=== PATIENT | female | born 2000 | race Caucasian/White ===

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

== ENCOUNTER → 2019-02-25 14:05 | Outpatient (CLI) | payer OTHER, SELFPAY | PROVIDERS: Visit Provider Family Medicine | DX: N30.00 Acute cystitis without hematuria (principal) | CPT/HCPCS: 87086; 87088; 87186 ==

== ENCOUNTER 2019-07-24 06:26 | Outpatient (CLI) | payer OTHER, SELFPAY ==
[2019-07-24 06:44] VITALS: BMI 36.6
[2019-07-24 06:53] VITALS: BP 123/69; PULSE 128; RESP 18; TEMP 37.2; O2SAT 99; BMI 36.6
[2019-07-24 06:59] LABS: Microscopic, Urine URINE MICROSCOPIC (MICROSCOPIC)
[2019-07-24 07:02] LABS: Appearance,Urine SL CLOUDY (Clear); Bilirubin,Urine Negative (Negative); Blood, Urine 2+ (Negative); Color,Urine YELLOW (Yellow); Glucose,Urine (UA) Negative (Negative); Ketones,Urine Negative (Negative); Leukocyte Esterase,Urine Negative (Negative); Nitrate,Urine POSITIVE (Negative); Protein,Urine 2+ (Negative); Specific Gravity, Urine 1.025 (1.005-1.030); Urobilinogen,Urine 0.2 EU/dl (0.2)
[2019-07-24 07:13] LABS: Bacteria,Urine 1+ /lpf; Mucus,Urine 1+ /lpf
[2019-07-24 07:13] LABS: Amphetamine/Metha Screen,Urine Negative ng/ml (<1000); Benzodiazepines Screen,Urine Negative ng/ml (<200)
[2019-07-24 07:14] LABS: Barbiturates Screen,Urine Negative ng/ml (<200); Cannabinoid Screen,Urine Negative ng/ml (<50)
[2019-07-24 07:15] LABS: Cocaine Screen,Urine Negative ng/ml (<300)
[2019-07-24 07:16] LABS: Methadone Screen,Urine Negative ng/ml (<300); Opiate Screen,Urine Negative ng/ml (<300)
[2019-07-24 07:17] LABS: Phencyclidine Screen,Urine Negative ng/ml (<25)
[2019-07-24 08:09] LABS: Basophils % 0.2 % (0.1-2.0); Eosinophils # 0.3 K/mm3 (0.0-0.4); Eosinophils % 1.8 % (0.1-12.0); Hematocrit 34.6 % (37.0-47.0); Hemoglobin 11.7 g/dL (12.2-16.2); Lymphocytes # 0.8 K/mm3 (0.7-4.5); Lymphocytes % 4.7 % (10-50); Mean Corpuscular HGB Conc 33.7 g/dL (31.8-35.4); Mean Corpuscular Hemoglobin 30.2 pg (27.0-31.2); Mean Corpuscular Volume 89.5 fl (81-99); Mean Platelet Volume 8.3 fl (7.4-10.4); Monocytes # 0.7 K/mm3 (0.1-1.0); Monocytes % 4.2 % (1.7-9.3); Neutrophils # 14.4 K/mm3 (1.8-7.8); Neutrophils % 89.1 % (37.0-80.0); Platelet Count 282 K/mm3 (142-424); Red Blood Count 3.86 M/mm3 (4.20-5.40); Red Cell Distribution Width 13.1 % (11.5-17.5); White Blood Count 16.2 K/mm3 (4.5-13.0)
[2019-07-24 08:10] LABS: Chloride 105 mmol/L (98-107); Sodium 133 mmol/L (136-145)
[2019-07-24 08:12] LABS: Blood Urea Nitrogen 5 mg/dl (7-17); Creatinine Clearance Estimated 333 mL/min (50-200); Estimated Glomerular Filt Rate 203 ml/min (>60); GFR (African American) 246 ML/MIN (>60)
[2019-07-24 08:13] LABS: Alanine Aminotransferase 50 U/L (12-78); Albumin Level 3.4 g/dl (3.5-5.0); Albumin/Globulin Ratio 1.1 (1.1-1.8); Alkaline Phosphatase 71 U/L (38-126); Aspartate Amino Transferase 28 U/L (14-36); Bilirubin,Total 0.4 mg/dl (0.2-1.3); Calcium 8.9 mg/dl (8.4-10.2); Carbon Dioxide 20 mmol/L (22.0-30.0); Globulin 3.1 g/dL (1.3-3.2); Glucose 102 mg/dl (74-100); Total Protein,Serum 6.5 g/dl (6.3-8.2)
[2019-07-24 08:23] LABS: MANUAL DIFFERENTIAL MANUAL DIFFERENTIAL (MANUAL DIFF)
[2019-07-24 08:46] LABS: Eosinophils % 1 % (0-3); Lymphocytes % 8 % (10-50); Monocytes % 7 % (2-9); Neutrophils % 84 % (42-76); Platelet Estimate Normal; RBC Morphology Normal; Total Cells Counted 100
== END 2019-07-24 09:19 | disposition home or self-care (01) ==
LOC: OBOUT 06:30 → OB 06:33
PROVIDERS: Nurse Practitioner Obstetrics & Gynecology; PCP Family Medicine; Visit Provider Obstetrics & Gynecology
DX: O26.899 Other specified pregnancy related conditions, unspecified trimester (principal); Z3A.27 27 weeks gestation of pregnancy; R10.9 Unspecified abdominal pain
CPT/HCPCS: 59025; 80053; 80305; 81001; 85007; 85025; 96365; 96367; G0463

== ENCOUNTER 2019-10-23 19:19 | Outpatient (CLI) | payer OTHER, SELFPAY ==
[2019-10-23 19:30] VITALS: BP 155/102; PULSE 72; RESP 18; TEMP 37.1; O2SAT 100
--- NOTE | 2019-10-23 19:30 | PC.NURSE ---
PT ARRIVED COMPLAINING OF ELEVATED BLOOD PRESSURE AND SWELLING.DENIES ANY HX OF PREECLAMPSIA.REPORTS SHE DELIVERED OCTOBER [address] AT [facility] [address] A DR.LAURA HUTTON.IT WAS A VAG.DELIVERY WITHOUT ANY COMPLICATIONS.SWELLING NOTED 1+ PITTING IN BLE.DENIES ANY H/A OR BLURRED VISION,STATES SHE HAS HAD SOME H/A BUT NOT NOW.DTR'S NORMAL.
[2019-10-23 19:36] VITALS: BMI 38.6
[2019-10-23 19:45] VITALS: BP 134/80; PULSE 62
[2019-10-23 19:48] LABS: Microscopic, Urine URINE MICROSCOPIC (MICROSCOPIC)
[2019-10-23 19:50] LABS: Appearance,Urine CLEAR (Clear); Bilirubin,Urine Negative (Negative); Blood, Urine 3+ (Negative); Color,Urine STRAW (Yellow); Glucose,Urine (UA) Negative (Negative); Ketones,Urine Negative (Negative); Leukocyte Esterase,Urine 2+ (Negative); Nitrate,Urine Negative (Negative); Protein,Urine 1+ (Negative); Urobilinogen,Urine 0.2 EU/dl (0.2)
[2019-10-23 20:00] VITALS: BP 147/72; BP 155/102; PULSE 61; PULSE 72; RESP 18; TEMP 37.1; O2SAT 100; BMI 38.6
[2019-10-23 20:15] VITALS: BP 149/85; PULSE 58; RESP 18
[2019-10-23 20:25] LABS: Bacteria,Urine 2+ /lpf
--- NOTE | 2019-10-23 20:30 | PC.NURSE ---
NOTIFIED OF PT ARRIVAL AND COMPLAINTS.DTR'S NORMAL.1+ EDEMA IN BLE,B/P WAS 155/102,LASTFEW WAS 134/80,147/72,149/85,NO COMPLAINS OF TORRES OR BLURRED VISION,REPORTS HAS HAD ONE BUT NOT NOW.UA HAD 1+ PROTEIN AND 3+ BLOOD.PT STILL HAS LOCHIA.2+LEUKS.REPORT FOR PT TO GO HOME,IF HAS A SEVERE H/A OR BLURRED VISION NEEDS TO BE SEEN AGAIN.CALL TOMORROW TO BE SEEN LATER THIS WEEK.
== END 2019-10-23 20:40 | disposition home or self-care (01) ==
LOC: OBOUT 19:23 → OB 19:35
PROVIDERS: PCP Family Medicine; Visit Provider Nurse Practitioner Obstetrics & Gynecology
DX: O14.95 Unspecified pre-eclampsia, complicating the puerperium (principal)
CPT/HCPCS: 81001; 87086; 87088; 87186

== ENCOUNTER 2020-04-01 16:31 | Emergency (ER) | payer OTHER, SELFPAY ==
[2020-04-01 16:40] VITALS: BP 142/91; PULSE 96; RESP 20; TEMP 37; O2SAT 100; BMI 35.4
--- NOTE | 2020-04-01 16:59 | HMH.EDUTC ---
[facility] [place] Clinical Impression: Fever, unknown origin Disposition: Home, Self-Care Condition on Discharge: Good Instructions: DI for Fever (Symptom) -- Adult, DI for COVID-19 (Suspected or Confirmed ), Preventing the Spread of Coronavirus Discharge Instructions Additional Instructions: Follow up with your Family Doctor or return if symptoms persist REturn if needed Straight to ER if any life threatening symptoms Referrals: Princess Philip MD [Primary Care Provider] - As needed Forms: Work/School Release Time of Disposition: 17:03 Medical Decision Making - Corey Inquiry Pt receiving controlled substance: No Corey was queried for this patient: No Vital Signs: 04/01/20 16:40 04/01/20 17:03 Temperature 98.6 F 98.6 F Temperature Source Oral Pulse Rate 96 H Pulse Rate [Right Brachial] 96 H Respiratory Rate 20 20 Blood Pressure 142/91 H Blood Pressure [Right Arm] 142/91 H Blood Pressure Mean [Right Arm] 108 Blood Pressure Source [Right Arm] Automatic Cuff Blood Pressure Position [Right Arm] Sitting 02 Sat by Pulse Oximetry 100 Oxygen Delivery Method Room Air Orders (Tests/Meds): ORDERS Category Date Time Status Covid-19 Nasal PCR Sendout P&C Stat Lab 04/01/20 16:40 Received Medical Decision Narrative: 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 patient advised that she is not having any symptoms and did not want to have the nasal swab done Patient informed that if she had COVID she could be spreading it and recommended again testing and patient still declined After speaking with patient again she agreed to be tested then upon obtaining COVID test patient become upset and again refused testing patient informed that again of risks if she had COVID and patient still declined testing Upon discharge patient agreed to be tested for COVID Swab completed and patient dc'd [place] [facility] [place] - General Stated complaint: covid test Time Seen by Provider: 04/01/20 16:59 Mode of Arrival: Ambulatory Source of Information: Patient Limitations: No Limitations Description of Symptoms (Recalled from Triage Doc. by RN): PATIENT SENT FOR COVID TEST PER [facility] D/T FEVER. 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 States that she thought the thermometer wasnt working so she checked herself and it showed that she had a temp States that Nedra at the daycare told her that she had a fever and she had to come over and get tested for COVID States that she is not having any symtpoms and does not want the test - Related Data Home Medications Medication Instructions Recorded Confirmed Pnv No.95/Ferrous Fum/Folic AC 1 each PO DAILY 04/14/19 04/14/19 [ Caplet] Allergies Allergy/AdvReac Type Severity Reaction Status Date / Time No Known Allergies Allergy Verified 12/15/18 18:23 - Worker's Comp Is this a Worker's Comp case?: No [facility] History - Hepatitis A Screen Drug use history?: No High risk sexual behaviors?: No History of sexually transmitted infection?: No Currently employed?: No Childcare worker?: No Do you have indoor plumbing?: Yes Do you have electricity?: Yes Attestation statement:: This patient has been screened for Hepatitis A risk factors. I have reviewed the patient's past medical history: Yes Medical History: Denies:: Diabetes Mellitus Type 1, Diabetes Mellitus Type 2 Other Surgeries: No: - Social History Alcohol Intake: never Occupational Status: other ROS Obtained: Yes All systems reviewed & no additional complaints, Yes Systems reviewed as appropriate & no a
--- NOTE | 2020-04-01 17:01 | PC.NURSE ---
Pt came in to be tested for covid. She stated she was not willing to do the nasal swab and refused so order was cancelled.
[2020-04-01 17:03] VITALS: BP 142/91; PULSE 96; RESP 20; TEMP 37; O2SAT 100
--- NOTE | 2020-04-06 15:16 | PC.NURSE ---
Patient notified of positive COVID results. Educated on quarantine.
== END 2020-04-01 17:05 | disposition home or self-care (01) ==
PROVIDERS: Emergency Provider Nurse Practitioner; PCP Family Medicine
DX: Z20.828 Contact with and (suspected) exposure to other viral communicable diseases (principal); R50.9 Fever, unspecified
CPT/HCPCS: 99201; U0003; U0004

== ENCOUNTER 2020-04-22 18:07 | Emergency (ER) | payer OTHER, SELFPAY ==
[2020-04-22 19:05] VITALS: BP 125/95; PULSE 75; RESP 16; TEMP 36.5; O2SAT 100; BMI 38.9
--- NOTE | 2020-04-22 19:27 | HMH.EDUTC ---
[facility] [place] Disposition Clinical Impression: UTI (urinary tract infection) Qualifiers: Urinary tract infection type: site unspecified Hematuria presence: with hematuria Qualified Code(s): N39.0 - Urinary tract infection, site not specified Disposition: Home, Self-Care Condition on Discharge: Good Instructions: DI for Urinary Tract Infection (UTI), Phenazopyridine Additional Instructions: Drink plenty of fluids. Take tylenol or ibuprofen for pain or fever. Take the medications as directed. Follow up with your regular doctor. GO TO THE ER FOR ANY WORSENING SYMPTOMS The pyridium will make your urine turn orange, this is an expected side effect. It will stain your clothes if it comes into contact with them. Prescriptions: Nitrofurantoin Monohyd/M-Cryst [Macrobid 100 mg Capsule] 100 mg PO BID 5 Days #10 cap Transmission Status: Received by [id number] Phenazopyridine HCl [Pyridium 200mg Tablet] 200 pow PO TID #6 tab Transmission Status: Received by [id number] Referrals: Princess Philip MD [Primary Care Provider] - Time of Disposition: 19:43 Medical Decision Making - Medical Records Medical records reviewed: No: I reviewed the patient's medical records. - Corey Inquiry Pt receiving controlled substance: No Vital Signs: 04/22/20 19:05 04/22/20 19:44 Temperature 97.7 F 97.7 F Temperature Source Oral Pulse Rate 75 Pulse Rate [Left Brachial] 75 Respiratory Rate 16 16 Blood Pressure 125/95 H Blood Pressure [Left Arm] 125/95 H Blood Pressure Mean [Left Arm] 105 Blood Pressure Source [Left Arm] Automatic Cuff Blood Pressure Position [Left Arm] Sitting 02 Sat by Pulse Oximetry 100 Oxygen Delivery Method Room Air - Lab Data Lab results reviewed: Yes: I reviewed the patient's lab results. Orders (Tests/Meds): ORDERS Category Date Time Status Urine Culture Stat Micro 04/22/20 19:30 Received [facility] [place] HPI - General Stated complaint: poss UTI Time Seen by Provider: 04/22/20 19:27 Mode of Arrival: Ambulatory Source of Information: Patient Limitations: No Limitations Description of Symptoms (Recalled from Triage Doc. by RN): PATIENT C/O LOWER BACK PAIN, DARK URINE, STOMACH PAIN, URINARY FREQUENCY AND DARK COLORED URINE X 3 WEEKS. WAS PREVIOUSLY TREATED BY PCP BUT STATES SHE DOES NOT FEEL BETTER HEENT Symptoms (Recalled from RN notes): No Resp Symptoms (Recalled from RN notes): No Skin Symptoms (Recalled from RN notes): No MS Symptoms (Recalled from RN notes): No Functional Status (Recalled from RN notes): WNL - History of Present Illness Provider Complaint: She c/o dysuria, low back pain and urinary frequency for the past 5 days. She was treated for a uti about 3 weeks ago. She states that she got better then, but her symptoms came back. - Related Data Home Medications Medication Instructions Recorded Confirmed norethindrone-e.estradioL-iron 1 tab PO DAILY 04/22/20 04/22/20 [Junel Fe 1 mg-20 Mcg Tablet] Previous Rx's Medication Instructions Recorded Nitrofurantoin Monohyd/M-Cryst 100 mg PO BID 5 Days #10 cap 04/22/20 [Macrobid 100 mg Capsule] Phenazopyridine HCl [Pyridium 200 pow PO TID #6 tab 04/22/20 200mg Tablet] Allergies Allergy/AdvReac Type Severity Reaction Status Date / Time No Known Allergies Allergy Verified 12/15/18 18:23 - Worker's Comp Is this a Worker's Comp case?: No [facility] History - Hepatitis A Screen Drug use history?: No High risk sexual behaviors?: No History of sexually transmitted infection?: No Currently employed?: No Childcare worker?: No Do you have indoor plumbing?: Yes Do you have electricity?: Yes Attestation statement:: This patient has been screened for Hepatitis A risk factors. I have reviewed the patient's past medical history: Yes Medical History: Denies:: Diabetes Mellitus Type 1, Diabetes Mellitus Type 2 Other Surgeries: No: - Social History Alcoho
[2020-04-22 19:44] VITALS: BP 125/95; PULSE 75; RESP 16; TEMP 36.5; O2SAT 100
[2020-04-22 21:21] LABS: Apearance,Urine Clear (Clear); Bilirubin,Urine Negative (Negative); Blood, Urine 2+ (Negative); Color,Urine Yellow (Yellow); Glucose,Urine (UA) Negative (Negative); Ketones,Urine Negative (Negative); PH,Urine 5.5 (5.0-8.5); Protein,Urine Negative (Negative); Specific Gravity, Urine >= 1.030 (1.005-1.030); Urobilinogen,Urine 0.2 EU/dl (0.2)
[2020-04-22 21:22] LABS: UTC Leukocyte Esterase,Urine Negative (Negative); UTC Nitrate,Urine Negative (Negative)
== END 2020-04-22 19:48 | disposition home or self-care (01) ==
LOC: ER 18:11 → UTC 18:21
PROVIDERS: Emergency Provider Nurse Practitioner Family; PCP Family Medicine
DX: N30.00 Acute cystitis without hematuria (principal)
CPT/HCPCS: 81003; 87086; 99202; G0463

== ENCOUNTER → 2020-05-10 15:11 | Outpatient (CLI) | payer OTHER, SELFPAY ==
--- NOTE | 2020-05-10 15:11 | US_ITS ---
PROCEDURE: US TRANSVAGINAL CLINICAL INDICATION: US T/V-pelvic pain COMPARISON: No exams were available for comparison FINDINGS: UTERUS: 6cm x 4cmx 3cm with a combined endometrial thickness of 6.6mm LEFT OVARY: [id number] with a volume of 9.8ml. RIGHT OVARY: [id number] with a volume of 6.6ml. There are numerous left ovarian follicles with more than 10 on 1 image. Numerous right ovarian follicles also noted. The right ovary is less well demonstrated than the left side. IMPRESSION: Polycystic ovarian appearance of the ovaries. Please correlate with clinical parameters. Dictated by: George Rodriguez MD 05/10/2020 17:24 George Rodriguez MD in OV 05/10/2020 17:24
== END ==
PROVIDERS: PCP Family Medicine; Visit Provider Obstetrics & Gynecology
DX: R10.2 Pelvic and perineal pain (principal)
CPT/HCPCS: 76830

== ENCOUNTER 2020-05-13 15:24 | Emergency (ER) | payer OTHER, SELFPAY ==
[2020-05-13 15:25] VITALS: BP 136/68; PULSE 89; RESP 20; TEMP 36.3; O2SAT 97; BMI 38.9
--- NOTE | 2020-05-13 15:41 | HMH.EDUTC ---
[facility] [place]ression: Strep throat Disposition: Home, Self-Care Condition on Discharge: Good Instructions: DI for Strep Throat, Strep Throat, Strep Throat (Alternative Therapy), Amoxicillin Additional Instructions: *Monitor Temp, Over the counter Motrin or Tylenol as directed/as needed Tylenol every 4 hours and Motrin every 6 hours (as long as your family doctor has told you that you can take it) for fever or pain. and straight to ER if unable to lower temp less than 101.0 after medication given *Warm salt water gargles may help to soothe the throat *Throat Lozenges *Warm fluids like tea with honey may help to soothe the throat *Sleep elevated *Humidifier/Vaporizer *If you did not take Penicillin shot or was unable to, start taking antibiotic immediately and make sure that you take it for the FULL length of time although you should start to feel better in 24-48 hours *change toothbrush and toothpaste 24-48 hours after starting to take antibiotics so you do not reinfect yourself Monitor Temp. Tylenol and/or Ibuprofen as needed. ER if fever is no less than 101 despite alternating Tylenol and Ibuprofen * Encourage fluids, water, Gatorade, powerade, pedialyte if /toddler/or child *Cold fluids, popsicles and ice cream may feel good on his throat * Follow up IMMEDIATELY for new or worsening symptoms or no Noticeable improvement over the next 48-72 hours. 911 for difficulty breathing or swallowing You were tested for today for COVID19 your test result should be back in the next 24-48 hours, you may call to the [facility] to see if your test results are back in the next 48 hours [phone] [facility] hours are 9am-9pm You was given a handout with instructions for Self Quarantine and Self isolation for while you wait on test results and what to do if they are positive If you are positive the Health Dept will be contacting you also Prescriptions: Amoxicillin [Amoxicillin 500mg Cap] 500 mg PO BID 10 Days #20 cap Transmission Status: Pending to [facility] Brompheniramine/Pseudoephed/Dm [Bromfed Dm Cough Syrup] 5 - 10 ml PO Q46H PRN #150 ml PRN Reason: Cough Transmission Status: Pending to [facility] Referrals: Princess Philip MD [Primary Care Provider] - As needed Forms: Work/School Release Time of Disposition: 15:49 Medical Decision Making - Corey Inquiry Pt receiving controlled substance: No Corey was queried for this patient: No Vital Signs: 05/13/20 15:25 Temperature 97.4 F L Temperature Source Oral Pulse Rate [Right Brachial] 89 Respiratory Rate 20 Blood Pressure [Right Arm] 136/68 Blood Pressure Mean [Right Arm] 90 Blood Pressure Source [Right Arm] Automatic Cuff Blood Pressure Position [Right Arm] Sitting 02 Sat by Pulse Oximetry 97 Oxygen Delivery Method Room Air - Lab Data Lab results reviewed: Yes: I reviewed the patient's lab results. Orders (Tests/Meds): ORDERS Category Date Time Status Covid-19 Nasal PCR ([facility]) Routine Lab 05/13/20 15:26 Ordered [facility] [place] - General Stated complaint: covid test Time Seen by Provider: 05/13/20 15:41 Mode of Arrival: Ambulatory Source of Information: Patient Limitations: No Limitations Description of Symptoms (Recalled from Triage Doc. 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
[2020-05-13 15:44] LABS: UTC Pregnancy Test, Urine Negative (Negative); UTC Strep Screen (Rapid) Positive (Negative)
[2020-05-13 15:51] VITALS: BP 136/68; PULSE 89; RESP 20; TEMP 36.3; O2SAT 97
== END 2020-05-13 15:58 | disposition home or self-care (01) ==
PROVIDERS: Emergency Provider Nurse Practitioner; PCP Family Medicine
DX: Z20.822 Contact with and (suspected) exposure to COVID-19 (principal); J02.0 Streptococcal pharyngitis
CPT/HCPCS: 81025; 87880; 99202; G0463; U0003

== ENCOUNTER 2020-05-15 14:39 | Emergency (ER) | payer OTHER, SELFPAY ==
[2020-05-15 14:44] VITALS: BP 131/77; PULSE 89; RESP 18; TEMP 36.7; O2SAT 98; BMI 40.2
--- NOTE | 2020-05-15 14:58 | HMH.EDGENADL ---
ED Disposition Clinical Impression: Pelvic pain, Polycystic bilateral ovaries Disposition: Home, Self-Care Condition on Discharge: Good Additional Instructions: Tylenol as needed for pain. Follow-up with Dr. Alexander in her office. Call for appointment. Additional instructions for ABDOMINAL PAIN: Return immediately if worsening abdominal pain, vomiting, shortness of breath, fever, vomiting of blood or abdominal distention. Referrals: Princess Philip MD [Primary Care Provider] - - Critical Care Critical Care Time: No Attestation: On , the high probability of a clinically significant, sudden or life threatening deterioration of the following system(s) required my full and direct attention, intervention and personal management. The time I documented below is in addition to time spent performing reported procedures but includes the following listed in this critical care notation. Medical Decision Making - Medical Records Medical records reviewed: Yes: I reviewed the patient's medical records. MR Comment: Reviewed [facility] visit 05/13/2020. Positive rapid strep. Negative Covid test. Reviewed ultrasound results, see below. Reviewed clinic visit with Dr. Alexander 05/06/2020. Diagnosed with pelvic pain and dysfunctional uterine bleeding. Changed oral contraceptive pill to Sprintec. Urine analysis was negative. Reviewed [facility] visit on 04/22/2020. Back and abdominal pain. Diagnosed with UTI. Urine analysis showed only blood. Urine culture showed multiple organisms, probable contamination. - Corey Inquiry Pt receiving controlled substance: No Vital Signs: 05/15/20 14:44 Temperature 98.0 F Temperature Source Oral Pulse Rate [Right Radial] 89 Respiratory Rate 18 Blood Pressure [Right Arm] 131/77 Blood Pressure Mean [Right Arm] 95 Blood Pressure Source [Right Arm] Automatic Cuff Blood Pressure Position [Right Arm] Sitting 02 Sat by Pulse Oximetry 98 Oxygen Delivery Method Room Air - Lab Data Lab Results 05/15/20 14:56: WBC 5.9, RBC 5.01, Hgb 13.8, Hct 43.1, MCV 86.1, MCH 27.6, MCHC 32.0, RDW 13.8, Plt Count 276, MPV 7.5, Neut % (Auto) 64.2, Lymph % (Auto) 28.9, Wells % (Auto) 4.7, Eos % (Auto) 1.4, Baso % (Auto) 0.8, Neut # (Auto) 3.8, Lymph # (Auto) 1.7, Wells # (Auto) 0.3, Eos # (Auto) 0.1, Baso # (Auto) 0.1 05/15/20 14:56: Sodium 140, Potassium 3.7, Chloride 109 H, Carbon Dioxide 27, Anion Gap 7.7, BUN 16, Creatinine 0.70, Estimated Creat Clear 202, Estimated GFR 107, Est GFR ( Amer) 129, Glucose 85, Calcium 9.4, Total Bilirubin 0.2, AST 27, ALT 30, Alkaline Phosphatase 93, Total Protein 8.1, Albumin 4.2, Globulin 3.9 H, Albumin/Globulin Ratio 1.1 05/15/20 15:09: Urine Color Yellow, Urine Appearance Sl cloudy, Urine pH 6.0, Ur Specific [place] >= 1.030, Urine Protein Negative, Urine Glucose (UA) Negative, Urine Ketones Negative, Urine Blood Negative, Urine Nitrate Negative, Urine Bilirubin Negative, Urine Urobilinogen 0.2, Ur Leukocyte Esterase Negative, Ur Squamous Epith Cells 5-10 05/15/20 15:09: Urine HCG, Qual Negative Result diagrams: 05/15/20 14:56 05/15/20 14:56 - Reevaluation(s) Time: 15:35 Reevaluation #1: sitting up on side of stretcher, using smart phone. Declines any medication for pain or nausea, declines Toradol and Zofran. states she will take Tylenol. Declines any prescriptions for nausea. Medical Decision Narrative: prior US: PROCEDURE: US TRANSVAGINAL CLINICAL INDICATION: US T/V-pelvic pain COMPARISON: No exams were available for comparison FINDINGS: UTERUS: 6cm x 4cmx 3cm with a combined endometrial thickness of 6.6mm LEFT OVARY: [id number] with a volume of 9.8ml. RIGHT OVARY: [id number] with a volume of 6.6ml. There are numerous left ovarian follicles with more than 10 on 1 image. Numerous right ovarian follicles also noted. The right ovary is less well demonstrated than the left side. IMPRESSION: Polycystic ovarian appearance of the ovar
[2020-05-15 15:12] LABS: Basophils # 0.1 K/mm3 (0-0.2); Basophils % 0.8 % (0.1-2.0); Eosinophils # 0.1 K/mm3 (0.0-0.4); Eosinophils % 1.4 % (0.1-12.0); Hematocrit 43.1 % (37.0-47.0); Hemoglobin 13.8 g/dL (12.2-16.2); Lymphocytes # 1.7 K/mm3 (0.7-4.5); Lymphocytes % 28.9 % (10-50); Mean Corpuscular Hemoglobin 27.6 pg (27.0-31.2); Mean Corpuscular Volume 86.1 fl (81-99); Mean Platelet Volume 7.5 fl (7.4-10.4); Monocytes # 0.3 K/mm3 (0.1-1.0); Monocytes % 4.7 % (1.7-9.3); Neutrophils # 3.8 K/mm3 (1.8-7.8); Neutrophils % 64.2 % (37.0-80.0); Platelet Count 276 K/mm3 (142-424); Red Blood Count 5.01 M/mm3 (4.20-5.40); Red Cell Distribution Width 13.8 % (11.5-17.5); White Blood Count 5.9 K/mm3 (4.5-13.0)
[2020-05-15 15:13] LABS: Chloride 109 mmol/L (98-107)
[2020-05-15 15:14] LABS: Potassium 3.7 mmoL/L (3.5-5.1); Sodium 140 mmol/L (136-145)
[2020-05-15 15:15] LABS: Microscopic, Urine URINE MICROSCOPIC (MICROSCOPIC)
[2020-05-15 15:16] LABS: Alanine Aminotransferase 30 U/L (12-78); Aspartate Amino Transferase 27 U/L (14-36); Blood Urea Nitrogen 16 mg/dl (7-17); Creatinine Clearance Estimated 202 mL/min (50-200); Estimated Glomerular Filt Rate 107 ml/min (>60); GFR (African American) 129 ML/MIN (>60)
[2020-05-15 15:17] LABS: Albumin Level 4.2 g/dl (3.5-5.0); Albumin/Globulin Ratio 1.1 (1.1-1.8); Alkaline Phosphatase 93 U/L (38-126); Anion Gap 7.7 mEq/L (5-15); Bilirubin,Total 0.2 mg/dl (0.2-1.3); Calcium 9.4 mg/dl (8.4-10.2); Carbon Dioxide 27 mmol/L (22.0-30.0); Globulin 3.9 g/dL (1.3-3.2); Glucose 85 mg/dl (74-100); Total Protein,Serum 8.1 g/dl (6.3-8.2)
[2020-05-15 15:17] LABS: Appearance,Urine SL CLOUDY (Clear); Bilirubin,Urine Negative (Negative); Blood, Urine Negative (Negative); Color,Urine YELLOW (Yellow); Glucose,Urine (UA) Negative (Negative); Ketones,Urine Negative (Negative); Leukocyte Esterase,Urine Negative (Negative); Nitrate,Urine Negative (Negative); Protein,Urine Negative (Negative); Specific Gravity, Urine >= 1.030 (1.005-1.030); Urobilinogen,Urine 0.2 EU/dl (0.2)
[2020-05-15 15:19] LABS: Urine Pregnancy, HCG Qual. Negative (Negative)
[2020-05-15 16:01] VITALS: BP 113/64; PULSE 83; RESP 16; TEMP 36.9; O2SAT 99
== END 2020-05-15 16:03 | disposition home or self-care (01) ==
PROVIDERS: Emergency Provider Emergency Medicine; PCP Family Medicine
DX: N83.202 Unspecified ovarian cyst, left side (principal); N83.201 Unspecified ovarian cyst, right side
CPT/HCPCS: 80053; 81001; 81025; 85025; 99282

== ENCOUNTER → 2020-07-08 15:09 | Outpatient (CLI) | payer OTHER, SELFPAY ==
--- NOTE | 2020-07-08 15:09 | US_ITS ---
PROCEDURE: US TRANSVAGINAL CLINICAL INDICATION: pelvic pain COMPARISON: US US TRANSVAGINAL from 05/10/2020 FINDINGS: UTERUS: x 5cmx 3cm with a combined endometrial thickness of 9.4mm LEFT OVARY: [id number] with a volume of 5.8ml. RIGHT OVARY: 3cmx [id number] with a volume of 7.6ml. Multiple follicles in the ovaries bilaterally. No evidence of free fluid noted in the pelvic cul-de-sac. IMPRESSION: Negative pelvic ultrasound Dictated by: Lissett Mace 07/08/2020 16:15 Lissett Mace in OV 07/08/2020 16:15
== END ==
PROVIDERS: PCP Family Medicine; Visit Provider Obstetrics & Gynecology
DX: R10.2 Pelvic and perineal pain (principal)
CPT/HCPCS: 76830

== ENCOUNTER 2020-09-11 18:00 | Emergency (ER) | payer OTHER, SELFPAY ==
--- NOTE | 2020-09-11 17:52 | ECG_ITS ---
APPROVED REPORT Exam: Resting ECG HR:73 bpm ECG Measurements Heart Rate 73 AXES [place] 138 P 58 QRSd 84 QRS 30 QT 404 T 37 QTc 445 Conclusion Normal sinus rhythm Normal ECG Electronically signed by : Gustavo Aguilar, 09/13/2020 10:25:25
[2020-09-11 18:00] VITALS: BP 124/78; PULSE 79; RESP 20; TEMP 36.7; O2SAT 100; BMI 40.7
--- NOTE | 2020-09-11 18:04 | XR_ITS ---
PROCEDURE INFORMATION: Exam: XR Chest Exam date and time: 09/11/2020 6:04 PM Age: 20 years old Clinical indication: Patient HX: Chest pain for a week, called her doctor today was told to come to er for an ekg. TECHNIQUE: Imaging protocol: XR of the chest. Views: 2 views. COMPARISON: No relevant prior studies available. FINDINGS: Lungs: Unremarkable. No consolidation. Pleural spaces: Unremarkable. No pleural effusion. No pneumothorax. Heart/Mediastinum: Unremarkable. No cardiomegaly. Bones/joints: Unremarkable. IMPRESSION: No acute findings.
--- NOTE | 2020-09-11 18:05 | HMH.EDGENADL ---
ED Disposition Condition on Discharge: Good - Critical Care Critical Care Time: No <KietLuis M gao - Last Filed: 09/11/20 20:08> <Dong Kitchen - Last Filed: 09/11/20 21:15> Clinical Impression: Pleuritic chest pain, SOB (shortness of breath) Disposition: Home, Self-Care Instructions: DI for Atypical Chest Pain Additional Instructions: advil and tyenol and call pcp for follow up Referrals: Provider,Referral, MD [Referring] - Attestation: On 09/11/20, the high probability of a clinically significant, sudden or life threatening deterioration of the following system(s) required my full and direct attention, intervention and personal management. The time I documented below is in addition to time spent performing reported procedures but includes the following listed in this critical care notation. Medical Decision Making - Corey Inquiry Pt receiving controlled substance: No - Lab Data Result diagrams: 09/11/20 18:03 - Radiology Data #1 Image(s): Chest Image Reviewed: Yes I reviewed the patient's radiology image, Yes I have reviewed radiologist's interpretation <KietLuis M gao - Last Filed: 09/11/20 20:08> - Medical Records Medical records reviewed: Yes: I reviewed the patient's medical records. - Lab Data Lab results reviewed: Yes: I reviewed the patient's lab results. Result diagrams: 09/11/20 18:03 09/11/20 18:03 - CT Data CT Scan: Chest Time Received: 21:[address] Reviewed: Yes: I have viewed the radiologist's interpretation Preliminary Findings: Normal/NAD <Dong Kitchen - Last Filed: 09/11/20 21:15> Vital Signs: 09/11/20 18:00 09/11/20 19:25 09/11/20 20:31 Temperature 98.0 F Temperature Source Oral Pulse Rate 77 69 Pulse Rate [Left Radial] 79 Respiratory Rate 20 16 Blood Pressure 109/67 L 104/72 L Blood Pressure [Right Arm] 124/78 Blood Pressure Mean [Right Arm] 93 Blood Pressure Source [Right Arm] Automatic Cuff Blood Pressure Position [Right Arm] Sitting 02 Sat by Pulse Oximetry 100 100 100 Oxygen Delivery Method Room Air - Lab Data Lab Results 09/11/20 18:03: WBC 6.4, RBC 4.73, Hgb 13.5, Hct 40.4, MCV 85.4, MCH 28.6, MCHC 33.5, RDW 13.2, Plt Count 283, MPV 7.8, Neut % (Auto) 57.3, Lymph % (Auto) 35.1, [place] % (Auto) 5.8, Eos % (Auto) 1.1, Baso % (Auto) 0.6, Neut # (Auto) 3.6, Lymph # (Auto) 2.2, [place] # (Auto) 0.4, Eos # (Auto) 0.1, Baso # (Auto) 0.0 09/11/20 18:03: Sodium 137, Potassium 4.0, Chloride 107, Carbon Dioxide 24, Anion Gap 10.0, BUN 14, Creatinine 0.60, Estimated Creat Clear 244, Estimated GFR 126, Est GFR ( Amer) 153, Glucose 81, Calcium 8.7, Troponin I < 0.01 09/11/20 18:35: D-Dimer 0.79 H 09/11/20 18:48: Serum HCG, Qual Negative Orders (Tests/Meds): ED MEDICATIONS Discontinued Medications Generic Name Dose Route Start Last Admin Trade Name Freq PRN Reason Stop Dose Admin Iopamidol 70 ml 09/11/20 20:51 09/11/20 20:52 Iopamidol-370 (76%);100ml Bottle IV 09/11/20 20:52 70 ml ONCE ONE Administration Sodium Chloride 40 ml 09/11/20 20:51 09/11/20 20:52 0.9 % Sodium Chloride 50 Ml Vial IV 09/11/20 20:52 40 ml ONCE ONE Administration Sodium Chloride 10 ml 09/11/20 20:51 09/11/20 20:52 Sodium Chloride 0.9% 10ml Syr (Rad Only) IV 09/11/20 20:52 10 ml ONCE ONE Administration ORDERS Category Date Time Status Troponin I Q3H Lab 09/11/20 21:15 Ordered Troponin I Q3H Lab 09/12/20 00:15 Ordered - Radiology Data #1 PROCEDURE INFORMATION: Exam: XR Chest Exam date and time: 09/11/2020 6:04 PM Age: 20 years old Clinical indication: Patient HX: Chest pain for a week, called her doctor today was told to come to er for an ekg. TECHNIQUE: Imaging protocol: XR of the chest. Views: 2 views. COMPARISON: No relevant prior studies available. FINDINGS: Lungs: Unremarkable. No consolidation. Pleural spaces: Unremarkable. No pleural effusion. No pneum
[2020-09-11 18:31] LABS: Blood Urea Nitrogen 14 mg/dl (7-17); Calcium 8.7 mg/dl (8.4-10.2); Carbon Dioxide 24 mmol/L (22.0-30.0); Chloride 107 mmol/L (98-107); Creatinine Clearance Estimated 244 mL/min (50-200); Estimated Glomerular Filt Rate 126 ml/min (>60); GFR (African American) 153 ML/MIN (>60); Glucose 81 mg/dl (74-100); Sodium 137 mmol/L (136-145)
[2020-09-11 18:43] LABS: Basophils % 0.6 % (0.1-2.0); Eosinophils # 0.1 K/mm3 (0.0-0.4); Eosinophils % 1.1 % (0.1-12.0); Hematocrit 40.4 % (37.0-47.0); Hemoglobin 13.5 g/dL (12.2-16.2); Lymphocytes # 2.2 K/mm3 (0.7-4.5); Lymphocytes % 35.1 % (10-50); Mean Corpuscular HGB Conc 33.5 g/dL (31.8-35.4); Mean Corpuscular Hemoglobin 28.6 pg (27.0-31.2); Mean Corpuscular Volume 85.4 fl (81-99); Mean Platelet Volume 7.8 fl (7.4-10.4); Monocytes # 0.4 K/mm3 (0.1-1.0); Monocytes % 5.8 % (1.7-9.3); Neutrophils # 3.6 K/mm3 (1.8-7.8); Neutrophils % 57.3 % (37.0-80.0); Platelet Count 283 K/mm3 (142-424); Red Blood Count 4.73 M/mm3 (4.20-5.40); Red Cell Distribution Width 13.2 % (11.5-17.5); White Blood Count 6.4 K/mm3 (4.8-10.8)
[2020-09-11 18:50] LABS: Troponin I < 0.01 ng/ml (0.00-0.034)
[2020-09-11 19:25] VITALS: BP 109/67; PULSE 77; RESP 16; O2SAT 100
[2020-09-11 19:35] LABS: D-Dimer 0.79 ug/mL (0.0-0.5)
--- NOTE | 2020-09-11 19:46 | CT_ITS ---
PROCEDURE INFORMATION: Exam: CTA Chest With Contrast Exam date and time: 09/11/2020 7:46 PM Age: 20 years old Clinical indication: On breathing and other: Elevated d dimer; Patient HX: Elevated d dimer, SOB and chest pain; Additional info: SOA, cp, elev d-dimer TECHNIQUE: Imaging protocol: Computed tomographic angiography of the chest with contrast. 3D rendering (Not supervised by radiologist): MIP and/or 3D reconstructed images were created by the technologist. Radiation optimization: All CT scans at this facility use at least one of these dose optimization techniques: automated exposure control; mA and/or kV adjustment per patient size (includes targeted exams where dose is matched to clinical indication); or iterative reconstruction. Contrast material: ISOVUE 370; Contrast volume: 70 ml; Contrast route: INTRAVENOUS (IV); COMPARISON: CR XR CHEST 2V 09/11/2020 6:06 PM FINDINGS: Pulmonary arteries: Normal. No pulmonary emboli. Aorta: Unremarkable. No aortic aneurysm. No aortic dissection. Lungs: Unremarkable. No consolidation. No masses. Pleural spaces: Unremarkable. No pneumothorax. No pleural effusion. Heart: Unremarkable. No cardiomegaly. No pericardial effusion. Lymph nodes: Unremarkable. No enlarged lymph nodes. Bones/joints: Unremarkable. No acute fracture. Soft tissues: Unremarkable. IMPRESSION: No acute findings.
[2020-09-11 20:16] LABS: HCG Qualitative, Serum Negative (Negative)
[2020-09-11 20:31] VITALS: BP 104/72; PULSE 69; O2SAT 100
--- NOTE | 2020-09-11 20:40 | PC.NURSE ---
pt gone to radiology.
[2020-09-11 21:22] VITALS: BP 104/72; PULSE 71; RESP 16; TEMP 36.8; O2SAT 100
== END 2020-09-11 21:30 | disposition home or self-care (01) ==
PROVIDERS: Emergency Provider Emergency Medicine; PCP Family Medicine
DX: R07.81 Pleurodynia (principal); R06.02 Shortness of breath
CPT/HCPCS: 71046; 71275; 80048; 84484; 84703; 85025; 85378; 93005; 96374; 99282; Q9967

== ENCOUNTER 2020-10-21 18:08 | Emergency (ER) | payer OTHER, SELFPAY ==
[2020-10-21 18:25] VITALS: BP 131/76; PULSE 89; RESP 20; TEMP 36.9; O2SAT 99; BMI 42.5
--- NOTE | 2020-10-21 19:27 | HMH.EDUTC ---
[facility] [place] Disposition Clinical Impression: Strep throat Disposition: Home, Self-Care Condition on Discharge: Good Instructions: Strep Throat, DI for Strep Throat Additional Instructions: Drink plenty of fluids. Take tylenol or ibuprofen for pain or fever. Take the medications as directed. Follow up with your regular doctor. GO TO THE ER FOR ANY WORSENING SYMPTOMS Throw your tooth brush away and get a new one. Prescriptions: Brompheniramine/Pseudoephed/Dm [Bromfed Dm Cough Syrup] 5 ml PO Q6HP PRN #240 syrup PRN Reason: Cough Transmission Status: Received by [facility] Amoxicillin [Amoxicillin 500mg Tab] 500 mg PO TID 10 Days #30 tab Transmission Status: Received by [facility] predniSONE [Deltasone 10mg tablet] 10 mg PO BID 3 Days #6 tab Transmission Status: Received by [facility] Referrals: Princess Philip MD [Primary Care Provider] - Time of Disposition: 19:39 Medical Decision Making - Medical Records Medical records reviewed: No: I reviewed the patient's medical records. - Corey Inquiry Pt receiving controlled substance: No Vital Signs: 10/21/20 18:25 10/21/20 19:41 Temperature 98.4 F 98.4 F Temperature Source Oral Pulse Rate 89 Pulse Rate [Right Brachial] 89 Respiratory Rate 20 20 Blood Pressure 131/76 Blood Pressure [Right Arm] 131/76 Blood Pressure Mean [Right Arm] 94 Blood Pressure Source [Right Arm] Automatic Cuff Blood Pressure Position [Right Arm] Sitting 02 Sat by Pulse Oximetry 99 - Lab Data Lab Results 10/21/20 19:13: Strep Scn Rapid Clinic Positive A [facility] [place] HPI - General Stated complaint: possible strep Time Seen by Provider: 10/21/20 19:28 Mode of Arrival: Ambulatory Source of Information: Patient Limitations: No Limitations Description of Symptoms (Recalled from Triage Doc. by RN): PATIENT C/O SORE THROAT AND COUGH SINCE WEDNESDAY. CHILD RECENTLY DIAGNOSED WITH STREP HEENT Symptoms (Recalled from RN notes): Yes Resp Symptoms (Recalled from RN notes): No Skin Symptoms (Recalled from RN notes): No MS Symptoms (Recalled from RN notes): No Functional Status (Recalled from RN notes): WNL - History of Present Illness Provider Complaint: Her son was diagnosed with strep throat last week. She has had a sore throat for the past 2 days. She has also had some chilling at times and a very poor appetite. - Related Data Home Medications Medication Instructions Recorded Confirmed norethindrone-e.estradioL-iron 1 tab PO DAILY 04/22/20 09/11/20 [Junel Fe 1 mg-20 Mcg Tablet] Previous Rx's Medication Instructions Recorded Amoxicillin [Amoxicillin 500mg Tab] 500 mg PO TID 10 Days #30 tab 10/21/20 Brompheniramine/Pseudoephed/Dm 5 ml PO Q6HP PRN #240 syrup 10/21/20 [Bromfed Dm Cough Syrup] predniSONE [Deltasone 10mg tablet] 10 mg PO BID 3 Days #6 tab 10/21/20 Allergies Allergy/AdvReac Type Severity Reaction Status Date / Time No Known Allergies Allergy Verified 05/06/20 08:59 - Worker's Comp Is this a Worker's Comp case?: No [facility] History - Hepatitis A Screen Drug use history?: No High risk sexual behaviors?: No History of sexually transmitted infection?: No Currently employed?: No Childcare worker?: No Do you have indoor plumbing?: Yes Do you have electricity?: Yes Attestation statement:: This patient has been screened for Hepatitis A risk factors. I have reviewed the patient's past medical history: Yes Medical History: Denies:: Diabetes Mellitus Type 1, Diabetes Mellitus Type 2 Other Surgeries: No: Amputation: No Fractures: No - Social History Smoking Status: Never smoker Alcohol Intake: never Alcohol Intake Frequency:: holidays/special occasions only Substance Use Type: denies use Occupational Status: other Family Hx:: Cancer, Hypertension, Hyperlipidemia, Kidney Disease ROS Obtained: Yes All systems reviewed & no additional complaints - Constitutional Constitutional:
[2020-10-21 19:41] VITALS: BP 131/76; PULSE 89; RESP 20; TEMP 36.9; O2SAT 99
[2020-10-21 19:41] LABS: UTC Strep Screen (Rapid) Positive (Negative)
== END 2020-10-21 19:44 | disposition home or self-care (01) ==
PROVIDERS: Emergency Provider Nurse Practitioner Family; PCP Family Medicine
DX: J02.0 Streptococcal pharyngitis (principal)
CPT/HCPCS: 87880; 99202; G0463

== ENCOUNTER 2020-10-25 19:06 | Emergency (ER) | payer OTHER, SELFPAY ==
[2020-10-25 19:10] VITALS: BP 122/73; PULSE 78; RESP 20; TEMP 36.8; O2SAT 98; BMI 40.7
--- NOTE | 2020-10-25 19:12 | PC.NURSE ---
TDAP GIVEN TO PATIENT AT THIS TIME TO LEFT DELTOID. LOT#[id number] EXP.05/31/22
[2020-10-25 19:23] VITALS: BP 122/73; PULSE 78; RESP 20; TEMP 36.8; O2SAT 98
== END 2020-10-25 19:25 | disposition home or self-care (01) ==
PROVIDERS: Emergency Provider Nurse Practitioner Family; PCP Family Medicine
DX: Z23 Encounter for immunization (principal)
CPT/HCPCS: 90471

== ENCOUNTER 2020-12-02 18:02 | Emergency (ER) | payer OTHER, SELFPAY ==
[2020-12-02 19:07] VITALS: PULSE 95; RESP 16; TEMP 36.8; O2SAT 98; BMI 40.7
--- NOTE | 2020-12-02 19:20 | HMH.EDUTC ---
[facility] [place] Disposition Clinical Impression: Viral syndrome, Exposure to COVID-19 virus Pharyngitis Qualifiers: Pharyngitis/tonsillitis etiology: unspecified etiology Qualified Code(s): J02.9 - Acute pharyngitis, unspecified Disposition: Home, Self-Care Condition on Discharge: Good Instructions: DI for Pharyngitis/Tonsillopharyngitis -- Adult, DI for Viral Syndrome, Preventing the Spread of Coronavirus Discharge Instructions Additional Instructions: Drink plenty of fluids. Take tylenol or ibuprofen for pain or fever. Take the medications as directed. Follow up with your regular doctor. GO TO THE ER FOR ANY WORSENING SYMPTOMS Quarantine until you know the results of your covid-19 test. If it is positive, the health department should call you and give you further instructions about your length of Quarantine and other thing. Prescriptions: Guaifenesin/Dextromethorphan [Guaifenesin-Dm 200-20 mg/10 ml] 5 ml PO Q6HP PRN #240 liquid PRN Reason: Cough Transmission Status: Received by [facility] Azithromycin [Z-Kevin 250mg Tab*] 250 mg PO UD DOSE PK #6 tab Transmission Status: Received by [facility] Referrals: Princess Philip MD [Primary Care Provider] - Forms: Work/School Release Medical Decision Making - Medical Records Medical records reviewed: No: I reviewed the patient's medical records. - Croey Inquiry Pt receiving controlled substance: No Vital Signs: 12/02/20 19:07 12/02/20 19:39 Temperature 98.2 F 98.2 F Temperature Source Temporal Artery Scan Pulse Rate 95 H Pulse Rate [Right] 95 H Respiratory Rate 16 16 Blood Pressure 0/0 L 02 Sat by Pulse Oximetry 98 Oxygen Delivery Method Room Air Room Air - Lab Data Lab Results 12/02/20 19:10: Strep Scn Rapid Clinic Negative Orders (Tests/Meds): ORDERS Category Date Time Status Strep Screen Confirmation Stat Micro 12/02/20 19:10 Received [facility] [place] HPI - General Stated complaint: covid test/symptoms Time Seen by Provider: 12/02/20 19:20 Mode of Arrival: Ambulatory Source of Information: Patient Limitations: No Limitations Description of Symptoms (Recalled from Triage Doc. by RN): pt c/o covid symptoms and requesting covid test HEENT Symptoms (Recalled from RN notes): No Resp Symptoms (Recalled from RN notes): No Skin Symptoms (Recalled from RN notes): No MS Symptoms (Recalled from RN notes): No Functional Status (Recalled from RN notes): na - History of Present Illness Provider Complaint: She states that for the past 2 days she has had a scratchy sore throat, fever up to 101, cough, sinus congestion, nausea and diarrhea. She works at [employer]. She has been around multiple children that were sick and she is not sure what ended up being wrong with them. She denies any chest pain. - Related Data Home Medications Medication Instructions Recorded Confirmed norethindrone-e.estradioL-iron 1 tab PO DAILY 04/22/20 09/11/20 [Junel Fe 1 mg-20 Mcg Tablet] Previous Rx's Medication Instructions Recorded Amoxicillin [Amoxicillin 500mg Tab] 500 mg PO TID 10 Days #30 tab 10/21/20 Brompheniramine/Pseudoephed/Dm 5 ml PO Q6HP PRN #240 syrup 10/21/20 [Bromfed Dm Cough Syrup] predniSONE [Deltasone 10mg tablet] 10 mg PO BID 3 Days #6 tab 10/21/20 Azithromycin [Z-Kevin 250mg Tab*] 250 mg PO UD DOSE PK #6 tab 12/02/20 Guaifenesin/Dextromethorphan 5 ml PO Q6HP PRN #240 liquid 12/02/20 [Guaifenesin-Dm 200-20 mg/10 ml] Allergies Allergy/AdvReac Type Severity Reaction Status Date / Time No Known Allergies Allergy Verified 05/06/20 08:59 - Worker's Comp Is this a Worker's Comp case?: No [facility] History - Hepatitis A Screen Drug use history?: No High risk sexual behaviors?: No History of sexually transmitted infection?: No Currently employed?: No Childcare worker?: No Do you have indoor plumbing?: Yes Do you have electricity?: Yes Attestation statement:: This patient has been screened for He
[2020-12-02 19:39] VITALS: BP 0/0; PULSE 95; RESP 16; TEMP 36.8; O2SAT 98
--- NOTE | 2020-12-03 11:00 | PC.NURSE ---
Notified patient of positive results
[2020-12-03 11:56] LABS: UTC Strep Screen (Rapid) Negative (Negative)
== END 2020-12-02 19:40 | disposition home or self-care (01) ==
PROVIDERS: Emergency Provider Nurse Practitioner Family; PCP Family Medicine
DX: U07.1 COVID-19 (principal)
CPT/HCPCS: 87880; 99202; G0463; U0003

== ENCOUNTER 2020-12-08 11:02 | Emergency (ER) | payer OTHER, SELFPAY ==
[2020-12-08 12:46] VITALS: BP 126/81; PULSE 129; RESP 18; TEMP 37.2; O2SAT 97; BMI 40.7
--- NOTE | 2020-12-08 12:51 | HMH.EDUTC ---
[facility] [place] Disposition Clinical Impression: Chest pain, Dyspnea, COVID-19 Disposition: Still a Patient Condition on Discharge: Undetermined Prescriptions: Ciprofloxacin HCl [Cipro 500mg Tab] 500 mg PO BID 5 Days #10 tab Transmission Status: Pending to [facility] Referrals: Princess Philip MD [Primary Care Provider] - Time of Disposition: 14:28 Medical Decision Making - Corey Inquiry Pt receiving controlled substance: No Vital Signs: 12/08/20 12:46 12/08/20 14:03 Temperature 98.9 F 98 F Temperature Source Oral Oral Pulse Rate [Left] 129 H 115 H Respiratory Rate 18 24 Blood Pressure [Right Arm] 126/81 121/76 Blood Pressure Mean [Right Arm] 96 91 Blood Pressure Position [Right Arm] Sitting 02 Sat by Pulse Oximetry 97 98 Oxygen Delivery Method Room Air - Lab Data Lab Results 12/08/20 13:15: WBC 1.9 L*, RBC 5.26, Hgb 15.4, Hct 46.8, MCV 89.0, MCH 29.2, MCHC 32.9, RDW 13.3, Plt Count 205, MPV 8.5, Neut % (Auto) 65.6, Lymph % (Auto) 29.0, [place] % (Auto) 4.2, Eos % (Auto) 0.5, Baso % (Auto) 0.6, Neut # (Auto) 1.2 L, Lymph # (Auto) 0.5 L, [place] # (Auto) 0.1, Eos # (Auto) 0.0, Baso # (Auto) 0.0 12/08/20 13:15: D-Dimer 0.76 H 12/08/20 13:15: Sodium 139, Potassium 3.6, Chloride 106, Carbon Dioxide 22, Anion Gap 14.6, BUN 10, Creatinine 0.60, Estimated Creat Clear 244, Estimated GFR 126, Est GFR ( Amer) 153, Glucose 112 H, Calcium 8.5, Total Bilirubin 0.3, AST 187 H, ALT 389 H*, Alkaline Phosphatase 112, Troponin I < 0.01, Total Protein 7.7, Albumin 4.0, Globulin 3.7 H, Albumin/Globulin Ratio 1.1 12/08/20 13:15: PT 11.4, INR 0.96 12/08/20 13:15: Serum HCG, Qual Negative 12/08/20 13:30: Urine Color [place], Urine Appearance Cloudy, Urine pH 6.0, Ur Specific [place] 1.025, Urine Protein 1+, Urine Glucose (UA) Negative, Urine Ketones Trace, Urine Blood 3+, Urine Nitrate Positive A, Urine Bilirubin 1+ A, Urine Urobilinogen 1, Ur Leukocyte Esterase Negative 12/08/20 13:42: Lactate 0.8 Result diagrams: 12/08/20 13:15 12/08/20 13:15 Orders (Tests/Meds): ORDERS Category Date Time Status CTA Chest [CT angio chest PE protocol] Stat Cat Scan 12/08/20 14:01 Ordered CXR 2 view (NOT portable) [XR chest 2V] Stat Exams 12/08/20 13:17 Taken ECG Request by /Nayla Stat Y 12/08/20 13:17 Ordered Medical Decision Narrative: Patient told registration and SRNA that roomed patient only about dysuria and sinus symptoms. She did not mention shortness of breath or chest pain until I was in the room discussing her urine results and asking about any other symptoms. She will be transferred to the ER for workup of possible PE, but they are completely full at this time. We will start IV fluids, labs, EKG and CXR. [facility] [place] HPI - General Stated complaint: uti, sinus infection Time Seen by Provider: 12/08/20 12:51 Mode of Arrival: Ambulatory Source of Information: Patient Limitations: No Limitations Description of Symptoms (Recalled from Triage Doc. by RN): pt c/o burning and pressure when trying to urinate. pt also c/o sinus pressure. pt was positive for covid but is out of her quarentine HEENT Symptoms (Recalled from RN notes): Yes (sinus pressure) Resp Symptoms (Recalled from RN notes): No Skin Symptoms (Recalled from RN notes): No MS Symptoms (Recalled from RN notes): No Functional Status (Recalled from RN notes): na - History of Present Illness Provider Complaint: Patient came to [facility] for dysuria, pressure. Has had symptoms X 2-3 days. No fever. Patient recently had COVID19 and just got out of quarantine. She is still having sinus pain and pressure. Denies ear pain or sore throat. Commented that patient's heart rate is fast and she admits that she is having chest pain and shortness of breath. She describes the chest pain as constant needles poking her in the center of her chest and like she can't get a deep breath. She is also taking oral contraceptives. Onset (ago): day(s) (2) Location: chest Quality: b
--- NOTE | 2020-12-08 13:17 | XR_ITS ---
PROCEDURE INFORMATION: Exam: XR Chest Exam date and time: 12/08/2020 1:17 PM Age: 20 years old Clinical indication: Shortness of breath; Patient HX: Chest pain, dyspnea, S/P covid. ; Additional info: Chest pain, dypsnea, S/P covid TECHNIQUE: Imaging protocol: XR of the chest. Views: 2 views. COMPARISON: CR XR CHEST 2V 09/11/2020 6:06 PM FINDINGS: Lungs: Hypoinflation with interstitial prominence and mild airspace disease in the setting of reported COVID-19 pneumonitis. Pleural spaces: No pleural effusion. Heart/Mediastinum: Normal configuration of the heart. Bones/joints: Unremarkable. IMPRESSION: Hypoinflation with interstitial prominence and mild airspace disease in the setting of reported COVID-19 pneumonitis.
[2020-12-08 13:26] LABS: Basophils % 0.6 % (0.1-2.0); Eosinophils % 0.5 % (0.1-12.0); Hematocrit 46.8 % (37.0-47.0); Hemoglobin 15.4 g/dL (12.2-16.2); Lymphocytes # 0.5 K/mm3 (0.7-4.5); Mean Corpuscular HGB Conc 32.9 g/dL (31.8-35.4); Mean Corpuscular Hemoglobin 29.2 pg (27.0-31.2); Mean Platelet Volume 8.5 fl (7.4-10.4); Monocytes # 0.1 K/mm3 (0.1-1.0); Monocytes % 4.2 % (1.7-9.3); Neutrophils # 1.2 K/mm3 (1.8-7.8); Neutrophils % 65.6 % (37.0-80.0); Platelet Count 205 K/mm3 (142-424); Red Blood Count 5.26 M/mm3 (4.20-5.40); Red Cell Distribution Width 13.3 % (11.5-17.5); White Blood Count 1.9 K/mm3 (4.8-10.8)
[2020-12-08 13:31] LABS: Color,Urine Orange (Yellow)
[2020-12-08 13:32] LABS: Chloride 106 mmol/L (98-107)
[2020-12-08 13:33] LABS: Potassium 3.6 mmoL/L (3.5-5.1); Sodium 139 mmol/L (136-145)
[2020-12-08 13:35] LABS: Alanine Aminotransferase 389 U/L (12-78); Aspartate Amino Transferase 187 U/L (14-36); Blood Urea Nitrogen 10 mg/dl (7-17); Creatinine Clearance Estimated 244 mL/min (50-200); Estimated Glomerular Filt Rate 126 ml/min (>60); GFR (African American) 153 ML/MIN (>60); Prothrombin Time 11.4 seconds (10.1-12.5)
[2020-12-08 13:36] LABS: Albumin/Globulin Ratio 1.1 (1.1-1.8); Alkaline Phosphatase 112 U/L (38-126); Anion Gap 14.6 mEq/L (5-15); Bilirubin,Total 0.3 mg/dl (0.2-1.3); Calcium 8.5 mg/dl (8.4-10.2); Carbon Dioxide 22 mmol/L (22.0-30.0); Globulin 3.7 g/dL (1.3-3.2); Glucose 112 mg/dl (74-100); Total Protein,Serum 7.7 g/dl (6.3-8.2)
--- NOTE | 2020-12-08 13:36 | ECG_ITS ---
APPROVED REPORT Exam: Resting ECG HR:123 bpm ECG Measurements Heart Rate 123 AXES RI 140 P 53 QRSd 76 QRS 12 QT 338 T 35 QTc 483 Conclusion Sinus tachycardia Otherwise normal ECG Electronically signed by : Gustavo Aguilar MD 12/08/2020 17:03:13
[2020-12-08 13:41] LABS: Apearance,Urine Cloudy (Clear); Protein,Urine 1+ (Negative); Specific Gravity, Urine 1.025 (1.005-1.030)
[2020-12-08 13:42] LABS: INR 0.96 (0.9-1.1)
[2020-12-08 13:42] LABS: Bilirubin,Urine 1+ (Negative); Blood, Urine 3+ (Negative); Glucose,Urine (UA) Negative (Negative); Ketones,Urine TRACE (Negative); UTC Leukocyte Esterase,Urine Negative (Negative); UTC Nitrate,Urine Positive (Negative); Urobilinogen,Urine 1 EU/dl (0.2)
[2020-12-08 13:47] LABS: D-Dimer 0.76 ug/mL (0.0-0.5)
[2020-12-08 13:48] LABS: Troponin I < 0.01 ng/ml (0.00-0.034)
[2020-12-08 13:54] LABS: Lactic Acid 0.8 mmol/L (0.7-2.1)
--- NOTE | 2020-12-08 14:01 | CT_ITS ---
PROCEDURE INFORMATION: Exam: CTA Chest With Contrast Exam date and time: 12/08/2020 2:01 PM Age: 20 years old Clinical indication: Shortness of breath; Additional info: SOB TECHNIQUE: Imaging protocol: Computed tomographic angiography of the chest with contrast. 3D rendering (Not supervised by radiologist): MIP and/or 3D reconstructed images were created by the technologist. Radiation optimization: All CT scans at this facility use at least one of these dose optimization techniques: automated exposure control; mA and/or kV adjustment per patient size (includes targeted exams where dose is matched to clinical indication); or iterative reconstruction. Contrast material: ISOVUE; Contrast volume: 70 ml; Contrast route: INTRAVENOUS (IV); COMPARISON: CT ANGIO CHEST 09/11/2020 8:39 PM FINDINGS: Pulmonary arteries: No pulmonary embolus in the opacified pulmonary arteries. Aorta: Normal caliber of the thoracic aorta. Lungs: Interstitial prominence. Multifocal airspace disease, left greater than right, consistent with bronchopneumonia in the appropriate clinical setting, with COVID-19 pneumonitis included in the differential diagnosis. Pleural spaces: No significant pleural effusion. Heart: No cardiomegaly. Mediastinal space: Residual thymus in the anterior mediastinum. Lymph nodes: Subcentimeter lymph nodes. Liver: Hepatosplenomegaly and fatty infiltration of the liver. Bones/joints: Mild scoliosis. Schmorl's nodes. Soft tissues: Unremarkable. IMPRESSION: 1. No pulmonary embolus in the opacified pulmonary arteries. 2. Multifocal airspace disease, left greater than right, consistent with bronchopneumonia in the appropriate clinical setting, with COVID-19 pneumonitis included in the differential diagnosis.
[2020-12-08 14:03] VITALS: BP 121/76; PULSE 115; RESP 24; TEMP 36.6; O2SAT 98; BMI 40.7
[2020-12-08 14:06] LABS: HCG Qualitative, Serum Negative (Negative)
--- NOTE | 2020-12-08 15:25 | HMH.EDGENADL ---
ED Disposition Clinical Impression: COVID-19 Dyspnea Qualifiers: Dyspnea type: shortness of breath Qualified Code(s): R06.02 - Shortness of breath Chest pain Qualifiers: Chest pain type: unspecified Qualified Code(s): R07.9 - Chest pain, unspecified Disposition: Home, Self-Care Condition on Discharge: Good Instructions: DI for Urinary Tract Infection (UTI), DI for COVID-19 (Suspected or Confirmed ) Additional Instructions: Off work until Covid symptoms resolve. Take antibiotic as prescribed by urgent treatment center. Zofran as needed for nausea. Return to the emergency department if worsening shortness of breath. Urine culture has been performed, results generally take 2 to 3 days. Follow-up the results of this test with your primary care provider within 2 to 3 days. Prescriptions: Ciprofloxacin HCl [Cipro 500mg Tab] 500 mg PO BID 5 Days #10 tab Transmission Status: Received by [facility] Ondansetron [Zofran 4mg ODT] 4 mg PO TIDP PRN #10 tab PRN Reason: Nausea And Vomiting Transmission Status: Received by [facility] Referrals: Princess Philip MD [Primary Care Provider] - Forms: Work/School Release - Critical Care Critical Care Time: No Attestation: On 12/08/20, the high probability of a clinically significant, sudden or life threatening deterioration of the following system(s) required my full and direct attention, intervention and personal management. The time I documented below is in addition to time spent performing reported procedures but includes the following listed in this critical care notation. Medical Decision Making - Corey Inquiry Pt receiving controlled substance: No Vital Signs: 12/08/20 12:46 12/08/20 14:03 12/08/20 17:22 Temperature 98.9 F 98 F 98.7 F Temperature Source Oral Oral Pulse Rate 79 Pulse Rate [Left] 129 H 115 H Respiratory Rate 18 24 15 Blood Pressure 130/87 Blood Pressure [Right Arm] 126/81 121/76 Blood Pressure Mean [Right Arm] 96 91 Blood Pressure Position [Right Arm] Sitting 02 Sat by Pulse Oximetry 97 98 Oxygen Delivery Method Room Air Room Air - Lab Data Lab Results 12/08/20 13:00: Urine Color [place], Urine Appearance Cloudy, Urine pH 6.0, Ur Specific [place] >= 1.030, Urine Protein Trace, Urine Glucose (UA) Negative, Urine Ketones Trace, Urine Blood 2+, Urine Nitrate Positive, Urine Bilirubin 1+ A, Urine Urobilinogen 1.0, Ur Leukocyte Esterase Negative, Urine RBC 5-10, Urine WBC None, Ur Squamous Epith Cells 3-5, Urine Bacteria 2+ 12/08/20 13:15: WBC 1.9 L*, RBC 5.26, Hgb 15.4, Hct 46.8, MCV 89.0, MCH 29.2, MCHC 32.9, RDW 13.3, Plt Count 205, MPV 8.5, Neut % (Auto) 65.6, Lymph % (Auto) 29.0, [place] % (Auto) 4.2, Eos % (Auto) 0.5, Baso % (Auto) 0.6, Neut # (Auto) 1.2 L, Lymph # (Auto) 0.5 L, [place] # (Auto) 0.1, Eos # (Auto) 0.0, Baso # (Auto) 0.0 12/08/20 13:15: D-Dimer 0.76 H 12/08/20 13:15: Sodium 139, Potassium 3.6, Chloride 106, Carbon Dioxide 22, Anion Gap 14.6, BUN 10, Creatinine 0.60, Estimated Creat Clear 244, Estimated GFR 126, Est GFR ( Amer) 153, Glucose 112 H, Calcium 8.5, Total Bilirubin 0.3, AST 187 H, ALT 389 H*, Alkaline Phosphatase 112, Troponin I < 0.01, Total Protein 7.7, Albumin 4.0, Globulin 3.7 H, Albumin/Globulin Ratio 1.1 12/08/20 13:15: PT 11.4, INR 0.96 12/08/20 13:15: Serum HCG, Qual Negative 12/08/20 13:30: Urine Color [place], Urine Appearance Cloudy, Urine pH 6.0, Ur Specific [place] 1.025, Urine Protein 1+, Urine Glucose (UA) Negative, Urine Ketones Trace, Urine Blood 3+, Urine Nitrate Positive A, Urine Bilirubin 1+ A, Urine Urobilinogen 1, Ur Leukocyte Esterase Negative 12/08/20 13:42: Lactate 0.8 Result diagrams: 12/08/20 13:15 12/08/20 13:15 Orders (Tests/Meds): ED MEDICATIONS Discontinued Medications Generic Name Dose Route Start Last Admin Trade Name Freq PRN Reason Stop Dose Admin Iopamidol 70 ml 12/08/20 14:36 12/08/20 14:37 Iopamidol-370 (76%);100
[2020-12-08 15:30] LABS: Microscopic, Urine URINE MICROSCOPIC (MICROSCOPIC)
[2020-12-08 15:31] LABS: Appearance,Urine CLOUDY (Clear); Blood, Urine 2+ (Negative); Color,Urine ORANGE (Yellow); Glucose,Urine (UA) Negative (Negative); Ketones,Urine TRACE (Negative); Leukocyte Esterase,Urine Negative (Negative); Nitrate,Urine POSITIVE (Negative); Protein,Urine TRACE (Negative); Specific Gravity, Urine >= 1.030 (1.005-1.030)
[2020-12-08 15:34] LABS: Bilirubin,Urine 1+ (Negative)
[2020-12-08 15:43] LABS: Bacteria,Urine 2+ /lpf
[2020-12-08 17:22] VITALS: BP 130/87; PULSE 79; RESP 15; TEMP 37.1; O2SAT 93
== END 2020-12-08 17:24 | disposition home or self-care (01) ==
LOC: UTC 13:15 → ER 13:46
PROVIDERS: Emergency Medicine; Emergency Provider Physician Assistant; PCP Family Medicine
DX: U07.1 COVID-19 (principal); N30.00 Acute cystitis without hematuria; B96.20 Unspecified Escherichia coli [E. coli] as the cause of diseases classified elsewhere
CPT/HCPCS: 71046; 71275; 80053; 81001; 81003; 83605; 84484; 84703; 85025; 85378; 85610; 87086; 87088; 87186; 93005; 99284; Q9967

== ENCOUNTER 2021-01-11 09:10 | Emergency (ER) | payer OTHER, SELFPAY ==
[2021-01-11 09:15] VITALS: BP 135/82; PULSE 74; RESP 18; TEMP 37; O2SAT 99; BMI 40.7
[2021-01-11 09:51] LABS: UTC Pregnancy Test, Urine Negative (Negative)
--- NOTE | 2021-01-11 09:52 | HMH.EDUTC ---
[facility] [facility] [place] Impression: Absent periods Disposition: Home, Self-Care Condition on Discharge: Good Instructions: Absent Periods Additional Instructions: follow up with tire spotter or pcp Referrals: Princess Philip MD [Primary Care Provider] - Time of Disposition: 10:12 Medical Decision Making - Corey Inquiry Pt receiving controlled substance: No Vital Signs: 01/11/21 09:15 Temperature 98.6 F Temperature Source Oral Pulse Rate [Right Brachial] 74 Respiratory Rate 18 Blood Pressure [Right Arm] 135/82 Blood Pressure Mean [Right Arm] 99 Blood Pressure Source [Right Arm] Automatic Cuff Blood Pressure Position [Right Arm] Sitting 02 Sat by Pulse Oximetry 99 Oxygen Delivery Method Room Air - Lab Data Lab Results 01/11/21 09:19: [facility] Negative 01/11/21 09:29: Serum HCG, Qual Negative [facility] [place] - General Chief complaint: Urgent [facility] Stated complaint: Preg test (wants Blood Draw) Time Seen by Provider: 01/11/21 09:52 Mode of Arrival: Ambulatory Source of Information: Patient Limitations: No Limitations Description of Symptoms (Recalled from Triage Doc. by RN): PATIENT STATES HER PERIOD IS LATE AND IS WANTING A BLOOD TEST HEENT Symptoms (Recalled from RN notes): No Resp Symptoms (Recalled from RN notes): No Skin Symptoms (Recalled from RN notes): No MS Symptoms (Recalled from RN notes): No Functional Status (Recalled from RN notes): WNL - History of Present Illness Provider Complaint: 20yr old female presents for blood pregnacy test. pt states last period was 12/03. is not taking anything to prevent pregnacy stopped control months ago and has had two normal periods since stopping control. pt states last pregnacy urine did not show up until 8 wks - Related Data Allergies Allergy/AdvReac Type Severity Reaction Status Date / Time No Known Allergies Allergy Verified 05/06/20 08:59 - Worker's Comp Is this a Worker's Comp case?: No [facility] History - Hepatitis A Screen Drug use history?: No High risk sexual behaviors?: No History of sexually transmitted infection?: No Currently employed?: No Childcare worker?: No Do you have indoor plumbing?: Yes Do you have electricity?: Yes Attestation statement:: This patient has been screened for Hepatitis A risk factors. I have reviewed the patient's past medical history: Yes Medical History: Denies:: Diabetes Mellitus Type 1, Diabetes Mellitus Type 2 Other Surgeries: No: Amputation: No Fractures: No - Social History Smoking Status: Never smoker Alcohol Intake: never Alcohol Intake Frequency:: holidays/special occasions only Substance Use Type: denies use Occupational Status: other Family Hx:: Cancer, Hypertension, Hyperlipidemia, Kidney Disease ROS Obtained: Yes Systems reviewed as appropriate & no additional complaints - Constitutional Constitutional: Reports system reviewed and no additional complaints, except as docu, Denies fever(s) - Eyes Eyes: Reports system reviewed and no additional complaints, except as docu, Denies blurry vision - ENT Ears, Nose, Mouth, and Throat: Reports system reviewed and no additional complaints, except as docu, Denies dizziness - Cardiovascular Cardiovascular: Reports system reviewed and no additional complaints, except as docu, Denies chest pain - Respiratory Respiratory: Reports system reviewed and no additional complaints, except as docu, Denies chest congestion - Gastrointestinal Gastrointestingal: Reports: system reviewed and no additional complaints, except as docu. Denies: belching - Genitourinary Female Genitourinary: Reports system reviewed and no additional complaints, except as docu, Reports absent period - Musculoskeletal Musculoskeletal: Reports system reviewed and no additional complaints, except as docu, Denies decreased muscle mass - Integumentary/Breasts Skin/Breast: Reports system reviewed and no additional co
[2021-01-11 10:00] LABS: HCG Qualitative, Serum Negative (Negative)
[2021-01-11 10:10] VITALS: BP 135/82; PULSE 74; RESP 18; TEMP 37; O2SAT 99
== END 2021-01-11 10:15 | disposition home or self-care (01) ==
PROVIDERS: Emergency Provider Nurse Practitioner Family; PCP Family Medicine
DX: N91.2 Amenorrhea, unspecified (principal)
CPT/HCPCS: 81025; 84703; 99203; G0463

== ENCOUNTER → 2021-01-28 13:45 | Outpatient (CLI) | payer OTHER, SELFPAY ==
[2021-01-28 14:58] LABS: HCG,Quantitative 13 mIU/ml (0-5.42)
== END ==
PROVIDERS: Visit Provider Obstetrics & Gynecology
DX: Z32.00 Encounter for pregnancy test, result unknown (principal)
CPT/HCPCS: 36415; 84702

== ENCOUNTER → 2021-01-30 15:08 | Outpatient (CLI) | payer OTHER, SELFPAY ==
[2021-01-30 16:44] LABS: HCG,Quantitative 51 mIU/ml (0-5.42)
[2021-02-01 11:35] LABS: Progesterone 17.2 ng/mL (.)
== END ==
PROVIDERS: Visit Provider Obstetrics & Gynecology
DX: Z34.90 Encounter for supervision of normal pregnancy, unspecified, unspecified trimester (principal)
CPT/HCPCS: 36415; 84144; 84702

== ENCOUNTER 2021-04-05 00:06 | Emergency (ER) | payer OTHER, SELFPAY ==
[2021-04-05 00:07] VITALS: BP 131/69; PULSE 112; RESP 18; TEMP 36.5; O2SAT 99; BMI 40.7
--- NOTE | 2021-04-05 00:26 | PC.NURSE ---
Heart tones 157
[2021-04-05 00:36] LABS: Microscopic, Urine URINE MICROSCOPIC (MICROSCOPIC)
[2021-04-05 00:38] LABS: Basophils % 0.7 % (0.1-2.0); Eosinophils % 0.6 % (0.1-12.0); Hematocrit 39.9 % (37.0-47.0); Hemoglobin 12.9 g/dL (12.2-16.2); Lymphocytes # 2.2 K/mm3 (0.7-4.5); Lymphocytes % 41.4 % (10-50); Mean Corpuscular HGB Conc 32.3 g/dL (31.8-35.4); Mean Corpuscular Hemoglobin 29.4 pg (27.0-31.2); Mean Corpuscular Volume 90.8 fl (81-99); Mean Platelet Volume 8.3 fl (7.4-10.4); Monocytes # 0.3 K/mm3 (0.1-1.0); Monocytes % 5.9 % (1.7-9.3); Neutrophils # 2.7 K/mm3 (1.8-7.8); Neutrophils % 51.4 % (37.0-80.0); Platelet Count 214 K/mm3 (142-424); Red Blood Count 4.39 M/mm3 (4.20-5.40); Red Cell Distribution Width 13.3 % (11.5-17.5); White Blood Count 5.3 K/mm3 (4.8-10.8)
[2021-04-05 00:46] LABS: Appearance,Urine SL CLOUDY (Clear); Bilirubin,Urine Negative (Negative); Blood, Urine TRACE-I (Negative); Color,Urine YELLOW (Yellow); Glucose,Urine (UA) Negative (Negative); Ketones,Urine TRACE (Negative); Leukocyte Esterase,Urine 1+ (Negative); Nitrate,Urine Negative (Negative); Protein,Urine Negative (Negative); Specific Gravity, Urine >= 1.030 (1.005-1.030); Urobilinogen,Urine 0.2 EU/dl (0.2)
--- NOTE | 2021-04-05 00:51 | HMH.EDNVD ---
ED Disposition Clinical Impression: Abdominal pain Qualifiers: Abdominal location: right upper quadrant Qualified Code(s): R10.11 - Right upper quadrant pain Qualifiers: Weeks of gestation: 13 weeks Qualified Code(s): Z3A.13 - 13 weeks gestation of Disposition: Home, Self-Care Condition on Discharge: Good Instructions: DI for Acute Abdominal Pain, Acute Abdominal Pain Additional Instructions: call pcp and ob dr for follow up Referrals: Princess Philip MD [Primary Care Provider] - - Critical Care Critical Care Time: No Attestation: On 04/05/21, the high probability of a clinically significant, sudden or life threatening deterioration of the following system(s) required my full and direct attention, intervention and personal management. The time I documented below is in addition to time spent performing reported procedures but includes the following listed in this critical care notation. Medical Decision Making - Medical Records Medical records reviewed: Yes: I reviewed the patient's medical records. - Corey Inquiry Pt receiving controlled substance: No Vital Signs: 04/05/21 00:07 Temperature 97.7 F Temperature Source Oral Pulse Rate [Right] 112 H Respiratory Rate 18 Blood Pressure [Right Arm] 131/69 Blood Pressure Mean [Right Arm] 89 02 Sat by Pulse Oximetry 99 - Lab Data Lab results reviewed: Yes: I reviewed the patient's lab results. Lab Results 04/05/21 00:10: Urine Color Yellow, Urine Appearance Sl cloudy, Urine pH 6.0, Ur Specific [place] >= 1.030, Urine Protein Negative, Urine Glucose (UA) Negative, Urine Ketones Trace, Urine Blood Trace-i, Urine Nitrate Negative, Urine Bilirubin Negative, Urine Urobilinogen 0.2, Ur Leukocyte Esterase 1+ A, Urine RBC 3-5, Urine WBC 10-20, Ur Squamous Epith Cells 20-50 04/05/21 00:21: WBC 5.3, RBC 4.39, Hgb 12.9, Hct 39.9, MCV 90.8, MCH 29.4, MCHC 32.3, RDW 13.3, Plt Count 214, MPV 8.3, Neut % (Auto) 51.4, Lymph % (Auto) 41.4, Wallace % (Auto) 5.9, Eos % (Auto) 0.6, Baso % (Auto) 0.7, Neut # (Auto) 2.7, Lymph # (Auto) 2.2, Wallace # (Auto) 0.3, Eos # (Auto) 0.0, Baso # (Auto) 0.0 04/05/21 00:21: Sodium 137, Potassium 3.5, Chloride 103, Carbon Dioxide 25, Anion Gap 12.5, BUN 8, Creatinine 0.50 L, Estimated Creat Clear 293, Estimated GFR 156, Est GFR ( Amer) 188, Glucose 101 H, Calcium 9.5, Total Bilirubin 0.4, AST 25, ALT 24, Alkaline Phosphatase 72, Total Protein 7.2, Albumin 4.1, Globulin 3.1, Albumin/Globulin Ratio 1.3, Amylase 70, Lipase 72 04/05/21 00:50: SARS-CoV-2 (PCR) Not detected, Influenza A Untype (PCR) Not detected, Influenza Type B (PCR) Not detected Result diagrams: 04/05/21 00:21 04/05/21 00:21 Orders (Tests/Meds): ED MEDICATIONS Generic Name Dose Route Start Last Admin Trade Name Freq PRN Reason Stop Dose Admin Sodium Chloride 1,000 mls @ 999 mls/hr 04/05/21 00:30 04/05/21 00:59 Sod Chlor 0.9% 1000ml Bag IV 04/05/21 01:30 999 mls/hr .Q1H1M SANDRO Administration Discontinued Medications Generic Name Dose Route Start Last Admin Trade Name Freq PRN Reason Stop Dose Admin Acetaminophen/Codeine Phosphate 1 kamaljit 04/05/21 01:22 04/05/21 01:28 Acetaminophen 300mg W/Codeine 30mg Take Home Pack (6) PO 04/05/21 01:23 1 kamaljit ONCE ONE Administration Morphine Sulfate 4 mg 04/05/21 01:22 04/05/21 01:28 Morphine 4mg/Ml Syringe IV 04/05/21 01:23 4 mg ONCE ONE Administration Ondansetron HCl 4 mg 04/05/21 01:22 04/05/21 01:28 Ondansetron 4mg/2ml Vial IV 04/05/21 01:23 4 mg ONCE ONE Administration ORDERS Category Date Time Status Urine Culture Stat Micro 04/05/21 00:10 Received - Physician Consults Physician Consulted: jaci Reason -: Pt condition Medical Decision Narrative: 13 weeks preg with rt upper abd pain but stable exam and labs -will need op eval for gb disease Nausea/Vomiting/Diarrhea HPI - General Chief complaint: Abdominal Pain Stated complaint: abd
[2021-04-05 00:53] LABS: Alanine Aminotransferase 24 U/L (12-78); Albumin Level 4.1 g/dl (3.5-5.0); Albumin/Globulin Ratio 1.3 (1.1-1.8); Alkaline Phosphatase 72 U/L (38-126); Amylase 70 U/L (30-110); Anion Gap 12.5 mEq/L (5-15); Aspartate Amino Transferase 25 U/L (14-36); Bilirubin,Total 0.4 mg/dl (0.2-1.3); Blood Urea Nitrogen 8 mg/dl (7-17); Calcium 9.5 mg/dl (8.4-10.2); Carbon Dioxide 25 mmol/L (22.0-30.0); Chloride 103 mmol/L (98-107); Creatinine Clearance Estimated 293 mL/min (50-200); Estimated Glomerular Filt Rate 156 ml/min (>60); GFR (African American) 188 ML/MIN (>60); Globulin 3.1 g/dL (1.3-3.2); Glucose 101 mg/dl (74-100); Lipase 72 U/L (23-300); Potassium 3.5 mmoL/L (3.5-5.1); Sodium 137 mmol/L (136-145); Total Protein,Serum 7.2 g/dl (6.3-8.2)
[2021-04-05 00:54] LABS: Coronavirus 19, PCR Not Detected (NotDetected); Influenza A, PCR Not Detected (NotDetected); Influenza B, PCR Not Detected (NotDetected)
[2021-04-05 01:00] LABS: Squamous Epithelial Cell,Urine 20-50 #/hpf (0-5)
--- NOTE | 2021-04-05 01:22 | PC.NURSE ---
maryam on phone with Dr beatty @ this time
[2021-04-05 01:55] VITALS: BP 127/75; PULSE 100; RESP 18; TEMP 36.5; O2SAT 99
== END 2021-04-05 01:56 | disposition home or self-care (01) ==
PROVIDERS: Emergency Provider Emergency Medicine; PCP Family Medicine
DX: R10.11 Right upper quadrant pain (principal); Z3A.13 13 weeks gestation of pregnancy
CPT/HCPCS: 80053; 81001; 82150; 83690; 85025; 87086; 96365; 96375; 99283; C9803; J2405; U0003; U0005

== ENCOUNTER 2021-06-01 23:08 | Outpatient (CLI) | payer OTHER, SELFPAY ==
[2021-06-01 23:20] VITALS: BP 127/71; PULSE 105; RESP 20; TEMP 37.4; O2SAT 99; BMI 41.6
[2021-06-01 23:36] VITALS: BMI 41.6
[2021-06-01 23:40] LABS: Microscopic, Urine URINE MICROSCOPIC (MICROSCOPIC)
[2021-06-01 23:43] LABS: Appearance,Urine CLEAR (Clear); Bilirubin,Urine Negative (Negative); Blood, Urine Negative (Negative); Color,Urine YELLOW (Yellow); Glucose,Urine (UA) Negative (Negative); Ketones,Urine Negative (Negative); Leukocyte Esterase,Urine 1+ (Negative); Nitrate,Urine Negative (Negative); PH,Urine 6.5 (5.0-8.5); Protein,Urine Negative (Negative)
[2021-06-01 23:46] LABS: Squamous Epithelial Cell,Urine 20-50 #/hpf (0-5)
[2021-06-01 23:54] LABS: Barbiturates Screen,Urine Negative ng/ml (<200)
[2021-06-01 23:55] LABS: Amphetamine/Metha Screen,Urine Negative ng/ml (<1000); Benzodiazepines Screen,Urine Negative ng/ml (<200)
[2021-06-01 23:56] LABS: Cannabinoid Screen,Urine Negative ng/ml (<50)
[2021-06-01 23:57] LABS: Cocaine Screen,Urine Negative ng/ml (<300); Methadone Screen,Urine Negative ng/ml (<300)
[2021-06-01 23:58] LABS: Opiate Screen,Urine Positive ng/ml (<300)
[2021-06-01 23:59] LABS: Phencyclidine Screen,Urine Negative ng/ml (<25)
== END 2021-06-01 23:45 | disposition home or self-care (01) ==
LOC: OBOUT 23:10 → OB 23:10
PROVIDERS: PCP Family Medicine; Visit Provider Obstetrics & Gynecology
DX: O26.892 Other specified pregnancy related conditions, second trimester (principal); Z3A.21 21 weeks gestation of pregnancy; M54.50 Low back pain, unspecified
CPT/HCPCS: 80305; 81001; 87086

== ENCOUNTER 2021-06-01 23:43 | Emergency (ER) | payer OTHER, SELFPAY ==
[2021-06-01 23:43] VITALS: BP 128/86; PULSE 120; RESP 20; TEMP 36.8; O2SAT 100; BMI 40.7
[2021-06-01 23:59] VITALS: BMI 40.7
[2021-06-02 00:12] LABS: White Blood Count 8.5 K/mm3 (4.8-10.8)
[2021-06-02 00:13] LABS: Basophils % 0.2 % (0.1-2.0); Eosinophils % 0.5 % (0.1-12.0); Hematocrit 36.7 % (37.0-47.0); Hemoglobin 12.3 g/dL (12.2-16.2); Lymphocytes # 1.5 K/mm3 (0.7-4.5); Mean Corpuscular HGB Conc 33.5 g/dL (31.8-35.4); Mean Corpuscular Volume 89.7 fl (81-99); Mean Platelet Volume 7.8 fl (7.4-10.4); Monocytes # 0.5 K/mm3 (0.1-1.0); Monocytes % 5.6 % (1.7-9.3); Neutrophils # 6.3 K/mm3 (1.8-7.8); Neutrophils % 74.5 % (37.0-80.0); Platelet Count 249 K/mm3 (142-424); Red Blood Count 4.09 M/mm3 (4.20-5.40)
[2021-06-02 00:22] LABS: Amylase 57 U/L (30-110)
[2021-06-02 00:23] LABS: Alanine Aminotransferase 66 U/L (12-78); Albumin Level 3.6 g/dl (3.5-5.0); Albumin/Globulin Ratio 1.1 (1.1-1.8); Alkaline Phosphatase 97 U/L (38-126); Aspartate Amino Transferase 117 U/L (14-36); Bilirubin,Total 0.7 mg/dl (0.2-1.3); Blood Urea Nitrogen 7 mg/dl (7-17); Calcium 8.8 mg/dl (8.4-10.2); Carbon Dioxide 23 mmol/L (22.0-30.0); Chloride 107 mmol/L (98-107); Creatinine Clearance Estimated 366 mL/min (50-200); Estimated Glomerular Filt Rate 201 ml/min (>60); GFR (African American) 244 ML/MIN (>60); Globulin 3.2 g/dL (1.3-3.2); Glucose 106 mg/dl (74-100); Lipase 90 U/L (23-300); Sodium 135 mmol/L (136-145); Total Protein,Serum 6.8 g/dl (6.3-8.2)
--- NOTE | 2021-06-02 00:26 | HMH.EDNVD ---
ED Disposition Clinical Impression: Abdominal pain Qualifiers: Abdominal location: right upper quadrant Qualified Code(s): R10.11 - Right upper quadrant pain Qualifiers: Weeks of gestation: 21 weeks Qualified Code(s): Z3A.21 - 21 weeks gestation of Disposition: Home, Self-Care Condition on Discharge: Good Instructions: DI for Acute Abdominal Pain Additional Instructions: call pcp and your ob for follow up Referrals: Princess Philip MD [Primary Care Provider] - - Critical Care Critical Care Time: No Attestation: On 06/01/21, the high probability of a clinically significant, sudden or life threatening deterioration of the following system(s) required my full and direct attention, intervention and personal management. The time I documented below is in addition to time spent performing reported procedures but includes the following listed in this critical care notation. Medical Decision Making - Medical Records Medical records reviewed: Yes: I reviewed the patient's medical records. - Corey Inquiry Pt receiving controlled substance: No Vital Signs: 06/01/21 23:43 Temperature 98.3 F Temperature Source Oral Pulse Rate [Right] 120 H Respiratory Rate 20 Blood Pressure [Right Arm] 128/86 Blood Pressure Mean [Right Arm] 100 Blood Pressure Source [Right Arm] Automatic Cuff 02 Sat by Pulse Oximetry 100 Oxygen Delivery Method Room Air - Lab Data Lab results reviewed: Yes: I reviewed the patient's lab results. Lab Results 06/01/21 23:56: Amylase 57 06/01/21 23:56: Sodium 135 L, Potassium 4.0, Chloride 107, Carbon Dioxide 23, Anion Gap 9.0, BUN 7, Creatinine 0.40 L, Estimated Creat Clear 366 H, Estimated GFR 201, Est GFR ( Amer) 244, Glucose 106 H, Calcium 8.8, Total Bilirubin 0.7, AST 117 H, ALT 66, Alkaline Phosphatase 97, Total Protein 6.8, Albumin 3.6, Globulin 3.2, Albumin/Globulin Ratio 1.1, Lipase 90 06/01/21 23:59: WBC 8.5, RBC 4.09 L, Hgb 12.3, Hct 36.7 L, MCV 89.7, MCH 30.0, MCHC 33.5, RDW 14.0, Plt Count 249, MPV 7.8, Neut % (Auto) 74.5, Lymph % (Auto) 17.0, [place] % (Auto) 5.6, Eos % (Auto) 0.5, Baso % (Auto) 0.2, Neut # (Auto) 6.3, Lymph # (Auto) 1.5, [place] # (Auto) 0.5, Eos # (Auto) 0.0, Baso # (Auto) 0.0 Result diagrams: 06/01/21 23:59 06/01/21 23:56 Orders (Tests/Meds): ED MEDICATIONS Generic Name Dose Route Start Last Admin Trade Name Frevaishali PRN Reason Stop Dose Admin Sodium Chloride 1,000 mls @ 999 mls/hr 06/02/21 00:15 06/02/21 00:07 Sod Chlor 0.9% 1000ml Bag IV 06/02/21 01:15 999 mls/hr .Q1H1M SANDRO Administration - Physician Consults Physician Consulted: berhane Reason -: Pt condition Medical Decision Narrative: stable exam and labs with possible gb dis - will need to talk with her ob Nausea/Vomiting/Diarrhea HPI - General Chief complaint: Abdominal Pain Stated complaint: Back Pain;Pain under Rt Breast Time Seen by Provider: 06/02/21 00:00 Mode of Arrival: Family Vehicle Source of Information: Patient, Medical Record Limitations: No Limitations Description of Symptoms (Recalled from ER Triage Doc. by RN): Pt c/o R upper ABD pain that radiates to mid back. Pt also c/o nausea and vomiting. States she has a hx of gallbladder problems and usually can get the pain to go away with a hot bath, heathing pad and tylenol 3. Although, tonight the pain will not subside. Pt was seen 04/05 for the same complaint. She has not followed up with PCP or general surgeon. Denies anyvaginal pain or bleeding. OB completed eval on pt and Dr. Castillo recommended to send to ED. T 141. - History of Present Illness HPI Narrative: has episode of rt upper abd pain - pt is 21 weeks complaint: nausea, abdominal pain Onset (ago): hour(s) Associated Abdominal Pain: Yes Location of pain: RUQ Severity: moderate Associated symptoms: denies other symptoms - Related Data Home Medications Medication Instructions Recorded Confirmed No K
--- NOTE | 2021-06-02 00:30 | PC.NURSE ---
maryam on phone with dr last @ this time
[2021-06-02 00:58] VITALS: BP 120/80; PULSE 105; RESP 20; TEMP 36.7; O2SAT 99
== END 2021-06-02 01:00 | disposition home or self-care (01) ==
PROVIDERS: Emergency Provider Emergency Medicine; PCP Family Medicine
DX: R10.11 Right upper quadrant pain (principal); Z3A.21 21 weeks gestation of pregnancy
CPT/HCPCS: 80053; 82150; 83690; 85025; 96365; 99282

== ENCOUNTER 2021-07-08 11:30 | Outpatient (CLI) | payer OTHER, SELFPAY ==
[2021-07-08 11:53] VITALS: BP 121/68; PULSE 100; RESP 24; TEMP 36.8; O2SAT 98; BMI 40.7
[2021-07-08 12:10] LABS: Microscopic, Urine URINE MICROSCOPIC (MICROSCOPIC)
[2021-07-08 12:13] LABS: Appearance,Urine CLEAR (Clear); Blood, Urine TRACE-I (Negative); Color,Urine YELLOW (Yellow); Glucose,Urine (UA) Negative (Negative); Ketones,Urine 1+ (Negative); Leukocyte Esterase,Urine 2+ (Negative); Nitrate,Urine Negative (Negative); Protein,Urine 1+ (Negative); Specific Gravity, Urine >= 1.030 (1.005-1.030)
[2021-07-08 12:26] LABS: Amphetamine/Metha Screen,Urine Negative ng/ml (<1000); Benzodiazepines Screen,Urine Negative ng/ml (<200)
[2021-07-08 12:27] LABS: Barbiturates Screen,Urine Negative ng/ml (<200); Cannabinoid Screen,Urine Negative ng/ml (<50)
[2021-07-08 12:28] LABS: Cocaine Screen,Urine Negative ng/ml (<300)
[2021-07-08 12:29] LABS: Methadone Screen,Urine Negative ng/ml (<300); Opiate Screen,Urine Negative ng/ml (<300)
[2021-07-08 12:30] LABS: Phencyclidine Screen,Urine Negative ng/ml (<25)
[2021-07-08 12:51] LABS: Bilirubin,Urine 2+ (Negative)
[2021-07-08 12:56] LABS: Squamous Epithelial Cell,Urine TNTC #/hpf (0-5)
[2021-07-08 12:57] LABS: Amorphous Sediment,Urine Trace /lpf; Bacteria,Urine 2+ /lpf; RBC,Urine Occasional #/hpf (0-3)
[2021-07-08 12:59] LABS: WBC,Urine 50-100 #/hpf (0-3)
== END 2021-07-08 13:09 | disposition home or self-care (01) ==
LOC: OBOUT 11:32 → OB 11:34
PROVIDERS: PCP Family Medicine; Visit Provider Obstetrics & Gynecology
DX: O26.892 Other specified pregnancy related conditions, second trimester (principal); Z3A.26 26 weeks gestation of pregnancy; O23.40 Unspecified infection of urinary tract in pregnancy, unspecified trimester; R31.9 Hematuria, unspecified; B95.0 Streptococcus, group A, as the cause of diseases classified elsewhere
CPT/HCPCS: 59025; 80305; 81001; 87086; 87088; 87186; G0463

== ENCOUNTER 2021-08-06 18:33 | Outpatient (CLI) | payer OTHER, SELFPAY ==
[2021-08-06 19:24] VITALS: BP 122/76; PULSE 115; RESP 18; TEMP 36.6; O2SAT 98; BMI 40.7
[2021-08-06 19:43] LABS: Microscopic, Urine URINE MICROSCOPIC (MICROSCOPIC)
[2021-08-06 19:47] LABS: Appearance,Urine CLOUDY (Clear); Bilirubin,Urine Negative (Negative); Blood, Urine Negative (Negative); Color,Urine YELLOW (Yellow); Glucose,Urine (UA) Negative (Negative); Ketones,Urine 3+ (Negative); Leukocyte Esterase,Urine 2+ (Negative); Nitrate,Urine Negative (Negative); Protein,Urine Negative (Negative); Specific Gravity, Urine >= 1.030 (1.005-1.030)
[2021-08-06 19:58] LABS: Barbiturates Screen,Urine Negative ng/ml (<200)
[2021-08-06 19:59] LABS: Benzodiazepines Screen,Urine Negative ng/ml (<200)
[2021-08-06 20:00] LABS: Amphetamine/Metha Screen,Urine Negative ng/ml (<1000); Cannabinoid Screen,Urine Negative ng/ml (<50)
[2021-08-06 20:01] LABS: Cocaine Screen,Urine Negative ng/ml (<300); Methadone Screen,Urine Negative ng/ml (<300)
[2021-08-06 20:02] LABS: Opiate Screen,Urine Negative ng/ml (<300)
[2021-08-06 20:03] LABS: Phencyclidine Screen,Urine Negative ng/ml (<25)
[2021-08-06 20:50] LABS: Bacteria,Urine 4+ /lpf; Squamous Epithelial Cell,Urine 20-50 #/hpf (0-5)
== END 2021-08-06 22:50 | disposition home or self-care (01) ==
LOC: OBOUT 18:35 → OB 18:36
PROVIDERS: Visit Provider Obstetrics & Gynecology
DX: O26.893 Other specified pregnancy related conditions, third trimester (principal); Z3A.31 31 weeks gestation of pregnancy; R10.12 Left upper quadrant pain; N39.0 Urinary tract infection, site not specified
CPT/HCPCS: 59025; 80305; 81001; 87086; 96365; G0463; J0696; J2405

== ENCOUNTER 2021-10-22 14:50 | Emergency (ER) | payer OTHER, SELFPAY ==
[2021-10-22 14:51] VITALS: BP 129/70; PULSE 61; RESP 18; TEMP 36.6; O2SAT 100; BMI 38.0
--- NOTE | 2021-10-22 15:05 | PC.NURSE ---
Addendum entered by Vera Newman RN 10/22/21 15:06: pt notified staff she was breast feeding so no medication would interfere with baby Original Note: IV established and blood sent to the lab. pt states she is in pain and is breast feeding. this nurse will report pain to .
[2021-10-22 15:18] LABS: Basophils # 0.1 K/mm3 (0-0.2); Eosinophils # 0.1 K/mm3 (0.0-0.4); Eosinophils % 1.2 % (0.1-12.0); Hematocrit 40.7 % (37.0-47.0); Hemoglobin 12.8 g/dL (12.2-16.2); Lymphocytes # 1.6 K/mm3 (0.7-4.5); Lymphocytes % 27.8 % (10-50); Mean Corpuscular HGB Conc 31.6 g/dL (31.8-35.4); Mean Corpuscular Hemoglobin 26.9 pg (27.0-31.2); Mean Corpuscular Volume 85.1 fl (81-99); Mean Platelet Volume 8.3 fl (7.4-10.4); Monocytes # 0.2 K/mm3 (0.1-1.0); Monocytes % 3.4 % (1.7-9.3); Neutrophils # 3.8 K/mm3 (1.8-7.8); Neutrophils % 66.6 % (37.0-80.0); Platelet Count 381 K/mm3 (142-424); Red Blood Count 4.78 M/mm3 (4.20-5.40); Red Cell Distribution Width 14.4 % (11.5-17.5); White Blood Count 5.7 K/mm3 (4.8-10.8)
[2021-10-22 15:22] LABS: Chloride 109 mmol/L (98-107); Sodium 141 mmol/L (136-145)
--- NOTE | 2021-10-22 15:22 | PC.NURSE ---
pt states she last ate/drank at 11am.
[2021-10-22 15:23] LABS: Potassium 3.8 mmoL/L (3.5-5.1)
--- NOTE | 2021-10-22 15:23 | PC.NURSE ---
visitor at the bedside
[2021-10-22 15:25] LABS: Alanine Aminotransferase 21 U/L (12-78); Alkaline Phosphatase 154 U/L (38-126); Anion Gap 10.8 mEq/L (5-15); Aspartate Amino Transferase 31 U/L (14-36); Bilirubin,Total 0.6 mg/dl (0.2-1.3); Blood Urea Nitrogen 10 mg/dl (7-17); Carbon Dioxide 25 mmol/L (22.0-30.0); Creatinine Clearance Estimated 194 mL/min (50-200); Estimated Glomerular Filt Rate 105 ml/min (>60); GFR (African American) 127 ML/MIN (>60)
[2021-10-22 15:26] LABS: Albumin Level 3.9 g/dl (3.5-5.0); Albumin/Globulin Ratio 1.1 (1.1-1.8); Calcium 9.3 mg/dl (8.4-10.2); Globulin 3.5 g/dL (1.3-3.2); Glucose 108 mg/dl (74-100); Total Protein,Serum 7.4 g/dl (6.3-8.2)
--- NOTE | 2021-10-22 15:26 | PC.WOUNDNOTE ---
updated pt that MD was in another pt room and as soon as he came out i would address her pain to him
[2021-10-22 15:30] VITALS: BP 140/83; PULSE 76; O2SAT 99
[2021-10-22 15:46] LABS: Lipase 128 U/L (23-300)
--- NOTE | 2021-10-22 15:46 | PC.NURSE ---
notified MD of pt pain medication requests
--- NOTE | 2021-10-22 15:51 | HMH.EDGENADL ---
ED Disposition Clinical Impression: Biliary colic Disposition: Home, Self-Care Condition on Discharge: Good Instructions: Fat-Restricted Diet, DI for General Gallbladder Conditions Additional Instructions: Low-fat diet. [place] as needed for pain. Zofran as needed for nausea. Pump her breastmilk and dump it 1 time after medications given today in the emergency department. Also pump and dump 1 time if you take pain medication or nausea medication at home. Follow-up with general surgery, Dr. Gonzalez, call for apppointment. Prescriptions: Hydrocod/Acet 5/325 mg [[place] 5/325mg tablet] 1 tab PO Q6HP PRN #10 tab PRN Reason: Pain Transmission Status: Sent to [facility] Ondansetron [Zofran 4mg ODT] 4 mg PO TIDP PRN #10 tab PRN Reason: Nausea And Vomiting Transmission Status: Pending to [facility] Referrals: Princess Philip MD [Primary Care Provider] - Jose De Jesus Gonzalez MD [Staff Physician] - - Critical Care Critical Care Time: No Attestation: On 10/22/21, the high probability of a clinically significant, sudden or life threatening deterioration of the following system(s) required my full and direct attention, intervention and personal management. The time I documented below is in addition to time spent performing reported procedures but includes the following listed in this critical care notation. Medical Decision Making - Medical Records Medical records reviewed: Yes: I reviewed the patient's medical records. MR Comment: Reviewed most recent gallbladder ultrasound report at this facility, which was 08/05/2018, which showed normal gallbladder without stones. Reviewed [facility] records. Last ultrasound there was 09/07/2019 and also showed normal gallbladder without stones. - Corey Inquiry Pt receiving controlled substance: Yes Corey was queried for this patient: Yes Risks and benefits of using a controlled substance: were discussed with pt by me Vital Signs: 10/22/21 14:51 10/22/21 15:30 10/22/21 16:20 Temperature 97.9 F Temperature Source Oral Pulse Rate 76 66 Pulse Rate [Left Radial] 61 Respiratory Rate 18 Blood Pressure 140/83 131/82 Blood Pressure [Right Arm] 129/70 Blood Pressure Mean 104 102 Blood Pressure Mean [Right Arm] 89 Blood Pressure Source [Right Arm] Automatic Cuff Blood Pressure Position [Right Arm] Sitting 02 Sat by Pulse Oximetry 100 99 100 Oxygen Delivery Method Room Air Room Air Room Air - Lab Data Lab Results 10/22/21 15:09: WBC 5.7, RBC 4.78, Hgb 12.8, Hct 40.7, MCV 85.1, MCH 26.9 L, MCHC 31.6 L, RDW 14.4, Plt Count 381, MPV 8.3, Neut % (Auto) 66.6, Lymph % (Auto) 27.8, [place] % (Auto) 3.4, Eos % (Auto) 1.2, Baso % (Auto) 1.0, Neut # (Auto) 3.8, Lymph # (Auto) 1.6, [place] # (Auto) 0.2, Eos # (Auto) 0.1, Baso # (Auto) 0.1 10/22/21 15:09: Sodium 141, Potassium 3.8, Chloride 109 H, Carbon Dioxide 25, Anion Gap 10.8, BUN 10, Creatinine 0.70, Estimated Creat Clear 194, Estimated GFR 105, Est GFR ( Amer) 127, Glucose 108 H, Calcium 9.3, Total Bilirubin 0.6, AST 31, ALT 21, Alkaline Phosphatase 154 H, Total Protein 7.4, Albumin 3.9, Globulin 3.5 H, Albumin/Globulin Ratio 1.1 10/22/21 15:09: Lipase 128 Result diagrams: 10/22/21 15:09 10/22/21 15:09 Orders (Tests/Meds): ED MEDICATIONS Discontinued Medications Generic Name Dose Route Start Last Admin Trade Name Verna PRN Reason Stop Dose Admin Hydromorphone HCl 1 mg 10/22/21 16:04 10/22/21 16:10 Hydromorphone 2mg/Ml Syringe IV 10/22/21 16:05 1 mg ONCE ONE Administration Ketorolac Tromethamine 30 mg 10/22/21 16:04 10/22/21 16:10 Ketorolac 30mg/Ml Vial IV 10/22/21 16:05 30 mg ONCE ONE Administration Ondansetron HCl 4 mg 10/22/21 16:04 10/22/21 16:10 Ondansetron 4mg/2ml Vial IV 10/22/21 16:05 4 mg ONCE ONE Administration ORDERS Category Date Time Status UA [Urinalysis and Microscopic] Stat Lab 10/22/21 15:08 Ordered
--- NOTE | 2021-10-22 16:06 | PC.NURSE ---
spoke with addy in pharmacy and he stated she only needed to pump and dump her milk once before she could return to breast feeding.
[2021-10-22 16:20] VITALS: BP 131/82; PULSE 66; O2SAT 100
--- NOTE | 2021-10-22 16:23 | PC.NURSE ---
pt given ordered meds at this time. pt requests general surgery number. this nurse informed pt that i would put general surgery number on d/c packet. pt states pain medication helped. no other needs at this time
[2021-10-22 16:59] VITALS: BP 126/83; PULSE 78; RESP 16; TEMP 36.6; O2SAT 100
== END 2021-10-22 17:05 | disposition home or self-care (01) ==
PROVIDERS: Emergency Provider Emergency Medicine; PCP Family Medicine
DX: R11.2 Nausea with vomiting, unspecified (principal); K80.50 Calculus of bile duct without cholangitis or cholecystitis without obstruction; Z39.1 Encounter for care and examination of lactating mother
CPT/HCPCS: 80053; 83690; 85025; 96374; 96375; 99284; J2405

== ENCOUNTER → 2021-10-29 09:06 | Outpatient (CLI) | payer OTHER, SELFPAY ==
[2021-10-29 09:36] LABS: Urine Pregnancy, HCG Qual. Negative (Negative)
== END ==
PROVIDERS: PCP Family Medicine; Visit Provider Surgery
DX: Z01.812 Encounter for preprocedural laboratory examination (principal); Z20.822 Contact with and (suspected) exposure to COVID-19; K80.20 Calculus of gallbladder without cholecystitis without obstruction
CPT/HCPCS: 81025; C9803; U0003; U0005

== ENCOUNTER 2021-10-31 06:07 | Day surgery (SDC) | payer OTHER, SELFPAY ==
[2021-10-29 10:24] VITALS: BMI 35.4
[2021-10-31] VITALS (12 sets, daily range): BP systolic 95–147; BP diastolic 43–80; PULSE 50–60; RESP 16–18; TEMP 36.2–43; O2SAT 99–100
--- NOTE | 2021-10-31 07:28 | HMH.ANESCL ---
[facility] Anesthesia Checklist - Patient Identification Patient Identification: Arm Band - Structural Data Admitted From: Home Planned Operative Procedure/s: laparoscopic cholecystectomy Consent for Planned Operative Procedure(s) Verified: Yes Verified Documents: Surgical Consent, History and Physical - NPO Status Verified Time NPO: 00:00 - Additional verifications Anesthesia Reactions: No Hx Blood Transfusions: No Blood Transfusion Reaction: No - Airway Assessment C-Spine Mobility Assessed: Yes (mp2) TMJ Mobility Assessed: Yes Dentition: Good Dentition - Neurological Assessment Level of Consciousness: Awake, Alert - Anesthesia Plan Anesthesia Risk discussed: Yes Anesthesia Plan: Verified ASA Class: II Anesthesia Type: General [facility] History I have reviewed the patient's past medical history: Yes Medical History: Denies:: Cancer, Diabetes Mellitus Type 1, Diabetes Mellitus Type 2, Internal Pacemaker, MRSA, Seizures *Have you ever received a pneumonia vaccine?: No *Have you received a flu vaccine this season?: No Other Medical History: Denies: Blood Transfusion Reaction Anesthesia experience/problems:: nac Other Surgeries: Yes: Other. No: , Pacemaker Amputation: No Fractures: No - *Social History Last grade of school completed: High school graduate Smoking Status: Never smoker Alcohol Intake: never Alcohol Intake Frequency:: holidays/special occasions only Substance Use Type: denies use *Occupational Status:: employed *Travel in the last 8 weeks: None Family Hx:: Cancer, Hypertension, Hyperlipidemia, Kidney Disease
--- NOTE | 2021-10-31 08:26 | HMH.OPNOTE ---
Date of procedure: 10/31/21 Pre-op Diagnosis:: Chronic calculus cholecystitis Post-op Diagnosis:: Same Procedure performed:: Laparoscopic cholecystectomy Surgeon:: Jose De Jesus Gonzalez MD DEAF/HARD OF HEARING SPECIALIST:: Loki Dickerson Anesthesia: GETEdin Estimated blood loss (mL): 15 Operative findings:: Somewhat distended gallbladder Thickened infundibulum Multiple stones Small rent in dome with some stone spillage Spilled stones retrieved via forceps Operative note:: After informed consent was obtained, the patient was taken to the operating room and placed in the supine position. General anesthesia was induced and the abdomen was prepped and draped in a sterile fashion. After infiltration with local anesthetic an infraumbilical incision was made. A Veress needle was placed in position. The abdomen was insufflated. A 5 mm optical trocar was placed in position. Under direct visualization, a 12 mm trocar was placed in the subxiphoid position and 2 additional 5 mm trocars were placed in the right upper quadrant. The gallbladder was elevated up and over the liver margin. The tissue around the cystic duct was carefully dissected. 3 clips were placed proximally and the duct was transected with harmonic brittany. Harmonic brittany were then utilized to dissect the gallbladder away from the liver margin with careful attention to the control of the cystic artery. A small rent in the gallbladder along the dome was created during dissection. This area was exceptionally thickened. Multiple gallstones confirmed with a small amount of spillage. The gallbladder was placed in a retrieval bag and removed through the subxiphoid trocar site. The above-stated stones were retrieved via stone forceps. Copious irrigation revealed no obvious additional stones. The right upper quadrant was thoroughly irrigated. No active bleeding or bile leak was noted. Fascia at the subxiphoid trocar site was reapproximated utilizing the NeoClose device. The remaining trocars were removed. All wounds were irrigated and skin was closed with 4-0 Monocryl in a subcuticular fashion. Steri-Strips were applied. The patient's anesthetic agents were reversed and extubation was completed prior to transfer to recovery in stable condition. Condition: stable Disposition: PACU Specimens:: Gallbladder Complications:: No immediate
--- NOTE | 2021-10-31 08:37 | HMH.ANESI ---
[facility] Anesthesia Record Part I Intake, IV Amount: 1,000 Estimated blood loss (mL): 10 Urine output (mL): 0 Blood Pressure: 127/72 SaO2: 100 Pulse Rate: 60 Respiratory Rate: 16 Temperature: 98.5 F Patient is:: Drowsy, Stable Stable to PACU at:: 08:30
--- NOTE | 2021-10-31 09:05 | PC.NURSE ---
0801-detailed report called to RossRN, pt drinking water w/out difficulty, vss 0900-pt transported to post op via stretcher w/leti rails up and left in care of FARZANA Hawkins with bed locked in lowest position, vss, pt stable
--- NOTE | 2021-10-31 10:49 | HMH.ANESII ---
[facility] Anesthesia Record Part II Discharge Time: 09:00 Destination: Surgical Day Care (OP Surgery) PACU nurse assessment reviewed?: Yes Patient Condition:: Good Anesthesia Complications:: None Swallowing reflex intact?: Yes Cyanosis?: No Blood Pressure: 129/68 Pulse Rate: 57 Temperature: 97.8 F Mental Status: Alert & Oriented Pain level:: 0 Nausea and/or vomitting:: None Intake, IV Amount: 0
== END 2021-10-31 09:36 | disposition home or self-care (01) ==
LOC: OR 06:08
PROVIDERS: PCP Family Medicine; Visit Provider Surgery
PROC: 0FT44ZZ Resection of Gallbladder, Percutaneous Endoscopic Approach (ICD-10-PCS; CPT 47562; principal; 2021-10-31 07:30)
DX: K80.10 Calculus of gallbladder with chronic cholecystitis without obstruction (principal); Z79.899 Other long term (current) drug therapy
CPT/HCPCS: 47562; 96374; J2405; J2710

== ENCOUNTER 2021-11-30 09:02 | Emergency (ER) | payer OTHER, SELFPAY ==
[2021-11-30 09:10] VITALS: BP 107/67; PULSE 78; RESP 18; TEMP 36.9; O2SAT 97; BMI 36.3
--- NOTE | 2021-11-30 09:26 | HMH.EDUTC ---
[facility] [place] Disposition Clinical Impression: Viral upper respiratory tract infection Disposition: Home, Self-Care Condition on Discharge: Good Instructions: DI for Viral Upper Respiratory Infection -- Adult, Sore Throat Additional Instructions: *Monitor Temp, Over the counter Motrin or Tylenol as directed/as needed Tylenol every 4 hours and Motrin every 6 hours (as long as your family doctor has told you that you can take it) for fever or pain. and straight to ER if unable to lower temp less than 101.0 after medication given *Warm salt water gargles may help to soothe the throat *Throat Lozenges *Warm fluids like tea with honey may help to soothe the throat *Sleep elevated *Humidifier/Vaporizer Your throat swab was sent for culture. Those results are typically sent to your primary care. Be sure to follow up in 2-3 days with your family doctor/primary care physician if no improvement so they can review those result and treat if necessary. If you don?t have a primary care doctor, I recommend you get one but in the mean time, you will have to return to a walk in clinic Follow up IMMEDIATELY for new or worsening symptoms or no Noticeable improvement over the next 48-72 hours. 911 for difficulty breathing or swallowing You were tested for today for COVID19 your test result should be back in the next 24-48 hours, you may check your results on the [facility] My Health Portal Make sure to take your Vitamins Vit. C Vit D and Zinc if you can take them Referrals: Princess Philip MD [Primary Care Provider] - As needed Forms: Work/School Release Time of Disposition: 09:34 Medical Decision Making - Corey Inquiry Pt receiving controlled substance: No Corey was queried for this patient: No Vital Signs: 11/30/21 09:10 Temperature 98.4 F Temperature Source Oral Pulse Rate [Right Brachial] 78 Respiratory Rate 18 Blood Pressure [Left Arm] 107/67 L Blood Pressure Mean [Left Arm] 80 Blood Pressure Source [Left Arm] Automatic Cuff Blood Pressure Position [Left Arm] Sitting 02 Sat by Pulse Oximetry 97 Oxygen Delivery Method Room Air - Lab Data Lab results reviewed: Yes: I reviewed the patient's lab results. [facility] [place] HPI - General Stated complaint: Sore throat, cough Time Seen by Provider: 11/30/21 09:26 Mode of Arrival: Ambulatory Source of Information: Patient Limitations: No Limitations Description of Symptoms (Recalled from Triage Doc. by RN): PATIENT C/O SORE THROAT, COUGH, HEADACHE AND CONGESTION X 3 DAYS HEENT Symptoms (Recalled from RN notes): Yes Resp Symptoms (Recalled from RN notes): Yes Skin Symptoms (Recalled from RN notes): No MS Symptoms (Recalled from RN notes): No Functional Status (Recalled from RN notes): WNL - History of Present Illness Provider Complaint: Patient states that she started feeling bad on Wednesday States that she has been having sore throat cough and headache States that she feels like she may have strep throat so today when she was still having sore throat so she came in to get tested - Related Data Home Medications Medication Instructions Recorded Confirmed No122/Iron/Folic Acid 1 each PO DAILY 07/08/21 11/17/21 [ Multi Tablet] Allergies Allergy/AdvReac Type Severity Reaction Status Date / Time No Known Allergies Allergy Verified 11/17/21 15:47 - Worker's Comp Is this a Worker's Comp case?: No [facility] History - Hepatitis A Screen Attestation statement:: This patient has been screened for Hepatitis A risk factors. I have reviewed the patient's past medical history: Yes Medical History: Denies:: Cancer, Diabetes Mellitus Type 1, Diabetes Mellitus Type 2, Internal Pacemaker, MRSA, Seizures Other Medical History: Denies: Blood Transfusion Reaction Other Surgeries: Yes: Cholecystectomy, Other. No: , Pacemaker Amputation: No Fractures: No - Social History Smoking Status: Never smoker Alcohol Intake: never Alcohol Intake Frequency:: holidays/
[2021-11-30 09:34] LABS: UTC Strep Screen (Rapid) Negative (Negative)
[2021-11-30 09:35] VITALS: BP 107/67; PULSE 78; RESP 18; TEMP 36.9; O2SAT 97
[2021-11-30 09:47] LABS: Adenovirus,PCR Not Detected (NotDetected); Bordetella Pertussis Not Detected (NotDetected); Chlamydophila Pneumoniae, PCR Not Detected (NotDetected); Coronavirus 229E Not Detected (NotDetected); Coronavirus NL63 Not Detected (NotDetected); Coronavirus OC43 Not Detected (NotDetected); Coronovirus HKU1,PCR Not Detected (NotDetected); Human Metapneumovirus Not Detected (NotDetected); Influenza A, PCR Not Detected (NotDetected); Influenza AH1, 2009 Not Detected (NotDetected); Influenza AH1, PCR Not Detected (NotDetected); Influenza AH3,PCR Not Detected (NotDetected); Influenza B, PCR Not Detected (NotDetected); Mycoplasma Pneumoniae, PCR Not Detected (NotDetected); Parainfluenza 1, PCR Not Detected (NotDetected); Parainfluenza 2, PCR Not Detected (NotDetected); Parainfluenza 3, PCR Not Detected (NotDetected); Parainfluenza 4, PCR Not Detected (NotDetected); Respiratory Syncytial Virus Not Detected (NotDetected)
[2021-11-30 13:29] LABS: Coronavirus 19, PCR Detected (NotDetected); Rhinovirus/Enterovirus Detected (NotDetected)
== END 2021-11-30 09:53 | disposition home or self-care (01) ==
PROVIDERS: Emergency Provider Nurse Practitioner; PCP Family Medicine
DX: U07.1 COVID-19; B34.8 Other viral infections of unspecified site
CPT/HCPCS: 87581; 87632; 87798; 87880; 99212; C9803; G0463; U0003; U0005

== ENCOUNTER 2021-12-24 15:57 | Emergency (ER) | payer OTHER, SELFPAY ==
--- NOTE | 2021-12-24 16:02 | EXP.UTC ---
Discharge Plan Disposition Patient Disposition: Home, Self-Care Condition: Good Prescriptions Prescriptions: New cephalexin [cephalexin] 500 mg capsule 500 mg PO Q6H 7 Days Qty: 28 0RF No Action Mirena 20 mcg/24 hours (7 yrs) 52 mg intrauterine device intrauterine [id number] acid 1 EACH tablet 1 each PO DAILY Referrals Follow up/Referrals: Princess Philip MD [Primary Care Provider] - See instructions Activity Restrictions/Add. Instructions Additional Instructions/Restrictions: Drink plenty of fluids. Take tylenol for pain or fever. Take the medications as directed. Follow up with your regular doctor. GO TO THE ER FOR ANY WORSENING SYMPTOMS We will culture the urine. That will tell what bacteria is causing your infection and which antibiotics will treat it best. Sometimes the first antibiotic we prescribe turns out to not work against different bacteria. So, make sure you follow up within 3 days if you are not getting better. Clinical Impressions Clinical Impression: UTI (urinary tract infection) Instructions Patient Instructions: DI for Urinary Tract Infection (UTI) Discharge ED Provider: Bruce Connors [facility] General Stated complaint: BACK PAIN AND POSS FEVER Time Seen by Provider: 12/24/21 16:19 History of Present Illness Provider Complaint: She states that for the past 3 days she has had worsening dysuria and urinary frequency. She has felt bad and had a low grade fever at times also. Related Data Home Medications Medication Instructions Recorded Confirmed vit 122-ferrous fumarate 1 each PO DAILY Diet supplement 07/08/21 12/16/21 27 mg iron-folic acid 800 mcg tablet levonorgestrel 20 mcg/24 hours (7 intrauterine 12/16/21 12/16/21 yrs) 52 mg intrauterine device (Mirena) Previous Rx's Medication Instructions Recorded cephalexin 500 mg capsule 500 mg PO Q6H 7 days #28 caps 12/24/21 Allergies Allergy/AdvReac Type Severity Reaction Status Date / Time No Known Allergies Allergy Verified 12/24/21 16:13 [facility] Social History Smoking Status: Never smoker alcohol intake: never substance use type: denies use current occupational status: other Travel in the last 8 weeks: None caffeine: Yes ROS Obtained: Yes All systems reviewed & no additional complaints except as documented Constitutional Constitutional: Reports system reviewed and no additional complaints, except as documented, Denies chills and Denies fever(s) Eyes Eyes: Denies eye discharge ENT Ears, Nose, Mouth, and Throat: Denies dysphagia, Denies sore throat and Denies throat swelling Cardiovascular Cardiovascular: Denies chest pain and Denies dyspnea Respiratory Respiratory: Denies chest congestion, Denies cough and Denies dyspnea Gastrointestinal Gastrointestingal: Denies abdominal pain, constipation, diarrhea, dysphagia, nausea or vomiting Musculoskeletal Musculoskeletal: Denies arthralgias Integumentary/Breasts Skin/Breast: Denies rash Neurologic Neurologic: Denies paresthesias Allergic/Immunologic Allergic/Immunologic: Denies throat swelling Physical Exam General General appearance: alert and in no apparent distress Head Head exam: atraumatic, normocephalic and normal inspection Eye Eye exam: Present normal appearance, PERRL and EOMI ENT ENT exam: Present normal exam, normal oropharynx, mucous membranes moist, TM's normal bilaterally and normal external ear exam Neck Neck exam: Present normal inspection, full ROM and trachea midline; Absent meningismus or lymphadenopathy Chest Chest inspection: Present normal inspection and symmetric chest wall rise; Absent tenderness Respiratory Respiratory exam: Present normal lung sounds bilaterally; Absent respiratory distress Cardiovascular Cardiovascular exam: Present regular rate and normal rhythm; Absent JVD Abdominal Exam Abdom
[2021-12-24 16:10] VITALS: BP 116/68; PULSE 79; RESP 18; TEMP 36.8; O2SAT 97; BMI 37.2
[2021-12-24 16:31] LABS: Apearance,Urine Cloudy (Clear); Bilirubin,Urine Negative (Negative); Blood, Urine 1+ (Negative); Color,Urine Dark Yellow (Yellow); Glucose,Urine (UA) Negative (Negative); Ketones,Urine Negative (Negative); Protein,Urine 1+ (Negative); Specific Gravity, Urine 1.025 (1.005-1.030); UTC Leukocyte Esterase,Urine 1+ (Negative); UTC Nitrate,Urine Negative (Negative); Urobilinogen,Urine 4 EU/dl (0.2)
[2021-12-24 16:44] VITALS: BP 116/68; PULSE 79; RESP 18; TEMP 36.8
== END 2021-12-24 16:54 | disposition home or self-care (01) ==
PROVIDERS: Emergency Provider Nurse Practitioner Family; PCP Family Medicine
DX: N39.0 Urinary tract infection, site not specified (principal)
CPT/HCPCS: 81003; 87086; 99212; G0463

== ENCOUNTER 2022-06-07 16:22 | Emergency (ER) | payer OTHER, SELFPAY ==
[2022-06-07 16:35] VITALS: BMI 38.9
--- NOTE | 2022-06-07 16:37 | PC.NURSE ---
Pt states that she has had TB test in the past before.
[2022-06-07 16:40] VITALS: BP 133/84; PULSE 84; RESP 20; TEMP 36.6; O2SAT 99; BMI 38.9
[2022-06-07 16:48] VITALS: BP 133/84; PULSE 84; RESP 20; TEMP 36.6; O2SAT 99
== END 2022-06-07 16:46 | disposition home or self-care (01) ==
PROVIDERS: Emergency Provider Nurse Practitioner; PCP Family Medicine
DX: Z11.1 Encounter for screening for respiratory tuberculosis (principal)
CPT/HCPCS: 86580; 90471

== ENCOUNTER 2022-07-17 16:55 | Emergency (ER) | payer OTHER, SELFPAY ==
[2022-07-17 17:10] VITALS: BP 128/73; PULSE 75; RESP 16; TEMP 36.8; O2SAT 99; BMI 40.4
[2022-07-17 17:47] LABS: Apearance,Urine Clear (Clear); Bilirubin,Urine Negative (Negative); Blood, Urine Trace (Negative); Color,Urine Yellow (Yellow); Glucose,Urine (UA) Negative (Negative); Ketones,Urine Negative (Negative); Protein,Urine Negative (Negative); Specific Gravity, Urine 1.025 (1.005-1.030); UTC Leukocyte Esterase,Urine Trace (Negative); UTC Nitrate,Urine Negative (Negative); Urobilinogen,Urine 0.2 EU/dl (0.2)
--- NOTE | 2022-07-17 17:56 | EXP.UTC ---
Discharge Plan Disposition Patient Disposition: Home, Self-Care Condition: Good Prescriptions Prescriptions: New ciprofloxacin HCl [Cipro] 500 mg tablet 500 mg PO BID 3 Days Qty: 6 0RF No Action Mirena 20 mcg/24 hours (7 yrs) 52 mg intrauterine device intrauterine [id number] acid 1 EACH tablet 1 each PO DAILY cephalexin [cephalexin] 500 mg capsule 500 mg PO Q6H 7 Days Qty: 28 0RF Referrals Follow up/Referrals: Princess Philip MD [Primary Care Provider] - See instructions Clinical Impressions Clinical Impression: UTI (urinary tract infection) Instructions Patient Instructions: DI for Urinary Tract Infection (UTI) Discharge ED Provider: Che Selby [facility] General Stated complaint: Poss UTI Mode of Arrival: Ambulatory Source of Information: Patient Limitations: No Limitations Time Seen by Provider: 07/17/22 17:56 Description of Symptoms (Recalled from Triage Doc. by RN): PATIENT C/O POSSIBLE UTI HEENT Symptoms (Recalled from RN notes): No Resp Symptoms (Recalled from RN notes): No Skin Symptoms (Recalled from RN notes): No MS Symptoms (Recalled from RN notes): No Functional Status (Recalled from RN notes): WNL History of Present Illness Provider Complaint: Pt states that for the last couple of days she has had burning with urination. She denies taking anything for her symptoms Related Data Home Medications Medication Instructions Recorded Confirmed vit 122-ferrous fumarate 1 each PO DAILY Diet supplement 07/08/21 12/16/21 27 mg iron-folic acid 800 mcg tablet levonorgestrel 21 mcg/24 hours (8 intrauterine 12/16/21 12/16/21 yrs) 52 mg intrauterine device (Mirena) Previous Rx's Medication Instructions Recorded cephalexin 500 mg capsule 500 mg PO Q6H 7 days #28 caps 12/24/21 ciprofloxacin HCl 500 mg tablet 500 mg PO BID 3 days #6 tabs 07/17/22 (Cipro) Allergies Allergy/AdvReac Type Severity Reaction Status Date / Time No Known Allergies Allergy Verified 06/07/22 16:36 Worker's Comp Is this a Worker's Comp case?: No [facility] Disclaimer: The information contained in this section may have been updated after the patient was seen, as this information can be updated by other users. Social History Smoking Status: Never smoker alcohol intake: never substance use type: denies use current occupational status: other Travel in the last 8 weeks: None caffeine: Yes ROS Obtained: Yes All systems reviewed & no additional complaints except as documented Constitutional Constitutional: Reports system reviewed and no additional complaints, except as documented Eyes Eyes: Reports system reviewed and no additional complaints, except as documented ENT Ears, Nose, Mouth, and Throat: Reports system reviewed and no additional complaints, except as documented Cardiovascular Cardiovascular: Reports system reviewed and no additional complaints, except as documented Respiratory Respiratory: Reports system reviewed and no additional complaints, except as documented Gastrointestinal Gastrointestingal: Reports system reviewed and no additional complaints, except as documented Genitourinary Female Genitourinary: Reports as per HPI, Reports dysuria and Reports pelvic pain Musculoskeletal Musculoskeletal: Reports system reviewed and no additional complaints, except as documented Integumentary/Breasts Skin/Breast: Reports system reviewed and no additional complaints, except as documented Neurologic Neurologic: Reports system reviewed and no additional complaints, except as documented Endocrine Endocrine: Reports system reviewed and no additional complaints, except as documented Hematologic/Lymphatic Henatologic/Lymphatic: Reports system reviewed and no additional complaints, except as documented Allergic/Immunologic Allergic/Immunologic: Reports system reviewed and no additional c
[2022-07-17 18:05] VITALS: BP 128/73; PULSE 75; RESP 16; TEMP 36.8; O2SAT 99
== END 2022-07-17 18:13 | disposition home or self-care (01) ==
PROVIDERS: Emergency Provider Nurse Practitioner Family; PCP Family Medicine
DX: N39.0 Urinary tract infection, site not specified (principal)
CPT/HCPCS: 81003; 87086; 99212; 99214; G0463

== ENCOUNTER → 2022-09-16 08:17 | Outpatient (CLI) | payer OTHER, SELFPAY | PROVIDERS: PCP Nurse Practitioner Family; Visit Provider Nurse Practitioner Family | DX: J02.9 Acute pharyngitis, unspecified (principal) ==

== ENCOUNTER 2022-12-02 19:20 | Emergency (ER) | payer OTHER, SELFPAY ==
[2022-12-02 19:35] VITALS: BP 119/68; PULSE 93; RESP 19; TEMP 37.1; O2SAT 98; BMI 38.6
[2022-12-02 19:41] LABS: Microscopic, Urine URINE MICROSCOPIC (MICROSCOPIC)
--- NOTE | 2022-12-02 19:50 | EXP.UTC ---
Discharge Plan Disposition Patient Disposition: Home, Self-Care Condition: Good Prescriptions Prescriptions: New cefdinir 300 mg capsule 300 mg PO BID Qty: 20 0RF phenazopyridine [Pyridium] 200 mg tablet 200 mg PO Q8H 2 Days Qty: 6 0RF ondansetron 4 mg tablet,disintegrating 4 mg PO Q8H PRN (Reason: nausea and vomiting) Qty: 10 0RF No Action Mirena 20 mcg/24 hours (7 yrs) 52 mg intrauterine device intrauterine Referrals Follow up/Referrals: Princess Philip MD [Primary Care Provider] - See instructions Activity Restrictions/Add. Instructions Additional Instructions/Restrictions: *Increase fluids. Water not Soda or Tea *Start antibiotic immediately and be sure to take as ordered for the FULL length of time although you should start to see improvement over the next 48 hours *Pyridium as needed Remember this medication will turn your urine . This is normal but it will stain what ever it gets on *You should not use Pyridium for more than 48 hours. If so , follow up with your primary physician to review urine culture and ensure that antibiotic is adequate for infection *Be SURE to follow up anytime for new or worsening symptoms with your family doctor. AND in 48 hours for urine culture results with your family doctor, if you do not have a doctor then you may call back to the [facility] for urine culture results and further treatment. We do recommend that you choose and establish care with a Primary Care Physician. ?AND follow up with them ?in 10-14 days to repeat UA to ensure infection is resolved and blood no longer present *Be sure to let your PCP know that we sent urine cultures from the [facility] so they can follow up to ensure that you area the on the correct antibiotic Call your doctor office and make appointment for 48 hours (2 days from today) ?to follow up and get the results of your urine culture and further treatment Clinical Impressions Clinical Impression: UTI (urinary tract infection) Instructions Patient Instructions: DI for Urinary Tract Infection (UTI), Cefdinir Discharge ED Provider: Inessa Mistry [facility] [place] H[place] General Stated complaint: suspected uti Mode of Arrival: Ambulatory Source of Information: Patient Limitations: No Limitations Time Seen by Provider: 12/02/22 19:50 Description of Symptoms (Recalled from Triage Doc. by RN): PATIENT C/O STRONG URINE SMELL, BURNING WITH URINATION, NAUSEA AND VOMITING X 1 WEEK HEENT Symptoms (Recalled from RN notes): No Resp Symptoms (Recalled from RN notes): No Skin Symptoms (Recalled from RN notes): No MS Symptoms (Recalled from RN notes): No Functional Status (Recalled from RN notes): WNL History of Present Illness Provider Complaint: Patient states that she has had N/V on and off for week thought she may have a stomach bug but for the last couple of days she started having burning with urination and strong smelling dark urine States that she was worried that she may have a UTI states that sometimes she has N/V when she has a UTI so she came in to get it checked Related Data Home Medications Medication Instructions Recorded Confirmed levonorgestrel 21 mcg/24 hours (8 intrauterine 12/16/21 10/05/22 yrs) 52 mg intrauterine device (Mirena) Previous Rx's Medication Instructions Recorded cefdinir 300 mg capsule 300 mg PO BID #20 caps 12/02/22 ondansetron 4 mg disintegrating 4 mg PO Q8H PRN nausea and 12/02/22 tablet vomiting #10 tabs phenazopyridine 200 mg tablet 200 mg PO Q8H pain 2 days #6 tabs 12/02/22 (Pyridium) Allergies Allergy/AdvReac Type Severity Reaction Status Date / Time No Known Allergies Allergy Verified 10/05/22 09:41 Worker's Comp Is this a Worker's Comp case?: No [facility] Disclaimer: The information contained in this section may have been updated after the patient was seen, as this information can be updated by other users. Medical History (Updated 12/02/22 @ 20:15 by Inessa Mistry APRN) D
[2022-12-02 20:01] LABS: Appearance,Urine CLEAR (Clear); Bilirubin,Urine Negative (Negative); Blood, Urine Negative (Negative); Color,Urine YELLOW (Yellow); Glucose,Urine (UA) Negative (Negative); Ketones,Urine 1+ (Negative); Leukocyte Esterase,Urine 1+ (Negative); Nitrate,Urine POSITIVE (Negative); PH,Urine 6.5 (5.0-8.5); Protein,Urine TRACE (Negative)
[2022-12-02 20:12] LABS: Bacteria,Urine 4+ /lpf
[2022-12-02 20:28] VITALS: BP 119/68; PULSE 93; RESP 19; TEMP 37.1; O2SAT 98
== END 2022-12-02 20:51 | disposition home or self-care (01) ==
PROVIDERS: Emergency Provider Nurse Practitioner; PCP Family Medicine
DX: N39.0 Urinary tract infection, site not specified (principal); B96.89 Other specified bacterial agents as the cause of diseases classified elsewhere; R11.2 Nausea with vomiting, unspecified
CPT/HCPCS: 81001; 87086; 87088; 87186; 96372; 99212; 99214; G0463; J0696

== ENCOUNTER → 2022-12-21 13:30 | Outpatient (CLI) | payer OTHER, SELFPAY ==
[2022-12-21 16:10] LABS: HCG,Quantitative < 2 mIU/ml (0-5.42)
== END ==
PROVIDERS: PCP Family Medicine; Visit Provider Obstetrics & Gynecology
DX: Z32.01 Encounter for pregnancy test, result positive (principal)
CPT/HCPCS: 36415; 84702

== ENCOUNTER → 2022-12-29 12:00 | Outpatient (CLI) | payer OTHER, SELFPAY | PROVIDERS: PCP Nurse Practitioner Family; Visit Provider Nurse Practitioner Family | DX: R35.0 Frequency of micturition (principal); B96.29 Other Escherichia coli [E. coli] as the cause of diseases classified elsewhere | CPT/HCPCS: 87086; 87088; 87186 ==

== ENCOUNTER → 2022-12-30 13:00 | Outpatient (CLI) | payer OTHER, SELFPAY ==
--- NOTE | 2022-12-30 13:02 | US_ITS ---
PROCEDURE: US TRANSVAGINAL CLINICAL INDICATION: to check iud placement COMPARISON: No exams were available for comparison FINDINGS: Transvaginal sonographic images of the pelvis were obtained. UTERUS: 6.5 cm x 5.0 cmx 2.7 cm with a combined endometrial thickness of 5.3mm. The uterus is anteverted. There is an IUD within the uterine cavity in the correct position. LEFT OVARY: 3.4 cmx2.1 cmx1.5cm with a volume of 5.5ml. The ovary has a polycystic appearance. RIGHT OVARY: 3.2 cmx 2.0 cmx1.7 cm with a volume of 5.7ml. The ovary has a polycystic appearance. The largest follicle is 8 mm. Both ovaries are seen and appear normal. Doppler flow to both ovaries are seen. There is no fluid in the cul-de-sac. IMPRESSION: 1. Anteverted uterus normal in shape and size. An IUD is seen in the correct position. 2. Both ovaries are seen and appear normal. They have a polycystic appearance. 3. No fluid in the cul-de-sac. Dictated by: Prieto Castillo MD 12/30/2022 19:32 Prieto Castillo MD in OV 12/30/2022 19:32
== END ==
PROVIDERS: PCP Family Medicine; Visit Provider Obstetrics & Gynecology
DX: Z30.431 Encounter for routine checking of intrauterine contraceptive device (principal)
CPT/HCPCS: 76830

== ENCOUNTER 2022-12-31 20:46 | Emergency (ER) | payer OTHER, SELFPAY ==
[2022-12-31 20:47] VITALS: BP 138/85; PULSE 68; RESP 18; TEMP 36.8; O2SAT 100; BMI 39.1
--- NOTE | 2022-12-31 21:15 | PC.NURSE ---
verbal orders from dr fernandez
[2022-12-31 21:35] LABS: Basophils % 0.6 % (0.1-2.0); Eosinophils # 0.1 K/mm3 (0.0-0.4); Eosinophils % 1.2 % (0.1-12.0); Hematocrit 42.6 % (37.0-47.0); Hemoglobin 13.8 g/dL (12.2-16.2); Lymphocytes # 1.7 K/mm3 (0.7-4.5); Lymphocytes % 30.5 % (10-50); Mean Corpuscular HGB Conc 32.4 g/dL (31.8-35.4); Mean Corpuscular Hemoglobin 27.9 pg (27.0-31.2); Mean Corpuscular Volume 86.1 fl (81-99); Mean Platelet Volume 8.3 fl (7.4-10.4); Monocytes # 0.3 K/mm3 (0.1-1.0); Monocytes % 5.8 % (1.7-9.3); Neutrophils # 3.4 K/mm3 (1.8-7.8); Neutrophils % 61.9 % (37.0-80.0); Platelet Count 273 K/mm3 (142-424); Red Blood Count 4.95 M/mm3 (4.20-5.40); Red Cell Distribution Width 13.5 % (11.5-17.5); White Blood Count 5.5 K/mm3 (4.8-10.8)
[2022-12-31 21:36] LABS: Chloride 109 mmol/L (98-107); Potassium 3.9 mmoL/L (3.5-5.1); Sodium 144 mmol/L (136-145)
--- NOTE | 2022-12-31 21:36 | PC.NURSE ---
Pt refused morphine because she didnt want it to knock her out.
[2022-12-31 21:38] LABS: Blood Urea Nitrogen 17 mg/dl (7-17); Creatinine Clearance Estimated 154 mL/min (50-200); Estimated Glomerular Filt Rate 78 ml/min (>60); GFR (African American) 94 ML/MIN (>60)
[2022-12-31 21:39] LABS: Alanine Aminotransferase 26 U/L (12-78); Albumin Level 4.2 g/dl (3.5-5.0); Albumin/Globulin Ratio 1.2 (1.1-1.8); Alkaline Phosphatase 84 U/L (38-126); Anion Gap 12.9 mEq/L (5-15); Aspartate Amino Transferase 26 U/L (14-36); Bilirubin,Total 0.2 mg/dl (0.2-1.3); Calcium 8.8 mg/dl (8.4-10.2); Carbon Dioxide 26 mmol/L (22.0-30.0); Globulin 3.5 g/dL (1.3-3.2); Glucose 113 mg/dl (74-100); Lipase 42 U/L (23-300); Total Protein,Serum 7.7 g/dl (6.3-8.2)
[2022-12-31 21:46] LABS: Urine Pregnancy, HCG Qual. Negative (Negative)
--- NOTE | 2022-12-31 22:57 | CT_ITS ---
PROCEDURE INFORMATION: Exam: CT Abdomen And Pelvis With Contrast Exam date and time: 12/31/2022 11:22 PM Age: 22 years old Clinical indication: Abdominal pain; Localized; Right lower quadrant (rlq); Additional info: Rlq pain TECHNIQUE: Imaging protocol: Computed tomography of the abdomen and pelvis with contrast. Radiation optimization: All CT scans at this facility use at least one of these dose optimization techniques: automated exposure control; mA and/or kV adjustment per patient size (includes targeted exams where dose is matched to clinical indication); or iterative reconstruction. Contrast material: ISOVUE; Contrast volume: 75 ml; Contrast route: IV; REPORTING DATA: Count of CT and Cardiac NM exams in prior 12 months: This patient has received 0 known CTs and 0 known cardiac nuclear medicine studies in the 12 months prior to the current study. COMPARISON: US TRANSVAGINAL 12/30/2022 1:09 PM FINDINGS: Tubes, catheters and devices: Intrauterine device projected over mid uterus exact location indeterminate. Liver: Fatty liver infiltration. Liver measures 18 cm. Gallbladder and bile ducts: Surgically absent gallbladder. Pancreas: Normal. No ductal dilation. Spleen: Normal. No splenomegaly. Adrenal glands: Normal. No mass. Kidneys and ureters: Normal. No hydronephrosis. Stomach and bowel: Scattered sigmoid colonic diverticula without pericolonic fat stranding. Appendix: No evidence of appendicitis. Intraperitoneal space: Unremarkable. No free air. No significant fluid collection. Vasculature: Unremarkable. No abdominal aortic aneurysm. Lymph nodes: Reactive mesenteric/retroperitoneal lymph nodes without lymphadenopathy. Urinary bladder: Unremarkable as visualized. Reproductive: Unremarkable as visualized. Bones/joints: Unremarkable. No acute fracture. Soft tissues: Unremarkable. IMPRESSION: 1. Reactive lymph nodes without lymphadenopathy. 2. Fatty liver infiltration. 3. Colonic diverticulosis.
[2022-12-31 23:02] LABS: Appearance,Urine CLEAR (Clear); Blood, Urine TRACE-I (Negative); Color,Urine YELLOW (Yellow); Glucose,Urine (UA) Negative (Negative); Ketones,Urine Negative (Negative); Leukocyte Esterase,Urine Negative (Negative); Microscopic, Urine URINE MICROSCOPIC (MICROSCOPIC); Nitrate,Urine Negative (Negative); Protein,Urine Negative (Negative); Specific Gravity, Urine >= 1.030 (1.005-1.030); Urobilinogen,Urine 0.2 EU/dl (0.2)
[2022-12-31 23:03] LABS: Bilirubin,Urine 1+ (Negative)
[2022-12-31 23:16] LABS: RBC,Urine Occasional #/hpf (0-3); Squamous Epithelial Cell,Urine Occasional #/hpf (0-5); WBC,Urine Occasional #/hpf (0-3)
--- NOTE | 2022-12-31 23:44 | PC.NURSE ---
called and spoke with lab re: crp lab results. Spoke with Torie. Was informed that the CRP lab is a send out currently due to machine not working at this time. MD Valadez and Carson informed
--- NOTE | 2023-01-01 00:12 | HMH.EDGENADL ---
Discharge Plan Disposition Patient Disposition: Home, Self-Care Chief Complaint: Abdominal Pain Prescriptions Prescriptions: No Action nitrofurantoin monohyd/m-cryst [Macrobid] 100 mg Capsule 100 mg PO Q12H Rx Instructions: must administer with a meal/food Contrave 8-90 mg Tablet Extended Release 1 tab PO HS Rx Instructions: and also take 2 tablets every morning - week 3 of therapy Referrals Follow up/Referrals: Princess Philip MD [Primary Care Provider] - See instructions Activity Restrictions/Add. Instructions Additional Instructions/Restrictions: Maintain follow-up with primary care doctor and general surgery. Because patient at baseline without signs or symptoms of clinical decompensation, deemed appropriate for discharge. Results were relayed to patient who voiced understanding and were agreeable to outpatient management and follow up. Patient was discharged in hemodynamically stable condition with recommended primary care follow-up. Take Tylenol 1000 mg every 6 hours (4 times daily) and ibuprofen 400 mg every 6 hours (4 times daily) as needed with food and water to prevent GI upset and kidney damage. Clinical Impressions Clinical Impression: Abdominal pain Instructions Patient Instructions: DI for Acute Abdominal Pain Discharge ED Provider: Nathanael Byrd General Adult HPI <Jose Antonio Valadez MD - Last Filed: 01/01/23 00:15> General Chief complaint: Abdominal Pain Stated complaint: Rigjt side pain vomiting Time Seen by Provider: 12/31/22 22:00 Mode of Arrival: Ambulatory Source of Information: Patient Limitations: No Limitations Description of Symptoms (Recalled from ER Triage Doc. by RN): Pt arrives with c/o RLQ pain. Pt was seen at [facility] ER last week and dx with early appendicitis. Dr Harmon advised her to return here if she had increased pain. History of Present Illness HPI narrative: Patient is a 22-year-old female with no significant past medical history presents emergency department for evaluation of right lower quadrant abdominal pain. History is obtained by patient at bedside. She originally presented to outside hospital last week with left lower quadrant abdominal pain and was diagnosed with early appendicitis . She was also told that maybe she had a ruptured ovarian cyst and was subsequently discharged home. Since then she has been diagnosed with a urinary tract infection for which she is on Macrobid. She is pending evaluation with Dr. Harmon who instructed her that if her pain is to moved to the right lower quadrant she should present here for continued evaluation. Over the last day patient has had pain worse in the right lower quadrant. Due to persistent symptoms he presents here for continued evaluation Related Data Home Medications Medication Instructions Recorded Confirmed naltrexone 8 mg-bupropion 90 mg 1 tab PO HS weight loss 12/31/22 12/31/22 tablet,extended release (Contrave) nitrofurantoin 100 mg PO Q12H UTI 12/31/22 12/31/22 monohydrate/macrocrystals 100 mg capsule (Macrobid) Allergies Allergy/AdvReac Type Severity Reaction Status Date / Time No Known Allergies Allergy Verified 12/29/22 11:50 PFS <Jose Antonio Valadez MD - Last Filed: 01/01/23 00:15> PFS Disclaimer: The information contained in this section may have been updated after the patient was seen, as this information can be updated by other users. Medical History (Updated 01/01/23 @ 01:26 by Nathanael Byrd MD) Abdominal pain Absent periods Acute bacterial tonsillitis Biliary colic Bronchitis Chest pain COVID-19 Cystitis DUB (dysfunctional uterine bleeding) Dyspnea Exposure to COVID-19 virus Fever, unknown origin Irregular menses Pelvic pain Pelvic pain in female Pharyngitis Pleuritic chest pain Polycystic bilateral ovaries Pre-conception counseling Recurrent UTI Sinusitis SOB (shortness of breath) Strep throat Tetanus toxoid vaccination administered
[2023-01-01 01:53] VITALS: BP 129/77; PULSE 66; RESP 18; TEMP 37.2; O2SAT 97
== END 2023-01-01 01:54 | disposition home or self-care (01) ==
PROVIDERS: Emergency Medicine; Emergency Provider Emergency Medicine; PCP Family Medicine
DX: R10.31 Right lower quadrant pain (principal); E28.2 Polycystic ovarian syndrome
CPT/HCPCS: 74177; 80053; 81001; 81025; 83690; 85025; 86140; 96361; 96374; 96375; 99285; J0131; Q9967

== ENCOUNTER 2023-02-25 18:46 | Emergency (ER) | payer OTHER, SELFPAY ==
[2023-02-25 19:20] VITALS: BP 137/94; PULSE 126; RESP 20; TEMP 37.7; O2SAT 96; BMI 40.1
--- NOTE | 2023-02-25 19:48 | EXP.UTC ---
Discharge Plan Disposition Patient Disposition: Home, Self-Care Condition: Good Prescriptions Prescriptions: No Action nitrofurantoin monohyd/m-cryst [Macrobid] 100 mg Capsule 100 mg PO Q12H Rx Instructions: must administer with a meal/food Contrave 8-90 mg Tablet Extended Release 1 tab PO HS Rx Instructions: and also take 2 tablets every morning - week 3 of therapy Referrals Follow up/Referrals: Princess Philip MD [Primary Care Provider] - See instructions Activity Restrictions/Add. Instructions Additional Instructions/Restrictions: *Monitor Temp, Over the counter Motrin or Tylenol as directed/as needed Tylenol every 4 hours and Motrin every 6 hours (as long as your family doctor has told you that you can take it) for fever or pain. and straight to ER if unable to lower temp less than 101.0 after medication given *Warm salt water gargles may help to soothe the throat *Throat Lozenges? *Warm fluids like tea with honey may help to soothe the throat? *Sleep elevated *Humidifier/Vaporizer Follow up IMMEDIATELY for new or worsening symptoms or no Noticeable improvement over the next 48-72 hours. 911 for difficulty breathing or swallowing You were tested for today for Upper Respiratory Panel with COVID19 your test result should be back in the next 24 You may check your results on the [facility] Portal if it is positive you will need to Quarantine for 5 days per the CDC Recommendations Clinical Impressions Clinical Impression: Viral syndrome Stand Alone Forms Stand Alone Forms: Work/School Release Instructions Patient Instructions: DI for Viral Syndrome, DI for Fever (Symptom) -- Adult Discharge ED Provider: Inessa Mistry [facility] HPI General Stated complaint: fever, body aches Mode of Arrival: Ambulatory Source of Information: Patient Limitations: No Limitations Time Seen by Provider: 02/25/23 19:48 Description of Symptoms (Recalled from Triage Doc. 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 States that this evening she was feeling worse so she came in to get checked worried she may have flu or something Related Data Home Medications Medication Instructions Recorded Confirmed naltrexone 8 mg-bupropion 90 mg 1 tab PO HS weight loss 12/31/22 01/01/23 tablet,extended release (Contrave) nitrofurantoin 100 mg PO Q12H UTI 12/31/22 01/01/23 monohydrate/macrocrystals 100 mg capsule (Macrobid) Allergies Allergy/AdvReac Type Severity Reaction Status Date / Time No Known Allergies Allergy Verified 01/01/23 10:17 Worker's Comp Is this a Worker's Comp case?: No [facility] Disclaimer: The information contained in this section may have been updated after the patient was seen, as this information can be updated by other users. Medical History Abdominal pain Absent periods Acute bacterial tonsillitis Biliary colic Bronchitis Chest pain COVID-19 Cystitis DUB (dysfunctional uterine bleeding) Dyspnea Exposure to COVID-19 virus Fever, unknown origin Irregular menses Pelvic pain Pelvic pain in female Pharyngitis Pleuritic chest pain Polycystic bilateral ovaries Pre-conception counseling Recurrent UTI Sinusitis SOB (shortness of breath) Strep throat Tetanus toxoid vaccination administered at current visit Tuberculin skin test encounter URI (upper respiratory infection) UTI
[2023-02-25 20:02] VITALS: BP 137/94; PULSE 126; RESP 20; TEMP 37.7; O2SAT 96
[2023-02-25 20:02] LABS: UTC Influenza A Antigen Negative (Negative); UTC Influenza B Antigen Negative (Negative)
[2023-02-25 20:15] LABS: Adenovirus,PCR Not Detected (NotDetected); Coronavirus 19, PCR Not Detected (NotDetected); Coronavirus 229E Not Detected (NotDetected); Coronavirus NL63 Not Detected (NotDetected); Coronavirus OC43 Not Detected (NotDetected); Coronovirus HKU1,PCR Not Detected (NotDetected); Human Metapneumovirus Not Detected (NotDetected); Influenza A, PCR Not Detected (NotDetected); Influenza AH1, 2009 Not Detected (NotDetected); Influenza AH1, PCR Not Detected (NotDetected); Influenza AH3,PCR Not Detected (NotDetected); Influenza B, PCR Not Detected (NotDetected); Parainfluenza 1, PCR Not Detected (NotDetected); Parainfluenza 2, PCR Not Detected (NotDetected); Parainfluenza 3, PCR Not Detected (NotDetected); Parainfluenza 4, PCR Not Detected (NotDetected); Respiratory Syncytial Virus Not Detected (NotDetected); Rhinovirus/Enterovirus Not Detected (NotDetected)
== END 2023-02-25 20:08 | disposition home or self-care (01) ==
PROVIDERS: Emergency Provider Nurse Practitioner; PCP Family Medicine
DX: R50.9 Fever, unspecified (principal); B34.9 Viral infection, unspecified; M79.18 Myalgia, other site
CPT/HCPCS: 87581; 87632; 87635; 87798; 87804; 99212; 99213; G0463

== ENCOUNTER 2023-02-26 06:41 | Emergency (ER) | payer OTHER, SELFPAY ==
[2023-02-26 06:41] VITALS: BP 131/73; PULSE 97; RESP 16; TEMP 36.9; O2SAT 97; BMI 41.6
[2023-02-26 07:00] VITALS: BP 120/69; PULSE 106; RESP 18; O2SAT 97
--- NOTE | 2023-02-26 07:02 | PC.NURSE ---
Dr. Alexander at BS for pt eval
[2023-02-26 07:05] LABS: Microscopic, Urine URINE MICROSCOPIC (MICROSCOPIC)
[2023-02-26 07:06] LABS: Basophils % 0.3 % (0.1-2.0); Eosinophils # 0.1 K/mm3 (0.0-0.4); Eosinophils % 1.4 % (0.1-12.0); Hematocrit 40.7 % (37.0-47.0); Hemoglobin 14.3 g/dL (12.2-16.2); Lymphocytes % 11.1 % (10-50); Mean Corpuscular HGB Conc 35.2 g/dL (31.8-35.4); Mean Corpuscular Hemoglobin 30.7 pg (27.0-31.2); Mean Corpuscular Volume 87.3 fl (81-99); Mean Platelet Volume 8.2 fl (7.4-10.4); Monocytes # 0.6 K/mm3 (0.1-1.0); Monocytes % 6.6 % (1.7-9.3); Neutrophils # 6.9 K/mm3 (1.8-7.8); Neutrophils % 80.5 % (37.0-80.0); Platelet Count 211 K/mm3 (142-424); Red Blood Count 4.66 M/mm3 (4.20-5.40); Red Cell Distribution Width 13.5 % (11.5-17.5); White Blood Count 8.6 K/mm3 (4.8-10.8)
[2023-02-26 07:06] LABS: Appearance,Urine SL CLOUDY (Clear); Bilirubin,Urine Negative (Negative); Blood, Urine 2+ (Negative); Color,Urine YELLOW (Yellow); Glucose,Urine (UA) Negative (Negative); Ketones,Urine Negative (Negative); Leukocyte Esterase,Urine 2+ (Negative); Nitrate,Urine POSITIVE (Negative); Protein,Urine TRACE (Negative)
[2023-02-26 07:08] LABS: Urine Pregnancy, HCG Qual. Negative (Negative)
--- NOTE | 2023-02-26 07:11 | HMH.EDGENADL ---
Discharge Plan Disposition Patient Disposition: Home, Self-Care Prescriptions Prescriptions: New cefdinir 300 mg capsule 300 mg PO BID 10 Days Qty: 20 0RF No Action nitrofurantoin monohyd/m-cryst [Macrobid] 100 mg Capsule 100 mg PO Q12H Rx Instructions: must administer with a meal/food Contrave 8-90 mg Tablet Extended Release 1 tab PO HS Rx Instructions: and also take 2 tablets every morning - week 3 of therapy Referrals Follow up/Referrals: Princess Philip MD [Primary Care Provider] - See instructions Activity Restrictions/Add. Instructions Additional Instructions/Restrictions: Please continue to take 1 g of Tylenol and 800 mg of ibuprofen 3 times a day for your symptoms including your headache and fever. Return with any worsening symptoms any change in mental status any neck stiffness any inability to keep your fever down or other concerns. Clinical Impressions Clinical Impression: Pyelonephritis Instructions Patient Instructions: DI for Urinary Tract Infection (UTI), DI for Urinary Tract Infection in Children Discharge ED Provider: Leeann Pa General Adult HPI General Chief complaint: Urogenital-Female Stated complaint: fever, blood in urine Time Seen by Provider: 02/26/23 07:01 Mode of Arrival: Ambulatory Source of Information: Patient Limitations: No Limitations Description of Symptoms (Recalled from ER Triage Doc. by RN): pt reports being UTC yesterday, still having fever of 102 at home, motrin at 0600am, reports difficulty urinating, states when she wiped there was blood on toilet paper this am, reports headache with blurry vision and low back pain History of Present Illness HPI narrative: Patient is a 22-year-old female previously healthy up-to-date on vaccinations presenting today with a fever been lasting for 2 days. She also states that she has had shaking chills and a significant and severe headache associated with blurred vision. She denies any neck stiffness or difficulty with moving her neck. She denies any rash. She states that she has not had any urinary symptoms no frequency urgency or dysuria however has had some blood on her toilet this morning and states that she has had a history of recurrent urinary tract infections in the past. She denies any flank pain. Denies any cough or respiratory symptoms. She went to the urgent treatment clinic yesterday where she had flu [employer] respiratory viral panel and strep test which were all negative. She denies any pharyngitis or any upper respiratory or throat related symptoms. She took 60 mg of ibuprofen just prior to arrival which helped her headache and broke her fever. She has no significant past medical history. Related Data Home Medications Medication Instructions Recorded Confirmed naltrexone 8 mg-bupropion 90 mg 1 tab PO HS weight loss 12/31/22 01/01/23 tablet,extended release (Contrave) nitrofurantoin 100 mg PO Q12H UTI 12/31/22 01/01/23 monohydrate/macrocrystals 100 mg capsule (Macrobid) Previous Rx's Medication Instructions Recorded cefdinir 300 mg capsule 300 mg PO BID 10 days #20 caps 02/26/23 Allergies Allergy/AdvReac Type Severity Reaction Status Date / Time No Known Allergies Allergy Verified 01/01/23 10:17 [facility] Disclaimer: The information contained in this section may have been updated after the patient was seen, as this information can be updated by other users. Medical History Abdominal pain Absent periods Acute bacterial tonsillitis Biliary colic Bronchitis Chest pain COVID-19 Cystitis DUB (dysfunctional uterine bleeding) Dyspnea Exposure to COVID-19 virus Fever, unknown origin Irregular menses Pelvic pain Pelvic pain in female Pharyngitis Pleuritic chest pain Polycystic bilateral ovaries Pre-conception counseling Recurrent UTI Sinusitis SOB (shortness of breath)
[2023-02-26 07:14] LABS: Alanine Aminotransferase 27 U/L (12-78); Albumin Level 4.3 g/dl (3.5-5.0); Albumin/Globulin Ratio 1.2 (1.1-1.8); Alkaline Phosphatase 127 U/L (38-126); Anion Gap 13.8 mEq/L (5-15); Aspartate Amino Transferase 28 U/L (14-36); Bilirubin,Total 0.8 mg/dl (0.2-1.3); Blood Urea Nitrogen 11 mg/dl (7-17); Calcium 8.7 mg/dl (8.4-10.2); Carbon Dioxide 20 mmol/L (22.0-30.0); Chloride 108 mmol/L (98-107); Creatinine Clearance Estimated 121 mL/min (50-200); Estimated Glomerular Filt Rate 124 ml/min (>60); GFR (African American) 150 ML/MIN (>60); Globulin 3.7 g/dL (1.3-3.2); Glucose 109 mg/dl (74-100); Lactic Acid 0.7 mmol/L (0.7-2.1); Potassium 3.8 mmoL/L (3.5-5.1); Sodium 138 mmol/L (136-145)
[2023-02-26 07:17] LABS: Bacteria,Urine 1+ /lpf
[2023-02-26 07:30] VITALS: BP 130/72; PULSE 114; RESP 20; O2SAT 98
--- NOTE | 2023-02-26 07:50 | PC.NURSE ---
Observation 208 dx of resp failure, pna to service of the hospitalist.
[2023-02-26 08:50] VITALS: BP 118/76; PULSE 88; RESP 16; TEMP 36.7; O2SAT 96
== END 2023-02-26 08:50 | disposition home or self-care (01) ==
PROVIDERS: Emergency Provider Emergency Medicine; PCP Family Medicine
DX: N10 Acute pyelonephritis (principal); B96.29 Other Escherichia coli [E. coli] as the cause of diseases classified elsewhere; R31.9 Hematuria, unspecified; R00.0 Tachycardia, unspecified; R50.9 Fever, unspecified; R51.9 Headache, unspecified
CPT/HCPCS: 36415; 80053; 81001; 81025; 83605; 85025; 87040; 87086; 96365; 96375; 99284; J0131; J0696

== ENCOUNTER 2023-03-30 16:04 | Emergency (ER) | payer OTHER, SELFPAY ==
[2023-03-30 17:00] VITALS: BP 113/80; PULSE 114; RESP 18; TEMP 37.5; O2SAT 98; BMI 41.6
[2023-03-30 17:28] LABS: UTC Influenza A Antigen Negative (Negative); UTC Influenza B Antigen Negative (Negative)
--- NOTE | 2023-03-30 17:48 | EXP.UTC ---
Discharge Plan Disposition Patient Disposition: Home, Self-Care Condition: Good Prescriptions Prescriptions: New ciprofloxacin HCl [Cipro] 500 mg tablet 500 mg PO Q12H 3 Days Qty: 6 0RF nadtjswapebqpon-khzfhlqjd-BT [Bromfed DM] 2-30-10 mg/5 mL syrup 10 ml PO Q4-6H PRN (Reason: cold symptoms) Qty: 200 0RF Referrals Follow up/Referrals: Princess Philip MD [Primary Care Provider] - See instructions Clinical Impressions Clinical Impression: Acute upper respiratory infection UTI (urinary tract infection) Qualifiers: Urinary tract infection type: acute cystitis Hematuria presence: with hematuria Qualified Code(s): N30.01 - Acute cystitis with hematuria Stand Alone Forms Stand Alone Forms: Work/School Release Instructions Patient Instructions: DI for Urinary Tract Infection (UTI), DI for Viral Upper Respiratory Infection -- Adult Discharge ED Provider: Che Selby [facility] [place] HPI General Stated complaint: cough, [place] fever, esposed yo flu Mode of Arrival: Ambulatory Source of Information: Patient Limitations: No Limitations Time Seen by Provider: 03/30/23 17:37 Description of Symptoms (Recalled from Triage Doc. by RN): Fever, cough, and congesiton. Was exposed to flu HEENT Symptoms (Recalled from RN notes): Yes Resp Symptoms (Recalled from RN notes): No Skin Symptoms (Recalled from RN notes): No MS Symptoms (Recalled from RN notes): No Functional Status (Recalled from RN notes): n/a History of Present Illness Provider Complaint: Pt relates that she started feeling bad on Wednesday with a runny nose, congestion, fever, cough, and body aches. She is concerned that she may have flu as she was exposed. She reports that the last time she came in for a fever and body aches she had a bad UTI and wishes to be tested for this as well. Related Data Previous Rx's Medication Instructions Recorded tprxanuiapyjykw-vttgabdyqlzocdh-TF 10 ml PO Q4-6H PRN cold symptoms 03/30/23 2 mg-30 mg-10 mg/5 mL oral syrup #200 mL (Bromfed DM) ciprofloxacin HCl 500 mg tablet 500 mg PO Q12H 3 days #6 tabs 03/30/23 (Cipro) Allergies Allergy/AdvReac Type Severity Reaction Status Date / Time No Known Allergies Allergy Verified 03/30/23 17:30 Worker's Comp Is this a Worker's Comp case?: No [facility] Disclaimer: The information contained in this section may have been updated after the patient was seen, as this information can be updated by other users. Medical History Abdominal pain Absent periods Acute bacterial tonsillitis Biliary colic Bronchitis Chest pain COVID-19 Cystitis DUB (dysfunctional uterine bleeding) Dyspnea Exposure to COVID-19 virus Fever, unknown origin Irregular menses Pelvic pain Pelvic pain in female Pharyngitis Pleuritic chest pain Polycystic bilateral ovaries Pre-conception counseling Recurrent UTI Sinusitis SOB (shortness of breath) Strep throat Tetanus toxoid vaccination administered at current visit Tuberculin skin test encounter URI (upper respiratory infection) UTI (urinary tract infection) UTI (urinary tract infection) Viral syndrome Viral upper respiratory tract infection Surgical History No significant past surgical history Family History Other No significant family history Social History Smoking Status: Never smoker alcohol intake: never substance use type: denies use current occupational status: other Travel in the last 8 weeks: None caffeine: Yes ROS Obtained: Yes All systems reviewed & no additional complaints except as documented Constitutional Constitutional: Reports system reviewed and no additional complaints, except as documented, Reports body ache, Reports fever(s), Reports headache(s) and Reports
[2023-03-30 18:11] LABS: Apearance,Urine Clear (Clear); Bilirubin,Urine Negative (Negative); Blood, Urine 1+ (Negative); Color,Urine Yellow (Yellow); Glucose,Urine (UA) Negative (Negative); Ketones,Urine Negative (Negative); PH,Urine 5.5 (5.0-8.5); Protein,Urine Negative (Negative); Specific Gravity, Urine 1.025 (1.005-1.030); UTC Leukocyte Esterase,Urine 1+ (Negative); UTC Nitrate,Urine Negative (Negative); Urobilinogen,Urine 0.2 EU/dl (0.2)
[2023-03-30 18:26] VITALS: BP 113/80; PULSE 114; RESP 18; TEMP 37.5; O2SAT 98
== END 2023-03-30 18:24 | disposition home or self-care (01) ==
PROVIDERS: Emergency Provider Nurse Practitioner Family; PCP Family Medicine
DX: N30.01 Acute cystitis with hematuria (principal); B96.89 Other specified bacterial agents as the cause of diseases classified elsewhere; R10.30 Lower abdominal pain, unspecified; R51.9 Headache, unspecified; R05.9 Cough, unspecified; J06.9 Acute upper respiratory infection, unspecified; R50.9 Fever, unspecified; R09.81 Nasal congestion; M79.18 Myalgia, other site; R53.81 Other malaise; B34.9 Viral infection, unspecified; Z20.828 Contact with and (suspected) exposure to other viral communicable diseases
CPT/HCPCS: 81003; 87086; 87635; 87804; 99212; 99214; G0463

== ENCOUNTER 2023-06-14 17:07 | Emergency (ER) | payer OTHER, SELFPAY ==
[2023-06-14 17:50] VITALS: BP 137/84; PULSE 104; RESP 20; TEMP 36.9; O2SAT 100; BMI 43.5
--- NOTE | 2023-06-14 17:54 | ED_ITS ---
Discharge Plan Disposition Patient Disposition: Home, Self-Care Condition: Good Prescriptions Prescriptions: New cephalexin 500 mg capsule 500 mg PO QID 7 Days Qty: 28 0RF Vitamin 27 mg iron- 800 mcg tablet 1 tab PO DAILY 30 Days Qty: 30 5RF No Action ciprofloxacin HCl [Cipro] 500 mg tablet 500 mg PO Q12H 3 Days Qty: 6 0RF xgzbdpvybvzzowf-ltlrfioli-DA [Bromfed DM] 2-30-10 mg/5 mL syrup 10 ml PO Q4-6H PRN (Reason: cold symptoms) Qty: 200 0RF Referrals Follow up/Referrals: Princess Philip MD [Primary Care Provider] - See instructions Activity Restrictions/Add. Instructions Additional Instructions/Restrictions: Drink plenty of fluids. Take tylenol or ibuprofen for pain or fever. Take the medications as directed. Follow up with your regular doctor. GO TO THE ER FOR ANY WORSENING SYMPTOMS Follow up with beam builder helper. We will culture the urine. That will tell what bacteria is causing your infection and which antibiotics will treat it best. Sometimes the first antibiotic we prescribe turns out to not work against different bacteria. So, make sure you follow up within 3 days if you are not getting better. Clinical Impressions Clinical Impression: UTI (urinary tract infection), Stand Alone Forms Stand Alone Forms: Work/School Release Instructions Patient Instructions: Diet, Urine Culture, DI for Urinary Tract Infection (UTI) Discharge ED Provider: Bruce Connors [facility] General Stated complaint: burning painful urination Time Seen by Provider: 06/14/23 17:54 History of Present Illness Provider Complaint: She states that for the past 2 days she has had dysuria and urinary frequency. Related Data Previous Rx's Medication Instructions Recorded ygtqakrwrikkero-pyidghjimysxlnr-MF 10 ml PO Q4-6H PRN cold symptoms 03/30/23 2 mg-30 mg-10 mg/5 mL oral syrup #200 mL (Bromfed DM) ciprofloxacin HCl 500 mg tablet 500 mg PO Q12H 3 days #6 tabs 03/30/23 (Cipro) cephalexin 500 mg capsule 500 mg PO QID 7 days #28 caps 06/14/23 vits no.130-ferrous fum 1 tab PO DAILY 30 days #30 tabs 06/14/23 27 mg iron-folic acid 800 mcg tablet ( Vitamin) Allergies Allergy/AdvReac Type Severity Reaction Status Date / Time No Known Allergies Allergy Verified 03/30/23 17:30 [facility] Disclaimer: The information contained in this section may have been updated after the patient was seen, as this information can be updated by other users. Medical History Abdominal pain Absent periods Acute bacterial tonsillitis Biliary colic Bronchitis Chest pain COVID-19 Cystitis DUB (dysfunctional uterine bleeding) Dyspnea Exposure to COVID-19 virus Fever, unknown origin Irregular menses Pelvic pain Pelvic pain in female Pharyngitis Pleuritic chest pain Polycystic bilateral ovaries Pre-conception counseling Recurrent UTI Sinusitis SOB (shortness of breath) Strep throat Tetanus toxoid vaccination administered at current visit Tuberculin skin test encounter URI (upper respiratory infection) UTI (urinary tract infection) UTI (urinary tract infection) Viral syndrome Viral upper respiratory tract infection Surgical History No significant past surgical history Family History Other No significant family history Social History Smoking Status: Never smoker alcohol intake: never substance use type: denies use current occupational status: other Travel in the last 8 weeks: None caffeine: Yes ROS Obtained: Yes All systems reviewed & no additional complaints except as documented Constitutional Constitutional: Reports system reviewed and no additional complaints, except as documented, Denies chills and Denies fever(s) Eyes Eyes: Denies eye discharge ENT Ears, Nose, Mouth, and Throat: Denies dysphagia, Denies sore throat and Denies throat swelling Cardiovascular Cardiovascular: Denies chest pain and Denies dyspnea Respiratory Respiratory: Denies chest congestion, Denies cough and Denies dyspnea Gastrointestinal Gastrointestingal: Denies abdominal pain, constipation, diarrhea, dysphagia, nausea or vomiting Genitourinary Female Genitourinary: Reports as per HPI, Reports dysuria, Reports urinary frequency, Denies urinary incontinence, Reports urinary hesitancy, Reports urinary urgency and Denies vaginal discharge Musculoskeletal Musculoskeletal: Denies arthralgias and Reports back pain Integumentary/Breasts Skin/Breast: Denies rash Neurologic Neurologic: Denies paresthesias Allergic/Immunologic Allergic/Immunologic: Denies throat swelling Physical Exam General General appearance: alert and in no apparent distress Head Head exam: atraumatic and normocephalic Eye Eye exam: Present normal appearance, PERRL and EOMI ENT ENT exam: Present normal exam, mucous membranes moist, TM's normal bilaterally and normal external ear exam Neck Neck exam: Present normal inspection, full ROM and trachea midline; Absent tenderness, meningismus or lymphadenopathy Chest Chest inspection: Present normal inspection and symmetric chest wall rise; Absent tenderness Respiratory Respiratory exam: Present normal lung sounds bilaterally; Absent respiratory distress, wheezes or stridor Cardiovascular Cardiovascular exam: Present regular rate, normal rhythm and normal heart sounds Abdominal Exam Abdominal exam: Present soft and normal bowel sounds; Absent distention, tenderness, guarding, rebound, rigidity, incision, psoas sign, obturator sign, heel tap sign, Serna's sign, Rovsing's sign or tenderness at McBurney's Point Extremities Exam Extremities exam: Present normal inspection, full ROM and normal capillary refill; Absent tenderness, edema, joint swelling, calf tenderness or cyanosis Back Exam Back exam: Present normal inspection and full ROM; Absent tenderness, CVA tenderness (R) or CVA tenderness (L) Neurological Exam Neurological exam: Present alert, oriented X3 and normal gait Psychiatric Psychiatric exam: Present normal affect and normal mood Skin Skin exam: Present warm, dry, intact and normal color Lymphatic Lymphatic Findings: no adenopathy Medical Decision Making Medical Records Medical records reviewed: No I reviewed the patient's medical records. Corey Inquiry Pt receiving controlled substance: No Lab Data Lab results reviewed: Yes I reviewed the patient's lab results.
[2023-06-14 18:21] VITALS: BP 137/84; PULSE 104; RESP 20; TEMP 36.9; O2SAT 100
[2023-06-14 18:21] LABS: Apearance,Urine Cloudy (Clear); Bilirubin,Urine Negative (Negative); Blood, Urine 1+ (Negative); Color,Urine Yellow (Yellow); Glucose,Urine (UA) Negative (Negative); Ketones,Urine 15 (Negative); PH,Urine 5.5 (5.0-8.5); Protein,Urine Trace (Negative); Specific Gravity, Urine >= 1.030 (1.005-1.030); UTC Leukocyte Esterase,Urine Negative (Negative); UTC Nitrate,Urine Positive (Negative); Urobilinogen,Urine 0.2 EU/dl (0.2)
[2023-06-14 18:21] LABS: Urine Pregnancy, HCG Qual. Positive (Negative)
[2023-06-14 19:22] LABS: HCG,Quantitative 605 mIU/ml (0-5.42)
== END 2023-06-14 18:41 | disposition home or self-care (01) ==
PROVIDERS: Emergency Provider Nurse Practitioner Family; PCP Family Medicine
DX: O23.41 Unspecified infection of urinary tract in pregnancy, first trimester (principal); B96.29 Other Escherichia coli [E. coli] as the cause of diseases classified elsewhere; B96.89 Other specified bacterial agents as the cause of diseases classified elsewhere; Z3A.01 Less than 8 weeks gestation of pregnancy; R30.0 Dysuria
CPT/HCPCS: 81003; 81025; 84702; 87086; 99212; 99214; G0463

== ENCOUNTER 2023-09-21 10:16 | Observation (INO) | payer OTHER, SELFPAY ==
[2023-09-21 10:18] VITALS: BP 136/67; PULSE 109; RESP 18; TEMP 36.7; O2SAT 99; BMI 42.5
--- NOTE | 2023-09-21 10:31 | PC.NURSE ---
Dr. Alexander at bedside doing an ultrasound.
[2023-09-21] MEDS: LACTATED RINGERS 1000ML 1,000 ML 999 ML IV (10:41)
[2023-09-21] MEDS: ACETAMINOPHEN 1,000MG/100ML VIAL 1000 MG IV (10:42)
--- NOTE | 2023-09-21 10:45 | ED_ITS ---
Discharge Plan Disposition Patient Disposition: Admitted Chief Complaint: Urogenital-Female Prescriptions Prescriptions: No Action cephalexin 500 mg capsule 500 mg PO QID 7 Days Qty: 28 0RF Vitamin 27 mg iron- 800 mcg tablet 1 tab PO DAILY 30 Days Qty: 30 5RF ciprofloxacin HCl [Cipro] 500 mg tablet 500 mg PO Q12H 3 Days Qty: 6 0RF [id number]-[id number]-CA [Bromfed DM] 2-30-10 mg/5 mL syrup 10 ml PO Q4-6H PRN (Reason: cold symptoms) Qty: 200 0RF Referrals Follow up/Referrals: Princess Philip MD [Primary Care Provider] - See instructions Clinical Impressions Clinical Impression: UTI (urinary tract infection), Threatened in second trimester, Failure of outpatient treatment Instructions Patient Instructions: DI for Urinary Tract Infection (UTI), DI for Urinary Tract Infection in Children Discharge ED Provider: Alexander Alexander General Adult HPI General Chief complaint: Urogenital-Female Stated complaint: 19 weeks preg spotting headache Time Seen by Provider: 09/21/23 10:44 Mode of Arrival: Ambulatory Source of Information: Patient Limitations: No Limitations Description of Symptoms (Recalled from ER Triage Doc. by RN): Patient reports being 19 weeks and complaining of light spotting, headache and UTI symptoms. States she is currently being treated for UTI with Keflex but she feels as if it is not getting better. Complaint of burning, lower back pain and urinary frequency. History of Present Illness HPI narrative: Patient is a G3, P2 at 19 weeks gestation from dates presented with multiple complaints. States she is having some lower abdominal discomfort urinary frequency and urgency over the last week she is currently being treated with Keflex also with some spotting and some crampy abdominal discomfort. Denies any significant or large-volume bleeding denies any loss of fluid. Has not had any significant changes in movements. No cough or respiratory symptoms. Of note the patient's been dealing with urinary tract infections that been recurrent since she was a small child is never had any anatomic workup or has seen a urologist in the past. I saw her 1 year ago where she had sepsis and pyelonephritis she also had to be hospitalized with one of her recent pregnancies also due to pyelonephritis. She states she overall does not feel well subjectively felt as if she had a fever at home. She states that this feels very similar to her systemic urinary tract infection she has had in the past. Related Data Previous Rx's Medication Instructions Recorded ctmirtvfyvfkhsz-dtsgtmsivojxltw-UU 10 ml PO Q4-6H PRN cold symptoms 03/30/23 2 mg-30 mg-10 mg/5 mL oral syrup #200 mL (Bromfed DM) ciprofloxacin HCl 500 mg tablet 500 mg PO Q12H 3 days #6 tabs 03/30/23 (Cipro) cephalexin 500 mg capsule 500 mg PO QID 7 days #28 caps 06/14/23 vits no.130-ferrous fum 1 tab PO DAILY 30 days #30 tabs 06/14/23 27 mg iron-folic acid 800 mcg tablet ( Vitamin) Allergies Allergy/AdvReac Type Severity Reaction Status Date / Time No Known Allergies Allergy Verified 03/30/23 17:30 [facility] Disclaimer: The information contained in this section may have been updated after the patient was seen, as this information can be updated by other users. Medical History Abdominal pain Absent periods Acute bacterial tonsillitis Biliary colic Bronchitis Chest pain COVID-19 Cystitis DUB (dysfunctional uterine bleeding) Dyspnea Exposure to COVID-19 virus Fever, unknown origin Irregular menses Pelvic pain Pelvic pain in female Pharyngitis Pleuritic chest pain Polycystic bilateral ovaries Pre-conception counseling Recurrent UTI Sinusitis SOB (shortness of breath) Strep throat Tetanus toxoid vaccination administered at current visit Tuberculin skin test encounter URI (upper respiratory infection) UTI (urinary tract infection) UTI (urinary tract infection) Viral syndrome Viral upper respiratory tract infection Surgical History No significant past surgical history Family History Other No significant family history Social History Smoking Status: Never smoker alcohol intake: never substance use type: denies use current occupational status: other Travel in the last 8 weeks: None caffeine: Yes ROS Obtained: Yes All systems reviewed & no additional complaints except as documented Physical Exam General General appearance: alert and in no apparent distress Respiratory Respiratory exam: Present normal lung sounds bilaterally and respiratory distress Cardiovascular Cardiovascular exam: Present tachycardia (Heart rate 105 on my exam) Abdominal Exam Abdominal exam: Present soft; Absent distention or tenderness Neurological Exam Neurological exam: Present alert and oriented X3 Medical Decision Making Corey Inquiry Pt receiving controlled substance: No Vital Signs: 09/21/23 10:18 Temperature 98.1 F Temperature Source Oral Pulse Rate [Radial] 109 H Respiratory Rate 18 Blood Pressure [Right Arm] 136/67 Blood Pressure Mean [Right Arm] 90 Blood Pressure Source [Right Arm] Automatic Cuff Blood Pressure Position [Right Arm] Sitting 02 Sat by Pulse Oximetry 99 Oxygen Delivery Method Room Air Lab Data Lab results reviewed: Yes I reviewed the patient's lab results. Lab Results 09/21/23 10:22: Urine Color Yellow, Urine Appearance Clear, Urine pH 6.0, Ur Specific [place] >= 1.030, Urine Protein Negative, Urine Glucose (UA) Negative, Urine Ketones Negative, Urine Blood Trace-i, Urine Nitrate Negative, Urine Bilirubin Negative, Urine Urobilinogen 0.2, Ur Leukocyte Esterase 2+ A, Urine RBC 3-5, Urine WBC 5-10, Ur Squamous Epith Cells 5-10, Urine Bacteria 2+ 09/21/23 10:39: WBC 5.6, RBC 4.17 L, Hgb 12.5, Hct 37.5, MCV 89.9, MCH 30.0, MCHC 33.4, RDW 14.4, Plt Count 221, MPV 8.2, Neut % (Auto) 72.2, Lymph % (Auto) 21.9, [place] % (Auto) 4.7, Eos % (Auto) 0.6, Baso % (Auto) 0.7, Neut # (Auto) 4.0, Lymph # (Auto) 1.2, [place] # (Auto) 0.3, Eos # (Auto) 0.0, Baso # (Auto) 0.0, S odium 134 L, Potassium 3.9, Chloride 109 H, Carbon Dioxide 19 L, Anion Gap 9.9, BUN 10, Creatinine 0.40 L, Estimated Creat Clear 179, Estimated GFR 196, Est GFR ( Amer) 237, Glucose 90, Calcium 9.3, Total Bilirubin 0.2, AST 21, ALT 18, Alkaline Phosphatase 59, Total Protein 6.8, Albumin 3.6, Globulin 3.2, Albumin/Globulin Ratio 1.1 06/11/24 10:44: Lactate 0.7, SARS-CoV-2 (PCR) Not detected, Influenza A Untype (PCR) Not detected, Influenza Type B (PCR) Not detected 09/21/23 10:39 09/21/23 10:39 Orders (Tests/Meds): ED MEDICATIONS Generic Name Dose Route Start Last Admin Trade Name Freq PRN Reason Stop Dose Admin Ceftriaxone Sodium 1 gm/ 50 mls @ 100 mls/hr 09/21/23 11:49 Sodium Chloride IV 09/21/23 12:18 ONCE ONE Discontinued Medications Generic Name Dose Route Start Last Admin Trade Name Freq PRN Reason Stop Dose Admin Acetaminophen 1,000 mg 09/21/23 10:35 09/21/23 10:42 Acetaminophen 1,000mg/100ml Vial IV 09/21/23 10:36 1,000 mg ONCE ONE Administration Lactated Ringer's 1,000 mls @ 999 mls/hr 09/21/23 10:45 09/21/23 10:41 Lactated Ringer's 1000 Ml Bag IV 09/21/23 11:45 999 mls/hr .Q1H1M SANDRO Administration ORDERS Category Date Time Status Type and Screen Stat BBK 09/21/23 10:50 Received POCUS Point of Care (ER Only) Stat Exams 09/21/23 10:18 Completed CBC w/Auto Diff [Complete Blood Count Auto Diff] Stat Lab 09/21/23 10:39 Completed CMP [Comprehensive Metabolic Panel] Stat Lab 09/21/23 10:39 Completed Lactic Acid Stat Lab 09/21/23 10:44 Completed Rapid PCR Covid and Flu A/B Stat Lab 09/21/23 10:44 Completed UA [Urinalysis and Microscopic] Stat Lab 09/21/23 10:22 Completed Blood Culture Stat Micro 09/21/23 11:51 Ordered Urine Culture Stat Micro 09/21/23 10:22 Received Medical Decision Narrative: Patient is a 23-year-old at 19 weeks gestation presenting today with most likely recurrent and persistent urinary tract infections. She has not been worked up for urology but given the recurrence and numerous infections she has had the past I suspect she may have some underlying physiologic pathology that may need to be addressed after this . No obvious hydronephrosis on bedside ultrasound. No obvious perinephric abscess noted on bedside ultrasound. Her abdominal exam is otherwise benign I am not concerned about surgical pathology at the moment. Other than mild tachycardia and her subjective symptoms she is very well-appearing. She does not have any maternal or tachycardia chorioamnionitis is on the differential but unlikely. She has no signs or symptoms of ascending infection. Septic workup has been initiated IV fluids Tylenol have been administered will reassess. Reassessment 1204 labs largely unremarkable however patient's urinalysis did demonstrate persistent leukocyte Estrace and white blood cells. This is concerning for urinary tract infection that has been an adequately treated. Her symptoms from a systemic standpoint are also concerning for pyelonephritis also given her history of systemic infection from urinary tract infections. Given the fact that she is failed outpatient therapy is 19 weeks has a threatened AB and has had to have hospitalizations for pyelonephritis in the past I discussed with the patient as well as with our doctor that was on-call for DURABILITY ENGINEER regarding admission for IV antibiotics and everybody was in agreement. Blood cultures have been sent IV Rocephin has been initiated and patient was admitted in stable condition. Procedures Miscellaneous Procedure Procedure Performed: Limited renal ultrasound Indication: A focused ultrasound of the kidneys was performed to evaluate for hydronephrosis and nephrolithiasis. The ultrasound was performed with the following indications, as noted in the H&P: Recurrent urinary tract infections Identified structures: Bilateral kidneys Findings: No evidence of hydronephrosis or obvious fluid collection to suggest perinephric abscess on bilateral kidneys Impression: Normal bilateral Limited kidney ultrasound Images were saved to permanent archive The study was technically adequate CPT: 94455-42 This study was performed by wi, and I personally interpreted all images/videos. Based on my clinical judgement, these images were adequate and did not necessitate further imaging. Limited OB ultrasound Indication: Vaginal bleeding Identified structures: [-Uterus -Left adnexa -Right adnexa -Pouch of [place]] Findings: Uterus: Definitive IUP consistent with dates posterior placenta without any obvious evidence of surrounding hemorrhage heart rate 135 Right adnexa: No free fluid Left adnexa: No free fluid Cul de sac: Free fluid absent Impression: Single living IUP consistent with dates Images were saved to permanent archive The study was technically adequate CPT Transabdominal: 37892-37 This study was performed by wi, and I personally interpreted all images/videos. Based on my clinical judgement, these images were adequate and did necessitate further imaging. Critical Care Critical Care Time Critical Care Time: No
[2023-09-21 10:48] LABS: Basophils % 0.7 % (0.1-2.0); Eosinophils % 0.6 % (0.1-12.0); Hematocrit 37.5 % (37.0-47.0); Hemoglobin 12.5 g/dL (12.2-16.2); Lymphocytes # 1.2 K/mm3 (0.7-4.5); Lymphocytes % 21.9 % (10-50); Mean Corpuscular HGB Conc 33.4 g/dL (31.8-35.4); Mean Corpuscular Volume 89.9 fl (81-99); Mean Platelet Volume 8.2 fl (7.4-10.4); Monocytes # 0.3 K/mm3 (0.1-1.0); Monocytes % 4.7 % (1.7-9.3); Neutrophils % 72.2 % (37.0-80.0); Platelet Count 221 K/mm3 (142-424); Red Blood Count 4.17 M/mm3 (4.20-5.40); Red Cell Distribution Width 14.4 % (11.5-17.5); White Blood Count 5.6 K/mm3 (4.8-10.8)
[2023-09-21 10:49] LABS: Coronavirus 19, PCR Not Detected (NotDetected); Influenza A, PCR Not Detected (NotDetected); Influenza B, PCR Not Detected (NotDetected)
[2023-09-21 10:50] LABS: Chloride 109 mmol/L (98-107); Potassium 3.9 mmoL/L (3.5-5.1); Sodium 134 mmol/L (136-145)
[2023-09-21 10:52] LABS: Blood Urea Nitrogen 10 mg/dl (7-17); Creatinine Clearance Estimated 179 mL/min (50-200); Estimated Glomerular Filt Rate 196 ml/min (>60); GFR (African American) 237 ML/MIN (>60)
[2023-09-21 10:53] LABS: Alanine Aminotransferase 18 U/L (12-78); Albumin Level 3.6 g/dl (3.5-5.0); Albumin/Globulin Ratio 1.1 (1.1-1.8); Alkaline Phosphatase 59 U/L (38-126); Anion Gap 9.9 mEq/L (5-15); Aspartate Amino Transferase 21 U/L (14-36); Bilirubin,Total 0.2 mg/dl (0.2-1.3); Calcium 9.3 mg/dl (8.4-10.2); Carbon Dioxide 19 mmol/L (22.0-30.0); Globulin 3.2 g/dL (1.3-3.2); Glucose 90 mg/dl (74-100); Total Protein,Serum 6.8 g/dl (6.3-8.2)
[2023-09-21 10:58] LABS: Lactic Acid 0.7 mmol/L (0.7-2.1)
[2023-09-21 10:59] LABS: Microscopic, Urine URINE MICROSCOPIC (MICROSCOPIC)
[2023-09-21 11:21] LABS: Appearance,Urine CLEAR (Clear); Bilirubin,Urine Negative (Negative); Blood, Urine TRACE-I (Negative); Color,Urine YELLOW (Yellow); Glucose,Urine (UA) Negative (Negative); Ketones,Urine Negative (Negative); Leukocyte Esterase,Urine 2+ (Negative); Nitrate,Urine Negative (Negative); Protein,Urine Negative (Negative); Specific Gravity, Urine >= 1.030 (1.005-1.030); Urobilinogen,Urine 0.2 EU/dl (0.2)
[2023-09-21 11:42] LABS: Bacteria,Urine 2+ /lpf
--- NOTE | 2023-09-21 11:49 | PC.NURSE ---
DR SANTIAGO SPEAKING WITH DR MONTGOMERY
--- NOTE | 2023-09-21 11:51 | PC.NURSE ---
DR MONTGOMERY ACCEPTED PT
--- NOTE | 2023-09-21 12:01 | PC.NURSE ---
OUTSIDE MAINTENANCE WORKER NOTIFIED OF ADMISSION
[2023-09-21 12:13] VITALS: BP 110/67; PULSE 79; O2SAT 100
[2023-09-21 12:26] VITALS: BP 110/67; PULSE 79; RESP 18; TEMP 36.7; O2SAT 100
--- NOTE | 2023-09-21 12:26 | PC.NURSE ---
Report called to Mary Lou Walden in OB.
[2023-09-21] MEDS: CEFTRIAXONE SODIUM 1 GM in 0.9 % SODIUM CHLORIDE 50 ML IV (12:29)
--- NOTE | 2023-09-21 12:35 | HMH.PHAINT1 ---
Pharmacy Intervention Comments: MEDICATION RECONCILIATION COMPLETED ON PATIENT USING EXTERNAL FILL HISTORY FROM PHARMACY. -[facility]ELO, MATEOD
[2023-09-21 12:41] VITALS: BP 105/66; PULSE 77; RESP 17; TEMP 36.6; O2SAT 100
[2023-09-21 12:43] VITALS: BMI 42.5
[2023-09-21] MEDS: LACTATED RINGERS 1000ML 1,000 ML 25 ML IV (16:27)
--- NOTE | 2023-09-21 16:37 | P.HP_ITS ---
History of Present Illness *Admission Date: 09/21/23 *Reason for visit:: History of recurrent urinary tract infections. Current UTI. *History of present illness: Patient is a G3, P2 at 19 weeks gestation from dates presented with multiple complaints. States she is having some lower abdominal discomfort urinary frequency and urgency over the last week she is currently being treated with Keflex also with some spotting and some crampy abdominal discomfort. Denies any significant or large-volume bleeding denies any loss of fluid. Has not had any significant changes in movements. No cough or respiratory symptoms. Of note the patient's been dealing with urinary tract infections that been recurrent since she was a small child is never had any anatomic workup or has seen a urologist in the past. I saw her 1 year ago where she had sepsis and pyelonephritis she also had to be hospitalized with one of her recent pregnancies also due to pyelonephritis. She states she overall does not feel well subjectively felt as if she had a fever at home. She states that this feels very similar to her systemic urinary tract infection she has had in the past. [facility] Disclaimer: The information contained in this section may have been updated after the patient was seen, as this information can be updated by other users. Medical History Acute bacterial tonsillitis UTI (urinary tract infection) Tuberculin skin test encounter Viral upper respiratory tract infection Biliary colic Abdominal pain Irregular menses Pre-conception counseling Absent periods COVID-19 Dyspnea Chest pain Pharyngitis Exposure to COVID-19 virus Viral syndrome Tetanus toxoid vaccination administered at current visit SOB (shortness of breath) Pleuritic chest pain Polycystic bilateral ovaries Pelvic pain Strep throat DUB (dysfunctional uterine bleeding) Recurrent UTI Pelvic pain in female UTI (urinary tract infection) Fever, unknown origin URI (upper respiratory infection) Cystitis Bronchitis Sinusitis Surgical History No significant past surgical history Family History No significant family history Social History Smoking Status: Never smoker alcohol intake: never substance use type: denies use current occupational status: employed Travel in the last 8 weeks: None caffeine: Yes Review of Systems Review of Systems Review of systems:: pertinent systems reviewed and negative unless documented below Meds Home Medications and Allergies Home Medications Medication Instructions Recorded Confirmed Type vits no.130-ferrous fum 1 tab PO DAILY 30 days #30 tabs 06/14/23 09/21/23 Rx 27 mg iron-folic acid 800 mcg tablet ( Vitamin) New Prescriptions to Start Prescriptions: Allergies Allergy/AdvReac Type Severity Reaction Status Date / Time No Known Allergies Allergy Verified 03/30/23 17:30 Exam Data for Last 24 hours Vital signs and Labs for Last 24 Hours: Temp Pulse Resp BP Pulse Ox O2 Del Method 97.8 F 77 17 105/66 L 100 Room Air 09/21/23 12:41 09/21/23 12:41 09/21/23 12:41 09/21/23 12:41 09/21/23 12:41 09/21/23 12:41 Laboratory Results - last 24 hr 09/21/23 10:22: Urine Color Yellow, Urine Appearance Clear, Urine pH 6.0, Ur Specific [place] >= 1.030, Urine Protein Negative, Urine Glucose (UA) Negative, Urine Ketones Negative, Urine Blood Trace-i, Urine Nitrate Negative, Urine Bilirubin Negative, Urine Urobilinogen 0.2, Ur Leukocyte Esterase 2+ A, Urine RBC 3-5, Urine WBC 5-10, Ur Squamous Epith Cells 5-10, Urine Bacteria 2+ 09/21/23 10:39: WBC 5.6, RBC 4.17 L, Hgb 12.5, Hct 37.5, MCV 89.9, MCH 30.0, MCHC 33.4, RDW 14.4, Plt Count 221, MPV 8.2, Neut % (Auto) 72.2, Lymph % (Auto) 21.9, [place] % (Auto) 4.7, Eos % (Auto) 0.6, Baso % (Auto) 0.7, Neut # (Auto) 4.0, Lymph # (Auto) 1.2, [place] # (Auto) 0.3, Eos # (Auto) 0.0, Baso # (Auto) 0.0, Sodium 134 L, Potassium 3.9, Chloride 109 H, Carbon Dioxide 19 L, Anion Gap 9.9, BUN 10, Creatinine 0.40 L, Estimated Creat Clear 179, Estimated GFR 196, Est GFR ( Amer) 237, Glucose 90, Calcium 9.3, Total Bilirubin 0.2, AST 21, ALT 18, Alkaline Phosphatase 59, Total Protein 6.8, Albumin 3.6, Globulin 3.2, Albumin/Globulin Ratio 1.1 09/21/23 10:44: Lactate 0.7, SARS-CoV-2 (PCR) Not detected, Influenza A Untype ( PCR) Not detected, Influenza Type B (PCR) Not detected 09/21/23 10:50: Blood Type A Positive, Antibody Screen Negative I & O for Last 24 hours: Intake & Output 09/19/23 09/20/23 09/21/23 09/22/23 11:59 11:59 11:59 11:59 Weight 240 lb 240 lb Constitutional Constitutional: no acute distress *Routine HEENT Exam Head: Present normocephalic Eye: Present EOMI and PERRL ENT: Present mucous membranes moist *Routine Neck Exam Neck: Present supple; Absent lymphadenopathy *Routine Respiratory Exam Respiratory: Present CTA bilaterally *Routine Cardiovascular Exam Cardiovascular: Present RRR *Routine Abdominal Exam Abdominal: Present soft and normoactive bowel sounds; Absent tenderness *Routine Rectal Exam Rectal:: deferred *Routine Genitalia Exam Genitalia:: deferred *Routine Extremities Exam Extremities: Absent cyanosis, clubbing or edema *Routine Skin Exam Skin: Present warm; Absent rash *Routine Neurological Exam Neurological: Present alert and oriented X3 Assessment and Plan *Assessment and plan (1) Failure of outpatient treatment: Status: Acute Category: Medical Code(s): Z78.9 - Other specified health status (2) UTI (urinary tract infection): Status: Acute Qualifiers: Urinary tract infection type: acute cystitis Hematuria presence: with hematuria Qualified Code(s): N30.01 - Acute cystitis with hematuria Category: Medical Code(s): N39.0 - Urinary tract infection, site not specified Plan She is admitted with recurrent urinary tract infection and failure of treatment oral antibiotic therapy. She is admitted for inpatient therapy. She is afebrile. We will make arrangements for her to have a complete ultrasound tomorrow and we will also look at the cervical length. We will continue with IV Rocephin. We will await the results of her culture. She does not appear to be in any acute distress. She did not have any CVA tenderness on examination.
[2023-09-21 16:44] VITALS: BP 115/58; PULSE 96; RESP 17; TEMP 36.6; O2SAT 100
[2023-09-21 20:45] VITALS: BP 122/70; PULSE 82; RESP 17; TEMP 36.7; O2SAT 99
[2023-09-21] MEDS: ACETAMINOPHEN 325MG TAB 650 MG PO (20:52)
[2023-09-22 04:50] VITALS: BP 99/63; PULSE 92; RESP 18; TEMP 36.9; O2SAT 98
--- NOTE | 2023-09-22 08:00 | US_ITS ---
PROCEDURE: US OB /MATERNAL DETAIL CLINICAL INDICATION: Anatomy Scan COMPARISON: No exams were available for comparison FINDINGS: Transabdominal and transvaginal sonographic images of the pelvis were obtained. From her established due date she is 18 weeks 6 days. Single viable intrauterine gestation. Cephalic position. Placenta: Posteriorplacenta grade 1. Low lying placenta is 3.0 cm away from the internal os seen transvaginally. There is an average amount of fluid. The cervix appears satisfactory. Closed and measuring 6.1 cm in length. Complete survey performed and was unremarkable on the submitted images as in PACS. No discrete anomalies identified on survey imaging by technologist. Active fetus. Three-vessel cord with satisfactory umbilical cord insertion. 4- chamber heart noted. Situs, aortic arch, LVOT, RVOT, three-vessel view appear normal. Survey of brain & ventricles Unremarkable. Cerebellum, thalamus, choroid plexus, cisterna magna appear normal. Face and neck survey unremarkable. Profile, nasion, lips and nose appeared normal. Diaphragm and chest views unremarkable. Abdomen: Both kidneys noted and unremarkable. Stomach and bladder noted and satisfactory. Spine: Survey of the spine satisfactory with no anomalies identified nor imaged. Cervical, thoracic, lower spine appear normal. Both arms and legs noted. Amniotic Fluid: Adequate. MVP 5.26 cm. Measurements: Average ultrasound age 19weeks 2days. Estimated due date by ultrasound age 1102/14/2024. Estimated weight 292g BPD = 19weeks 1day HC = 19weeks 0 days AC = 20weeks 1day FL = 18weeks 6days Growth Percentile= 79 Heart Rate = 140bpm Cerebellum = 18weeks 1day Humerus = 19weeks 3days HC/AC is 1.09 FL/BPD is 0.67 FL/AC is 0.19 IMPRESSION: 1. Viable fetus in the cephalic presentation with a posterior placenta grade 1. 2. The fluid is within normal limits with an MVP of 5.26 cm. 3. Anatomical scan appears normal. The scan was limited due to patient body habitus and position. 4. Would suggest repeat views of the spine and heart in 3 weeks. 5. biometry is consistent with a dates. Dictated by: Prieto Castillo MD 09/22/2023 10:07 Prieto Castillo MD in OV 09/22/2023 10:07
[2023-09-22 09:07] VITALS: BP 117/67; PULSE 98; RESP 17; TEMP 36.8; O2SAT 100
[2023-09-22] MEDS: ACETAMINOPHEN 325MG TAB 650 MG PO ×2 (09:26→13:53)
[2023-09-22] MEDS: CEFTRIAXONE 1 GM 1 GM in 0.9 % SODIUM CHLORIDE 50 ML IV (11:04)
[2023-09-22] MEDS: PHENAZOPYRIDINE 200MG TABLET 100 MG PO (13:53)
--- NOTE | 2023-09-22 15:47 | EXP.ACUTE.PN ---
Subjective *Date: 09/22/23 *Time: 15:47 Interval history: She is doing a little better today. She still has a small amount of burning with urination. She also complains of a headache today. She denies ever having had migraines. Medical Exam Vital signs and Labs for Last 24 Hours: Vital Signs Temp Pulse Resp BP Pulse Ox O2 Del Method 09/22/23 09:07 98.3 F 98 H 17 117/67 100 Room Air 09/22/23 04:50 98.5 F 92 H 18 99/63 L 98 Room Air 09/21/23 20:45 98.1 F 82 17 122/70 99 Room Air 09/21/23 16:44 97.8 F 96 H 17 115/58 L 100 Room Air I & O for Labs for Last 24 Hours: Intake & Output 09/20/23 09/21/23 09/22/23 09/23/23 11:59 11:59 11:59 11:59 Weight 240 lb 240 lb Microbiology Reports for the Last 24 Hours: Microbiology 09/21/23 12:10 Blood Blood Culture - Preliminary NO GROWTH AFTER 24 HOURS 09/21/23 12:10 Blood Blood Culture - Preliminary NO GROWTH AFTER 24 HOURS Head: Present atraumatic Eyes: Present as per HPI ENT: Present normal exam Neck: Present normal inspection Respiratory: Present normal respiratory effort; Absent accessory muscle use Assessment and Plan *Assessment and plan (1) Failure of outpatient treatment: Status: Acute Category: Medical Code(s): Z78.9 - Other specified health status (2) UTI (urinary tract infection): Status: Acute Qualifiers: Hematuria presence: with hematuria Urinary tract infection type: acute cystitis Qualified Code(s): N30.01 - Acute cystitis with hematuria Category: Medical Code(s): N39.0 - Urinary tract infection, site not specified (3) Headache: Status: Acute Qualifiers: Headache type: tension-type Headache chronicity pattern: acute headache Intractability: intractable Qualified Code(s): G44.201 - Tension-type headache, unspecified, intractable Category: Medical Code(s): R51.9 - Headache, unspecified Plan We are waiting her urine cultures. We will continue with the Rocephin. I have started Pyridium for her dysuria. She will also take a Tylenol for her headache. We will see how she does over the next 24 hours.
[2023-09-22 16:15] VITALS: BP 125/68; PULSE 93; RESP 16; TEMP 36.8; O2SAT 96
[2023-09-22 20:00] VITALS: BP 107/61; PULSE 87; RESP 16; TEMP 36.9; O2SAT 97
[2023-09-23 04:00] VITALS: BP 102/48; PULSE 88; RESP 14; TEMP 36.8; O2SAT 100
[2023-09-23 08:20] VITALS: BP 128/58; PULSE 92; RESP 18; TEMP 36.9; O2SAT 99
[2023-09-23] MEDS: BUTALB/ACETAMINOPHEN/CAFFEINE 50MG/325MG/40MG TAB 1 EACH PO (09:26)
--- NOTE | 2023-09-23 09:50 | EXP.ACUTE.PN ---
Subjective *Date: 09/23/23 *Time: 08:55 Interval history: She still complains of a headache despite taking Tylenol. We are going to try Fioricet and see if this helps. She says that her dysuria has improved. She denies any fever or chills. She continues with Rocephin daily. Medical Exam Vital signs and Labs for Last 24 Hours: Vital Signs Temp Pulse Resp BP Pulse Ox O2 Del Method 09/23/23 08:20 98.5 F 92 H 18 128/58 L 99 Room Air 09/23/23 04:00 98.3 F 88 14 102/48 L 100 Room Air 09/22/23 20:00 98.4 F 87 16 107/61 L 97 Room Air 09/22/23 16:15 98.2 F 93 H 16 125/68 96 Room Air I & O for Labs for Last 24 Hours: Intake & Output 09/20/23 09/21/23 09/22/23 09/23/23 11:59 11:59 11:59 11:59 Weight 240 lb 240 lb Microbiology Reports for the Last 24 Hours: Microbiology 09/21/23 10:22 Urine,Clean Catch Urine Culture - Preliminary 09/21/23 12:10 Blood Blood Culture - Preliminary NO GROWTH AFTER 24 HOURS 09/21/23 12:10 Blood Blood Culture - Preliminary NO GROWTH AFTER 24 HOURS Head: Present normocephalic Neck: Present normal inspection Respiratory: Present normal respiratory effort; Absent accessory muscle use Assessment and Plan *Assessment and plan (1) Headache: Status: Acute Qualifiers: Headache type: tension-type Headache chronicity pattern: acute headache Intractability: intractable Qualified Code(s): G44.201 - Tension-type headache, unspecified, intractable Category: Medical Code(s): R51.9 - Headache, unspecified (2) Failure of outpatient treatment: Status: Acute Category: Medical Code(s): Z78.9 - Other specified health status (3) UTI (urinary tract infection): Status: Acute Qualifiers: Urinary tract infection type: acute cystitis Hematuria presence: without hematuria Qualified Code(s): N30.00 - Acute cystitis without hematuria Category: Medical Code(s): N39.0 - Urinary tract infection, site not specified (4) Morbid obesity with body mass index (BMI) of 40.0 or higher: Status: Acute Category: Medical Code(s): E66.01 - Morbid (severe) obesity due to excess calories Plan We are continuing with the antibiotics and we had added Pyridium yesterday. This seemed to help with her dysuria. She has remained afebrile. We continue to await the culture results to make sure that we have the right antibiotic. We will plan to send her home once we get the culture results.
--- NOTE | 2023-09-23 16:07 | P.DS_ITS ---
General Admission date:: 09/21/23 Discharge date: 09/23/23 HPI HPI HPI: Patient is a G3, P2 at 19 weeks gestation from dates presented with multiple complaints. States she is having some lower abdominal discomfort urinary frequency and urgency over the last week she is currently being treated with Keflex also with some spotting and some crampy abdominal discomfort. Denies any significant or large-volume bleeding denies any loss of fluid. Has not had any significant changes in movements. No cough or respiratory symptoms. Of note the patient's been dealing with urinary tract infections that been r ecurrent since she was a small child is never had any anatomic workup or has seen a urologist in the past. I saw her 1 year ago where she had sepsis and pyelonephritis she also had to be hospitalized with one of her recent pregnancies also due to pyelonephritis. She states she overall does not feel well subjectively felt as if she had a fever at home. She states that this feels very similar to her systemic urinary tract infection she has had in the past. Hospital Course Hospital Course Hospital Course: She was admitted and started on IV Rocephin. She has received 1 g every 24 hours. She has improved day by day. We started her on Pyridium yesterday and this seemed to help with her dysuria. Cultures are currently pending but the preliminary shows that there are 2 separate bacteria. She has no further episodes of fever or chills and is feeling better. Given this fact we will plan to send her home today and we will have her take Rocephin as an outpatient. While hospitalized she also had a headache and it may have been related to caffeine withdrawal. We gave her 1 tablet of Fioricet and this seemed to help with her headache. She is feeling much better. She will be discharged home today to follow-up with me in approximately 2 weeks time. She will take Rocephin 1 g IM daily for the next 7 days. We will call her with the results of her culture which should be back in about 48 hours. She will continue with her vitamins and iron. Her condition on discharge is stable and improved. Exam Data for Last 24 hours Vital signs and Labs for Last 24 Hours: Temp Pulse Resp BP Pulse Ox O2 Del Method 98.5 F 92 H 18 128/58 L 99 Room Air 09/23/23 08:20 09/23/23 08:20 09/23/23 08:20 09/23/23 08:20 09/23/23 08:20 09/23/23 08:20 I & O for Last 24 hours: Intake & Output 09/21/23 09/22/23 09/23/23 09/24/23 11:59 11:59 11:59 11:59 Weight 240 lb 240 lb Microbiology Reports for the Last 24 Hours: Microbiology 09/21/23 12:10 Blood Blood Culture - Preliminary NO GROWTH AFTER 48 HOURS 09/21/23 12:10 Blood Blood Culture - Preliminary NO GROWTH AFTER 48 HOURS 09/21/23 10:22 Urine,Clean Catch Urine Culture - Preliminary Constitutional Constitutional: no acute distress *Routine HEENT Exam Head: Present normocephalic *Routine Respiratory Exam Respiratory: Present normal respiratory effort; Absent accessory muscle use Results Data Completed and Pending Labs on day of discharge: Preliminary micro results at discharge 09/21/23 12:10 Blood Culture - Preliminary Blood NO GROWTH AFTER 48 HOURS 09/21/23 12:10 Blood Culture - Preliminary Blood NO GROWTH AFTER 48 HOURS 09/21/23 10:22 Urine Culture - Preliminary Urine,Clean Catch DS: Diagnosis Discharge Diagnosis (1) Headache: Status: Acute Code(s): R51.9 - Headache, unspecified Qualifiers: Headache type: tension-type Headache chronicity pattern: acute headache Intractability: intractable Qualified Code(s): G44.201 - Tension-type headache, unspecified, intractable (2) Failure of outpatient treatment: Status: Acute Code(s): Z78.9 - Other specified health status (3) UTI (urinary tract infection): Status: Acute Code(s): N39.0 - Urinary tract infection, site not specified Qualifiers: Hematuria presence: without hematuria Urinary tract infection type: acute cystitis Qualified Code(s): N30.00 - Acute cystitis without hematuria (4) Morbid obesity with body mass index (BMI) of 40.0 or higher: Status: Acute Code(s): E66.01 - Morbid (severe) obesity due to excess calories (5) : Status: Acute Code(s): Z34.90 - Encounter for supervision of normal , unspecified, unspecified trimester Qualifiers: Weeks of gestation: 19 weeks Qualified Code(s): Z3A.19 - 19 weeks gestation of Meds Home Medications and Allergies Home Medications Medication Instructions Recorded Confirmed Type vits no.130-ferrous fum 1 tab PO DAILY 30 days #30 tabs 06/14/23 09/21/23 Rx 27 mg iron-folic acid 800 mcg tablet ( Vitamin) whvxtchgtb-cntcvdoivschs-hafnsrls 1 cap PO Q8H PRN pain, headache 09/23/23 Rx 50 mg-300 mg-40 mg capsule #10 caps (Fioricet) New Prescriptions to Start Prescriptions: [id number]-awpfngnmqdivw-efdu [Fioricet] Prieto Castillo Allergies Allergy/AdvReac Type Severity Reaction Status Date / Time No Known Allergies Allergy Verified 03/30/23 17:30 Discharge Plan Disposition Patient Disposition: Home, Self-Care Condition: Good Follow up Plan Follow up with: Prieto Castillo MD [Staff Physician] - 10/12/23 Prescriptions/Medication Reconciliation: New hwbupaggke-wloufuirsgaqk-zfcw [Fioricet] 50-300-40 mg capsule 1 cap PO Q8H PRN (Reason: pain, headache) Qty: 10 0RF Continued Vitamin 27 mg iron- 800 mcg tablet 1 tab PO DAILY 30 Days Qty: 30 5RF Problem Reconciliation Problems Reviewed?: Yes Patient Discharge Instructions ACTIVITY: Continue current activity DIET: continue same diet Patient Instructions: Urinary Tract Infection, DI for Urinary Tract Infection (UTI), Ceftriaxone Injection Providers Primary Care Provider: Princess Philip Admit Provider: Prieto Castillo Attending Provider: Prieto Castillo
== END 2023-09-23 15:00 | disposition home or self-care (01) ==
LOC: ER 12:06 → OB 12:16
PROVIDERS: Admitting Provider Nurse Practitioner Obstetrics & Gynecology; Emergency Provider Student in an Organized Health Care Education/Training Program; PCP Family Medicine; Visit Provider Nurse Practitioner Obstetrics & Gynecology
DX: O23.42 Unspecified infection of urinary tract in pregnancy, second trimester (principal); N39.0 Urinary tract infection, site not specified
CPT/HCPCS: 76811; 76817; 80053; 81001; 83605; 85025; 86850; 87040; 87086; 87088; 87636; G0378; J0131; J0696; J7120

== ENCOUNTER 2023-09-24 10:36 | Outpatient (CLI) | payer OTHER, SELFPAY ==
[2023-09-24 11:10] VITALS: BP 120/55; PULSE 88; RESP 16; TEMP 37.3; O2SAT 98
[2023-09-24] MEDS: cefTRIAXone 1GM VIAL 1 GM IM (11:10)
== END 2023-09-24 11:30 | disposition home or self-care (01) ==
LOC: INF 10:38
PROVIDERS: PCP Family Medicine; Visit Provider Nurse Practitioner Obstetrics & Gynecology
DX: N10 Acute pyelonephritis (principal)
CPT/HCPCS: 96372; J0696

== ENCOUNTER 2023-09-25 10:43 | Outpatient (CLI) | payer OTHER, SELFPAY ==
[2023-09-25] MEDS: cefTRIAXone 1GM VIAL 1 GM IM (11:32)
== END 2023-09-25 23:59 | disposition home or self-care (01) ==
LOC: INF 10:44
PROVIDERS: PCP Family Medicine; Visit Provider Nurse Practitioner Obstetrics & Gynecology
DX: N10 Acute pyelonephritis (principal)
CPT/HCPCS: 96372; J0696

== ENCOUNTER 2023-09-26 09:36 | Outpatient (CLI) | payer OTHER, SELFPAY ==
[2023-09-26 09:46] VITALS: BMI 42.5
[2023-09-26] MEDS: cefTRIAXone 1GM VIAL 1 GM IM (10:01)
== END 2023-09-26 10:10 | disposition home or self-care (01) ==
LOC: INF 09:38
PROVIDERS: PCP Family Medicine; Visit Provider Nurse Practitioner Obstetrics & Gynecology
DX: N10 Acute pyelonephritis (principal)
CPT/HCPCS: 96372; J0696

== ENCOUNTER 2023-09-27 15:00 | Outpatient (CLI) | payer OTHER, SELFPAY ==
--- OUTSIDE RECORDS SUMMARY | 2023-09-27 15:02 | XMS_ITS | Patient Health Record ---
Author Name Unknown Organization [facility], [place] Group Address [address] [place] [address] Care Team Providers Care Fancy Sewer Name Role Phone Haydee Vidal Unavailable [phone] Allergies No Known Allergies Reason For Referral No Information Medications Medication SIG (Take, Route, Fr equency, Duration) Notes Start Date End Date Status Vitamins Un known Keflex 500 MG ONE TABLET ORALLY 4 times a day for 7 days 11/04/2021 Active Problems Problem Type SNOMED Code ICD Code Onset Dates Problem Status W/U Status Risk Notes Problem Primigravida (875095868) Encounter for care in first trimester of first (Z34.01) 021 Active confirmed Encounter for supervision of normal first , first trimester Problem [id number] Calculus of gallbladder without cholecystitis without obstruction (K80.20) Active confirmed Problem Gestation period, 12 weeks (56077523) 12 weeks gestation of (Z3A.12) 021 Active confirmed 12 weeks gestation of Problem Third trimester (06581376) Encounter for supervision of other normal in third trimester (Z34.83) Active confirmed Problem Amenorrhea (32492175) Absence of menses due to use of contraceptive (N91.2) 021 Active confirmed Missed period Plan Of Treatment No Information Insurance Providers Payer Name Payer Address Payer Phone Subscriber Number Group Number Insured Name Patient Relationship to Insured Coverage Start Date Coverage End Date [employer] [address] [address] [place], [place] [id number] [phone] [id number] Gregory Cordova Self - patient is the insured [facility] [address] [place] [address] [id number] Gregory Cordova Self - patient is the insured 2 Medical (General) History Medical History History ICD Code UTIs Gallbladder issues Surgical History Surgery Date(Month/Year) None noted
[2023-09-27 15:22] VITALS: BP 107/58; PULSE 82; RESP 16; TEMP 36.8; O2SAT 99
[2023-09-27] MEDS: cefTRIAXone 1GM VIAL 1 GM IM (15:22)
== END 2023-09-27 15:35 | disposition home or self-care (01) ==
LOC: INF 15:00
PROVIDERS: PCP Family Medicine; Visit Provider Nurse Practitioner Obstetrics & Gynecology
DX: N10 Acute pyelonephritis (principal)
CPT/HCPCS: 96372; J0696

== ENCOUNTER 2023-10-07 16:20 | Outpatient (CLI) | payer OTHER, SELFPAY | END 2023-10-07 23:59 | disposition home or self-care (01) | LOC: LAB.DROPOF 16:20 | PROVIDERS: PCP Obstetrics & Gynecology; Visit Provider Obstetrics & Gynecology | DX: R10.2 Pelvic and perineal pain (principal); O26.892 Other specified pregnancy related conditions, second trimester; Z3A.19 19 weeks gestation of pregnancy | CPT/HCPCS: 87086 ==

== ENCOUNTER 2023-10-12 10:40 | Outpatient (CLI) | payer OTHER, SELFPAY | END 2023-10-12 23:59 | disposition home or self-care (01) | LOC: LAB.DROPOF 10-13 10:40 | PROVIDERS: PCP Nurse Practitioner Obstetrics & Gynecology; Visit Provider Nurse Practitioner Obstetrics & Gynecology | DX: N30.00 Acute cystitis without hematuria (principal) | CPT/HCPCS: 87086 ==

== ENCOUNTER 2023-10-18 16:40 | Outpatient (CLI) | payer OTHER, SELFPAY ==
[2023-10-18 16:46] VITALS: BMI 43.0
[2023-10-18 16:57] LABS: Microscopic, Urine URINE MICROSCOPIC (MICROSCOPIC)
[2023-10-18 17:00] LABS: Appearance,Urine CLEAR (Clear); Bilirubin,Urine Negative (Negative); Blood, Urine Negative (Negative); Color,Urine YELLOW (Yellow); Glucose,Urine (UA) Negative (Negative); Ketones,Urine Negative (Negative); Leukocyte Esterase,Urine 1+ (Negative); Nitrate,Urine Negative (Negative); Protein,Urine Negative (Negative); Specific Gravity, Urine >= 1.030 (1.005-1.030); Urobilinogen,Urine 0.2 EU/dl (0.2)
[2023-10-18 17:10] VITALS: BP 103/68; PULSE 98; RESP 18; TEMP 36.6; O2SAT 100
[2023-10-18 17:11] LABS: Barbiturates Screen,Urine Negative ng/ml (<200)
[2023-10-18 17:12] LABS: Benzodiazepines Screen,Urine Negative ng/ml (<200)
[2023-10-18 17:13] LABS: Amphetamine/Metha Screen,Urine Negative ng/ml (<1000); Cannabinoid Screen,Urine Negative ng/ml (<50)
[2023-10-18 17:14] LABS: Cocaine Screen,Urine Negative ng/ml (<300); Methadone Screen,Urine Negative ng/ml (<300)
[2023-10-18 17:15] LABS: Opiate Screen,Urine Negative ng/ml (<300)
[2023-10-18 17:16] LABS: Phencyclidine Screen,Urine Negative ng/ml (<25)
[2023-10-18 17:33] LABS: Bacteria,Urine 2+ /lpf
[2023-10-18 18:14] VITALS: BMI 43.0
[2023-10-18] MEDS: LACTATED RINGERS 1000ML 1,000 ML 999 ML IV ×2 (18:39)
[2023-10-18] MEDS: ACETAMINOPHEN 500MG TAB 1000 MG PO (18:41)
[2023-10-18] MEDS: CEFTRIAXONE SODIUM 1 GM in 0.9 % SODIUM CHLORIDE 50 ML IV (18:41)
== END 2023-10-18 19:59 | disposition home or self-care (01) ==
LOC: OBOUT 16:42 → OB 16:43
PROVIDERS: Obstetrics & Gynecology; PCP Family Medicine; Visit Provider Nurse Practitioner Obstetrics & Gynecology
DX: O23.42 Unspecified infection of urinary tract in pregnancy, second trimester (principal); N39.0 Urinary tract infection, site not specified; Z3A.22 22 weeks gestation of pregnancy
CPT/HCPCS: 59025; 80307; 81001; 87086; G0463; J0696; J7120

== ENCOUNTER 2023-10-20 14:26 | Outpatient (CLI) | payer OTHER, SELFPAY ==
--- NOTE | 2023-10-20 14:26 | US_ITS ---
PROCEDURE: US OB FOLLOW UP CLINICAL INDICATION: 22 weeks anatomy scan COMPARISON: US US OB /MATERNAL DETAIL from 09/22/2023 FINDINGS: Transabdominal sonographic images of the pelvis were obtained. The following parameters are obtained: From her established due date she is 22weeks 6days Viable fetus in the cephalic presentation with a posterior placenta grade 1. The cervix measures 4.6 cm heart rate: 140bpm bpm. BPD: 21weeks 6days HC: 22weeks 4days AC: 23weeks FL: 22weeks 6days HC/AC: 1.13 FL/BPD: 0.76 FL/AC: 0.22 Growth percentile: 40 Amniotic fluid: MVP 5.63 cm No obvious anomalies evident. Stomach, bladder, kidneys, three-vessel cord, four chamber heart appear normal. Four-chamber heart, aortic arch, three-vessel view, LVOT, RVOT appear normal. Cervical, thoracic and lower spine appear normal. IMPRESSION: 1. Viable fetus in the cephalic presentation with a posterior placenta grade 1. 2. The fluid is within normal limits with an MVP of 5.63 cm. 3. Limited anatomical scan appears normal. The spine and cardiac anatomy are normal. 4. biometry is consistent with the dates. Dictated by: Prieto Castillo MD 10/20/2023 17:03 Prieto Castillo MD in OV 10/20/2023 17:03
== END 2023-10-20 23:59 | disposition home or self-care (01) ==
LOC: RAD 14:26
PROVIDERS: PCP Family Medicine; Visit Provider Nurse Practitioner Obstetrics & Gynecology
DX: Z36.89 Encounter for other specified antenatal screening (principal); Z3A.22 22 weeks gestation of pregnancy
CPT/HCPCS: 76816

== ENCOUNTER 2023-11-11 09:44 | Emergency (ER) | payer OTHER, SELFPAY ==
[2023-11-11 10:01] VITALS: BP 117/61; PULSE 88; RESP 14; TEMP 36.9; O2SAT 99; BMI 43.4
--- NOTE | 2023-11-11 10:12 | EXP.UTC ---
Discharge Plan Disposition Patient Disposition: Home, Self-Care Condition: Good Prescriptions Prescriptions: No Action ondansetron HCl 8 mg tablet PO PRN Patient Comments: TAKE 1 TABLET BY MOUTH TWICE DAILY NEEDED FOR NAUSEA ferrous sulfate [FeroSul] 325 mg (65 mg iron) tablet 325 mg PO DAILY Patient Comments: TAKE 1 TABLET BY MOUTH ONCE DAILY phenazopyridine [Pyridium] 100 mg tablet 100 mg PO TID PRN (Reason: pain) Qty: 21 2RF Vitamin 27 mg iron- 800 mcg tablet 1 tab PO DAILY 30 Days Qty: 30 5RF Referrals Follow up/Referrals: Princess Philip MD [Primary Care Provider] - See instructions Activity Restrictions/Add. Instructions Additional Instructions/Restrictions: Drink plenty of fluids. Take tylenol for pain or fever. Follow up with your regular doctor. GO TO THE ER FOR ANY WORSENING SYMPTOMS Clinical Impressions Clinical Impression: Acute viral syndrome, Stand Alone Forms Stand Alone Forms: Work/School Release Instructions Patient Instructions: DI for Viral Syndrome Print Language Print Language: Kosovan Discharge ED Provider: Burce Connors [facility] General Stated complaint: sore throat, fever, headache Mode of Arrival: Ambulatory Source of Information: Patient Limitations: No Limitations Time Seen by Provider: 11/11/23 10:12 Description of Symptoms (Recalled from Triage Doc. by RN): pt c/o a sore throat, TORRES, and fever ongoing since 11/07. pt is afebrile at this time. pt is 26 wks . HEENT Symptoms (Recalled from RN notes): Yes Resp Symptoms (Recalled from RN notes): No Skin Symptoms (Recalled from RN notes): No MS Symptoms (Recalled from RN notes): No Functional Status (Recalled from RN notes): wnl History of Present Illness Provider Complaint: She states that for the past 3 days she has had sore throat and she has felt bad. She is 24 weeks . Related Data Home Medications ?Medication ?Instructions ?Recorded ?Confirmed ondansetron HCl 8 mg tablet mg PO PRN 10/07/23 11/08/23 ferrous sulfate 325 mg (65 mg 325 mg PO DAILY 10/25/23 11/08/23 iron) tablet (FeroSul) Previous Rx's ?Medication ?Instructions ?Recorded vits no.130-ferrous fum 1 tab PO DAILY 30 days #30 tabs 03/04/24 27 mg iron-folic acid 800 mcg tablet ( Vitamin) phenazopyridine 100 mg tablet 100 mg PO TID PRN pain #21 tabs 10/20/23 (Pyridium) Allergies Allergy/AdvReac Type Severity Reaction Status Date / Time No Known Allergies Allergy Verified 11/11/23 10:03 Worker's Comp Is this a Worker's Comp case?: No [facility] Disclaimer: The information contained in this section may have been updated after the patient was seen, as this information can be updated by other users. 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 Viral upper respiratory tract infection Biliary colic Abdominal pain Irregular menses Pre-conception counseling Absent periods COVID-19 Dyspnea Chest pain Pharyngitis Exposure to COVID-19 virus Viral syndrome Tetanus toxoid vaccination administered at current visit SOB (shortness of breath) Pleuritic chest pain Polycystic bilateral ovaries Pelvic pain Strep throat DUB (dysfunctional uterine bleeding) Recurrent UTI Pelvic pain in female UTI (urinary tract infection) Fever, unknown origin URI (upper respiratory infection) Cystitis Bronchitis Sinusitis Surgical History History of cholecystectomy Family History Other No significant family history Social History Smoking Status: Never smoker alcohol intake: never substance use type: denies use current occupational status: employed Travel in the last 8 weeks: None caffeine: Yes ROS Obtained: Yes All systems reviewed & no additional complaints except as documented Constitutional Constitutional: Reports chills and Denies fever(s) Eyes Eyes: Denies eye discharge ENT Ears, Nose, Mouth, and Throat: Reports as per HPI Cardiovascular Cardiovascular: Denies chest pain Respiratory Respiratory: Denies chest congestion and Reports cough Gastrointestinal Gastrointestingal: Reports nausea; Denies abdominal pain, constipation, cramping, diarrhea or vomiting Musculoskeletal Musculoskeletal: Denies arthralgias Integumentary/Breasts Skin/Breast: Denies rash Neurologic Neurologic: Denies paresthesias Physical Exam General General appearance: alert and in no apparent distress Head Head exam: atraumatic, normocephalic and normal inspection Eye Eye exam: Present normal appearance, PERRL and EOMI ENT ENT exam: Present normal exam, normal oropharynx, mucous membranes moist, TM's normal bilaterally and normal external ear exam Neck Neck exam: Present normal inspection, full ROM and trachea midline; Absent meningismus or lymphadenopathy Chest Chest inspection: Present normal inspection and symmetric chest wall rise; Absent tenderness Respiratory Respiratory exam: Present normal lung sounds bilaterally; Absent respiratory distress Cardiovascular Cardiovascular exam: Present regular rate and normal rhythm; Absent JVD Abdominal Exam Abdominal exam: Present soft and normal bowel sounds; Absent distention, tenderness or guarding Extremities Exam Extremities exam: Present normal inspection, full ROM and normal capillary refill; Absent calf tenderness Back Exam Back exam: Present normal inspection; Absent tenderness Neurological Exam Neurological exam: Present alert and oriented X3 Psychiatric Psychiatric exam: Present normal affect and normal mood Skin Skin exam: Present warm, dry, intact and normal color Lymphatic Lymphatic Findings: no adenopathy Medical Decision Making Medical Records Medical records reviewed: No I reviewed the patient's medical records. Corey Inquiry Pt receiving controlled substance: No Vital Signs: 11/11/23 10:01 Temperature 98.4 F Temperature Source Oral Pulse Rate [Left] 88 Respiratory Rate 14 Blood Pressure [Right Arm] 117/61 Blood Pressure Mean [Right Arm] 79 Blood Pressure Source [Right Arm] Automatic Cuff Blood Pressure Position [Right Arm] Sitting 02 Sat by Pulse Oximetry 99 Oxygen Delivery Method Room Air Lab Data Lab results reviewed: Yes I reviewed the patient's lab results.
[2023-11-11 10:13] LABS: UTC Strep Screen (Rapid) Negative (Negative)
[2023-11-11 10:52] VITALS: BP 117/61; PULSE 88; RESP 14; TEMP 36.9
[2023-11-11 16:33] LABS: Coronavirus 19, PCR Not Detected (NotDetected); Influenza A, PCR Not Detected (NotDetected); Influenza B, PCR Not Detected (NotDetected)
--- NOTE | 2023-11-15 11:14 | PC.NURSE ---
NOTIFIED Princess ROLDAN APRN OF PATIENT'S POSITIVE STREP CONFIRMATION. AMOXICILLIN SENT IN TO PHARMACY FOR PATIENT. PATIENT NOTIFIED OF RESULTS AND ANTIBIOTIC AT THIS TIME. PATIENT ADVISED TO CHANGE OUT TOOTHBRUSH IN 24 HOURS. PATIENT VERBALIZED UNDERSTANDING
== END 2023-11-11 10:55 | disposition home or self-care (01) ==
PROVIDERS: Emergency Provider Nurse Practitioner Family; PCP Family Medicine
DX: O26.892 Other specified pregnancy related conditions, second trimester (principal); Z3A.24 24 weeks gestation of pregnancy; J02.0 Streptococcal pharyngitis; R05.9 Cough, unspecified; R68.83 Chills (without fever)
CPT/HCPCS: 87636; 87880; 99212; 99214; G0463

== ENCOUNTER 2023-11-20 09:58 | Outpatient (CLI) | payer OTHER, SELFPAY ==
[2023-11-20 10:15] LABS: Basophils % 0.5 % (0.1-2.0); Eosinophils % 0.7 % (0.1-12.0); Lymphocytes # 1.4 K/mm3 (0.7-4.5); Lymphocytes % 25.1 % (10-50); Mean Corpuscular HGB Conc 32.4 g/dL (31.8-35.4); Mean Corpuscular Hemoglobin 30.1 pg (27.0-31.2); Mean Platelet Volume 8.6 fl (7.4-10.4); Monocytes # 0.3 K/mm3 (0.1-1.0); Monocytes % 5.5 % (1.7-9.3); Neutrophils # 3.7 K/mm3 (1.8-7.8); Neutrophils % 68.3 % (37.0-80.0); Platelet Count 262 K/mm3 (142-424); Red Blood Count 3.97 M/mm3 (4.20-5.40); Red Cell Distribution Width 13.9 % (11.5-17.5); White Blood Count 5.5 K/mm3 (4.8-10.8)
[2023-11-20 10:25] LABS: Glucose,Fasting 88 mg/dl (74-100)
[2023-11-20 11:41] LABS: Glucose 1 Hour 129 mg/dL (74-100)
[2023-11-21 09:39] LABS: Rapid Plasma Reagin Ab Titer Non Reactive titer (NonRea<1:1)
== END 2023-11-20 23:59 | disposition home or self-care (01) ==
LOC: LAB 09:59
PROVIDERS: PCP Family Medicine; Visit Provider Nurse Practitioner Obstetrics & Gynecology
DX: Z34.90 Encounter for supervision of normal pregnancy, unspecified, unspecified trimester (principal)
CPT/HCPCS: 36415; 82951; 85025; 86593

== ENCOUNTER 2023-11-26 13:50 | Outpatient (CLI) | payer OTHER, SELFPAY ==
[2023-11-26 14:00] VITALS: BMI 43.4
[2023-11-26 14:09] LABS: Microscopic, Urine URINE MICROSCOPIC (MICROSCOPIC)
[2023-11-26 14:12] LABS: Appearance,Urine SL CLOUDY (Clear); Bilirubin,Urine Negative (Negative); Blood, Urine Negative (Negative); Color,Urine YELLOW (Yellow); Glucose,Urine (UA) Negative (Negative); Ketones,Urine Negative (Negative); Leukocyte Esterase,Urine 1+ (Negative); Nitrate,Urine Negative (Negative); Protein,Urine Negative (Negative); Specific Gravity, Urine >= 1.030 (1.005-1.030)
[2023-11-26 14:21] VITALS: BP 126/69; PULSE 89; RESP 18; TEMP 37.1; O2SAT 98; BMI 43.4
[2023-11-26 14:24] LABS: Amphetamine/Metha Screen,Urine Negative ng/ml (<1000); Benzodiazepines Screen,Urine Negative ng/ml (<200)
[2023-11-26 14:25] LABS: Barbiturates Screen,Urine Negative ng/ml (<200); Methadone Screen,Urine Negative ng/ml (<300)
[2023-11-26 14:26] LABS: Cannabinoid Screen,Urine Negative ng/ml (<50)
[2023-11-26 14:27] LABS: Cocaine Screen,Urine Negative ng/ml (<300)
[2023-11-26 14:28] LABS: Phencyclidine Screen,Urine Negative ng/ml (<25)
[2023-11-26 14:29] LABS: Opiate Screen,Urine Negative ng/ml (<300)
[2023-11-26 14:30] LABS: Bacteria,Urine 2+ /lpf
[2023-11-26] MEDS: LACTATED RINGERS 1000ML 1,000 ML 999 ML IV (14:50)
== END 2023-11-26 16:08 | disposition home or self-care (01) ==
LOC: OBOUT 13:53 → OB 13:54
PROVIDERS: PCP Family Medicine; Visit Provider Obstetrics & Gynecology
DX: O47.03 False labor before 37 completed weeks of gestation, third trimester (principal); Z3A.28 28 weeks gestation of pregnancy
CPT/HCPCS: 80307; 81001; 87086; G0463; J7120

== ENCOUNTER 2023-12-12 19:45 | Outpatient (CLI) | payer OTHER, SELFPAY ==
[2023-12-12 19:55] VITALS: BP 106/59; PULSE 94; RESP 18; TEMP 36.6; O2SAT 99; BMI 43.5
[2023-12-12 20:01] VITALS: BMI 43.5
[2023-12-12 20:08] LABS: Microscopic, Urine URINE MICROSCOPIC (MICROSCOPIC)
[2023-12-12 20:16] LABS: Bilirubin,Urine 1+ (Negative); Blood, Urine Negative (Negative); Glucose,Urine (UA) 1+ (Negative); Ketones,Urine 2+ (Negative); Leukocyte Esterase,Urine 2+ (Negative); Nitrate,Urine POSITIVE (Negative); PH,Urine 6.5 (5.0-8.5); Protein,Urine 2+ (Negative); Urobilinogen,Urine >=8.0 EU/dl (0.2)
[2023-12-12 20:17] LABS: Appearance,Urine Cloudy (Clear); Color,Urine Orange (Yellow)
[2023-12-12 20:25] LABS: Barbiturates Screen,Urine Negative ng/ml (<200)
[2023-12-12 20:26] LABS: Amphetamine/Metha Screen,Urine Negative ng/ml (<1000); Benzodiazepines Screen,Urine Negative ng/ml (<200)
[2023-12-12 20:27] LABS: Cannabinoid Screen,Urine Negative ng/ml (<50)
[2023-12-12 20:28] LABS: Cocaine Screen,Urine Negative ng/ml (<300); Methadone Screen,Urine Negative ng/ml (<300)
[2023-12-12 20:29] LABS: Opiate Screen,Urine Negative ng/ml (<300)
[2023-12-12 20:30] LABS: Phencyclidine Screen,Urine Negative ng/ml (<25)
[2023-12-12 20:32] LABS: Bacteria,Urine 1+ /lpf; RBC,Urine Occasional #/hpf (0-3)
[2023-12-12] MEDS: ONDANSETRON 4MG/2ML VIAL 4 MG IV (20:35)
[2023-12-12] MEDS: LACTATED RINGERS 1000ML 1,000 ML 999 ML IV (20:35)
[2023-12-12 20:51] LABS: Basophils % 0.4 % (0.1-2.0); Eosinophils % 0.4 % (0.1-12.0); Hematocrit 35.6 % (37.0-47.0); Hemoglobin 11.6 g/dL (12.2-16.2); Lymphocytes # 1.6 K/mm3 (0.7-4.5); Lymphocytes % 23.4 % (10-50); Mean Corpuscular HGB Conc 32.6 g/dL (31.8-35.4); Mean Corpuscular Hemoglobin 30.7 pg (27.0-31.2); Mean Corpuscular Volume 93.9 fl (81-99); Mean Platelet Volume 8.8 fl (7.4-10.4); Monocytes # 0.4 K/mm3 (0.1-1.0); Monocytes % 6.1 % (1.7-9.3); Neutrophils # 4.7 K/mm3 (1.8-7.8); Neutrophils % 69.7 % (37.0-80.0); Platelet Count 223 K/mm3 (142-424); Red Blood Count 3.79 M/mm3 (4.20-5.40); Red Cell Distribution Width 13.9 % (11.5-17.5); White Blood Count 6.7 K/mm3 (4.8-10.8)
[2023-12-12 20:58] LABS: Albumin Level 3.3 g/dl (3.5-5.0); Chloride 112 mmol/L (98-107); Potassium 3.5 mmoL/L (3.5-5.1); Sodium 135 mmol/L (136-145)
[2023-12-12 21:01] LABS: Alanine Aminotransferase 22 U/L (12-78); Alkaline Phosphatase 92 U/L (38-126); Anion Gap 7.5 mEq/L (5-15); Aspartate Amino Transferase 20 U/L (14-36); Bilirubin,Total 0.4 mg/dl (0.2-1.3); Blood Urea Nitrogen 5 mg/dl (7-17); Carbon Dioxide 19 mmol/L (22.0-30.0); Creatinine Clearance Estimated 179 mL/min (50-200); Estimated Glomerular Filt Rate 196 ml/min (>60); GFR (African American) 237 ML/MIN (>60); Globulin 3.2 g/dL (1.3-3.2); Total Protein,Serum 6.5 g/dl (6.3-8.2)
[2023-12-12 21:02] LABS: Calcium 8.3 mg/dl (8.4-10.2); Glucose 97 mg/dl (74-100)
[2023-12-12] MEDS: ACETAMINOPHEN 500MG TAB 1000 MG PO (21:36)
[2023-12-12] MEDS: CEFTRIAXONE 1 GM 1 GM in 0.9 % SODIUM CHLORIDE 50 ML IV (21:37)
== END 2023-12-12 22:10 | disposition home or self-care (01) ==
LOC: OBOUT 19:46 → OB 19:47
PROVIDERS: PCP Psychiatry & Neurology Sleep Medicine; Visit Provider Obstetrics & Gynecology
DX: O26.893 Other specified pregnancy related conditions, third trimester (principal); Z3A.30 30 weeks gestation of pregnancy; R51.9 Headache, unspecified
CPT/HCPCS: 80053; 80307; 81001; 85025; 87086; G0463; J0696; J2405; J7120

== ENCOUNTER 2024-01-07 10:12 | Outpatient (CLI) | payer OTHER, SELFPAY ==
--- NOTE | 2024-01-07 10:12 | US_ITS ---
PROCEDURE: US OB BIOPHYSICAL PROFILE CLINICAL INDICATION: lga/ mike COMPARISON: US US OB /MATERNAL DETAIL from 09/22/2023 US US OB FOLLOW UP from 10/20/2023 FINDINGS: Transabdominal sonographic images of the uterus were obtained. From her established due date she is 34weeks 1day. The following parameters are obtained: Viable Fetus in the BREECH presentation with a posterior placenta grade 2. Average ultrasound age is 34weeks 4days Estimated weight 2,509g, 5 lb 9 oz The cervix measures 5.0 cm. Measurements: heart Rate = 139bpm BPD = 32weeks 6days, 13 percentile HC = 35weeks 3days, 46 percentile AC = 35weeks 3days, 85 percentile FL = 34weeks 1day, 39 percentile HC/AC is 1 FL/BPD is 0.81 FL/AC is 0.21 63 percentile Amniotic fluid index: 13.87cm, MVP 4.22 cm Qualitative AFV:2 Breathing movements: 2 Gross Body Movements: 2 Tone: 2 Biophysical profile score: 8 No obvious anomalies evident.Kidneys, bladder, nose, lips, diaphragm, stomach, four-chamber heart, three-vessel cord appear normal. IMPRESSION: 1. Viable fetus in the BREECH presentation with a posterior placenta grade 2. 2. The fluid is within normal limits with an amniotic fluid index of 13.87 cm, MVP 4.22 cm. 3. Biophysical profile is 8/8 with good breathing movement and movement seen. 4. Limited anatomical scan appears normal. 5. There has been good interval growth with the fetus currently 63rd percentile. Dictated by: Prieto Castillo MD 01/08/2024 07:04 Prieto Castillo MD in OV 01/08/2024 07:04
== END 2024-01-07 23:59 | disposition home or self-care (01) ==
LOC: RAD 10:12
PROVIDERS: PCP Family Medicine; Visit Provider Obstetrics & Gynecology
DX: O36.63X0 Maternal care for excessive fetal growth, third trimester, not applicable or unspecified (principal); O28.8 Other abnormal findings on antenatal screening of mother; Z3A.34 34 weeks gestation of pregnancy
CPT/HCPCS: 76816; 76819

== ENCOUNTER 2024-01-18 11:35 | Outpatient (CLI) | payer OTHER, SELFPAY | END 2024-01-18 23:59 | disposition home or self-care (01) | LOC: LAB.DROPOF 01-19 08:02 | PROVIDERS: PCP Nurse Practitioner Obstetrics & Gynecology; Visit Provider Nurse Practitioner Obstetrics & Gynecology | DX: Z34.90 Encounter for supervision of normal pregnancy, unspecified, unspecified trimester (principal) | CPT/HCPCS: 86403; 87186 ==

== ENCOUNTER 2024-01-26 11:54 | Outpatient (CLI) | payer OTHER, SELFPAY ==
[2024-01-26] MEDS: BUTALB/ACETAMINOPHEN/CAFFEINE 50MG/325MG/40MG TAB 1 EACH PO (12:26)
[2024-01-26] MEDS: LACTATED RINGERS 1000ML 1,000 ML 999 ML IV (12:26)
[2024-01-26 13:00] VITALS: BMI 44.2
[2024-01-26 13:06] LABS: Basophils % 0.1 % (0.1-2.0); Eosinophils % 0.5 % (0.1-12.0); Hematocrit 35.6 % (37.0-47.0); Hemoglobin 11.7 g/dL (12.2-16.2); Lymphocytes # 1.4 K/mm3 (0.7-4.5); Lymphocytes % 22.2 % (10-50); Mean Corpuscular HGB Conc 32.8 g/dL (31.8-35.4); Mean Corpuscular Hemoglobin 29.8 pg (27.0-31.2); Mean Corpuscular Volume 90.9 fl (81-99); Mean Platelet Volume 8.7 fl (7.4-10.4); Monocytes # 0.4 K/mm3 (0.1-1.0); Monocytes % 6.4 % (1.7-9.3); Neutrophils # 4.4 K/mm3 (1.8-7.8); Neutrophils % 70.9 % (37.0-80.0); Platelet Count 200 K/mm3 (142-424); Red Blood Count 3.91 M/mm3 (4.20-5.40); Red Cell Distribution Width 13.7 % (11.5-17.5); White Blood Count 6.3 K/mm3 (4.8-10.8)
[2024-01-26 13:16] LABS: Albumin Level 3.3 g/dl (3.5-5.0); Chloride 112 mmol/L (98-107)
[2024-01-26 13:17] LABS: Potassium 3.6 mmoL/L (3.5-5.1); Sodium 135 mmol/L (136-145)
[2024-01-26 13:19] LABS: Alanine Aminotransferase 28 U/L (12-78); Anion Gap 8.6 mEq/L (5-15); Aspartate Amino Transferase 27 U/L (14-36); Bilirubin,Total 0.6 mg/dl (0.2-1.3); Blood Urea Nitrogen 6 mg/dl (7-17); Carbon Dioxide 18 mmol/L (22.0-30.0); Creatinine Clearance Estimated 144 mL/min (50-200); Estimated Glomerular Filt Rate 152 ml/min (>60); GFR (African American) 183 ML/MIN (>60)
[2024-01-26 13:20] LABS: Alkaline Phosphatase 151 U/L (38-126); Globulin 3.3 g/dL (1.3-3.2); Glucose 75 mg/dl (74-100); Total Protein,Serum 6.6 g/dl (6.3-8.2)
[2024-01-26 13:55] VITALS: BP 116/74; PULSE 94; RESP 18; TEMP 36.8; O2SAT 99; BMI 44.2
[2024-01-26] MEDS: POTASSIUM CHLORIDE 20MEQ TAB 60 MEQ PO (14:10)
[2024-01-26 14:13] LABS: Basophils % 0.3 % (0.1-2.0); Eosinophils % 0.4 % (0.1-12.0); Hematocrit 32.6 % (37.0-47.0); Hemoglobin 11.2 g/dL (12.2-16.2); Lymphocytes # 1.1 K/mm3 (0.7-4.5); Lymphocytes % 21.3 % (10-50); Mean Corpuscular HGB Conc 34.5 g/dL (31.8-35.4); Mean Corpuscular Hemoglobin 29.5 pg (27.0-31.2); Mean Corpuscular Volume 85.6 fl (81-99); Mean Platelet Volume 9.5 fl (7.4-10.4); Monocytes # 0.3 K/mm3 (0.1-1.0); Monocytes % 4.7 % (1.7-9.3); Neutrophils # 3.9 K/mm3 (1.8-7.8); Neutrophils % 73.3 % (37.0-80.0); Platelet Count 209 K/mm3 (142-424); Red Blood Count 3.81 M/mm3 (4.20-5.40); White Blood Count 5.3 K/mm3 (4.8-10.8)
[2024-01-27 08:23] LABS: Hepatitis B Surface Antigen Negative (Negative)
[2024-01-27 09:39] LABS: HIV Screen 4th Generation wRfx Non Reactive (Non Reactive); Rubella Antibodies, IgG 3.17 index (Immune >0.99)
[2024-01-27 12:16] LABS: Rapid Plasma Reagin Ab Titer Non Reactive titer (NonRea<1:1)
== END 2024-01-26 14:16 | disposition home or self-care (01) ==
LOC: OBOUT 11:57 → OB 11:58
PROVIDERS: Visit Provider Obstetrics & Gynecology
DX: O60.03 Preterm labor without delivery, third trimester (principal); Z3A.37 37 weeks gestation of pregnancy
CPT/HCPCS: 36415; 80053; 85025; 86593; 86762; 87340; G0463; J7120

== ENCOUNTER 2024-01-28 14:31 | Outpatient (CLI) | payer OTHER, SELFPAY ==
[2024-01-28 15:24] VITALS: BMI 44.2
[2024-01-28 15:32] VITALS: BP 122/72; PULSE 93; RESP 18; TEMP 36.8; O2SAT 100; BMI 44.2
[2024-01-28 15:46] LABS: Amphetamine/Metha Screen,Urine Negative ng/ml (<1000)
[2024-01-28 15:47] LABS: Benzodiazepines Screen,Urine Negative ng/ml (<200)
[2024-01-28 15:48] LABS: Cannabinoid Screen,Urine Negative ng/ml (<50)
[2024-01-28 15:49] LABS: Cocaine Screen,Urine Negative ng/ml (<300); Methadone Screen,Urine Negative ng/ml (<300)
[2024-01-28 15:50] LABS: Opiate Screen,Urine Negative ng/ml (<300); Phencyclidine Screen,Urine Negative ng/ml (<25)
[2024-01-28 16:14] LABS: Microscopic, Urine URINE MICROSCOPIC (MICROSCOPIC)
[2024-01-28 16:18] LABS: Appearance,Urine CLEAR (Clear); Bilirubin,Urine Negative (Negative); Blood, Urine Negative (Negative); Color,Urine YELLOW (Yellow); Glucose,Urine (UA) Negative (Negative); Ketones,Urine Negative (Negative); Leukocyte Esterase,Urine 1+ (Negative); Nitrate,Urine Negative (Negative); PH,Urine 6.5 (5.0-8.5); Protein,Urine Negative (Negative); Specific Gravity, Urine 1.025 (1.005-1.030)
[2024-01-28 16:33] LABS: Barbiturates Screen,Urine Negative ng/ml (<200)
[2024-01-28 16:35] LABS: Bacteria,Urine 4+ /lpf; Squamous Epithelial Cell,Urine 20-50 #/hpf (0-5); WBC,Urine 20-50 #/hpf (0-3)
[2024-01-28] MEDS: BUTALB/ACETAMINOPHEN/CAFFEINE 50MG/325MG/40MG TAB 1 EACH PO (17:13)
[2024-01-28] MEDS: MAGNESIUM SULFATE 2 GM, THIAMINE HCL 100 MG, MVI, ADULT NO.1 WITH VIT K 10 ML in LACTAT... IV (17:52)
[2024-01-28] MEDS: FOLIC ACID 1MG TABLET 1 MG PO (18:23)
[2024-01-28 19:02] LABS: Microscopic, Urine URINE MICROSCOPIC (MICROSCOPIC)
[2024-01-28 19:08] LABS: Appearance,Urine CLEAR (Clear); Bilirubin,Urine Negative (Negative); Blood, Urine Negative (Negative); Color,Urine YELLOW (Yellow); Glucose,Urine (UA) Negative (Negative); Ketones,Urine Negative (Negative); Leukocyte Esterase,Urine Negative (Negative); Nitrate,Urine Negative (Negative); Protein,Urine Negative (Negative)
[2024-01-28 19:27] LABS: RBC,Urine Occasional #/hpf (0-3)
[2024-01-28 19:28] LABS: Amorphous Sediment,Urine Trace /lpf; WBC,Urine Occasional #/hpf (0-3)
[2024-01-28] MEDS: cefTRIAXone 1GM VIAL 1 GM IM (19:37)
== END 2024-01-28 21:32 | disposition home or self-care (01) ==
LOC: OBOUT 14:33 → OB 14:34
PROVIDERS: Obstetrics & Gynecology; PCP Family Medicine; Visit Provider Obstetrics & Gynecology
DX: O26.893 Other specified pregnancy related conditions, third trimester (principal); R06.02 Shortness of breath; Z3A.37 37 weeks gestation of pregnancy
CPT/HCPCS: 80307; 81001; 87086; G0463; J0696; J3411; J7120

== ENCOUNTER 2024-01-31 14:51 | Outpatient (CLI) | payer OTHER, SELFPAY ==
[2024-01-31] MEDS: DEXTROSE 5%-LACTATED RINGERS 1,000 ML 999 ML IV (15:19)
[2024-01-31] MEDS: LABETALOL 100MG TABLET 50 MG PO (15:46)
[2024-01-31] MEDS: BUTALB/ACETAMINOPHEN/CAFFEINE 50MG/325MG/40MG TAB 1 EACH PO (15:47)
[2024-01-31 16:08] VITALS: BP 141/81; PULSE 89; RESP 18; TEMP 36.7; O2SAT 99; BMI 44.9
[2024-01-31] MEDS: OXYCODONE 5MG IMMEDIATE RELEASE TABLET 5 MG PO (16:59)
== END 2024-01-31 17:57 | disposition home or self-care (01) ==
LOC: OBOUT 14:53 → OB 14:53
PROVIDERS: PCP Family Medicine; Visit Provider Nurse Practitioner Obstetrics & Gynecology
DX: O60.03 Preterm labor without delivery, third trimester (principal); Z3A.37 37 weeks gestation of pregnancy
CPT/HCPCS: G0463

== ENCOUNTER 2024-02-01 15:21 | Outpatient (CLI) | payer OTHER, SELFPAY ==
[2024-02-01 15:26] VITALS: BMI 44.9
[2024-02-01 15:55] VITALS: BP 117/69; PULSE 107; RESP 20; TEMP 37; O2SAT 98; BMI 44.9
[2024-02-01 16:09] LABS: Microscopic, Urine URINE MICROSCOPIC (MICROSCOPIC)
[2024-02-01 16:16] LABS: Appearance,Urine CLEAR (Clear); Bilirubin,Urine Negative (Negative); Blood, Urine Negative (Negative); Color,Urine YELLOW (Yellow); Glucose,Urine (UA) Negative (Negative); Ketones,Urine 1+ (Negative); Leukocyte Esterase,Urine 1+ (Negative); Nitrate,Urine Negative (Negative); PH,Urine 6.5 (5.0-8.5); Protein,Urine Negative (Negative); Specific Gravity, Urine >= 1.030 (1.005-1.030)
--- NOTE | 2024-02-01 16:30 | US_ITS ---
PROCEDURE INFORMATION: Exam: US Biophysical Profile Without Non-Stress Test Exam date and time: 02/01/2024 5:06 PM Age: 23 years old Clinical indication: Other: Dec movement; ; Additional info: Decreased movement TECHNIQUE: Imaging protocol: US biophysical profile without non-stress testing. COMPARISON: US OB BIOPHYSICAL PROFILE 01/07/2024 10:18 AM FINDINGS: Amniotic fluid index: JALYN is 9.72 cm. BIOPHYSICAL PROFILE: breathing (BPP): 2 /2 gross body movement (BPP): 2 /2 tone (BPP): 2 /2 Amniotic fluid (BPP): 2 /2 Biophysical profile score (BPP): 8 /8 MATERNAL ANATOMY: Cervix: Cervical length measures 4.13 cm. IMPRESSION: Biophysical profile score 8/8. Unremarkable examination.
[2024-02-01 16:31] LABS: Amphetamine/Metha Screen,Urine Negative ng/ml (<1000); Benzodiazepines Screen,Urine Negative ng/ml (<200)
[2024-02-01 16:33] LABS: Cannabinoid Screen,Urine Negative ng/ml (<50); Cocaine Screen,Urine Negative ng/ml (<300)
[2024-02-01 16:34] LABS: Methadone Screen,Urine Negative ng/ml (<300); Opiate Screen,Urine Negative ng/ml (<300); Squamous Epithelial Cell,Urine 20-50 #/hpf (0-5); WBC,Urine 50-100 #/hpf (0-3)
[2024-02-01 16:35] LABS: Bacteria,Urine 4+ /lpf; Phencyclidine Screen,Urine Negative ng/ml (<25)
[2024-02-01 17:31] LABS: Barbiturates Screen,Urine Positive ng/ml (<200)
== END 2024-02-01 17:58 | disposition home or self-care (01) ==
LOC: OBOUT 15:23 → OB 15:25
PROVIDERS: PCP Family Medicine; Visit Provider Obstetrics & Gynecology
DX: O36.8130 Decreased fetal movements, third trimester, not applicable or unspecified (principal); Z3A.37 37 weeks gestation of pregnancy
CPT/HCPCS: 76811; 76819; 80307; 81001; 87086; G0463

== ENCOUNTER 2024-02-02 10:21 | Outpatient (CLI) | payer OTHER, SELFPAY ==
--- NOTE | 2024-02-02 | US_ITS ---
PROCEDURE: US OB BIOPHYSICAL PROFILE CLINICAL INDICATION: COMPARISON: US US OB /MATERNAL DETAIL from 09/22/2023 US US OB FOLLOW UP from 10/20/2023 US US OB BIOPHYSICAL PROFILE from 01/07/2024 US US OB BPP W/FET-MAT S/D from 02/01/2024 FINDINGS: Transabdominal sonographic images of the uterus were obtained. From her established due date she is 38 weeks 0 days. The following parameters are obtained: Viable Fetus in the cephalic presentation with and anterior placenta grade 3. Average ultrasound age is 37weeks 1day Estimated weight 3,261g, 7 lb 3 oz Cervix measures 3.8 cm. Measurements: heart Rate = 144bpm BPD = 35weeks 3days, 11 percentile HC = 37weeks 4days, 21 percentile AC = 38weeks 6days, 87 percentile FL = 36weeks 2days, 15 percentile HC/AC is 0.95 FL/BPD is 0.81 FL/AC is 0.2 55 percentile Amniotic fluid index: 10.94cm, MVP 4.64 cm. Qualitative AFV:2 Breathing movements: 2 Gross Body Movements: 2 Tone: 2 Biophysical profile score: 8 No obvious anomalies evident.Kidneys, bladder, stomach, four-chamber heart, three-vessel cord appear normal. IMPRESSION: 1. Viable fetus in the cephalic presentation with a posterior placenta grade 3. 2. The fluid is within normal limits with an amniotic fluid index 10.94 cm, MVP 4.64 cm. 3. Biophysical profile 11/17 with good breathing movement and movement seen. 4. There has been good interval growth with the fetus currently 55th percentile. 5. Limited anatomical scan appears normal. Dictated by: Prieto Castillo MD 02/02/2024 11:39 Prieto Castillo MD in OV 02/02/2024 11:39
== END 2024-02-02 23:59 | disposition home or self-care (01) ==
LOC: RAD 10:22
PROVIDERS: PCP Family Medicine; Visit Provider Nurse Practitioner Obstetrics & Gynecology
DX: O32.1XX0 Maternal care for breech presentation, not applicable or unspecified (principal); O99.213 Obesity complicating pregnancy, third trimester; Z3A.38 38 weeks gestation of pregnancy
CPT/HCPCS: 76816; 76819

== ENCOUNTER 2024-02-04 18:22 | Outpatient (CLI) | payer OTHER, SELFPAY ==
[2024-02-04 18:34] VITALS: BMI 44.4
[2024-02-04 18:41] LABS: Microscopic, Urine URINE MICROSCOPIC (MICROSCOPIC)
[2024-02-04 18:44] LABS: Appearance,Urine CLEAR (Clear); Bilirubin,Urine Negative (Negative); Blood, Urine Negative (Negative); Color,Urine YELLOW (Yellow); Glucose,Urine (UA) Negative (Negative); Ketones,Urine Negative (Negative); Leukocyte Esterase,Urine 2+ (Negative); Nitrate,Urine Negative (Negative); Protein,Urine Negative (Negative); Specific Gravity, Urine >= 1.030 (1.005-1.030); Urobilinogen,Urine 0.2 EU/dl (0.2)
[2024-02-04 18:54] VITALS: BP 121/73; PULSE 102; RESP 18; TEMP 37; O2SAT 98; BMI 44.4
[2024-02-04 19:04] LABS: Squamous Epithelial Cell,Urine 20-50 #/hpf (0-5); WBC,Urine 20-50 #/hpf (0-3)
[2024-02-04 19:05] LABS: Bacteria,Urine 4+ /lpf; Calcium Oxalate Crystals,Urine Trace /lpf
[2024-02-04 19:27] LABS: Amphetamine/Metha Screen,Urine Negative ng/ml (<1000); Benzodiazepines Screen,Urine Negative ng/ml (<200)
[2024-02-04 19:28] LABS: Cocaine Screen,Urine Negative ng/ml (<300)
[2024-02-04 19:29] LABS: Cannabinoid Screen,Urine Negative ng/ml (<50); Methadone Screen,Urine Negative ng/ml (<300)
[2024-02-04 19:30] LABS: Opiate Screen,Urine Negative ng/ml (<300)
[2024-02-04 19:31] LABS: Phencyclidine Screen,Urine Negative ng/ml (<25)
[2024-02-04 19:46] LABS: Barbiturates Screen,Urine Positive ng/ml (<200)
[2024-02-04] MEDS: LACTATED RINGERS 1000ML 1,000 ML 999 ML IV ×2 (19:53→21:14)
[2024-02-04] MEDS: CEFTRIAXONE 1 GM 1 GM in 0.9 % SODIUM CHLORIDE 50 ML IV (19:54)
[2024-02-04 19:57] LABS: Basophils % 0.4 % (0.1-2.0); Eosinophils # 0.1 K/mm3 (0.0-0.4); Eosinophils % 0.8 % (0.1-12.0); Hematocrit 35.1 % (37.0-47.0); Hemoglobin 12.1 g/dL (12.2-16.2); Lymphocytes # 1.4 K/mm3 (0.7-4.5); Lymphocytes % 18.1 % (10-50); Mean Corpuscular HGB Conc 34.6 g/dL (31.8-35.4); Mean Corpuscular Hemoglobin 29.3 pg (27.0-31.2); Mean Corpuscular Volume 84.7 fl (81-99); Mean Platelet Volume 9.8 fl (7.4-10.4); Monocytes # 0.5 K/mm3 (0.1-1.0); Monocytes % 6.5 % (1.7-9.3); Neutrophils # 5.7 K/mm3 (1.8-7.8); Neutrophils % 74.2 % (37.0-80.0); Platelet Count 189 K/mm3 (142-424); Red Blood Count 4.15 M/mm3 (4.20-5.40); Red Cell Distribution Width 14.2 % (11.5-17.5); White Blood Count 7.6 K/mm3 (4.8-10.8)
[2024-02-04 19:59] LABS: Sodium 136 mmol/L (136-145)
[2024-02-04 20:01] LABS: Alanine Aminotransferase 19 U/L (12-78); Albumin Level 3.2 g/dl (3.5-5.0); Albumin/Globulin Ratio 1.1 (1.1-1.8); Alkaline Phosphatase 142 U/L (38-126); Anion Gap 10.6 mEq/L (5-15); Aspartate Amino Transferase 24 U/L (14-36); Bilirubin,Total 0.5 mg/dl (0.2-1.3); Blood Urea Nitrogen 8 mg/dl (7-17); Calcium 8.5 mg/dl (8.4-10.2); Carbon Dioxide 16 mmol/L (22.0-30.0); Chloride 113 mmol/L (98-107); Creatinine Clearance Estimated 229 mL/min (50-200); Estimated Glomerular Filt Rate 273 ml/min (>60); GFR (African American) 331 ML/MIN (>60); Glucose 91 mg/dl (74-100); Potassium 3.6 mmoL/L (3.5-5.1); Total Protein,Serum 6.2 g/dl (6.3-8.2)
[2024-03-07 16:18] LABS: Hepatitis C Antibody NON REACTIVE
== END 2024-02-04 22:40 | disposition home or self-care (01) ==
LOC: OBOUT 18:24 → OB 18:25
PROVIDERS: PCP Family Medicine; Visit Provider Obstetrics & Gynecology
DX: O60.03 Preterm labor without delivery, third trimester (principal); Z3A.38 38 weeks gestation of pregnancy
CPT/HCPCS: 80053; 80307; 81001; 85025; 87086; 87380; G0463; J0696; J7120

== ENCOUNTER 2024-02-06 15:25 | Outpatient (CLI) | payer OTHER, SELFPAY ==
[2024-02-06 15:38] VITALS: BMI 44.4
[2024-02-06 15:47] VITALS: BP 117/67; PULSE 94; RESP 18; TEMP 36.8; O2SAT 98; BMI 44.4
[2024-02-06 16:29] LABS: Microscopic, Urine URINE MICROSCOPIC (MICROSCOPIC)
[2024-02-06 16:33] LABS: Appearance,Urine CLEAR (Clear); Bilirubin,Urine Negative (Negative); Blood, Urine Negative (Negative); Color,Urine YELLOW (Yellow); Glucose,Urine (UA) Negative (Negative); Ketones,Urine Negative (Negative); Leukocyte Esterase,Urine 2+ (Negative); Nitrate,Urine Negative (Negative); PH,Urine 6.5 (5.0-8.5); Protein,Urine Negative (Negative); Specific Gravity, Urine 1.025 (1.005-1.030); Urobilinogen,Urine 0.2 EU/dl (0.2)
[2024-02-06 16:57] LABS: Barbiturates Screen,Urine Positive ng/ml (<200); Benzodiazepines Screen,Urine Negative ng/ml (<200)
[2024-02-06 16:58] LABS: Amphetamine/Metha Screen,Urine Negative ng/ml (<1000)
[2024-02-06 16:59] LABS: Cannabinoid Screen,Urine Negative ng/ml (<50); Cocaine Screen,Urine Negative ng/ml (<300)
[2024-02-06 17:00] LABS: Methadone Screen,Urine Negative ng/ml (<300); Opiate Screen,Urine Negative ng/ml (<300)
[2024-02-06 17:01] LABS: Phencyclidine Screen,Urine Negative ng/ml (<25)
== END 2024-02-06 16:49 | disposition home or self-care (01) ==
LOC: OBOUT 15:27 → OB 15:28
PROVIDERS: PCP Family Medicine; Visit Provider Obstetrics & Gynecology
DX: O26.853 Spotting complicating pregnancy, third trimester (principal); Z3A.38 38 weeks gestation of pregnancy
CPT/HCPCS: 80307; 81001; 87086; G0463

== ENCOUNTER 2024-02-07 15:34 | Inpatient (IN) | payer OTHER, SELFPAY ==
--- OUTSIDE RECORDS SUMMARY | 2024-02-07 15:39 | XMS_ITS | Patient Health Record ---
Author Organization [facility], [place] Group Address [address] [place] [address] Care Team Providers Care Milk Receiver Tank Truck Name Role Phone Haydee Vidal Unavailable [phone] Allergies No Known Allergies Reason For Referral No Information Medications Medication SIG (Take, Route, Fr equency, Duration) Notes Start Date End Date Status Vitamins Un known Keflex 500 MG ONE TABLET ORALLY 4 times a day for 7 days 11/04/2021 Active Problems Problem Type SNOMED Code ICD Code Onset Dates Problem Status W/U Status Risk Notes Problem [id number] Calculus of gallbladder without cholecystitis without obstruction (K80.20) Active confirmed Problem Third trimester (24750932) Encounter for supervision of other normal in third trimester (Z34.83) Active confirmed Problem Primigravida (465471933) Encounter for care in first trimester of first (Z34.01) 021 Active confirmed Encounter for supervision of normal first , first trimester Problem Gestation period, 12 weeks (04895182) 12 weeks gestation of (Z3A.12) 021 Active confirmed 12 weeks gestation of Problem Amenorrhea (08443065) Absence of menses due to use of contraceptive (N91.2) 021 Active confirmed Missed period Plan Of Treatment No Information Insurance Providers Payer Name Payer Address Payer Phone Subscriber Number Group Number Insured Name Patient Relationship to Insured Coverage Start Date Coverage End Date [employer] [address] [address] [place], [place] [id number] Gregory Cordova Self - patient is the insured [facility] [address] [place] [address] [id number] Gregory Cordova Self - patient is the insured 2 Medical (General) History Medical History History ICD Code UTIs Gallbladder issues Surgical History Surgery Date(Month/Year) None noted
--- NOTE | 2024-02-07 15:45 | EXP.HP ---
History of Present Illness *Admission Date: 02/07/24 *Reason for visit:: Term , induction of labor *History of present illness: She is a 23-year-old 3 para 2 who is 39 weeks gestational age. She has had labor as well as severe discomfort. She has a mild headache and requested induction of labor at term. A Rh+ blood Group B streptococcus positive PFSH PFS Disclaimer: The information contained in this section may have been updated after the patient was seen, as this information can be updated by other users. Medical History Positive GBS test Maternal obesity affecting , antepartum Threatened in second trimester Pyelonephritis PCOS (polycystic ovarian syndrome) Viral upper respiratory tract infection Biliary colic SOB (shortness of breath) Pelvic pain Surgical History History of cholecystectomy Family History No significant family history Social History Smoking Status: Never smoker alcohol intake: never substance use type: denies use current occupational status: employed Travel in the last 8 weeks: None caffeine: Yes Other Medical History Have you received the Flu Vaccine for this season: Yes Have you received the Pneumonia Vaccine: No Review of Systems Review of Systems Review of systems:: pertinent systems reviewed and negative unless documented below Meds Home Medications and Allergies Home Medications ?Medication ?Instructions ?Recorded ?Confirmed ?Type vits no.130-ferrous fum 1 tab PO DAILY 30 days #30 tabs 06/14/23 02/07/24 Rx 27 mg iron-folic acid 800 mcg tablet ( Vitamin) ferrous sulfate 325 mg (65 mg 325 mg PO DAILY 10/25/23 02/07/24 History iron) tablet (FeroSul) ondansetron HCl 8 mg tablet 8 mg PO Q8H PRN nausea and 02/04/24 02/07/24 Rx vomiting #14 tabs New Prescriptions to Start Prescriptions: Allergies Allergy/AdvReac Type Severity Reaction Status Date / Time No Known Allergies Allergy Verified 02/07/24 08:39 Exam Constitutional Constitutional: no acute distress *Routine HEENT Exam Head: Present normocephalic Eye: Present EOMI and PERRL ENT: Present mucous membranes moist *Routine Neck Exam Neck: Present supple; Absent lymphadenopathy *Routine Respiratory Exam Respiratory: Present CTA bilaterally *Routine Cardiovascular Exam Cardiovascular: Present RRR *Routine Abdominal Exam Abdominal: Present soft and normoactive bowel sounds; Absent tenderness *Routine Rectal Exam Rectal:: deferred *Routine Genitalia Exam Genitalia:: deferred *Routine Extremities Exam Extremities: Absent cyanosis, clubbing or edema *Routine Skin Exam Skin: Present warm; Absent rash *Routine Neurological Exam Neurological: Present alert and oriented X3 Assessment and Plan *Assessment and plan (1) Positive GBS test: Status: Acute Category: Medical Code(s): B95.1 - Streptococcus, group B, as the cause of diseases classified elsewhere (2) Maternal obesity affecting , antepartum: Status: Acute Qualifiers: Obesity type affecting : other obesity due to excess calories Qualified Code(s): O99.210 - Obesity complicating , unspecified trimester; E66.09 - Other obesity due to excess calories Category: Medical Code(s): O99.210 - Obesity complicating , unspecified trimester (3) Headache: Status: Acute Qualifiers: Headache type: tension-type Headache chronicity pattern: acute headache Intractability: intractable Qualified Code(s): G44.201 - Tension-type headache, unspecified, intractable Category: Medical Code(s): R51.9 - Headache, unspecified Plan She is admitted for induction of labor at term. Her baby was breech a couple of weeks ago and is result of that we have elected to induce her labor at term. She has had 2 previous vaginal deliveries. She is group B streptococcus positive. We will expect a vaginal delivery. We are starting Cytotec today and expect a vaginal delivery tomorrow.
[2024-02-07 16:22] VITALS: BP 127/66; PULSE 92; RESP 16; TEMP 36.4; O2SAT 99; BMI 44.6
[2024-02-07 16:55] LABS: Microscopic, Urine URINE MICROSCOPIC (MICROSCOPIC)
[2024-02-07] MEDS: miSOPROStol 100MCG TABLET 50 MCG PO ×2 (16:58→23:01)
[2024-02-07 16:59] LABS: Basophils % 0.5 % (0.1-2.0); Eosinophils # 0.1 K/mm3 (0.0-0.4); Eosinophils % 0.9 % (0.1-12.0); Hematocrit 35.8 % (37.0-47.0); Hemoglobin 12.1 g/dL (12.2-16.2); Lymphocytes # 1.5 K/mm3 (0.7-4.5); Lymphocytes % 21.7 % (10-50); Mean Corpuscular HGB Conc 33.8 g/dL (31.8-35.4); Mean Corpuscular Hemoglobin 28.8 pg (27.0-31.2); Mean Corpuscular Volume 85.3 fl (81-99); Mean Platelet Volume 9.5 fl (7.4-10.4); Monocytes # 0.4 K/mm3 (0.1-1.0); Monocytes % 6.1 % (1.7-9.3); Neutrophils % 70.9 % (37.0-80.0); Platelet Count 195 K/mm3 (142-424); Red Cell Distribution Width 14.2 % (11.5-17.5); White Blood Count 7.1 K/mm3 (4.8-10.8)
[2024-02-07 17:06] LABS: Appearance,Urine CLEAR (Clear); Bilirubin,Urine Negative (Negative); Blood, Urine Negative (Negative); Color,Urine YELLOW (Yellow); Glucose,Urine (UA) Negative (Negative); Ketones,Urine Negative (Negative); Leukocyte Esterase,Urine 1+ (Negative); Nitrate,Urine Negative (Negative); Protein,Urine Negative (Negative); Specific Gravity, Urine 1.025 (1.005-1.030)
[2024-02-07 17:15] LABS: Benzodiazepines Screen,Urine Negative ng/ml (<200)
[2024-02-07 17:16] LABS: Amphetamine/Metha Screen,Urine Negative ng/ml (<1000)
[2024-02-07 17:17] LABS: Barbiturates Screen,Urine Positive ng/ml (<200); Cannabinoid Screen,Urine Negative ng/ml (<50)
[2024-02-07 17:18] LABS: Cocaine Screen,Urine Negative ng/ml (<300); Methadone Screen,Urine Negative ng/ml (<300)
[2024-02-07 17:19] LABS: Opiate Screen,Urine Negative ng/ml (<300)
[2024-02-07 17:20] LABS: Phencyclidine Screen,Urine Negative ng/ml (<25)
[2024-02-07] MEDS: AMPICILLIN SODIUM 2 GM in 0.9 % SODIUM CHLORIDE 100 ML IV (17:43)
[2024-02-07 18:06] LABS: Bacteria,Urine Trace /lpf
[2024-02-07 19:30] VITALS: BP 132/66; PULSE 95; RESP 18; TEMP 36.9; O2SAT 98
[2024-02-07] MEDS: AMPICILLIN SODIUM 1 GM in 0.9 % SODIUM CHLORIDE 50 ML IV (22:57)
[2024-02-07] MEDS: LACTATED RINGERS 1000ML 1,000 ML 999 ML IV (23:38)
[2024-02-08] MEDS: OXYTOCIN/RINGERS LACTATE 30 UNITS/500 ML BAG IV (05:15)
[2024-02-08] MEDS: AMPICILLIN SODIUM 1 GM in 0.9 % SODIUM CHLORIDE 50 ML IV ×2 (05:15→09:14)
--- NOTE | 2024-02-08 07:59 | EXP.LABOR.NO ---
Labor Note Subjective: Date: 02/08/24 Time: 07:15 regular contraction Objective: NST:: Reactive Contractions:: every 2-3 minutes Cervical Dilation:: 3 Effacement:: 60% Station: -1 Membranes: artificially ruptured Comment:: I ruptured membranes and there was clear fluid. Fetus: Monitoring?: Yes monitoring type:: Internal and External Comment:: I inserted an IUPC. Assessment: Labor progressing?: Yes Cephalopelvic disproportion?: No Plan: Anesthesia for epidural?: Yes Continue to labor down?: Yes Plan for ?: No Continue to monitor?: Yes Start pushing?: No Comment:: She has made progress overnight and is 3 cm. The cervix is soft and the head is well applied to the cervix. When I ruptured her membranes there was clear fluid. An IUPC was inserted. She is suhas every 2 to 3 minutes. We will expect a vaginal delivery.
[2024-02-08] MEDS: LACTATED RINGERS 1000ML 1,000 ML 999 ML IV ×2 (08:05→12:21)
--- NOTE | 2024-02-08 09:07 | EXP.LABOR.NO ---
Labor Note Subjective: Date: 02/08/24 Time: 09:07 regular contraction Objective: NST:: Reactive Contractions:: every 2-3 minutes Cervical Dilation:: 4 Effacement:: 60% Station: -1 Membranes: artificially ruptured Fetus: Monitoring?: Yes monitoring type:: Internal Comment:: I applied a scalp clip. She now has both an IUPC and scalp clip. Assessment: Labor progressing?: Yes Cephalopelvic disproportion?: No Plan: Anesthesia for epidural?: Yes Continue to labor down?: Yes Plan for ?: No Continue to monitor?: Yes Start pushing?: No
--- NOTE | 2024-02-08 10:02 | P.PNANES_ITS ---
[facility] Disclaimer: The information contained in this section may have been updated after the patient was seen, as this information can be updated by other users. Medical History Positive GBS test Maternal obesity affecting , antepartum Threatened in second trimester Pyelonephritis PCOS (polycystic ovarian syndrome) Viral upper respiratory tract infection Biliary colic SOB (shortness of breath) Pelvic pain Surgical History History of cholecystectomy Family History No significant family history Social History (Updated 02/08/24 @ 08:30 by Tiny Wilhelm RN) Smoking Status: Never smoker alcohol intake: never substance use type: denies use current occupational status: employed Travel in the last 8 weeks: None caffeine: Yes [facility] Anesthesia Checklist Patient Identification Patient Identification: Arm Band Structural Data Admitted From: Inpatient Planned Operative Procedure/s: Labor Epidural Consent for Planned Operative Procedure(s) Verified: Yes Verified Documents: Surgical Consent and History and Physical NPO Status Verified Time NPO: 00:00 Additional verifications Anesthesia Reactions: No Hx Blood Transfusions: No Blood Transfusion Reaction: No Neurological Assessment Level of Consciousness: Awake, Alert and Appropriate Anesthesia Plan Anesthesia Risk discussed: Yes Anesthesia Plan: Verified ASA Class: II Anesthesia Type: Epidural
--- NOTE | 2024-02-08 11:23 | EXP.LABOR.NO ---
Labor Note Subjective: Date: 02/08/24 Time: 11:23 regular contraction Objective: NST:: Reactive Contractions:: every 2-3 minutes Cervical Dilation:: 5 Effacement:: 90% Station: -1 Membranes: artificially ruptured Fetus: Monitoring?: Yes monitoring type:: Internal Assessment: Labor progressing?: Yes Cephalopelvic disproportion?: No Plan: Anesthesia for epidural?: Yes Continue to labor down?: Yes Plan for ?: No Continue to monitor?: Yes Start pushing?: No Comment:: The cervix thinned out considerably and she is 5 cm dilated. We will expect a vaginal delivery.
[2024-02-08] MEDS: DEXTROSE 5%-LACTATED RINGERS 1,000 ML 125 ML IV (11:39)
[2024-02-08] MEDS: OXYTOCIN/RINGERS LACTATE 30 UNITS/500 ML BAG 40 UNITS IV (13:45)
--- NOTE | 2024-02-08 13:58 | EXP.DN ---
Delivery Note Delivery Date:: 02/08/24 Delivery Time:: 13:43 Anesthesia Type: Epidural Was labor medically induced?: Yes Induction method: per misoprostol protocol Gestational age (weeks): 39 Infant delivered prior to 39 weeks?: No Justification for early elective delivery:: Other Infant Gender: Female at 1 minute: 9 at 5 minutes: 9 Delivery Procedure:: She is a 23-year-old 3 para 2 at 39 weeks gestational age. She was complaining of a headache that would not go away and having occasional contractions and pressure. As result of that we elected to induce her labor at 39 weeks. She received 2 doses of misoprostol and then on the morning of February 08, 2024 she had her membranes ruptured and was started on IV oxytocin. Under labor epidural she progressed to full dilation and delivered spontaneously a liveborn female child at 1:43 PM in the afternoon of February 03, 2024. On deliver the head the anterior shoulder easily delivered followed by the rest of the infant's body atraumatically. The oropharynx and nasopharynx were bulb suction. The baby was stimulated and cried spontaneously. She was vigorous. We allowed the cord to continue to pulsate for approximately 1 minute. The cord was then doubly clamped and cut and the infant was placed on the mother's abdomen for further care. The nurses assigned Apgars of 9 at 1 minute and 9 at 5 minutes. We then obtained cord blood. She received IV oxytocin using gentle traction on the cord and countertraction the fundus I was able to easily deliver the placenta intact. It had a normal three-vessel cord. There were no perineal or vaginal lacerations. She has A Rh+ blood and was rubella immune. Her group B strep was positive and she did receive IV antibiotics while in labor. Estimated blood loss was approximately 100 cc. Placental Delivery Description: Spontaneous
[2024-02-09] MEDS: ACETAMINOPHEN 500MG TAB 1000 MG PO ×2 (00:44→08:57)
[2024-02-09 06:58] LABS: Hematocrit 32.9 % (37.0-47.0); Hemoglobin 11.1 g/dL (12.2-16.2)
[2024-02-09 08:53] VITALS: BP 142/84; PULSE 66; RESP 16; TEMP 36.8; O2SAT 100
--- NOTE | 2024-02-09 09:53 | P.DS_ITS ---
General Admission date:: 02/07/24 Discharge date: 02/09/24 HPI HPI HPI: She is a 23-year-old 3 para 2 who is 39 weeks gestational age. She has had labor as well as severe discomfort. She has a mild headache and requested induction of labor at term. A Rh+ blood Group B streptococcus positive Hospital Course Hospital Course Hospital Course: She initially received 2 doses of Cytotec and then the following morning we started her on IV oxytocin. She had her membranes ruptured and under labor e pidural progressed to full dilation. She delivered spontaneously a liveborn female child at 1:43 PM in the afternoon of February 08, 2024. Baby weighed 7 pounds 11 ounces and was 17-1/2 inches long. She had Apgars of 9 at 1 minute and 9 at 5 minutes. There were no perineal or vaginal lacerations. She has done well and has remained afebrile throughout her hospitalization. She is eating and drinking and ambulating. She is breast- feeding. Her lochia is normal. She is discharged home to follow-up me in approximately 2 weeks time. She will continue with her vitamins and iron. She was given the usual instructions with respect to limiting her activity, driving and sexual activity. Her condition on discharge was stable and improved. Exam Data for Last 24 hours Vital signs and Labs for Last 24 Hours: Temp Pulse Resp BP Pulse Ox O2 Del Method 98.4 F 95 H 18 132/66 98 Room Air 02/07/24 19:30 02/07/24 19:30 02/07/24 19:30 02/07/24 19:30 02/07/24 19:30 02/07/24 19:30 Laboratory Results - last 24 hr 02/09/24 06:21: Hgb 11.1 L, Hct 32.9 L I & O for Last 24 hours: Intake & Output 02/06/24 02/07/24 02/08/24 02/09/24 11:59 11:59 11:59 11:59 Weight 252 lb Microbiology Reports for the Last 24 Hours: Microbiology 02/07/24 16:45 Urine,Clean Catch Urine Culture - Final No growth. Constitutional Constitutional: no acute distress *Routine HEENT Exam Head: Present normocephalic *Routine Respiratory Exam Respiratory: Absent accessory muscle use Results Data Completed and Pending Labs on day of discharge: Labs from last 24 hours 02/09/24 06:21 Hgb 11.1 L Hct 32.9 L DS: Diagnosis Discharge Diagnosis (1) Positive GBS test: Status: Acute Code(s): B95.1 - Streptococcus, group B, as the cause of diseases classified elsewhere (2) Maternal obesity affecting , antepartum: Status: Acute Code(s): O99.210 - Obesity complicating , unspecified trimester Qualifiers: Obesity type affecting : other obesity due to excess calories Qualified Code(s): O99.210 - Obesity complicating , unspecified trimester; E66.09 - Other obesity due to excess calories (3) Headache: Status: Acute Code(s): R51.9 - Headache, unspecified Qualifiers: Headache type: tension-type Headache chronicity pattern: acute headache Intractability: intractable Qualified Code(s): G44.201 - Tension-type headache, unspecified, intractable (4) Normal delivery at term: Status: Acute Code(s): O80 - Encounter for full-term uncomplicated delivery Meds Home Medications and Allergies Home Medications ?Medication ?Instructions ?Recorded ?Confirmed ?Type vits no.130-ferrous fum 1 tab PO DAILY 30 days #30 tabs 06/14/23 02/08/24 Rx 27 mg iron-folic acid 800 mcg tablet ( Vitamin) ferrous sulfate 325 mg (65 mg 325 mg PO DAILY 10/25/23 02/08/24 History iron) tablet (FeroSul) ondansetron HCl 8 mg tablet 8 mg PO Q8H PRN nausea and 02/04/24 02/08/24 Rx vomiting #14 tabs New Prescriptions to Start Prescriptions: Allergies Allergy/AdvReac Type Severity Reaction Status Date / Time No Known Allergies Allergy Verified 02/07/24 08:39 Discharge Plan Disposition Patient Disposition: Home, Self-Care Discharge Order Discharge Orders: Discharge Order (Routine); Ordered 02/09/24 Ordered By: Prieto Castillo Follow up Plan Prescriptions/Medication Reconciliation: Continued ferrous sulfate [FeroSul] 325 mg (65 mg iron) tablet 325 mg PO DAILY Patient Comments: TAKE 1 TABLET BY MOUTH ONCE DAILY ondansetron HCl 8 mg tablet 8 mg PO Q8H PRN (Reason: nausea and vomiting) Qty: 14 0RF Vitamin 27 mg iron- 800 mcg tablet 1 tab PO DAILY 30 Days Qty: 30 5RF Problem Reconciliation Problems Reviewed?: Yes Patient Discharge Instructions ACTIVITY: No heavy lifting DIET: continue same diet Print Language: Armenian Providers Primary Care Provider: Princess Philip Admit Provider: Prieto Castillo Attending Provider: Prieto Castillo
[2024-02-09 12:24] LABS: Rapid Plasma Reagin Ab Titer Non Reactive titer (NonRea<1:1)
[2024-02-09 16:05] VITALS: BP 117/60; PULSE 66; RESP 18; TEMP 36.6; O2SAT 99
[2024-02-09 20:00] VITALS: BP 123/76; PULSE 63; RESP 17; TEMP 36.6; O2SAT 98
[2024-02-10] MEDS: ACETAMINOPHEN 500MG TAB 1000 MG PO ×2 (00:35→08:50)
[2024-02-10 04:00] VITALS: BP 110/62; PULSE 65; RESP 16; TEMP 36.3; O2SAT 99
[2024-02-10 08:00] VITALS: BP 113/66; PULSE 74; RESP 18; TEMP 36.5; O2SAT 99
--- NOTE | 2024-02-10 09:30 | EXP.DC.SUM ---
General Admission date:: 02/07/24 Discharge date: 02/10/24 HPI HPI HPI: She is a 23-year-old 3 para 2 who is 39 weeks gestational age. She has had labor as well as severe discomfort. She has a mild headache and requested induction of labor at term. A Rh+ blood Group B streptococcus positive Hospital Course Hospital Course Hospital Course: She initially received 2 doses of Cytotec and then the following morning we started her on IV oxytocin. She had her membranes ruptured and under labor epidural progressed to full dilation. She delivered spontaneously a liveborn female child at 1:43 PM in the afternoon of February 08, 2024. Baby weighed 7 pounds 11 ounces and was 17-1/2 inches long. She had Apgars of 9 at 1 minute and 9 at 5 minutes. There were no perineal or vaginal lacerations. She has done well and has remained afebrile throughout her hospitalization. She is eating and drinking and ambulating. She is breast-feeding. Her lochia is normal. She is discharged home to follow-up me in approximately 2 weeks time. She will continue with her vitamins and iron. She was given the usual instructions with respect to limiting her activity, driving and sexual activity. Her condition on discharge was stable and improved. She remained inpatient for one additonal day for infant bonding as the infant was not discharged and she is breast feeding Exam Data for Last 24 hours Vital signs and Labs for Last 24 Hours: Temp Pulse Resp BP Pulse Ox O2 Del Method 97.4 F L 65 16 110/62 99 Room Air 02/10/24 04:00 02/10/24 04:00 02/10/24 04:00 02/10/24 04:00 02/10/24 04:00 02/10/24 04:00 Laboratory Results - last 24 hr 02/07/24 16:45: RPR Titer Non reactive I & O for Last 24 hours: Intake & Output 02/07/24 02/08/24 02/09/24 02/10/24 23:59 23:59 23:59 23:59 Weight 252 lb Microbiology Reports for the Last 24 Hours: Microbiology 02/07/24 16:45 Urine,Clean Catch Urine Culture - Final No growth. Constitutional Constitutional: no acute distress *Routine HEENT Exam Head: Present normocephalic Eye: Present EOMI and PERRL ENT: Present mucous membranes moist *Routine Neck Exam Neck: Present supple; Absent lymphadenopathy *Routine Respiratory Exam Respiratory: Present CTA bilaterally *Routine Cardiovascular Exam Cardiovascular: Present RRR *Routine Abdominal Exam Abdominal: Present soft and normoactive bowel sounds; Absent tenderness *Routine Extremities Exam Extremities: Absent cyanosis, clubbing or edema *Routine Skin Exam Skin: Present warm; Absent rash *Routine Neurological Exam Neurological: Present alert and oriented X3 Results Data Completed and Pending Labs on day of discharge: Labs from last 24 hours 02/07/24 16:45 RPR Titer Non reactive DS: Diagnosis Discharge Diagnosis (1) Positive GBS test: Status: Acute Code(s): B95.1 - Streptococcus, group B, as the cause of diseases classified elsewhere (2) Maternal obesity affecting , antepartum: Status: Acute Code(s): O99.210 - Obesity complicating , unspecified trimester Qualifiers: Obesity type affecting : other obesity due to excess calories Qualified Code(s): O99.210 - Obesity complicating , unspecified trimester; E66.09 - Other obesity due to excess calories (3) Headache: Status: Acute Code(s): R51.9 - Headache, unspecified Qualifiers: Headache chronicity pattern: acute headache Headache type: tension-type Intractability: intractable Qualified Code(s): G44.201 - Tension-type headache, unspecified, intractable (4) Normal delivery at term: Status: Acute Code(s): O80 - Encounter for full-term uncomplicated delivery Meds Home Medications and Allergies Home Medications ?Medication ?Instructions ?Recorded ?Confirmed ?Type vits no.130-ferrous fum 1 tab PO DAILY 30 days #30 tabs 06/14/23 02/08/24 Rx 27 mg iron-folic acid 800 mcg tablet ( Vitamin) ferrous sulfate 325 mg (65 mg 325 mg PO DAILY 10/25/23 02/08/24 History iron) tablet (FeroSul) ondansetron HCl 8 mg tablet 8 mg PO Q8H PRN nausea and 02/04/24 02/08/24 Rx vomiting #14 tabs hydrocortisone 1 % topical cream 1 applic topical TID PRN 02/10/24 Rx hemmrrhoids #28.35 grams New Prescriptions to Start Prescriptions: Allergies Allergy/AdvReac Type Severity Reaction Status Date / Time No Known Allergies Allergy Verified 02/07/24 08:39 Discharge Plan Disposition Patient Disposition: Home, Self-Care Discharge Order Discharge Orders: Discharge Order (Routine); Ordered 02/10/24 Ordered By: Chitra Roman Follow up Plan Follow up with: Prieto Castillo MD [Staff Physician] - 02/23/24 10:30 am Prescriptions/Medication Reconciliation: Continued ferrous sulfate [FeroSul] 325 mg (65 mg iron) tablet 325 mg PO DAILY Patient Comments: TAKE 1 TABLET BY MOUTH ONCE DAILY ondansetron HCl 8 mg tablet 8 mg PO Q8H PRN (Reason: nausea and vomiting) Qty: 14 0RF hydrocortisone 1 % cream 1 applic topical TID PRN (Reason: hemmrrhoids) Qty: 28.35 1RF Vitamin 27 mg iron- 800 mcg tablet 1 tab PO DAILY 30 Days Qty: 30 5RF Problem Reconciliation Problems Reviewed?: Yes Patient Discharge Instructions ACTIVITY: No heavy lifting DIET: continue same diet Patient Instructions: Depression, Hemorrhage, DI for Labor and Delivery, Vaginal , DI for Pre-eclampsia, [facility] Post Discharge Instructions Print Language: Yoruba Providers Primary Care Provider: Princess Philip Admit Provider: Prieto Castillo Attending Provider: Prieto Castillo
== END 2024-02-10 12:00 | disposition home or self-care (01) | DRG 807 ==
PROVIDERS: Admitting Provider Nurse Practitioner Obstetrics & Gynecology; PCP Family Medicine; Visit Provider Nurse Practitioner Obstetrics & Gynecology
DX: O98.82 Other maternal infectious and parasitic diseases complicating childbirth (principal); Z37.0 Single live birth; B95.1 Streptococcus, group B, as the cause of diseases classified elsewhere; Z3A.39 39 weeks gestation of pregnancy; G44.201 Tension-type headache, unspecified, intractable; O99.214 Obesity complicating childbirth; E66.01 Morbid (severe) obesity due to excess calories
CPT/HCPCS: 36415; 59025; 80307; 81001; 85014; 85018; 85025; 86593; 86850; 87086; 94761; C1758; G0283; J0290; J3010; J7120

== ENCOUNTER 2024-02-14 16:13 | Emergency (ER) | payer OTHER, SELFPAY ==
[2024-02-14 16:14] VITALS: BP 134/98; PULSE 77; RESP 20; TEMP 36.8; O2SAT 98; BMI 42.5
--- NOTE | 2024-02-14 16:23 | CT_ITS ---
PROCEDURE INFORMATION: Exam: CT Abdomen And Pelvis With Contrast Exam date and time: 02/14/2024 4:37 PM Age: 23 years old Clinical indication: Abdominal pain; Additional info: 1 week post , rlq/periumbilical pain TECHNIQUE: Imaging protocol: Computed tomography of the abdomen and pelvis with contrast. Radiation optimization: All CT scans at this facility use at least one of these dose optimization techniques: automated exposure control; mA and/or kV adjustment per patient size (includes targeted exams where dose is matched to clinical indication); or iterative reconstruction. Contrast material: ISOVUE; Contrast volume: 75 ml; Contrast route: IV; COMPARISON: CT ABDOMEN PELVIS W CON 12/31/2022 11:22 PM FINDINGS: Lungs: The visualized lung bases demonstrate no focal infiltrates. Liver: The liver appears within normal limits. Gallbladder and biliary ducts: There has been a cholecystectomy. Pancreas: The pancreas is normal. Spleen: The spleen is normal. Adrenal glands: The adrenal glands appear within normal limits. Kidneys and ureters: The kidneys are normal. Stomach and bowel: Unremarkable. No obstruction. No mucosal thickening. Appendix: No evidence of appendicitis. Intraperitoneal space: No free air. No evidence for focal fluid collection or ascites. No evidence for omental thickening. Vasculature: Unremarkable. No abdominal aortic aneurysm. Lymph nodes: Unremarkable. No enlarged lymph nodes. Urinary bladder: The bladder appears within normal limits. No wall thickening. Reproductive: Enlargement of the uterus consistent with recent state. Bones/joints: Unremarkable. No acute fracture. Soft tissues: Unremarkable. IMPRESSION: 1. Enlargement of the uterus consistent with recent state. 2. No acute abnormalities are identified.
[2024-02-14] MEDS: IOPAMIDOL-370 (76%);100ML BOTTLE 75 ML IV (16:39)
[2024-02-14] MEDS: SODIUM CHLORIDE 0.9% 10ML SYR (RAD ONLY) 10 ML IV (16:39)
--- NOTE | 2024-02-14 16:40 | ED_ITS ---
Discharge Plan Disposition Patient Disposition: Home, Self-Care Prescriptions Prescriptions: No Action ferrous sulfate [FeroSul] 325 mg (65 mg iron) tablet 325 mg PO DAILY Patient Comments: TAKE 1 TABLET BY MOUTH ONCE DAILY ondansetron HCl 8 mg tablet 8 mg PO Q8H PRN (Reason: nausea and vomiting) Qty: 14 0RF hydrocortisone 1 % cream 1 applic topical TID PRN (Reason: hemmrrhoids) Qty: 28.35 1RF Vitamin 27 mg iron- 800 mcg tablet 1 tab PO DAILY 30 Days Qty: 30 5RF Referrals Follow up/Referrals: Princess Philip MD [Primary Care Provider] - See instructions Activity Restrictions/Add. Instructions Additional Instructions/Restrictions: No evidence of an intra-abdominal emergent medical condition. Please follow-up with your primary care doctor as needed return with any significant worsening of your symptoms. You may take Tylenol as needed for your symptoms as discussed. Clinical Impressions Clinical Impression: Abdominal pain, RLQ Instructions Patient Instructions: DI for Acute Abdominal Pain Print Language Print Language: Ukrainian Discharge ED Provider: Alexander Alexander General Adult HPI General Chief complaint: Abdominal Pain Stated complaint: post 02/07, abd pain Time Seen by Provider: 02/14/24 16:15 Mode of Arrival: Ambulatory Source of Information: Patient Limitations: No Limitations Description of Symptoms (Recalled from ER Triage Doc. by RN): pt is 6 days post and having right center abd pain, pt had natural and sees for obgyn with no complications, denies any n/v/d pain started yesterday History of Present Illness HPI narrative: Patient is a 23-year-old who is 1 week after vaginal delivery presenting today with intermittent and severe right lower quadrant and periumbilical abdominal pain. She denies any urinary symptoms. She was admitted during her for pyelonephritis and sepsis. She denies any dysuria frequency urgency hematuria etc. She does still have her ovaries as well as her appendix. She states that her vaginal bleeding is at a minimum at this point. Denies any fevers or chills or flank pain etc. Related Data Home Medications ?Medication ?Instructions ?Recorded ?Confirmed ferrous sulfate 325 mg (65 mg 325 mg PO DAILY 10/25/23 02/08/24 iron) tablet (FeroSul) Previous Rx's ?Medication ?Instructions ?Recorded vits no.130-ferrous fum 1 tab PO DAILY 30 days #30 tabs 06/14/23 27 mg iron-folic acid 800 mcg tablet ( Vitamin) ondansetron HCl 8 mg tablet 8 mg PO Q8H PRN nausea and 02/04/24 vomiting #14 tabs hydrocortisone 1 % topical cream 1 applic topical TID PRN 02/10/24 hemmrrhoids #28.35 grams Allergies Allergy/AdvReac Type Severity Reaction Status Date / Time No Known Allergies Allergy Verified 02/07/24 08:39 [facility] Disclaimer: The information contained in this section may have been updated after the patient was seen, as this information can be updated by other users. Medical History Positive GBS test Maternal obesity affecting , antepartum Threatened in second trimester Pyelonephritis PCOS (polycystic ovarian syndrome) Viral upper respiratory tract infection Biliary colic SOB (shortness of breath) Pelvic pain Surgical History History of cholecystectomy Family History No significant family history Social History (Updated 02/08/24 @ 08:30 by Tiny Wilhelm RN) Smoking Status: Never smoker alcohol intake: never substance use type: denies use current occupational status: employed Travel in the last 8 weeks: None caffeine: Yes Other Medical History Have you received the Flu Vaccine for this season: No Have you received the Pneumonia Vaccine: No ROS Obtained: Yes All systems reviewed & no additional complaints except as documented Physical Exam General General appearance: alert and in no apparent distress Respiratory Respiratory exam: Present normal lung sounds bilaterally Cardiovascular Cardiovascular exam: Present regular rate Abdominal Exam Abdominal exam: Present soft and tenderness (Right lower quadrant tenderness and periumbilical tenderness no rebound or guarding otherwise soft throughout the rest of the abdomen) Neurological Exam Neurological exam: Present alert and oriented X3 Medical Decision Making Medical Records Screening: Per USPSTF and CDC recommendations, given the prevalence of disease in our region, it is our hospital?s policy to screen for HIV and viral Hepatitis for all patients aged 18 and over and those with ongoing risk factors. Corey Inquiry Pt receiving controlled substance: No Vital Signs: 02/14/24 16:14 02/14/24 17:00 02/14/24 17:30 Temperature 98.3 F Temperature Source Oral Pulse Rate 83 82 Pulse Rate [Right Radial] 77 Respiratory Rate 20 Blood Pressure 143/89 H 135/88 Blood Pressure [Right Arm] 134/98 H Blood Pressure Mean 105 98 Blood Pressure Mean [Right Arm] 110 02 Sat by Pulse Oximetry 98 98 96 Oxygen Delivery Method Room Air Lab Data Lab results reviewed: Yes I reviewed the patient's lab results. Lab Results 02/14/24 16:24: Urine Color Yellow, Urine Appearance Clear, Urine pH 6.0, Ur Specific Addison 1.025, Urine Protein Negative, Urine Glucose (UA) Negative, Urine Ketones Negative, Urine Blood 3+ A, Urine Nitrate Negative, Urine Bilirubin Negative, Urine Urobilinogen 0.2, Ur Leukocyte Esterase 1+ A, Urine RBC 5-10, Urine WBC 5-10, Ur Squamous Epith Cells 10-20, Urine Bacteria 3+ 02/14/24 16:25: WBC 8.4, RBC 4.43, Hgb 12.8, Hct 38.6, MCV 87.1, MCH 29.0, MCHC 33.2, RDW 14.3, Plt Count 303, MPV 8.0, Neut % (Auto) 79.6, Lymph % (Auto) 13.7, Worth % (Auto) 4.7, Eos % (Auto) 1.4, Baso % (Auto) 0.7, Neut # (Auto) 6.7, Lymph # (Auto) 1.2, Worth # (Auto) 0.4, Eos # (Auto) 0.1, Baso # (Auto) 0.1, Sodium 140, Potassium 3.9, Chloride 110 H, Carbon Dioxide 21 L, Anion Gap 12.9, BUN 12, Creatinine 0.60, Estimated Creat Clear 120, Estimated GFR 123, Est GFR ( Amer) 149, Glucose 93, Calcium 8.9, Total Bilirubin 0.4, AST 20, ALT 22, Alkaline Phosphatase 113, Total Protein 7.1, Albumin 3.6, Globulin 3.5 H, A lbumin/Globulin Ratio 1.0 L, Lipase 45 02/14/24 16:54: Lactate 0.5 L 02/14/24 16:25 02/14/24 16:25 Orders (Tests/Meds): ED MEDICATIONS Discontinued Medications Generic Name Dose Route Start Last Admin Trade Name Verna PRN Reason Stop Dose Admin Acetaminophen 1,000 mg 02/14/24 16:23 02/14/24 16:48 Acetaminophen 1,000mg/100ml Vial IV 02/14/24 16:24 1,000 mg ONCE ONE Administration Sodium Chloride 1,000 mls @ 999 mls/hr 02/14/24 16:30 02/14/24 16:48 Sod Chlor 0.9% 1000ml Bag IV 02/14/24 17:30 999 mls/hr .Q1H1M SANDRO Administration Iopamidol 75 ml 02/14/24 16:38 02/14/24 16:39 Iopamidol-370 (76%);100ml Bottle IV 02/14/24 16:39 75 ml ONCE ONE Administration Sodium Chloride 10 ml 02/14/24 16:38 02/14/24 16:39 Sodium Chloride 0.9% 10ml Syr (Rad Only) IV 02/14/24 16:39 10 ml ONCE ONE Administration ORDERS Category Date Time Status CT abdomen pelvis w con Stat Cat Scan 02/14/24 16:23 Completed CBC w/Auto Diff [Complete Blood Count Auto Diff] Stat Lab 02/14/24 16:25 Completed CMP [Comprehensive Metabolic Panel] Stat Lab 02/14/24 16:25 Completed Lactic Acid Stat Lab 02/14/24 16:54 Completed Lipase Stat Lab 02/14/24 16:25 Completed UA [Urinalysis and Microscopic] Stat Lab 02/14/24 16:24 Completed Urine Culture Stat Micro 02/14/24 16:24 Received Medical Decision Narrative: 23-year-old with intermittent and severe right lower quadrant abdominal pain and periumbilical pain differential includes kidney stone bowel obstruction appendicitis etc. Will get a contrasted CT scan in addition to labs administer IV fluids and IV Tylenol. Will reassess shortly. Reassessment 5:54 PM patient feeling completely better serial exams are benign she states her symptoms have resolved at this point. CT scan performed I personally interpreted which shows no intra-abdominal pathology. Nothing to explain her symptoms at this point. They are made some diagnostic uncertainty. Labs unremarkable she did have what appears to be a contaminated urine and she has no urinary tract infection symptoms therefore will not treat for UTI. She is been advised to take Tylenol at home return with any significant worsening of her symptoms follow the primary care doctor and she was discharged in improved and stable condition. Critical Care Critical Care Time Critical Care Time: No
[2024-02-14 16:45] LABS: Microscopic, Urine URINE MICROSCOPIC (MICROSCOPIC)
[2024-02-14 16:48] LABS: Basophils # 0.1 K/mm3 (0-0.2); Basophils % 0.7 % (0.1-2.0); Eosinophils # 0.1 K/mm3 (0.0-0.4); Eosinophils % 1.4 % (0.1-12.0); Hematocrit 38.6 % (37.0-47.0); Hemoglobin 12.8 g/dL (12.2-16.2); Lymphocytes # 1.2 K/mm3 (0.7-4.5); Lymphocytes % 13.7 % (10-50); Mean Corpuscular HGB Conc 33.2 g/dL (31.8-35.4); Mean Corpuscular Volume 87.1 fl (81-99); Monocytes # 0.4 K/mm3 (0.1-1.0); Monocytes % 4.7 % (1.7-9.3); Neutrophils # 6.7 K/mm3 (1.8-7.8); Neutrophils % 79.6 % (37.0-80.0); Platelet Count 303 K/mm3 (142-424); Red Blood Count 4.43 M/mm3 (4.20-5.40); Red Cell Distribution Width 14.3 % (11.5-17.5); White Blood Count 8.4 K/mm3 (4.8-10.8)
[2024-02-14] MEDS: ACETAMINOPHEN 1,000MG/100ML VIAL 1000 MG IV (16:48)
[2024-02-14] MEDS: 0.9 % SODIUM CHLORIDE 1000ML 1,000 ML 999 ML IV (16:48)
[2024-02-14 16:52] LABS: Albumin Level 3.6 g/dl (3.5-5.0); Chloride 110 mmol/L (98-107); Sodium 140 mmol/L (136-145)
[2024-02-14 16:53] LABS: Appearance,Urine CLEAR (Clear); Bilirubin,Urine Negative (Negative); Blood, Urine 3+ (Negative); Color,Urine YELLOW (Yellow); Glucose,Urine (UA) Negative (Negative); Ketones,Urine Negative (Negative); Leukocyte Esterase,Urine 1+ (Negative); Nitrate,Urine Negative (Negative); Protein,Urine Negative (Negative); Specific Gravity, Urine 1.025 (1.005-1.030); Urobilinogen,Urine 0.2 EU/dl (0.2)
[2024-02-14 16:53] LABS: Potassium 3.9 mmoL/L (3.5-5.1)
[2024-02-14 16:55] LABS: Alanine Aminotransferase 22 U/L (12-78); Alkaline Phosphatase 113 U/L (38-126); Anion Gap 12.9 mEq/L (5-15); Aspartate Amino Transferase 20 U/L (14-36); Bilirubin,Total 0.4 mg/dl (0.2-1.3); Blood Urea Nitrogen 12 mg/dl (7-17); Carbon Dioxide 21 mmol/L (22.0-30.0); Creatinine Clearance Estimated 120 mL/min (50-200); Estimated Glomerular Filt Rate 123 ml/min (>60); GFR (African American) 149 ML/MIN (>60); Globulin 3.5 g/dL (1.3-3.2); Lipase 45 U/L (23-300); Total Protein,Serum 7.1 g/dl (6.3-8.2)
[2024-02-14 16:56] LABS: Calcium 8.9 mg/dl (8.4-10.2); Glucose 93 mg/dl (74-100)
[2024-02-14 17:00] VITALS: BP 143/89; PULSE 83; O2SAT 98
[2024-02-14 17:08] LABS: Bacteria,Urine 3+ /lpf
[2024-02-14 17:09] LABS: Lactic Acid 0.5 mmol/L (0.7-2.1)
[2024-02-14 17:30] VITALS: BP 135/88; PULSE 82; O2SAT 96
[2024-02-14 18:17] VITALS: BP 128/78; PULSE 78; RESP 18; TEMP 36.8; O2SAT 98
== END 2024-02-14 18:18 | disposition home or self-care (01) ==
PROVIDERS: Emergency Provider Student in an Organized Health Care Education/Training Program; PCP Family Medicine
DX: R10.31 Right lower quadrant pain (principal); R10.33 Periumbilical pain
CPT/HCPCS: 74177; 80053; 81001; 83605; 83690; 85025; 87086; 96361; 96374; 99285; J0131; J7030; Q9967

== ENCOUNTER 2024-06-25 15:00 | Outpatient (CLI) | payer OTHER, SELFPAY | END 2024-06-25 23:59 | disposition home or self-care (01) | LOC: LAB.DROPOF 07-13 13:33 | PROVIDERS: PCP Nurse Practitioner; Visit Provider Nurse Practitioner | DX: R35.0 Frequency of micturition (principal) | CPT/HCPCS: 87086 ==

== ENCOUNTER 2024-07-02 10:25 | Emergency (ER) | payer OTHER, SELFPAY ==
[2024-07-02] VITALS (7 sets, daily range): BP systolic 98–110; BP diastolic 51–88; PULSE 60–97; RESP 14–20; TEMP 36.8; O2SAT 97–100; BMI 39.8
--- NOTE | 2024-07-02 10:34 | ECG_ITS ---
APPROVED REPORT Exam: Resting ECG HR:91 bpm ECG Measurements Heart Rate 91 AXES FL 163 P 39 QRSd 96 QRS 6 QT 351 T 21 QTc 399 Conclusion SINUS RHYTHM WITH SINUS ARRHYTHMIA MINIMAL VOLTAGE CRITERIA FOR LVH, CONSIDER NORMAL VARIANT [MEETS CRITERIA IN ONE OF: R(aVL), S(V1), R(V5), R(V5/V6)+S(V1)] BORDERLINE ECG No STEMI Electronically signed by : ARLET ORDOÑEZ, 07/03/2024 02:31:34
--- NOTE | 2024-07-02 10:38 | HMH.EDGENADL ---
Discharge Plan Disposition Patient Disposition: Home, Self-Care Prescriptions Prescriptions: New cefadroxil 1 gram tablet 1,000 mg PO BID 10 Days Qty: 20 0RF No Action cholecalciferol (vitamin D3) 25 mcg (1,000 unit) capsule 25 mcg PO DAILY nitrofurantoin monohyd/m-cryst [Macrobid] 100 mg capsule 100 mg PO Q12H 7 Days Qty: 14 0RF Rx Instructions: must administer with a meal/food phenazopyridine [Pyridium] 200 mg tablet 200 mg PO Q8H 2 Days Qty: 6 0RF Referrals Follow up/Referrals: Princess Philip MD [Primary Care Provider] - See instructions Clinical Impressions Clinical Impression: Pyelonephritis Stand Alone Forms Stand Alone Forms: Work/School Release Instructions Patient Instructions: DI for Syncope in Adults (Fainting), Kidney Infection, DI for Syncope in Children (Fainting) Print Language Print Language: Polish Discharge ED Provider: Jen Carrillo General Adult HPI General Chief complaint: Syncope Stated complaint: syncope (07/01/24 pm) head topete , headache Time Seen by Provider: 07/02/24 10:38 History of Present Illness HPI narrative: Patient is a 24-year-old with past medical history significant for currently being treated for urinary tract infection on nitrofurantoin obesity diabetes presents to the emergency department with syncopal episode that occurred yesterday evening. Patient began taking semaglutide in April and has had multiple episodes of feeling what patient describes as as a topete where she feels warm all over and lightheaded since early May. Yesterday evening she was standing when she had this episode lowered herself to the couch and felt like she passed out for about a minute. Denies chest pain or shortness of breath prior to the episode. Today she has a headache that is 8 out of 10 and says that she has numbness and tingling up into her left arm. Has no history of migraines denies photo or phonophobia no family history of migraines. Takes metformin and addition to her semaglutide for her diabetes. Denies fevers chills or weakness. Patient still has suprapubic pain and right flank pain despite taking her nitrofurantoin for urinary tract infection. Is currently on menstrual period. Related Data Home Medications ?Medication ?Instructions ?Recorded ?Confirmed cholecalciferol (vitamin D3) 25 25 mcg PO DAILY 04/26/24 06/25/24 mcg (1,000 unit) capsule Previous Rx's ?Medication ?Instructions ?Recorded nitrofurantoin 100 mg PO Q12H 7 days #14 caps 06/25/24 monohydrate/macrocrystals 100 mg capsule (Macrobid) phenazopyridine 200 mg tablet 200 mg PO Q8H 2 days #6 tabs 06/25/24 (Pyridium) cefadroxil 1 gram tablet 1,000 mg PO BID 10 days #20 tabs 07/02/24 Allergies Allergy/AdvReac Type Severity Reaction Status Date / Time No Known Allergies Allergy Verified 06/25/24 13:09 [facility] Disclaimer: The information contained in this section may have been updated after the patient was seen, as this information can be updated by other users. Medical History (Updated 07/02/24 @ 12:35 by Jen Carrillo MD) UTI symptoms tachycardia affecting management of mother Breech presentation Acute viral syndrome Failure of outpatient treatment UTI (urinary tract infection) UTI (urinary tract infection) Positive GBS test Maternal obesity affecting , antepartum Threatened in second trimester Pyelonephritis PCOS (polycystic ovarian syndrome) Viral upper respiratory tract infection Biliary colic SOB (shortness of breath) Pelvic pain Surgical History History of cholecystectomy Family History Other No significant family history Social History Smoking Status: Never smoker alcohol intake: never substance use type: denies use current occupational status: employed Travel in the last 8 weeks: None caffeine: Yes Have you lived/traveled outside [place] in past 30 days?: No Contact w/someone who lives/traveled outside US past 30 days?: No Exposure to someone with infectious disease in past 14 days?: No Do you have a fever (greater than 100.4 F or 38 C)?: No Have you tested positive for COVID-19: No Exposed to someone with COVID-19 in past 14 days?: No Do you have a sore throat?: No Do you have a cough?: No Do you have any weakness?: No Do you have any diarrhea?: No Are you experiencing any unusual bleeding?: No Do you have any muscle aches/pain?: No Do you have any abdominal pain?: No Are you experiencing loss of taste or smell?: No Other Medical History Have you received the Flu Vaccine for this season: No Have you received the Pneumonia Vaccine: No ROS Obtained: Yes All systems reviewed & no additional complaints except as documented Physical Exam General General appearance: alert and in no apparent distress Head Head exam: atraumatic Eye Eye exam: Present normal appearance and PERRL ENT ENT exam: Present normal exam and normal oropharynx Neck Neck exam: Present normal inspection Respiratory Respiratory exam: Present normal lung sounds bilaterally; Absent respiratory distress Cardiovascular Cardiovascular exam: Present regular rate and normal rhythm Abdominal Exam Abdominal exam: Present soft and tenderness (Epigastrium and right flank) Back Exam Back exam: Present CVA tenderness (R) Neurological Exam Neurological exam: Present alert, oriented X3, CN II-XII intact and normal gait; Absent motor sensory deficit Skin Skin exam: Present warm and dry Medical Decision Making Medical Records Screening: Per USPSTF and CDC recommendations, given the prevalence of disease in our region, it is our hospital?s policy to screen for HIV and viral Hepatitis for all patients aged 18 and over and those with ongoing risk factors. Corey Inquiry Pt receiving controlled substance: No Vital Signs: 07/02/24 10:30 07/02/24 11:00 07/02/24 11:30 Temperature 98.2 F Temperature Source Oral Pulse Rate 89 87 Pulse Rate [Right] 97 H Respiratory Rate 20 14 15 Blood Pressure 103/51 L 101/66 L Blood Pressure [Right Arm] 110/88 Blood Pressure Mean [Right Arm] 95 Blood Pressure Source Blood Pressure Source [Right Arm] Automatic Cuff 02 Sat by Pulse Oximetry 99 97 100 Oxygen Delivery Method Room Air Room Air Room Air 07/02/24 11:45 07/02/24 12:00 07/02/24 12:30 Temperature Temperature Source Pulse Rate 90 68 83 Pulse Rate [Right] Respiratory Rate 14 15 15 Blood Pressure 101/58 L 98/60 L Blood Pressure [Right Arm] Blood Pressure Mean [Right Arm] Blood Pressure Source Blood Pressure Source [Right Arm] 02 Sat by Pulse Oximetry 100 99 99 Oxygen Delivery Method Room Air Room Air Room Air 07/02/24 12:51 Temperature 98.2 F Temperature Source Oral Pulse Rate 60 Pulse Rate [Right] Respiratory Rate 15 Blood Pressure 98/60 L Blood Pressure [Right Arm] Blood Pressure Mean [Right Arm] Blood Pressure Source Automatic Cuff Blood Pressure Source [Right Arm] 02 Sat by Pulse Oximetry Oxygen Delivery Method Room Air Lab Data Lab Results 07/02/24 10:56: WBC 3.6 L, RBC 5.05, Hgb 14.5, Hct 43.2, MCV 85.5, MCH 28.7, MCHC 33.6, RDW 12.3, Plt Count 254, MPV 10.0, Neut % (Auto) 54.1, Lymph % (Auto) 35.3, [place] % (Auto) 9.4 H, Eos % (Auto) 0.6, Baso % (Auto) 0.6, Neut # (Auto) 2.0, Lymph # (Auto) 1.3, [place] # (Auto) 0.3, Eos # (Auto) 0.0, Baso # (Auto) 0.0, Sodium 140, Potassium 4.3, Chloride 107, Carbon Dioxide 26, Anion Gap 11.3, BUN 15, Creatinine 0.60, Estimated GFR 122, Est GFR ( Amer) 147, Glucose 85, Calcium 8.9, Total Bilirubin 0.7, AST 25, ALT 24, Alkaline Phosphatase 93, Troponin I < 0.01, Total Protein 7.7, Albumin 4.7, Globulin 3.0, Albumin/Globulin Ratio 1.6, Lipase 61, TSH 1.07, Thyroxine (T4) 11.0, Serum HCG, Qual Negative, HCV Ab IMAN w/Rflx PCR Qn Negative, HIV Ag/Ab Combo Qual Negative 07/02/24 11:30: Urine Color Yellow, Urine Appearance Clear, Urine pH 6.0, Ur Specific [place] 1.020, Urine Protein Negative, Urine Glucose (UA) Negative, Urine Ketones Negative, Urine Blood Small, Urine Nitrate Negative, Urine Bilirubin Negative, Urine Urobilinogen 0.2, Ur Leukocyte Esterase Small, Urine RBC 5-10, Urine WBC 5-10, Ur Squamous Epith Cells 10-20, Urine Bacteria Trace 07/02/24 10:56 07/02/24 10:56 Orders (Tests/Meds): ED MEDICATIONS Discontinued Medications Generic Name Dose Route Start Last Admin Trade Name Freq PRN Reason Stop Dose Admin Diphenhydramine HCl 25 mg 07/02/24 10:50 07/02/24 11:26 Diphenhydramine 50mg/Ml Vial IV 07/02/24 10:51 25 mg ONCE ONE Administration Lactated Ringer's 500 mls @ 999 mls/hr 07/02/24 10:50 07/02/24 11:25 Lactated Ringer's 1000 Ml Bag IV 07/02/24 11:20 999 mls/hr .Q31M ONE Administration Ketorolac Tromethamine 15 mg 07/02/24 10:50 07/02/24 11:26 Ketorolac 30mg/Ml Vial IV 07/02/24 10:51 15 mg ONCE ONE Administration Metoclopramide HCl 10 mg 07/02/24 11:00 07/02/24 11:26 Metoclopramide Hcl 10mg/2ml Vial IVP 08/01/24 10:59 10 mg ACHS SANDRO Administration ORDERS Category Date Time Status CT head/brain wo con Stat Cat Scan 07/02/24 10:49 Completed Complete Blood Count Auto Diff Stat Lab 07/02/24 10:56 Completed Comprehensive Metabolic Panel Stat Lab 07/02/24 10:56 Completed HCG Qualitative, Serum Stat Lab 07/02/24 10:56 Completed HIV Combo Stat Lab 07/02/24 10:56 Completed Hepatitis C Ab Qual. W/ RFX Stat Lab 07/02/24 10:56 Completed Lipase Stat Lab 07/02/24 10:56 Completed T4 (Thyroxine) Stat Lab 07/02/24 10:56 Completed Thyroid Stimulating Hormone Stat Lab 07/02/24 10:56 Completed Troponin I Q3H Lab 07/02/24 10:56 Completed Urinalysis and Microscopic Stat Lab 07/02/24 11:30 Completed Urine Culture Stat Micro 07/02/24 10:50 Received Medical Decision Narrative: In summary, this 24-year-old female presents to the emergency department today with a syncopal episode. On initial evaluation patient is hemodynamically stable saturating appropriately on room air afebrile no acute distress. Differential diagnosis includes but is not limited to ACS, PE, ectopic , hypoglycemia, vasovagal syncope, dehydration, pyelonephritis, pancreatitis, complex migraine. Based on these concerns, I ordered CT head CBC CMP lipase troponin test UA urinary culture TSH T4. Low suspicion for PE. PERC negative ECG personally interpreted demonstrates normal sinus rhythm no ST elevation ST depression or T wave inversions concerning for ischemia Patient received 1 L of LR, Toradol, Benadryl, Reglan for treatment. Labs personally reviewed demonstrate contaminated urine bacteria nitrate negative pyuria. As patient is now having flank pain, will treat for pyelonephritis. CT imaging personally interpreted demonstrate no intracranial hemorrhage or mass On reassessment patient has improvement of headache. Instructed patient that patient symptoms are likely vasovagal syncope in the setting of semaglutide use exacerbated by current pyelonephritis. Recommended proper hydration and discussing risk and benefits of semaglutide with her primary care provider. Critical Care Critical Care Time Critical Care Time: No
--- NOTE | 2024-07-02 10:49 | CT_ITS ---
PROCEDURE INFORMATION: Exam: CT Head Without Contrast Exam date and time: 07/02/2024 11:24 AM Age: 24 years old Clinical indication: Other: Headache and syncope TECHNIQUE: Imaging protocol: Computed tomography of the head without contrast. Radiation optimization: All CT scans at this facility use at least one of these dose optimization techniques: automated exposure control; mA and/or kV adjustment per patient size (includes targeted exams where dose is matched to clinical indication); or iterative reconstruction. COMPARISON: No relevant prior studies available. FINDINGS: Brain: Normal. No hemorrhage. Unremarkable white matter. No mass effect. Cerebral ventricles: No ventriculomegaly. Paranasal sinuses: Visualized sinuses are unremarkable. No fluid levels. Mastoid air cells: Visualized mastoid air cells are well aerated. Bones: Unremarkable. No acute fracture. Soft tissues: Unremarkable. IMPRESSION: No acute intracranial abnormality appreciated
[2024-07-02 11:03] LABS: Basophils % 0.6 % (0.1-2.0); Eosinophils % 0.6 % (0.1-12.0); Hematocrit 43.2 % (37.0-47.0); Hemoglobin 14.5 g/dL (12.2-16.2); Lymphocytes # 1.3 K/mm3 (0.7-4.5); Lymphocytes % 35.3 % (10-50); Mean Corpuscular HGB Conc 33.6 g/dL (31.8-35.4); Mean Corpuscular Hemoglobin 28.7 pg (27.0-31.2); Mean Corpuscular Volume 85.5 fl (81-99); Monocytes # 0.3 K/mm3 (0.1-1.0); Monocytes % 9.4 % (1.7-9.3); Neutrophils % 54.1 % (37.0-80.0); Platelet Count 254 K/mm3 (142-424); Red Blood Count 5.05 M/mm3 (4.20-5.40); Red Cell Distribution Width 12.3 % (11.5-17.5); White Blood Count 3.6 K/mm3 (4.8-10.8)
[2024-07-02 11:09] LABS: Chloride 107 mmol/L (98-107)
[2024-07-02 11:10] LABS: Albumin Level 4.7 g/dl (3.5-5.0); Potassium 4.3 mmoL/L (3.5-5.1); Sodium 140 mmol/L (136-145)
[2024-07-02 11:12] LABS: Alanine Aminotransferase 24 U/L (12-78); Anion Gap 11.3 mEq/L (5-15); Aspartate Amino Transferase 25 U/L (14-36); Blood Urea Nitrogen 15 mg/dl (7-17); Carbon Dioxide 26 mmol/L (22.0-30.0); Estimated Glomerular Filt Rate 122 ml/min (>60); GFR (African American) 147 ML/MIN (>60); Lipase 61 U/L (23-300)
[2024-07-02 11:13] LABS: Albumin/Globulin Ratio 1.6 (1.1-1.8); Alkaline Phosphatase 93 U/L (38-126); Bilirubin,Total 0.7 mg/dl (0.2-1.3); Calcium 8.9 mg/dl (8.4-10.2); Glucose 85 mg/dl (74-100); Total Protein,Serum 7.7 g/dl (6.3-8.2)
[2024-07-02 11:15] LABS: HCG Qualitative, Serum Negative (Negative)
[2024-07-02] MEDS: LACTATED RINGERS 1000ML 500 ML 999 ML IV (11:25)
[2024-07-02] MEDS: METOCLOPRAMIDE HCL 10MG/2ML VIAL 10 MG IVP (11:26)
[2024-07-02] MEDS: KETOROLAC 30MG/ML VIAL 15 MG IV (11:26)
[2024-07-02] MEDS: diphenhydrAMINE 50MG/ML VIAL 25 MG IV (11:26)
[2024-07-02 11:27] LABS: Troponin I < 0.01 ng/ml (0.00-0.034)
[2024-07-02 11:37] LABS: Microscopic, Urine URINE MICROSCOPIC (MICROSCOPIC)
[2024-07-02 11:41] LABS: Appearance,Urine CLEAR (Clear); Bilirubin,Urine Negative (Negative); Blood, Urine SMALL (Negative); Color,Urine YELLOW (Yellow); Glucose,Urine (UA) Negative (Negative); Ketones,Urine Negative (Negative); Leukocyte Esterase,Urine SMALL (Negative); Nitrate,Urine Negative (Negative); Protein,Urine Negative (Negative); Urobilinogen,Urine 0.2 EU/dl (0.2)
[2024-07-02 11:44] LABS: Thyroid Stimulating Hormone 1.07 uIU/mL (0.465-4.68)
[2024-07-02 12:00] LABS: Bacteria,Urine Trace /lpf
[2024-07-02 12:22] LABS: HIV Combo NEGATIVE (Negative)
[2024-07-02 12:30] LABS: Hepatitis C Ab Qual. W/ RFX NEGATIVE (Negative)
--- NOTE | 2024-07-02 12:40 | PC.NURSE ---
spoke to [facility] pharmacy regarding pt antibiotic prescription. verified available.
== END 2024-07-02 13:05 | disposition home or self-care (01) ==
PROVIDERS: Emergency Provider Student in an Organized Health Care Education/Training Program; PCP Family Medicine
DX: N12 Tubulo-interstitial nephritis, not specified as acute or chronic (principal); R55 Syncope and collapse; R42 Dizziness and giddiness; R51.9 Headache, unspecified; R20.2 Paresthesia of skin; R10.2 Pelvic and perineal pain; R10.31 Right lower quadrant pain; E66.01 Morbid (severe) obesity due to excess calories; E11.9 Type 2 diabetes mellitus without complications; Z79.84 Long term (current) use of oral hypoglycemic drugs
CPT/HCPCS: 70450; 80053; 81001; 83690; 84436; 84443; 84484; 84703; 85025; 86803; 87086; 87389; 93005; 96361; 96374; 96375; 99284; J1200; J1885; J2765; J7120

== ENCOUNTER 2024-07-17 08:43 | Emergency (ER) | payer OTHER, SELFPAY ==
[2024-07-17] VITALS (8 sets, daily range): BP systolic 106–137; BP diastolic 74–87; PULSE 67–109; RESP 18–19; TEMP 36.9; O2SAT 94–100; BMI 39.8
[2024-07-17 08:55] LABS: Microscopic, Urine URINE MICROSCOPIC (MICROSCOPIC)
[2024-07-17 08:56] LABS: Appearance,Urine CLOUDY (Clear); Blood, Urine 2+ (Negative); Color,Urine YELLOW (Yellow); Glucose,Urine (UA) Negative (Negative); Ketones,Urine Negative (Negative); Leukocyte Esterase,Urine 1+ (Negative); Nitrate,Urine Negative (Negative); Protein,Urine TRACE (Negative); Specific Gravity, Urine >= 1.030 (1.005-1.030); Urobilinogen,Urine 0.2 EU/dl (0.2)
[2024-07-17 09:16] LABS: Bilirubin,Urine 1+ (Negative)
[2024-07-17 09:34] LABS: Bacteria,Urine 1+ /lpf; RBC,Urine 50-100 #/hpf (0-3); Squamous Epithelial Cell,Urine 20-50 #/hpf (0-5)
--- NOTE | 2024-07-17 09:36 | CT_ITS ---
FINAL REPORT TECHNIQUE: After the administration of intravenous contrast, axial images were obtained through the abdomen and pelvis by computed tomography. The study was performed with techniques to keep radiation dose as low as reasonably achievable, (ALARA). Individual dose reduction techniques using automated exposure control or adjustment of mA and/or kV according to the patient's size were employed. CLINICAL HISTORY: R>L flank pain, recurrent UTI, not clearing COMPARISON: 02/14/2024 FINDINGS: Abdomen: The lung bases are clear. The liver parenchyma is homogeneous. The gallbladder is absent. The spleen, pancreas, adrenals and kidneys appear unremarkable. The aorta is normal in caliber. There is no free fluid or adenopathy. Pelvis: The appendix is mildly enlarged but there is no surrounding inflammation. This is favored to reflect an Andre appendix. The uterus is anteverted. There is an IUD in the endometrial cavity. The urinary bladder is unremarkable. There is no free fluid or adenopathy. IMPRESSION: No acute intra-abdominal process. Stable, mildly enlarged appendix which is likely constitutional. Reviewed, Interpreted and Dictated by Tanner Hawk MD Transcribed by Carmen Alba Authenticated and [facility]
[2024-07-17 09:40] LABS: Basophils % 0.3 % (0.1-2.0); Eosinophils % 0.4 % (0.1-12.0); Hematocrit 45.1 % (37.0-47.0); Hemoglobin 15.2 g/dL (12.2-16.2); Lymphocytes # 0.9 K/mm3 (0.7-4.5); Lymphocytes % 11.9 % (10-50); Mean Corpuscular HGB Conc 33.7 g/dL (31.8-35.4); Mean Corpuscular Hemoglobin 29.1 pg (27.0-31.2); Mean Corpuscular Volume 86.2 fl (81-99); Mean Platelet Volume 10.3 fl (7.4-10.4); Monocytes # 0.4 K/mm3 (0.1-1.0); Monocytes % 5.4 % (1.7-9.3); Neutrophils # 6.4 K/mm3 (1.8-7.8); Neutrophils % 81.7 % (37.0-80.0); Platelet Count 320 K/mm3 (142-424); Red Blood Count 5.23 M/mm3 (4.20-5.40); Red Cell Distribution Width 12.7 % (11.5-17.5); White Blood Count 7.8 K/mm3 (4.8-10.8)
[2024-07-17 09:42] LABS: Albumin Level 4.8 g/dl (3.5-5.0); Chloride 108 mmol/L (98-107); Sodium 139 mmol/L (136-145)
[2024-07-17 09:43] LABS: Potassium 4.2 mmoL/L (3.5-5.1)
[2024-07-17 09:45] LABS: Alanine Aminotransferase 27 U/L (12-78); Alkaline Phosphatase 115 U/L (38-126); Anion Gap 16.2 mEq/L (5-15); Aspartate Amino Transferase 36 U/L (14-36); Bilirubin,Total 0.8 mg/dl (0.2-1.3); Blood Urea Nitrogen 13 mg/dl (7-17); Carbon Dioxide 19 mmol/L (22.0-30.0); Creatinine Clearance Estimated 231 mL/min (50-200); Estimated Glomerular Filt Rate 122 ml/min (>60); GFR (African American) 147 ML/MIN (>60); Lipase 102 U/L (23-300); Total Protein,Serum 8.5 g/dl (6.3-8.2)
[2024-07-17 09:46] LABS: Albumin/Globulin Ratio 1.3 (1.1-1.8); Calcium 9.3 mg/dl (8.4-10.2); Globulin 3.7 g/dL (1.3-3.2); Glucose 99 mg/dl (74-100)
[2024-07-17] MEDS: ONDANSETRON 4MG/2ML VIAL 4 MG IV (09:46)
[2024-07-17] MEDS: KETOROLAC 30MG/ML VIAL 15 MG IV (09:46)
[2024-07-17] MEDS: LACTATED RINGERS 1000ML 1,000 ML 999 ML IV (09:47)
[2024-07-17] MEDS: ACETAMINOPHEN 1,000MG/100ML VIAL 1000 MG IV (09:47)
[2024-07-17 09:49] LABS: Lactic Acid 0.9 mmol/L (0.7-2.1)
[2024-07-17 09:55] LABS: HCG Qualitative, Serum Negative (Negative)
[2024-07-17] MEDS: SODIUM CHLORIDE 0.9% 10ML SYR (RAD ONLY) 10 ML IV (10:13)
[2024-07-17] MEDS: IOPAMIDOL-370 (76%);100ML BOTTLE 75 ML IV (10:13)
[2024-07-17 10:39] LABS: Procalcitonin < 0.030 ng/mL (0.0-2.0)
--- NOTE | 2024-07-17 11:26 | HMH.EDGENADL ---
Discharge Plan Disposition Patient Disposition: Home, Self-Care Condition: Good Prescriptions Prescriptions: New sulfamethoxazole-trimethoprim [Bactrim DS] 800-160 mg tablet 1 tab PO BID 10 Days Qty: 20 0RF ondansetron 4 mg tablet,disintegrating 4 mg PO Q8H PRN (Reason: nausea and vomiting) 4 Days Qty: 12 0RF No Action cholecalciferol (vitamin D3) 25 mcg (1,000 unit) capsule 25 mcg PO DAILY nitrofurantoin monohyd/m-cryst [Macrobid] 100 mg capsule 100 mg PO Q12H 7 Days Qty: 14 0RF Rx Instructions: must administer with a meal/food phenazopyridine [Pyridium] 200 mg tablet 200 mg PO Q8H 2 Days Qty: 6 0RF cefadroxil 1 gram tablet 1,000 mg PO BID 10 Days Qty: 20 0RF Referrals Follow up/Referrals: Princess Philip MD [Primary Care Provider] - See instructions Gen Moran MD [Staff Physician] - See instructions Activity Restrictions/Add. Instructions Additional Instructions/Restrictions: You were evaluated in the emergency department today. At this time, we recommend obtaining a cath urine specimen, however since you declined we have sent a culture but your urine was contaminated with skin cells. This might not be accurate or reliable. I am prescribing you antibiotics to treat given your symptoms. Please berry picker machine operator the prescription for Zofran and take as needed for nausea and vomiting as well. I recommend very close follow-up with your primary care provider as well as with urology. Dr. Moran is a urologist here, you may also choose to see someone else. Another close option is [facility] (Dr. Mota - [facility] - [facility], [place] [address] - [phone]). Please make sure you drink plenty of fluids and stay orally hydrated. Take Tylenol and ibuprofen as needed for pain. Return to the emergency department for new or worsening symptoms. Clinical Impressions Clinical Impression: Recurrent urinary tract infection, Nausea vomiting and diarrhea Stand Alone Forms Stand Alone Forms: Work/School Release Instructions Patient Instructions: DI for Urinary Tract Infection (UTI), DI for Diarrhea and Traveler's Diarrhea -- Adult, DI for Nausea -- Adult Print Language Print Language: Divehi Discharge ED Provider: Leeann Pa General Adult HPI General Chief complaint: PAIN Stated complaint: Poss. Kidney Infection. Vomitting, Diarr. Time Seen by Provider: 07/17/24 09:32 Mode of Arrival: Ambulatory Source of Information: Patient Description of Symptoms (Recalled from ER Triage Doc. by RN): pt presents to ED with c/o kidney infection ongoing since last wednesday. pt reports lower back pain. pt reports she began to have diarrhea and vomitting yesterday, pt suspects she may have a virus. History of Present Illness HPI narrative: This patient is a 24-year-old female with a history of recurrent urinary tract infections, obesity, diabetes presenting to the emergency department for evaluation with concern for possible kidney infection. Patient states that she has completed antibiotics to treat UTI, including cefadroxil and nitrofurantoin based on medical record review, however she continues to have back pain, dysuria, urinary frequency, nausea, and vomiting. She also has diarrhea that started yesterday. She think she may have a virus, but is also concerned that the urinary tract infection is persistent. She notes issues with bad kidney infections in the past and issues with clearing the infections. The back pain is worse on the right than on the left. Related Data Home Medications ?Medication ?Instructions ?Recorded ?Confirmed cholecalciferol (vitamin D3) 25 25 mcg PO DAILY 04/26/24 06/25/24 mcg (1,000 unit) capsule Previous Rx's ?Medication ?Instructions ?Recorded nitrofurantoin 100 mg PO Q12H 7 days #14 caps 06/25/24 monohydrate/macrocrystals 100 mg capsule (Macrobid) phenazopyridine 200 mg tablet 200 mg PO Q8H 2 days #6 tabs 06/25/24 (Pyridium) cefadroxil 1 gram tablet 1,000 mg PO BID 10 days #20 tabs 07/02/24 ondansetron 4 mg disintegrating 4 mg PO Q8H PRN nausea and 07/17/24 tablet vomiting 4 days #12 tabs sulfamethoxazole 800 1 tab PO BID 10 days #20 tabs 07/17/24 mg-trimethoprim 160 mg tablet (Bactrim DS) Allergies Allergy/AdvReac Type Severity Reaction Status Date / Time No Known Allergies Allergy Verified 06/25/24 13:09 [facility] Disclaimer: The information contained in this section may have been updated after the patient was seen, as this information can be updated by other users. Medical History UTI symptoms tachycardia affecting management of mother Breech presentation Acute viral syndrome Failure of outpatient treatment UTI (urinary tract infection) UTI (urinary tract infection) Positive GBS test Maternal obesity affecting , antepartum Threatened in second trimester Pyelonephritis PCOS (polycystic ovarian syndrome) Viral upper respiratory tract infection Biliary colic SOB (shortness of breath) Pelvic pain Surgical History History of cholecystectomy Family History Other No significant family history Social History (Reviewed 07/17/24 @ 11: by Leeann Pa DO) Smoking Status: Never smoker alcohol intake: never substance use type: denies use current occupational status: employed Travel in the last 8 weeks: None caffeine: Yes Other Medical History Have you received the Flu Vaccine for this season: No Have you received the Pneumonia Vaccine: No ROS Obtained: Yes All systems reviewed & no additional complaints except as documented Physical Exam General General appearance: alert, in no apparent distress and obese Head Head exam: atraumatic and normocephalic Eye Eye exam: Present normal appearance, PERRL and EOMI ENT ENT exam: Present normal exam, normal oropharynx, mucous membranes moist and normal external ear exam Neck Neck exam: Present normal inspection, full ROM and trachea midline; Absent tenderness Chest Chest inspection: Present normal inspection and symmetric chest wall rise; Absent tenderness Respiratory Respiratory exam: Present normal lung sounds bilaterally; Absent respiratory distress, wheezes, stridor or accessory muscle use Cardiovascular Cardiovascular exam: Present regular rate and normal rhythm Abdominal Exam Abdominal exam: Present soft; Absent distention, tenderness or guarding Extremities Exam Extremities exam: Present normal inspection, full ROM and normal capillary refill; Absent tenderness or edema Back Exam Back exam: Present normal inspection and full ROM; Absent tenderness Neurological Exam Neurological exam: Present alert, oriented X3, CN II-XII intact and normal gait; Absent motor sensory deficit Psychiatric Psychiatric exam: Present normal affect and normal mood Skin Skin exam: Present warm and dry Medical Decision Making Medical Records Medical records reviewed: Yes I reviewed the patient's medical records. Screening: Per USPSTF and CDC recommendations, given the prevalence of disease in our region, it is our hospital?s policy to screen for HIV and viral Hepatitis for all patients aged 18 and over and those with ongoing risk factors. Corey Inquiry Pt receiving controlled substance: No Vital Signs: 07/17/24 09:01 07/17/24 09:04 07/17/24 09:30 Temperature 98.4 F Temperature Source Oral Pulse Rate 91 H 89 Pulse Rate [Left Radial] 109 H Respiratory Rate 19 Blood Pressure 118/75 106/74 L Blood Pressure [Right Arm] 120/82 Blood Pressure Mean [Right Arm] 94 02 Sat by Pulse Oximetry 99 96 98 Oxygen Delivery Method Room Air Room Air Room Air 07/17/24 10:00 07/17/24 10:31 07/17/24 11:00 Temperature Temperature Source Pulse Rate 91 H 83 69 Pulse Rate [Left Radial] Respiratory Rate Blood Pressure 122/84 134/87 137/75 Blood Pressure [Right Arm] Blood Pressure Mean [Right Arm] 02 Sat by Pulse Oximetry 99 94 L 100 Oxygen Delivery Method Room Air 07/17/24 11:31 07/17/24 12:10 Temperature 98.4 F Temperature Source Oral Pulse Rate 74 67 Pulse Rate [Left Radial] Respiratory Rate 18 Blood Pressure 124/78 131/86 Blood Pressure [Right Arm] Blood Pressure Mean [Right Arm] 02 Sat by Pulse Oximetry 100 Oxygen Delivery Method Room Air Lab Data Lab results reviewed: Yes I reviewed the patient's lab results. Lab Results 07/17/24 08:50: Urine Color Yellow, Urine Appearance Cloudy, Urine pH 6.0, Ur Specific [place] >= 1.030, Urine Protein Trace, Urine Glucose (UA) Negative, Urine Ketones Negative, Urine Blood 2+ A, Urine Nitrate Negative, Urine Bilirubin 1+ A, Urine Urobilinogen 0.2, Ur Leukocyte Esterase 1+ A, Urine RBC 50-100, Urine WBC 10-20, Ur Squamous Epith Cells 20-50, Urine Bacteria 1+ 07/17/24 09:01: WBC 7.8, RBC 5.23, Hgb 15.2, Hct 45.1, MCV 86.2, MCH 29.1, MCHC 33.7, RDW 12.7, Plt Count 320, MPV 10.3, Neut % (Auto) 81.7 H, Lymph % (Auto) 11.9, Day % (Auto) 5.4, Eos % (Auto) 0.4, Baso % (Auto) 0.3, Neut # (Auto) 6.4, Lymph # (Auto) 0.9, Day # (Auto) 0.4, Eos # (Auto) 0.0, Baso # (Auto) 0.0, Sodium 139, Potassium 4.2, Chloride 108 H, Carbon Dioxide 19 L, Anion Gap 16.2 H, BUN 13, Creatinine 0.60, Estimated Creat Clear 231, Estimated GFR 122, Est GFR ( Amer) 147, Glucose 99, Lactate 0.9, Calcium 9.3, Total Bilirubin 0.8, AST 36, ALT 27, Alkaline Phosphatase 115, Total Protein 8.5 H, Albumin 4.8, Globulin 3.7 H, Albumin/Globulin Ratio 1.3, Lipase 102, Procalcitonin < 0.030, Serum HCG, Qual Negative 07/17/24 09:01 07/17/24 09:01 Orders (Tests/Meds): ED MEDICATIONS Discontinued Medications Generic Name Dose Route Start Last Admin Trade Name Verna PRN Reason Stop Dose Admin Acetaminophen 1,000 mg 07/17/24 09:38 07/17/24 09:47 Acetaminophen 1,000mg/100ml Vial IV 07/17/24 09:39 1,000 mg ONCE ONE Administration Lactated Ringer's 1,000 mls @ 999 mls/hr 07/17/24 09:38 07/17/24 09:47 Lactated Ringer's 1000 Ml Bag IV 07/17/24 10:38 999 mls/hr .Q1H1M ONE Administration Ceftriaxone Sodium 2 gm/ 100 mls @ 200 mls/hr 07/17/24 11:32 07/17/24 11:42 Sodium Chloride IV 07/17/24 12:01 200 mls/hr ONCE ONE Administration Iopamidol 75 ml 07/17/24 10:12 07/17/24 10:13 Iopamidol-370 (76%);100ml Bottle IV 07/17/24 10:13 75 ml ONCE ONE Administration Ketorolac Tromethamine 15 mg 07/17/24 09:38 07/17/24 09:46 Ketorolac 30mg/Ml Vial IV 07/17/24 09:39 15 mg ONCE ONE Administration Ondansetron HCl 4 mg 07/17/24 09:38 07/17/24 09:46 Ondansetron 4mg/2ml Vial IV 07/17/24 09:39 4 mg ONCE ONE Administration Sodium Chloride 10 ml 07/17/24 10:12 07/17/24 10:13 Sodium Chloride 0.9% 10ml Syr (Rad Only) IV 08/16/24 10:11 10 ml NEEDED PRN Administration Maintain IV Site ORDERS Category Date Time Status CT abdomen pelvis w con Stat Cat Scan 07/17/24 09:36 Completed Complete Blood Count Auto Diff Stat Lab 07/17/24 09:01 Completed Comprehensive Metabolic Panel Stat Lab 07/17/24 09:01 Completed HCG Qualitative, Serum Stat Lab 07/17/24 09:01 Completed Lactic Acid Stat Lab 07/17/24 09:01 Completed Lipase Stat Lab 07/17/24 09:01 Completed Procalcitonin Stat Lab 07/17/24 09:01 Completed UA [Urinalysis and Microscopic] Stat Lab 07/17/24 08:50 Completed Blood Culture Stat Micro 07/17/24 09:56 Received Urine Culture Stat Micro 07/17/24 08:50 Received Medical Decision Narrative: In summary, this patient is a 24-year-old female presenting to the Emergency Department for evaluation of low back pain, nausea, vomiting, diarrhea, dysuria. Differential diagnoses considered include but are not limited to cystitis, pyelonephritis, ureterolithiasis, sepsis, colitis, gastroenteritis. Ruling out the most morbid conditions drove assessment. It should be noted patient's history includes obesity, diabetes which may not be at goal therapy. This complicates all aspects of care by increasing patient's risk for morbidity. I reviewed patient's past medical records and noted previous evaluation 07/02/2024 for urinary tract infection for which she was prescribed cefadroxil and Macrobid. I also noted multiple prior urine cultures that all appear to be mixed tawana, concerning for contamination. She does not have a recent positive urine culture with an isolated bacteria.. On exam, the patient is lying in bed in no acute distress. Vitals are normal on cardiac telemetry, abdominal exam is benign. Given concerns for recurrent UTIs that are not clearing, I elected to obtain CT abdomen and pelvis with IV contrast to evaluate for possible renal abscess versus obstructive process. workup included lab evaluation including CBC, CMP, procalcitonin, lactic acid, urinalysis, urine culture. Patient was given a bolus of IV fluids as well as IV Zofran, Toradol, and acetaminophen for symptomatic improvement. I independently interpreted CT scan prior to the radiologist read and noted no obstructive uropathy or renal abscess. Please see their read for final interpretation. Labs were obtained that demonstrated reassuring CBC and chemistry with normal CBC, normal kidney function. Urine is concerning for infection but is grossly contaminated with squamous cells, 20-50. She is positive for nitrates, she denies use of Pyridium/Azo. Urine culture of this was sent and is pending, but I strongly advised the patient that I recommended obtaining a cath urine specimen to get a clean sample and evaluate accurately for infection. Patient adamantly declined cath urine specimen. Given this, will treat empirically for possible pyelonephritis in the setting of flank pain and UTI with IV Rocephin. Urine culture was sent and is pending. Will discharge the patient on oral Bactrim given that she has failed with cephalosporins and Macrobid presumably on an outpatient basis. She was discharged with prescriptions for these, instructions for close follow-up with urology, instructions for close follow-up with PCP, and instructions for supportive management. Strict return precautions were given. Critical Care Critical Care Time Critical Care Time: No
[2024-07-17] MEDS: CEFTRIAXONE SODIUM 2 GM in 0.9 % SODIUM CHLORIDE 100 ML IV (11:42)
--- NOTE | 2024-07-17 11:45 | PC.NURSE ---
Care handoff report received from Samuel Bennett RN.
== END 2024-07-17 12:10 | disposition home or self-care (01) ==
PROVIDERS: Emergency Provider Emergency Medicine; PCP Family Medicine
DX: N39.0 Urinary tract infection, site not specified (principal); M54.50 Low back pain, unspecified; R19.7 Diarrhea, unspecified; R11.2 Nausea with vomiting, unspecified; R30.0 Dysuria; R35.0 Frequency of micturition
CPT/HCPCS: 74177; 80053; 81001; 83605; 83690; 84145; 84703; 85025; 87040; 87086; 96361; 96365; 96374; 96375; 99285; J0131; J0696; J1885; J2405; J7120; Q9967

== ENCOUNTER 2024-07-31 12:00 | Outpatient (CLI) | payer OTHER, SELFPAY | END 2024-07-31 23:59 | disposition home or self-care (01) | LOC: LAB.DROPOF 08-01 14:07 | PROVIDERS: PCP Urology; Visit Provider Urology | DX: N89.8 Other specified noninflammatory disorders of vagina; R39.9 Unspecified symptoms and signs involving the genitourinary system | CPT/HCPCS: 87086; 87491; 87563; 87591; 87798; 87801 ==

== ENCOUNTER 2024-10-04 09:19 | Outpatient (CLI) | payer OTHER, SELFPAY ==
--- OUTSIDE RECORDS SUMMARY | 2023-06-22 06:15 | XMS_ITS ---
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 Name Role Phone Keyon Ocampo Primary Care Provider Allergies No Known Allergies Encounters Encounter Location Date Provider Diagnosis [facility] [address] [facility] [address] [facility] [address] [place] [id number] 06/22/2023 Keyon Ocampo Plan Of Treatment Next Appt Details Provider Name:Keyon Santana ry, 11/08/2024 01:30:00 PM, [address] [facility] [address] [facility], [address], [place], [id number], Progress Notes * KEYVIRIDIANA KONGCLINTB:2000 (24 yo F)Acc No.[id number]:06/22/2023 Progress Notes Patient: DEMETRIA SAINI Provider: Bruna Ocampo M.D. :2000 A ge:23 Y S ex:Female Date:06/22/2023 Address:[id number] Subjective: * Chief Complaints: * * ROS: D ERMATOLOGY: no R kristi. n o H landry. G ASTROENTEROLOGY: no N ausea. n o V omiting. n o D iarrhea.? U ROLOGY: no D ifficulty urinating. n o B lood in urine. * Medical History: Cystogram showed left VUR and evidence of cystitis. Renal US was WNL. * Surgical History: n one . * Family History: F ather: alive 28 yrs, hypertension. M other: alive 27 yrs. P aternal Grand Father: alive. P aternal Grand Mother: alive. M aternal Grand Father: alive. M aternal Grand Mother: alive. 2 brother(s) . . * Social History: C URRENT TOBACCO USE S moking Status: Patient does NOT smoke. C affeine: yes, frequency:some. Home smoke detector use: yes. Past smoking status: no, Smoking status: Does not smoke. Sexually active: no. * Allergies: N .K.D.A. Objective: * Vitals: Assessment: Plan: * Treatment: * Images: Billing Information: * Visit Code: * Procedure Codes: * Electronic signature of Joselin Ocampo MD on 10/06/2024 at 09:23 AM EDT Sign off status: Pending * Provider: Bruna Ocampo M.D. Date: 0 06/22/2023 Generated for Angela mohan/Jessica/Martha on: 0 10/06/2024 09:23 AM EDT
--- OUTSIDE RECORDS SUMMARY | 2024-04-10 12:00 | XMS_ITS ---
[facility] Organization [facility] Address [address] [facility] [address] [place] [id number] Care Team Providers Care Churn Operator Margarine Name Role Phone Keyon Ocampo Primary Care Provider Allergies No Known Allergies Results Component Value Reference Range Notes P-Vitamin B12 Reviewed date:04/13/2024 09:16:22 AM Interpretation:380 Performing Lab: Notes/Report: Test performed by [facility] [address] [place] [address] , [address], [place] [address] Raymundo Solano MD, Jumpbasting Machine Operator CLIA: [id number] Vitamin B12 [phone] pg/mL P-CBC With Platelet No Diffe rential Reviewed date:04/13/2024 09:16:22 AM Interpretation: Normal Performing Lab: Notes/Report: Test performed by [facility] [address] [place] [address] , [address], [place] [address] Raymundo Solano MD, Jumpbasting Machine Operator CLIA: [id number] WBC 4.7 3.8-11.5 K/uL Red Blood Cell Count (RBC) 4.51 3.60-5.30 M/mm 3 Hemoglobin (Hgb) 12.6 11.5-15.5 gm/dL Hematocrit (HCT) 39.4 35.2-46.4 % MCV 87.4 79.0-99.0 fL MCH 27.9 26.9-35.0 pg MCHC 32.0 30.4-34.8 g/dL RDW 47.0 38.6-53.8 fL Platelet Count 285 137-397 K/cumm P-Comprehensive Metabolic Pa nikki (CMP) Reviewed date:04/13/2024 09:16:22 AM Interpretation:bun 21 Performing Lab: Notes/Report: Test performed by [facility], [address] , [address], [place] [address] Raymundo Solano MD, Jumpbasting Machine Operator CLIA: [id number] Sodium 141 135-145 mmol/L Potassium 5.1 3.5-5.3 [...] Normal Performing Lab: Notes/Report: Test performed by [facility] [address] , [place] [address] Raymundo Solano MD, Jumpbasting Machine Operator CLIA: [id number] Magnesium 2.1 1.6-2.4 mg/dL P-Phosphorus Reviewed date:04/13/2024 09:16:22 AM Interpretation: Normal Performing Lab: Notes/Report: Test performed by [facility] [address] , [address], [place] [address] Raymundo Solano MD, Jumpbasting Machine Operator CLIA: [id number] Phosphorus 3.6 2.5-4.5 mg/dL P-TSH reflex to FT4 Reviewed date:04/13/2024 09:16:22 AM Interpretation: Normal Performing Lab: Notes/Report: Test performed by [facility] [address] , [place] [address] Raymundo Solano MD, Jumpbasting Machine Operator CLIA: [id number] TSH reflex to FT4 0.88 0.43-5.25 mU/L P-Vitamin D 25-Hydroxy Reviewed date:04/13/2024 09:16:22 AM Interpretation:17.1 Performing Lab: Notes/Report: Test performed by [facility] [address] [place] [address] , [address], [place] [address] Raymundo Solano MD, Jumpbasting Machine Operator CLIA: [id number] Vitamin D 25-Hydroxy 17.1 30.0-100.0 ng/mL Interpretation [...] W/U Status Risk Notes Problem Morbid obesity (E66.01) Active confirmed Vital Signs Blood pressure systolic 114 mm Hg 04/10/20 24 Blood pressure diastolic 70 mm Hg 024 Heart Rate 90 /min 04/10/2024 Height 62.25 in 04/10/2024 Weight 226.4 lbs 04/10/2024 BMI 41.07 kg/m2 04/10/2024 Encounters Encounter Location Date Provider Diagnosis [facility] [address] [place] [phone] 04/10/2024 Keyon Ocampo Morbid obesity E66.0 1 and Fatigue, unspecified type R53.83 Assessments Encounter Date Diagnosis (ICD Code) Assessment Notes Treatment Notes Treatment Clinical Notes Section Notes 04/10/2024 Morbid obesity (ICD-10 - E66.01) 04/10/2024 Fatigue, unspecified type (ICD-10 - R53.83) Plan Of Treatment Next Appt Details Follow Up: via phone to repo rt test results, Reason: Provider Name:Keyon Santana ry, 11/08/2024 01:30:00 PM, [address], [address], [place], [id number], Progress Notes * VERNA MARTINEZ:2000 (24 yo F)Acc No.[id number]:04/10/2024 Progress Notes Patient: DEMETRIA SAINI Provider: Bruna Ocampo M.D. :2000 A ge:23 Y S ex:Female Date:04/10/2024 Address:[place], [id number] Subjective: * Chief Complaints: * 1 . [...] WNL, Polycystic ovarian syndrome. * Surgical History: Russ morocho Past Surgical History. * Hospitalization/Major Diagno stic Procedure: Russ morocho Past Hospitalization. * Family History: F ather: [...] PM)?380* Value Reference Range V itamin B12 [phone] - pg/mL * Thais Zavala 04/13/2024 9:16:1 [...] * Images: Billing Information: * Visit Code: 46402 Office Visit, Est Pt., Level 4. * Procedure Codes: * Electronic signature of Joselin Ocampo MD on 10/06/2024 at 09:23 AM EDT Sign off status: Pending * Provider: Bruna Ocampo M.D. Date: 1 Generated for Angela ng/Niralig/eTransmitting on: 0 10/06/2024 09:23 AM EDT History and Physical Notes * HPI [...]
--- OUTSIDE RECORDS SUMMARY | 2024-09-07 07:15 | XMS_ITS ---
Author Organization [facility] Address [address] [facility] [address] [facility] [address] [place] [id number] Care Team Providers Care Biopharmaceutical Rep Name Role Phone Keyon Ocampo Primary Care Provider Allergies No Known Allergies REASON FOR VISIT discuss weight loss Medications Medication SIG (Take, Route, Frequency, Duration) Notes Start Date End Date Status Wegovy 0.5 MG/0.5ML 0.5 mL Subcutaneous once weekly 09/07/2024 Active Vitamin D3 1.25 MG (00833 UT) 1 capsule Orally Once weekly 04/17/2024 Active Vital Signs Blood pressure systolic 120 mm Hg 09/08/19 25 Blood pressure diastolic 70 mm Hg 025 Heart Rate 92 /min 09/07/2024 Height 62.25 in 09/07/2024 Weight 229.4 lbs 09/07/2024 BMI 41.62 kg/m2 09/07/2024 Encounters Encounter Location Date Provider Diagnosis [facility] [address] [facility] [address] [facility] [address] [place] [phone] 09/07/2024 Keyon Ocampo Morbid obesity E66.0 1 [...] Appt Details Follow Up: 2 Months, Reason: Provider Name:Keyon Santana ry, 11/08/2024 01:30:00 PM, [address] [facility], [address], [place], [phone], Progress Notes * RAY MARTINEZB:2000 (24 yo F)Acc No.[id number]:09/07/2024 Progress Notes Patient: DEMETRIA SAINI Provider: Bruna Ocampo M.D. :2000 A ge:24 Y S ex:Female Date:09/07/2024 Address:[place] [place], [place], [id number] Subjective: * Chief Complaints: * 1 . [...] Medications: T aking Vitamin D3 1.25 MG (55538 UT) Capsule 1 capsule Orally Once weekly [...] * Images: Billing Information: * Visit Code: 91086 Office Visit, Est Pt., Level 3. * Procedure Codes: G8950 PREHTN/HTN BP DOC INDCD F/U DOC. G8752 MOST RECENT SYSTOLIC BP < 140MM HG. G8754 MOST RECENT DIASTOLIC BP < 90MM HG. 1036F TOBACCO NON-USER. * Electronic signature of Joselin Ocampo MD on 10/06/2024 at 09:23 AM EDT Sign off status: Pending * Provider: Bruna Ocampo M.D. Date: 0 09/07/2024 Generated for Angela mohan/Jessica/Biaitting on: 0 10/06/2024 09:23 AM EDT History [...]
--- OUTSIDE RECORDS SUMMARY | 2024-10-06 09:23 | XMS_ITS | Patient Health Record ---
Author Organization [facility] Address [address] [facility] [address] [place] [address] Care Team Providers Care Artillery Meteorological Man Name Role Phone Haydee Vidal Unavailable [phone] Allergies No Known Allergies Reason For Referral No Information Medications Medication SIG (Take, Route, Fr equency, Duration) Notes Start Date End Date Status Vitamins Un known Keflex 500 MG ONE TABLET ORALLY 4 times a day; Duration: 7 days 11/04/2021 Active Problems Problem Type SNOMED Code ICD Code Onset Dates Problem Status W/U Status Risk Notes Problem Cholelithiasis without obstruction (72546017) Calculus of gallbladder without cholecystitis without obstruction (K80.20) Active confirmed Problem Third trimester (25255513) Encounter for supervision of other normal in third trimester (Z34.83) Active confirmed Problem Primigravida (178295152) Encounter for care in first trimester of first (Z34.01) 021 Active confirmed Encounter for supervision of normal first , first trimester Problem Gestation period, 12 weeks (66209036) 12 weeks gestation of (Z3A.12) 021 Active confirmed 12 weeks gestation of Problem Amenorrhea (61718227) Absence of menses due to use of contraceptive (N91.2) 021 Active confirmed Missed period Plan Of Treatment No Information Insurance Providers Payer Name Payer Address Payer Phone Subscriber Number Group Number Insured Name Patient Relationship to Insured Coverage Start Date Coverage End Date R [address] [address] [place], [place] [id number] Gregory Cordova Self - patient is the insured [facility] [address] [place] [phone] [id number] Gregory Cordova Self - patient is the insured 2 Medical (General) History Medical History History ICD Code UTIs Gallbladder issues Surgical History Surgery Date(Month/Year) None noted
--- OUTSIDE RECORDS SUMMARY | 2024-10-06 09:23 | XMS_ITS | Patient Health Record ---
Author Organization [facility] Address [address] [facility] [address] [place] [id number] Care Team Providers Care Billing And Quality Technician Name Role Phone Keyon Ocampo Primary Care Provider Allergies No Known Allergies Results Component Value Reference Range Notes P-Vitamin B12 Reviewed date:04/13/2024 09:16:22 AM Interpretation:380 Performing Lab: Notes/Report: Test performed by [facility] [address] [place] [address] , [address], [place] [address] Raymundo Solano MD, Physician Scribe CLIA: [id number] Vitamin B12 225 258-5331 pg/mL P-CBC With Platelet No Diffe rential Reviewed date:04/13/2024 09:16:22 AM Interpretation: Normal Performing Lab: Notes/Report: Test performed by [facility] [address] [place] [address] , [address], [place] [address] Raymundo Solano MD, Physician Scribe CLIA: [id number] WBC 4.7 3.8-11.5 K/uL Red Blood Cell Count (RBC) 4.51 3.60-5.30 M/mm 3 Hemoglobin (Hgb) 12.6 11.5-15.5 gm/dL Hematocrit (HCT) 39.4 35.2-46.4 % MCV 87.4 79.0-99.0 fL MCH 27.9 26.9-35.0 pg MCHC 32.0 30.4-34.8 g/dL RDW 47.0 38.6-53.8 fL Platelet Count 285 137-397 K/cumm P-Comprehensive Metabolic Pa nikki (CMP) Reviewed date:04/13/2024 09:16:22 AM Interpretation:bun 21 Performing Lab: Notes/Report: Test performed by [facility] [address] [place] [address] , [address], [place] [address] Raymundo Solano MD, Physician Scribe CLIA: [id number] Sodium 141 135-145 mmol/L Potassium 5.1 3.5-5.3 [...] Normal Performing Lab: Notes/Report: Test performed by [facility] [address] , [address], [place] [address] Raymundo Solano MD, Physician Scribe CLIA: [id number] Magnesium 2.1 1.6-2.4 mg/dL P-Phosphorus Reviewed date:04/13/2024 09:16:22 AM Interpretation: Normal Performing Lab: Notes/Report: Test performed by [facility] [address] [place] [address] , [address], [place] [id number] Raymundo Solano MD, Physician Scribe CLIA: [id number] Phosphorus 3.6 2.5-4.5 mg/dL P-TSH reflex to FT4 Reviewed date:04/13/2024 09:16:22 AM Interpretation: Normal Performing Lab: Notes/Report: Test performed by [facility] [address] , [address], [place] [address] Raymundo Solano MD, Physician Scribe CLIA: [id number] TSH reflex to FT4 0.88 0.43-5.25 mU/L P-Vitamin D 25-Hydroxy Reviewed date:04/13/2024 09:16:22 AM Interpretation:17.1 Performing Lab: Notes/Report: Test performed by [facility] [address] [place] [address] , [address], [place] [address] Raymundo Solano MD, Physician Scribe CLIA: [id number] Vitamin D 25-Hydroxy 17.1 30.0-100.0 ng/mL Interpretation of Vitamin D 25 OH: < 20 ng/mL - Deficiency 20 - 29 ng/mL - Insufficiency 30 - 100 ng/mL - Sufficiency > 100 ng/mL - Super-therapeutic- toxicity may occur above this level. Clinical correlation required. Medications Medication SIG (Take, Route, Frequency, Duration) Notes Start Date End Date Status Wegovy 0.5 MG/0.5ML 0.5 mL Subcutaneous once weekly 09/07/2024 Active Vitamin D3 1.25 MG (08305 UT) 1 capsule Orally Once weekly 04/17/2024 Active Immunizations Vaccine Route Administration Date Status Comme nts xGardasil IM Intramuscular 02/17/2011 Administered xGardasil IM Intramuscular 04/20/2011 Administered xGardasil IM Intramuscular 09/04/2011 Administered Varivax SC Subcutaneous 02/17/2011 Administered Tetanus Tdap-Adacel (over 7yrs) IM Intramuscular 02/17/2011 Administered ppd ID Intradermal 11/28/2018 Administered Menactra IM Intramuscular 02/17/2011 Administered Menactra IM Intramuscular 06/25/2017 Administered Hep A- Pediatric IM Intramuscular 06/25/2017 Administered Hep A- Pediatric IM Intramuscular 01/26/2018 Administered Problems Problem Type SNOMED Code ICD Code Onset Dates Problem Status W/U Status Risk Notes Problem Morbid obesity (372990258) Morbid obesity (E66.01) Active confirmed Problem Amenorrhea (44554268) Amenorrhea (N91.2) Active confirmed Problem Constipation (58748045) Constipation, unspecified constipation type (K59.00) Active confirmed Problem Body mass index 40+ - severely obese (200718236) Body mass index (BMI) of 40.1 to 44.9 in adult (Z68.41) Active confirmed Vital Signs Heart Rate 92 /min 09/07/2024 Blood pressure diastolic 70 mm Hg 09/07/2024 Height 62.25 in 09/07/2024 Blood pressure systolic 120 mm Hg 09/07/2024 Weight 229.4 lbs 09/07/2024 BMI 41.62 kg/m2 09/07/2024 Encounters Encounter Location Date Provider Diagnosis [facility] [address] [place], [place] [id number] 04/10/2024 Keyon [place] Morbid obesity E66.0 1 and Fatigue, unspecified type R53.83 [facility] [address] [place], [place] [id number] 09/07/2024 Keyon Arlington Morbid obesity E66.0 1 and Encounter for weight management Z76.89 [facility] [address] [place], [place] [id number] 04/13/2024 Keyon Arlington [facility] [address] [place] [id number] 04/26/2024 Keyon Arlington [facility] [address] [place] [id number] 09/07/2024 Keyon Arlington [facility] [address] [place] [id number] 09/29/2024 Keyon Arlington [facility] [address] [place] [id number] 09/29/2024 Keyon Arlington [facility] [address] [place], [place] [id number] 10/05/2024 Keyon Arlington Assessments Encounter Date Diagnosis (ICD Code) Assessment Notes Treatment Notes Treatment Clinical Notes Section Notes 04/10/2024 Morbid obesity (ICD-10 - E66.01) 04/10/2024 Fatigue, unspecified type (ICD-10 - R53.83) 09/07/2024 Morbid obesity (ICD-10 - E66.01) 09/07/2024 Encounter for weight management (ICD-10 - Z76.89) Plan Of Treatment Next Appt Details Provider Name:Keyon Roper Jadanellie ry, 11/08/2024 01:30:00 PM, [address], [address], [place], [place], [id number], Insurance Providers Payer Name Payer Address Payer Phone Subscriber Number Group Number Insured Name Patient Relationship to Insured Coverage Start Date Coverage End Date [facility] [address] [address] [place] [phone] [id number] DEMETRIA MARTINEZ Self - patient is the insured [facility] [address] [place], [place] [id number] DEMETRIA MARTINEZ Self - patient is the insured Medical (General) History Medical History History ICD Code 1999 Cystogram showed left VUR and evidence of cystitis. Renal US was WNL Polycystic ovarian syndrome Surgical History Surgery Date(Month/Year)
--- OUTSIDE RECORDS SUMMARY | 2024-10-06 09:23 | XMS_ITS | Clinical Summary ---
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 Start with just one per day for the first 2 weeks. 180 tablet 3 02/12/2023 Active multivitamin () 27-0.8 MG tablet 07/10/2023 Ac tive Active Problems Problem Noted Date Diagnosed Date PCOS (polycystic ovarian syndrome) 02/12/2023 02/12/2023 Irregular menses 02/12/2023 02/12/2023 Polycystic bilateral ovaries 02/12/202306/2022 Absent periods 02/12/2023 02/12/2023 Lower abdominal pain 02/12/2023 02/12/2023 Anxiety 09/29/2019 02/12/2023 Family History Medical History Relation Name Comments No Known Problems Father No Known Problems Mother Relation Name Status Comments Father Alive Maternal Grandfather Alive Maternal Grandmother Alive Mother Alive Paternal Grandfather Alive Paternal Grandmother Alive Social History Tobacco Use Types Packs/Day Years Used Date Smoking Tobacco: Never Smokeless Tobacco: Never Tobacco Cessation:Counseling Given: Not Answered Alcohol Use Standard Drinks/Week Comments Not Currently 0 (1 standard drink = 0.6 oz pur e alcohol) PHQ-2 Answer Date Recorded Patient Health Questionnaire-2 Score 0 08/09/2023 PHQ-2A Answer Date Recorded Patient Health Questionnaire-2 Score 0 02/12/2023 Comments No Sex and Gender Information Value Date Recorded Sex Assigned at Not on file Legal Sex Female 8:56 PM EDT Gender Identity Not on file Sexual Orientation Not on file Last Filed Vital Signs Vital Sign Reading Time Taken Comments Blood Pressure 131/86 09/08/2023 10:39 AM EDT Pulse 73 02/12/2023 10:00 AM EDT Temperature 36.8 C (98.2 F) 02/12/2023 10:00 AM EDT Respiratory Rate 16 11/01/2019 12:52 PM EDT Oxygen Saturation 99% 02/12/2023 10:00 AM EDT Inhaled Oxygen Concentration - - Weight 110 kg (242 lb 8.1 oz) 09/08/2023 10:39 A M EDT Height 160 cm (5' 3 ) 10/24/2019 12:48 PM EDT Body Mass Index 42.96 10/24/2019 12:48 PM EDT Plan of Treatment Health Maintenance Due Date Last Done Comments [facility]-/Child/Adol SDOH Screenings 1999 [facility]-Hepatitis B Vaccines (2 of 3 - 3-dose series) 1999 1999 [facility]-IPV Vaccines (2 of 3 - 4-dose series) 1999 1999 [facility]-Varicella Vaccines (1 of 2 - 13+ 2-dose series) 2012 HPV Vaccines (1 - 3-dose series) 2014 [facility]- SDOH Screenings 2017 [facility]-Adult SDOH Screenings 2017 [facility]-DTaP,Tdap,and Td Vaccines (2 - Tdap) 2018 1999 [id number] Vaccine (2 - 2023- season) 2023 03/31/2021 [facility]-Depression Screening 08/08/2024 08/09/2023 [facility]-Influenza Vaccine (Season Ended) 2024 [facility]-Pap Smear 03/12/2026 03/12/2023 [facility]-Zoster Vaccines (1 of 2) 2049 [facility]-HIB Vaccines Aged Out 1999 No longer e ligible based on patient's age to complete this topic [facility]-Hepatitis A Vaccines Completed 01/26/2018, 06/10 [facility]-HIV Screening Completed 07/12/2023, 04/21/2019 [facility]-Hepatitis C Screening Completed 2023, 03/28/2021, 04/21/2019 [facility]-Obesity Intervention Completed 024, 08/09/2023, 07/26/2023, Additional history exists [facility]-Pneumococcal Vaccine: Pediatrics (0 to 5 Years) and At-Risk Patients (6 to 49 Years) Aged Out No longer eligible based on patient's age to complete this topic [facility]-Rotavirus Vaccines Aged Out No lo nger eligible based on patient's age to complete this topic Procedures Procedure Name Priority Date/Time Associated Diagnosis Comments HEPATITIS C ANTIBODY - ED W/REFLEX TO HCV QUANT PCR Routine 07/12/2023 10:02 AM EDT Nausea and vomiting in HIV 1/2 ANTIBODY/ANTIGEN SCREEN WITH REFLEX TO HIV I/II DIFFERENTIATION Routine 07/12/2023 10:02 AM EDT test positive PAP TEST - CYTOLOGY Routine 03/12/2023 1 :49 PM EST Encounter for annual routine gynecological examination from Last 3 Months or Most Recently Relevant to Health Maintenance Results * HIV 1 & 2 Antibody/Antigen Screen (07/12/2023 10:02 AM EDT) HIV 1 & 2 Antibody/Antigen Screen Non Reactive Non Reactive 07/12/2023 1:53 PM EDT [facility] Comment:Screening for HIV 1 & 2 antibodies, and P24 antigen is NONREACTIVE. No confirmatory testing is required. Blood Venous blood specimen / Unknown Venipuncture / Unknown 07/12/2023 10:02 AM EDT 07/12/2023 12:40 PM EDT us Venkat Nuno MD LAB BLOOD ORDERABLES Final Resu lt [facility] [address] [place] [address] * Hepatitis C Antibody - ED W/Reflex to HCV Quant PCR (07/12/2023 10:02 AM EDT) Hepatitis C Antibody Negative Negative 07/13/2023 5:06 AM EDT [facility] Blood Venous blood specimen / Unknown Venipuncture / Unknown 07/12/2023 10:02 AM EDT 07/12/2023 12:40 PM EDT Venkat Nuno MD LAB BLOOD ORDERABLES Final Resu lt [facility] [address] [place] [id number] * Pap Test (03/12/2023 1:49 PM EST) Case Report Cytology Case: [id number] Authorizing Provider: Venkat Nuno MD Collected: 03/12/2023 1349 Ordering Location: Obstetrics & Gynecology Received: 03/15/2023 1042 First Screen: Nedra Neal Pathologist: Kimberly Wilcox MD Specimen: ThinPrep Pap Test, Liquid-Based Cervical/Vaginal 03/25/2023 10:49 AM EST [facility] Interpretation NEGATIVE FOR INTRAEPITHELIAL LESION OR MALIGNANCY 03/25/2023 10:49 AM EST [facility] at 1049 EST Other Findings Inflammatory change. Fungal organisms consistent with Yamile species. 03/25/2023 10:49 AM EST [facility] Specimen Adequacy Satisfactory for evaluation; endocervical/bell sformation zone component present. Slide imaged by the ThinPrep Imaging system and selected 22 mckeon reviewed then full manual screening. 03/25/2023 10:49 AM EST [facility] Cervical cytology is a screening test primarily for squamous cancers and precursors and has associated false negative and positive results. New technologies such as liquid based sampling may decrease but will not eliminate all false negative results. Regular screening and follow-up of unexplained clinical signs and symptoms are recommended to minimize false negative results. Please see the ASCCP website (www.asccp.org)fo r followup recommendations. If HPV testing was requested, correlation with the results is suggested (please call Microbiology at [phone] for results). 03/25/2023 10:49 AM EST [facility] Menstrual Status Cyclic 03/25/20 10:49 AM EST [facility] History of Hysterectomy Not Applicable 03/25/2023 10:49 AM EST [facility] Contraceptive History Not Applicable 03/25/2023 10:49 AM EST [facility] Screening Type Routine Screen 2022 10:49 AM EST [facility] High Risk? No 03/25/2023 10:49 AM EST [facility] HPV Testing Requested? Request HPV Testing if ASCUS (Women 25 Years or Older) 03/25/2023 10:49 AM EST [facility] Previous Cancer History No 03/25/2023 10:49 AM EST [facility] Clinical Information Z01.419 - Encounter for annual routine gynecological examination [ICD-10-CM] 03/25/2023 10:49 AM EST [facility] Last Menstrual Period 03/11/2023 03/25/2023 10:49 AM EST [facility] Swab Vaginal and cervical cytologic material / Unknown Non-blood Collection / Unknown 03/12/2023 1:49 PM EST 03/15/2023 10:42 AM EST Venkat Nuno MD LAB CYTOLOGY ORDERABLES Final R esult Performing Organization Address City/State/[facility] Co vt Phone Number [facility] [address] [place] [address] from Last 3 Months or Most Recently Relevant to Health Maintenance Insurance [facility] MEDICAID [facility]
== END 2024-10-04 23:59 | disposition home or self-care (01) ==
LOC: LAB.DROPOF 10-06 09:20
PROVIDERS: PCP Obstetrics & Gynecology; Visit Provider Obstetrics & Gynecology
DX: N76.0 Acute vaginitis (principal)
CPT/HCPCS: 87070; 87077; 87186; 87205

== ENCOUNTER 2024-10-06 12:29 | Outpatient (CLI) | payer OTHER, SELFPAY ==
--- OUTSIDE RECORDS SUMMARY | 2024-10-06 12:31 | XMS_ITS | Clinical Summary ---
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 No confirmatory testing is required. Blood Venous blood specimen / Unknown Venipuncture / Unknown 07/12/2023 10:02 AM EDT 07/12/2023 12:40 PM EDT us Venkat Nuno MD LAB BLOOD ORDERABLES Final Resu lt [facility] [address] [place] [address] * Hepatitis C Antibody - ED W/Reflex to HCV Quant PCR (07/12/2023 10:02 AM EDT) Hepatitis C Antibody Negative Negative 07/13/2023 5:06 AM EDT [facility] Blood Venous blood specimen / Unknown Venipuncture / Unknown 07/12/2023 10:02 AM EDT 07/12/2023 12:40 PM EDT Venkat Nuno MD LAB BLOOD ORDERABLES Final Resu lt [facility] [address] [place] [id number] * Pap Test (03/12/2023 1:49 PM EST) Case Report Cytology Case: [id number] Authorizing Provider: Venkat Nuno MD Collected: 03/12/2023 1349 Ordering Location: Obstetrics & Gynecology Received: 03/15/2023 1042 First Screen: Nedra Neal Pathologist: Kimberly Wilcox MD Specimen: ThinPrep Pap Test, Liquid-Based Cervical/Vaginal 03/25/2023 10:49 AM EST [facility] Interpretation NEGATIVE FOR INTRAEPITHELIAL LESION OR MALIGNANCY 03/25/2023 10:49 AM EST [facility] at 1049 EST Other Findings Inflammatory change. Fungal organisms consistent with Yamile species. 03/25/2023 10:49 AM EST [facility] Specimen Adequacy Satisfactory for evaluation; endocervical/bell sformation zone component present. Slide imaged by the ThinPrep Imaging system and selected 22 mckeon reviewed then full manual screening. 03/25/2023 10:49 AM EST [facility] Cervical cytology is a screening [...] results is suggested (please call Microbiology at [phone] for results). 03/25/2023 10:49 AM EST [facility] Menstrual Status Cyclic 03/25/20 10:49 AM EST [facility] History of Hysterectomy Not Applicable 03/25/2023 10:49 AM EST [facility] Contraceptive History Not Applicable 03/25/2023 10:49 AM EST [facility] Screening Type Routine Screen 2022 10:49 AM EST [facility] High Risk? No 03/25/2023 10:49 AM EST [facility] HPV Testing Requested? Request HPV Testing if ASCUS (Women 25 Years or Older) 03/25/2023 10:49 AM EST [facility] Previous Cancer History No 03/25/2023 10:49 AM EST [facility] Clinical Information Z01.419 - Encounter for annual routine gynecological examination [ICD-10-CM] 03/25/2023 10:49 AM EST [facility] Last Menstrual Period 03/11/2023 03/25/2023 10:49 AM EST [facility] Swab Vaginal and cervical cytologic material / Unknown Non-blood Collection / Unknown 03/12/2023 1:49 PM EST 03/15/2023 10:42 AM EST Venkat Nuno MD LAB CYTOLOGY ORDERABLES Final R esult Performing Organization Address City/State/[facility] Co oh Phone Number [facility] [address] [place] [address] from Last 3 Months or Most Recently Relevant to Health Maintenance Insurance [facility] MEDICAID [facility]
[2024-10-11 06:27] LABS: HSV-1 DNA Negative (Negative); HSV-2 DNA Negative (Negative)
== END 2024-10-06 23:59 | disposition home or self-care (01) ==
LOC: LAB 12:30
PROVIDERS: PCP Family Medicine; Visit Provider Obstetrics & Gynecology
DX: N76.0 Acute vaginitis (principal)
CPT/HCPCS: 36415; 87529

== ENCOUNTER 2024-10-23 11:00 | Outpatient (CLI) | payer OTHER, SELFPAY ==
--- NOTE | 2024-10-23 11:00 | US_ITS ---
PROCEDURE: US TRANSVAGINAL CLINICAL INDICATION: IUD placement, abnormal uterine bleeding COMPARISON: CT CT ABDOMEN PELVIS W CON from 02/14/[address] ABDOMEN PELVIS W CON from 07/17/2024 FINDINGS: Transvaginal sonographic images of the pelvis were obtained. UTERUS: 7.3cm x 5.2cmx 3.2cm anteverted with a combined endometrial thickness of 3.2mm. There is an IUD within the uterine cavity in the correct position. LEFT OVARY: 1.5 cmx2.5 cmx4.2cm with a volume of 8.5ml. The left ovary has multiple small follicles giving it a polycystic appearance. RIGHT OVARY: 3.3cmx 2.4.cmx2.2cm with a volume of 9.2ml. There are multiple small peripheral follicles giving the ovary a polycystic appearance. Both ovaries are seen and appear polycystic. Doppler flow to both ovaries are seen. There is no fluid in the cul-de-sac. IMPRESSION: 1. Anteverted uterus normal in shape and size. The endometrium is thin. 2. There is an IUD within the uterine cavity in the correct position. 3. Both ovaries are seen and appear polycystic. 4. No fluid in the cul-de-sac. Dictated by: Prieto Castillo MD 10/23/2024 13:47 Prieto Castillo MD in OV 10/23/2024 13:47
--- OUTSIDE RECORDS SUMMARY | 2024-10-23 11:03 | XMS_ITS | Clinical Summary ---
Author Organization Healthcare Address [address] [place] [address] Care Team Providers Care Funeral Director Name Role Phone Unavailable Primary Care Provider [...] Td Vaccines (2 - Tdap) 2018 1999 [id number] Vaccine (2 - 2023- season) 2023 03/31/2021 [facility]-Depression Screening 08/08/2024 08/09/2023 [facility]-Influenza Vaccine (#1) 2024 [facility]-Pap Smear 03/12/2026 03/12/2023 [facility]-Zoster Vaccines [...] Reactive Non Reactive 07/12/2023 1:53 PM EDT [facility] Comment:Screening for HIV 1 & 2 antibodies, and P24 antigen is NONREACTIVE. No confirmatory testing is required. Blood Venous blood specimen / Unknown Venipuncture / Unknown 07/12/2023 10:02 AM EDT 07/12/2023 12:40 PM EDT us Venkat Nuno MD LAB BLOOD ORDERABLES Final Resu lt [facility] [address] [place] [address] * Hepatitis C Antibody - ED W/Reflex to HCV Quant PCR (07/12/2023 10:02 AM EDT) Hepatitis C Antibody Negative Negative 07/13/2023 5:06 AM EDT [facility] Blood Venous blood specimen / Unknown Venipuncture / Unknown 07/12/2023 10:02 AM EDT 07/12/2023 12:40 PM EDT Venkat Nuno MD LAB BLOOD ORDERABLES Final Resu lt [facility] [address] [place] [id number] * Pap Test (03/12/2023 1:49 PM EST) Case Report Cytology Case: [id number] Authorizing Provider: Venkat Nuno MD Collected: 03/12/2023 1349 Ordering Location: Obstetrics & Gynecology Received: 03/15/2023 1042 First Screen: Nedra Neal Pathologist: Kimberly Wilcox MD Specimen: ThinPrep Pap Test, Liquid-Based Cervical/Vaginal 03/25/2023 10:49 AM EST [facility] Interpretation NEGATIVE FOR INTRAEPITHELIAL LESION OR MALIGNANCY 03/25/2023 10:49 AM EST [facility] at 1049 EST Other Findings Inflammatory change. Fungal organisms consistent with Yamile species. 03/25/2023 10:49 AM EST [facility] Specimen Adequacy Satisfactory for evaluation; endocervical/bell sformation zone component present. Slide imaged by the ThinPrep Imaging system and selected 22 mckeon reviewed then full manual screening. 03/25/2023 10:49 AM EST [facility] Cervical cytology is a screening [...] results is suggested (please call Microbiology at [phone] for results). 03/25/2023 10:49 AM EST [facility] Menstrual Status Cyclic 03/25/20 10:49 AM EST [facility] History of Hysterectomy Not Applicable 03/25/2023 10:49 AM EST [facility] Contraceptive History Not Applicable 03/25/2023 10:49 AM EST [facility] Screening Type Routine Screen 2022 10:49 AM EST [facility] High Risk? No 03/25/2023 10:49 AM EST [facility] HPV Testing Requested? Request HPV Testing if ASCUS (Women 25 Years or Older) 03/25/2023 10:49 AM EST [facility] Previous Cancer History No 03/25/2023 10:49 AM EST [facility] Clinical Information Z01.419 - Encounter for annual routine gynecological examination [ICD-10-CM] 03/25/2023 10:49 AM EST [facility] Last Menstrual Period 03/11/2023 03/25/2023 10:49 AM EST [facility] Swab Vaginal and cervical cytologic material / Unknown Non-blood Collection / Unknown 03/12/2023 1:49 PM EST 03/15/2023 10:42 AM EST Venkat Nuno MD LAB CYTOLOGY ORDERABLES Final R esult Performing Organization Address City/State/[facility] Co dc Phone Number [facility] [address] [place] [address] from Last 3 Months or Most Recently Relevant to Health Maintenance Insurance [facility] MEDICAID [facility]
--- OUTSIDE RECORDS SUMMARY | 2024-10-23 11:03 | XMS_ITS | Patient Health Record ---
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 Phone Haydee Vidal Unavailable [phone] Allergies No Known Allergies Reason For Referral No Information Medications Medication SIG (Take, Route, Fr equency, Duration) Notes Start Date End Date Status Vitamins Un known Keflex 500 MG ONE TABLET ORALLY 4 times a day; Duration: 7 days 11/04/2021 Active Problems Problem Type SNOMED Code ICD Code Onset Dates Problem Status W/U Status Risk Notes Problem Cholelithiasis without obstruction (78952761) Calculus of gallbladder without cholecystitis without obstruction (K80.20) Active confirmed Problem Third trimester (74744903) Encounter for supervision of other normal in third trimester (Z34.83) Active confirmed Problem Primigravida (459486837) Encounter for care in first trimester of first (Z34.01) 021 Active confirmed Encounter for supervision of normal first , first trimester Problem Gestation period, 12 weeks (82158508) 12 weeks gestation of (Z3A.12) 021 Active confirmed 12 weeks gestation of Problem Amenorrhea (56961625) Absence of menses due to use of contraceptive (N91.2) 021 Active confirmed Missed period Plan Of Treatment No Information Insurance Providers Payer Name Payer Address Payer Phone Subscriber Number Group Number Insured Name Patient Relationship to Insured Coverage Start Date Coverage End Date R [address] [address] [place], [place] [id number] Gregory Cordova Self - patient is the insured [facility] [address] [place] [phone] [id number] Gregory Cordova Self - patient is the insured 2 Medical (General) History Medical History History ICD Code UTIs Gallbladder issues Surgical History Surgery Date(Month/Year) None noted
== END 2024-10-23 23:59 | disposition home or self-care (01) ==
LOC: RAD 11:00
PROVIDERS: PCP Family Medicine; Visit Provider Nurse Practitioner Obstetrics & Gynecology
DX: N93.9 Abnormal uterine and vaginal bleeding, unspecified (principal); R10.9 Unspecified abdominal pain; Z97.5 Presence of (intrauterine) contraceptive device; N85.4 Malposition of uterus
CPT/HCPCS: 76830

== ENCOUNTER 2025-01-01 17:31 | Outpatient (CLI) | payer OTHER, SELFPAY ==
--- OUTSIDE RECORDS SUMMARY | 2024-04-10 12:00 | XMS_ITS ---
Author Organization [facility] Address [address] [facility] [address] [place] [id number] Care Team Providers Care Vascular Physician Name Role Phone Keyon Ocampo Primary Care Provider Allergies No Known Allergies Results Component Value Reference Range Notes P-Vitamin B12 Reviewed date:04/13/2024 09:16:22 AM Interpretation:380 Performing Lab: Notes/Report: Test performed by [facility] [address] [place] [address] , [address], [place] [address] Raymundo Solano MD, Diet Tech CLIA: [id number] Vitamin B12 850 182-6671 pg/mL P-CBC With Platelet No Diffe rential Reviewed date:04/13/2024 09:16:22 AM Interpretation: Normal Performing Lab: Notes/Report: Test performed by [facility] [address] [place] [address] , [address], [place] [address] Raymundo Solano MD, Diet Tech CLIA: [id number] WBC 4.7 3.8-11.5 K/uL Red Blood Cell Count (RBC) 4.51 3.60-5.30 M/mm 3 Hemoglobin (Hgb) 12.6 11.5-15.5 gm/dL Hematocrit (HCT) 39.4 35.2-46.4 % MCV 87.4 79.0-99.0 fL MCH 27.9 26.9-35.0 pg MCHC 32.0 30.4-34.8 g/dL RDW 47.0 38.6-53.8 fL Platelet Count 285 137-397 K/cumm P-Comprehensive Metabolic Pa nikki (CMP) Reviewed date:04/13/2024 09:16:22 AM Interpretation:bun 21 Performing Lab: Notes/Report: Test performed by [facility], [address] , [address], [place] [address] Raymundo Solano MD, Diet Tech CLIA: [id number] Sodium 141 135-145 mmol/L Potassium 5.1 3.5-5.3 [...] Normal Performing Lab: Notes/Report: Test performed by [facility] [address] , [place] [address] Raymundo Solano MD, Diet Tech CLIA: [id number] Magnesium 2.1 1.6-2.4 mg/dL P-Phosphorus Reviewed date:04/13/2024 09:16:22 AM Interpretation: Normal Performing Lab: Notes/Report: Test performed by [facility] [address] , [address], [place] [address] Raymundo Solano MD, Diet Tech CLIA: [id number] Phosphorus 3.6 2.5-4.5 mg/dL P-TSH reflex to FT4 Reviewed date:04/13/2024 09:16:22 AM Interpretation: Normal Performing Lab: Notes/Report: Test performed by [facility] [address] , [place] [address] Raymundo Solano MD, Diet Tech CLIA: [id number] TSH reflex to FT4 0.88 0.43-5.25 mU/L P-Vitamin D 25-Hydroxy Reviewed date:04/13/2024 09:16:22 AM Interpretation:17.1 Performing Lab: Notes/Report: Test performed by [facility] [address] [place] [address] , [address], [place] [address] Raymundo Solano MD, Diet Tech CLIA: [id number] Vitamin D 25-Hydroxy 17.1 30.0-100.0 ng/mL Interpretation [...] W/U Status Risk Notes Problem Morbid obesity (238908933) Morbid obesity (E66.01) Active confirmed Vital Signs Weight 226.4 lbs 04/10/2024 Blood pressure systolic 114 mm Hg 04/10/20 24 Blood pressure diastolic 70 mm Hg 024 Heart Rate 90 /min 04/10/2024 Height 62.25 in 04/10/2024 BMI 41.07 kg/m2 04/10/2024 Encounters Encounter Location Date Provider Diagnosis [facility] [address] [place] [id number] 04/10/2024 Keyon Ocampo Morbid obesity E66.0 1 and Fatigue, unspecified type R53.83 Assessments Encounter Date Diagnosis (ICD Code) Assessment Notes Treatment Notes Treatment Clinical Notes Section Notes 04/10/2024 Morbid obesity (ICD-10 - E66.01) 04/10/2024 Fatigue, unspecified type (ICD-10 - R53.83) Plan Of Treatment Next Appt Details Follow Up: via phone to repo rt test results, Reason: Progress Notes * RAY MARTINEZB:2000 (24 yo F)Acc No.[id number]:04/10/2024 Progress Notes Patient: DEMETRIA SAINI Provider: Bruna Ocampo M.D. :2000 A ge:23 Y S ex:Female Date:04/10/2024 Address:[address] [place] [address], [place], [id number] Subjective: * Chief Complaints: * 1 . [...] PM)?380* Value Reference Range V itamin B12 134 491-7603 - pg/mL * Thais Zavala 04/13/2024 9:16:1 [...] * Images: Billing Information: * Visit Code: 96988 Office Visit, Est Pt., Level 4. * Procedure Codes: * Electronic signature of Joselin Ocampo MD on 01/02/2025 at 01:41 PM EDT Sign off status: Pending * Provider: Bruna Ocampo M.D. Date: 1 Generated for Angela mohan/Jessica/Dwightsmitting on: 0 01/02/2025 01:41 PM EDT History and Physical Notes * HPI (History [...]
--- OUTSIDE RECORDS SUMMARY | 2024-09-07 07:15 | XMS_ITS ---
Author Organization [facility] Address [address] [facility] [address] [place] [phone] Care Team Providers Care Rollway Worker Name Role Phone Keyon Ocampo Primary Care Provider [phone] Allergies No Known Allergies REASON FOR VISIT discuss weight loss Medications Medication SIG (Take, Route, Frequency, Duration) Notes Start Date End Date Status Wegovy 0.5 MG/0.5ML 0.5 mL Subcutaneous once weekly 09/07/2024 Active Vitamin D3 1.25 MG (33095 UT) 1 capsule Orally Once weekly 04/17/2024 Active Vital Signs Weight 229.4 lbs 09/07/2024 Blood pressure systolic 120 mm Hg 09/08/19 25 Blood pressure diastolic 70 mm Hg 025 Heart Rate 92 /min 09/07/2024 Height 62.25 in 09/07/2024 BMI 41.62 kg/m2 09/07/2024 Encounters Encounter Location Date Provider Diagnosis [facility] [address] [place] [phone] 09/07/2024 Keyon Ocampo Morbid obesity E66.0 1 [...] Notes * VERNA MARTINEZ:2000 (24 yo F)Acc No.[id number]:09/07/2024 Progress Notes Patient: T INCHER, DEMETRIA Provider: Bruna Ocampo M.D. :2000 A ge:24 Y S ex:Female Date:09/07/2024 Address:[place], [id number] Subjective: * Chief Complaints: * 1 . [...] Medications: T aking Vitamin D3 1.25 MG (42494 UT) Capsule 1 capsule Orally Once weekly [...] * Images: Billing Information: * Visit Code: 32070 Office Visit, Est Pt., Level 3. * Procedure Codes: G8950 PREHTN/HTN BP DOC INDCD F/U DOC. G8752 MOST RECENT SYSTOLIC BP < 140MM HG. G8754 MOST RECENT DIASTOLIC BP < 90MM HG. 1036F TOBACCO NON-USER. * Electronic signature of Joselin Ocampo MD on 01/02/2025 at 01:40 PM EDT Sign off status: Pending * Provider: Bruna Ocampo M.D. Date: 0 09/07/2024 Generated for Angela mohan/Jessica/Biaitting on: 0 01/02/2025 01:40 PM EDT History and Physical Notes * [...]
--- OUTSIDE RECORDS SUMMARY | 2024-11-17 07:30 | XMS_ITS ---
Author Organization [facility] Address [address] [facility] [address] [place] [phone] Care Team Providers Care Manager Fraud Name Role Phone Keyon Ocampo Primary Care Provider Allergies No Known Allergies REASON FOR VISIT 2 months Medications Medication SIG (Take, Route, Fr equency, Duration) Notes Start Date End Date Status Wegovy 1.7 MG/0.75ML 0.75 mL Subcutaneous weekly 0 11/17/2024 Active Problems Problem Type SNOMED Code ICD Code Onset Dates Problem Status W/U Status Risk Notes Problem Obesity (621326081) Non morbid obesity (E66.9) Active confirmed Vital Signs Weight 220.2 lbs 11/17/2024 Blood pressure systolic 116 mm Hg 11/18/19 25 Blood pressure diastolic 70 mm Hg 025 Heart Rate 90 /min 11/17/2024 Height 62.25 in 11/17/2024 BMI 39.95 kg/m2 11/17/2024 Encounters Encounter Location Date Provider Diagnosis [facility] [address] [facility] [address] [place] [phone] 11/17/2024 Keyon Ocampo Non morbid obesity E66.9 [...] Notes * VIRIDIANA MARTINEZIDOB:2000 (24 yo F)Acc No.[id number]:11/17/2024 Progress Notes Patient: DEMETRIA SAINI Provider: Bruna Ocampo M.D. :2000 A ge:24 Y S ex:Female Date:11/17/2024 Address:[address] [place] [address], [facility], [id number] Subjective: * Chief Complaints: * 1 . [...] week , Discontinued Vitamin D3 1.25 MG (43465 UT) Capsule 1 capsule Orally Once weekly [...] * Images: Billing Information: * Visit Code: 12057 Office Visit, Est Pt., Level 3. * Procedure Codes: 1036F TOBACCO NON-USER. 3074F SYST BP LT 130 MM HG. 3078F DIAST BP < 80 MM HG. * Electronic signature of Joselin Ocampo MD on 01/02/2025 at 01:40 PM EDT Sign off status: Pending * Provider: Bruna Ocampo M.D. Date: 0 11/17/2024 Generated for Angela mohan/Jessica/Biaitting on: 0 01/02/2025 [...]
--- OUTSIDE RECORDS SUMMARY | 2025-01-02 13:41 | XMS_ITS | Clinical Summary ---
Author Organization [facility] Address [address] [place] [address] Care Team Providers Care Hoisting Engine Operator Name Role Phone Unavailable Primary Care Provider [...] Td Vaccines (2 - Tdap) 2018 1999 [facility]-Depression Screening 08/08/2024 08/09/2023 [id number] Vaccine (2 - season) 2024 03/31/2021 [facility]-Influenza Vaccine (#1) 2024 [facility]-Pap Smear 03/12/2026 [...] Reactive Non Reactive 07/12/2023 1:53 PM EDT [facility] Comment:Screening for HIV 1 & 2 antibodies, and P24 antigen is NONREACTIVE. No confirmatory testing is required. Blood Venous blood specimen / Unknown Venipuncture / Unknown 07/12/2023 10:02 AM EDT 07/12/2023 12:40 PM EDT us Venkat Nuno MD LAB BLOOD ORDERABLES Final Resu lt [facility] [address] [place] [address] * Hepatitis C Antibody - ED W/Reflex to HCV Quant PCR (07/12/2023 10:02 AM EDT) Hepatitis C Antibody Negative Negative 07/13/2023 5:06 AM EDT [facility] Blood Venous blood specimen / Unknown Venipuncture / Unknown 07/12/2023 10:02 AM EDT 07/12/2023 12:40 PM EDT Venkat Nuno MD LAB BLOOD ORDERABLES Final Resu lt [facility] [address] [place] [id number] * Pap Test (03/12/2023 1:49 PM EST) Case Report Cytology Case: [id number] Authorizing Provider: Venkat Nuno MD Collected: 03/12/2023 1349 Ordering Location: Obstetrics & Gynecology Received: 03/15/2023 1042 First Screen: Nedra Neal Pathologist: Kimberly Wilcox MD Specimen: ThinPrep Pap Test, Liquid-Based Cervical/Vaginal 03/25/2023 10:49 AM EST [facility] Interpretation NEGATIVE FOR INTRAEPITHELIAL LESION OR MALIGNANCY 03/25/2023 10:49 AM EST [facility] at 1049 EST Other Findings Inflammatory change. Fungal organisms consistent with Yamile species. 03/25/2023 10:49 AM EST [facility] Specimen Adequacy Satisfactory for evaluation; endocervical/bell sformation zone component present. Slide imaged by the ThinPrep Imaging system and selected 22 mckeon reviewed then full manual screening. 03/25/2023 10:49 AM EST [facility] Cervical cytology is a screening test [...] results is suggested (please call Microbiology at [phone] for results). 03/25/2023 10:49 AM EST [facility] Menstrual Status Cyclic 03/25/20 10:49 AM EST [facility] History of Hysterectomy Not Applicable 03/25/2023 10:49 AM EST [facility] Contraceptive History Not Applicable 03/25/2023 10:49 AM EST [facility] Screening Type Routine Screen 2022 10:49 AM EST [facility] High Risk? No 03/25/2023 10:49 AM EST [facility] HPV Testing Requested? Request HPV Testing if ASCUS (Women 25 Years or Older) 03/25/2023 10:49 AM EST [facility] Previous Cancer History No 03/25/2023 10:49 AM EST [facility] Clinical Information Z01.419 - Encounter for annual routine gynecological examination [ICD-10-CM] 03/25/2023 10:49 AM EST [facility] Last Menstrual Period 03/11/2023 03/25/2023 10:49 AM EST [facility] Swab Vaginal and cervical cytologic material / Unknown Non-blood Collection / Unknown 03/12/2023 1:49 PM EST 03/15/2023 10:42 AM EST Venkat Nuno MD LAB CYTOLOGY ORDERABLES Final R esult Performing Organization Address City/State/[facility] Co ca Phone Number [facility] [address] [place] [address] from Last 3 Months or Most Recently Relevant to Health Maintenance Insurance [facility]
--- OUTSIDE RECORDS SUMMARY | 2025-01-02 13:41 | XMS_ITS | Patient Health Record ---
Author Organization [facility] Address [address] [facility] [address] [place] [phone] Care Team Providers Care Wire Strander Name Role Phone Keyon Ocampo Primary Care Provider Allergies No Known Allergies Results Component Value Reference Range Notes P-Vitamin B12 Reviewed date:04/13/2024 09:16:22 AM Interpretation:380 Performing Lab: Notes/Report: Test performed by [facility] [address] [place] [address] , [address], [place] [address] Raymundo Solano MD, Photovoltaic Panel Installer CLIA: [id number] Vitamin B12 126 704-8788 pg/mL P-CBC With Platelet No Diffe rential Reviewed date:04/13/2024 09:16:22 AM Interpretation: Normal Performing Lab: Notes/Report: Test performed by [facility] [address] [place] [address] , [address], [place] [address] Raymundo Solano MD, Photovoltaic Panel Installer CLIA: [id number] WBC 4.7 3.8-11.5 K/uL Red Blood Cell Count (RBC) 4.51 3.60-5.30 M/mm 3 Hemoglobin (Hgb) 12.6 11.5-15.5 gm/dL Hematocrit (HCT) 39.4 35.2-46.4 % MCV 87.4 79.0-99.0 fL MCH 27.9 26.9-35.0 pg MCHC 32.0 30.4-34.8 g/dL RDW 47.0 38.6-53.8 fL Platelet Count 285 137-397 K/cumm P-Comprehensive Metabolic Pa nikki (CMP) Reviewed date:04/13/2024 09:16:22 AM Interpretation:bun 21 Performing Lab: Notes/Report: Test performed by [facility] [address] [place] [address] , [address], [place] [address] Raymundo Solano MD, Photovoltaic Panel Installer CLIA: [id number] Sodium 141 135-145 mmol/L Potassium 5.1 3.5-5.3 [...] Normal Performing Lab: Notes/Report: Test performed by [facility] [address] , [address], [place] [address] Raymundo Solano MD, Photovoltaic Panel Installer CLIA: [id number] Magnesium 2.1 1.6-2.4 mg/dL P-Phosphorus Reviewed date:04/13/2024 09:16:22 AM Interpretation: Normal Performing Lab: Notes/Report: Test performed by [facility] [address] [place] [address] , [address], [place] [id number] Raymundo Solano MD, Photovoltaic Panel Installer CLIA: [id number] Phosphorus 3.6 2.5-4.5 mg/dL P-TSH reflex to FT4 Reviewed date:04/13/2024 09:16:22 AM Interpretation: Normal Performing Lab: Notes/Report: Test performed by [facility] [address] , [address], [place] [address] Raymundo Solano MD, Photovoltaic Panel Installer CLIA: [id number] TSH reflex to FT4 0.88 0.43-5.25 mU/L P-Vitamin D 25-Hydroxy Reviewed date:04/13/2024 09:16:22 AM Interpretation:17.1 Performing Lab: Notes/Report: Test performed by [facility] [employer] [address] [place] [address] , [address], [place] [address] Raymundo Solano MD, Photovoltaic Panel Installer CLIA: [id number] Vitamin D 25-Hydroxy 17.1 30.0-100.0 ng/mL Interpretation of Vitamin D 25 OH: < 20 ng/mL - Deficiency 20 - 29 ng/mL - Insufficiency 30 - 100 ng/mL - Sufficiency > 100 ng/mL - Super-therapeutic- toxicity may occur above this level. Clinical correlation required. Medications Medication SIG (Take, Route, Fr equency, Duration) Notes Start Date End Date Status Wegovy 1 MG/0.5ML INJECT THE CONTENTS OF 1 PEN (1 MG / 0.5ML) SUBCUTANEOUSLY ONCE A WEEK; Duration: 30 Active Immunizations Vaccine Route Administration Date Status Comme nts Hep A- Pediatric IM Intramuscular 06/25/2017 Administered Hep A- Pediatric IM Intramuscular 01/26/2018 Administered Menactra IM Intramuscular 02/17/2011 Administered Menactra IM Intramuscular 06/25/2017 Administered ppd ID Intradermal 11/28/2018 Administered Tetanus Tdap-Adacel (over 7yrs) IM Intramuscular 02/17/2011 Administered Varivax SC Subcutaneous 02/17/2011 Administered xGardasil IM Intramuscular 02/17/2011 Administered xGardasil IM Intramuscular 04/20/2011 Administered xGardasil IM Intramuscular 09/04/2011 Administered Problems Problem Type SNOMED Code ICD Code Onset Dates Problem Status W/U Status Risk Notes Problem Morbid obesity (383380285) Morbid obesity (E66.01) Active confirmed Problem Amenorrhea (54676732) Amenorrhea (N91.2) Active confirmed Problem Constipation (75926336) Constipation, unspecified constipation type (K59.00) Active confirmed Problem Body mass index 40+ - severely obese (194073123) Body mass index (BMI) of 40.1 to 44.9 in adult (Z68.41) Active confirmed Problem Obesity (666468833) Non morbid obesity (E66.9) Active confirmed Vital Signs Heart Rate 90 /min 11/17/2024 Blood pressure diastolic 70 mm Hg 11/17/2024 Height 62.25 in 11/17/2024 Blood pressure systolic 116 mm Hg 11/17/2024 Weight 220.2 lbs 11/17/2024 BMI 39.95 kg/m2 11/17/2024 Encounters Encounter Location Date Provider Diagnosis [facility] [address] [place], [place] [id number] 04/10/2024 Keyon Bloomer Morbid obesity E66.0 1 and Fatigue, unspecified type R53.83 [facility] [address] [place], [place] [id number] 09/07/2024 Keyon Bloomer Morbid obesity E66.0 1 and Encounter for weight management Z76.89 [facility] [address] [place], [place] [id number] 11/17/2024 Keyon Bloomer Non morbid obesity E66.9 and Encounter for weight management Z76.89 [facility] [address] [place], [place] [id number] 04/13/2024 Keyon Bloomer [facility] [address] [place] [id number] 04/26/2024 Keyon Bloomer [facility] [address] [place] [id number] 09/07/2024 Keyon Bloomer [facility] [address] [place] [id number] 09/29/2024 Keyon Bloomer [facility] [address] [place] [id number] 09/29/2024 Keyon Bloomer [facility] [address] [place] [id number] 10/05/2024 Keyon Bloomer [facility] [address] [place] [id number] 10/27/2024 Keyon Bloomer Morbid obesity E66.0 1 [facility] [address] [place] [id number] 11/17/2024 Keyon Bloomer [facility] [address] [place] [id number] 12/13/2024 Keyon Bloomer Assessments Encounter Date Diagnosis (ICD Code) Assessment Notes Treatment Notes Treatment Clinical Notes Section Notes 04/10/2024 Morbid obesity (ICD-10 - E66.01) 04/10/2024 Fatigue, unspecified type (ICD-10 - R53.83) 09/07/2024 Morbid obesity (ICD-10 - E66.01) 09/07/2024 Encounter for weight management (ICD-10 - Z76.89) 10/27/2024 Morbid obesity (ICD-10 - E66.01) 11/17/2024 Non morbid obesity (ICD-10 - E66.9) 11/17/2024 Encounter for weight management (ICD-10 - Z76.89) Plan Of Treatment No Information Insurance Providers Payer Name Payer Address Payer Phone Subscriber Number Group Number Insured Name Patient Relationship to Insured Coverage Start Date Coverage End Date [facility] [address] [address] [place] [address] [phone] [id number] DEMETRIA MARTINEZ Self - patient is the insured [facility] [address] [place], [place] [id number] DEMETRIA MARTINEZ Self - patient is the insured Medical (General) History Medical History History ICD Code 1999 Cystogram showed left VUR and evidence of cystitis. Renal US was WNL Polycystic ovarian syndrome Surgical History Surgery Date(Month/Year)
--- OUTSIDE RECORDS SUMMARY | 2025-01-02 13:41 | XMS_ITS | Clinical Summary ---
[facility] Address [address] [place] [address] Care Team Providers Care Geothermal Hvac Technician Name Role Phone Provider, No Known Primary Care Provider Unavail able Allergies No known active allergies Medications Vit-Fe Fumarate-FA ( ) 27-1 MG tablet tablet Take 1 tablet by mouth Daily. Active docusate sodium (COLACE) 100 MG capsule Take 1 capsule by mouth 2 (Two) Times a Day. 60 capsule 10/06/2021 9:06 AM EDT 10/06/2021 Active ibuprofen (ADVIL,MOTRIN) 600 MG tablet Take 1 tablet by mouth Every 6 (Six) Hours As Needed for Mild Pain . 60 tablet 10/06/2021 9:06 AM EDT 10/06/2021 Active Active Problems Problem Noted Date Diagnosed Date 39 weeks gestation of 10/05/2021 (normal spontaneous vaginal delivery) 10/04 Resolved Problems Problem Noted Date Diagnosed Date Resolved Date 39 weeks gestation of 10/04/2021 10/04/2021 False labor after 37 weeks o f gestation without delivery 09/30/2021 10/04/2021 Social History Tobacco Use Types Packs/Day Years Used Date Smoking Tobacco: Never Smokeless Tobacco: Never Alcohol Use Standard Drinks/Week Comments Never 0 (1 standard drink = 0.6 oz pur e alcohol) AUDIT-C Answer Date Recorded Q1: How often do you have a drink containing alc ohol? Never 10/03/2021 Average Number of Drinks Not on file 022 Frequency of Binge Drinking Not on file 09/11 [place] Depression Scale Answer Date Recorded Retired [place] Depression Score 2 10/05/2021 Retired EPD Scale: Thought of Harming Self Unrec ognized value 10/05/2021 Abuse Screen Answer Date Recorded Unsafe at Home or Work/School Not on file Feels Threatened by Someone? Not on file Does Anyone Keep You from Co ntacting Others or Doint Things Outside the Home? Not on file 01/22/2023 Physical Sign of Abuse Present Not on file 1 Housing Stability Answer Date Recorded Current Living Arrangements Not on file 01/10 Potentially Unsafe Housing Conditions Not on ruben e 01/22/2023 Family and Community Support Answer Momo e Recorded Help with Day-to-Day Activities Not on file 01/22/2023 Lonely or Isolated Not on file 01/22/2023 Employment Answer Date Recorded Do you want help finding or keeping work or a dariel b? Not on file 01/22/2023 Disabilities Answer Date Recorded Concentrating, Remembering, or Making Decisions Difficulty Not on file 01/22/2023 Doing Errands Independently Difficulty Not on fi le 01/22/2023 Education Answer Date Recorded Help with school or training? Not on file Preferred Language Not on file 01/22/2023 Comments No Sex and Gender Information Value Date Recorded Sex Assigned at Not on file Legal Sex Female 4:28 PM EDT Gender Identity Not on file Sexual Orientation Not on file Last Filed Vital Signs Vital Sign Reading Time Taken Comments Blood Pressure 132/66 10/06/2021 7:00 AM EDT Pulse 104 10/06/2021 7:00 AM EDT Temperature 36.9 C (98.5 F) 10/06/2021 8:32 AM EDT Respiratory Rate 18 10/06/2021 7:00 AM EDT Oxygen Saturation - - Inhaled Oxygen Concentration - - Weight 104 kg (230 lb) 10/03/2021 9:43 PM EDT Height 160 cm (5' 3 ) 10/03/2021 9:43 PM EDT Body Mass Index 40.74 10/03/2021 9:43 PM EDT Plan of Treatment Health Maintenance Due Date Last Done Comments Annual Gynecologic Pelvic an d Breast Exam 2000 HPV VACCINES (1 - 3-dose series) 2014 TDAP/TD VACCINES (1 - Tdap) 2018 ANNUAL PHYSICAL 10/03/2021 INFLUENZA VACCINE 11/10/2024 HEPATITIS C SCREENING Completed 03/28/2021 Pneumococcal Vaccine 0-49 Aged Out No longer eligible based on patient's age to complete this topic Procedures Procedure Name Priority Date/Time Associated Diagnosis Comments HEPATITIS C ANTIBODY Routine 03/28/2021 4:59 PM EST 12 weeks gestation of care, subsequent , first trimester from Last 3 Months or Most Recently Relevant to Health Maintenance Results * Hepatitis C Antibody (03/28/2021 4:59 PM EST) Hepatitis C Ab Non-Reacti ve Non-Reacti ve 03/29/2021 12:40 AM EST [facility] Blood Venipuncture / Unknown 03/28/2021 4:59 PM EST 03/28/2021 5:09 PM EST Narrative [facility] - 03/29/2021 12:40 AM EST Results may be falsely decreased if patient taking Biotin. us Haydee Vidal [facility] BLOOD ORDERABLES Brigette pleitez Result [facility]
[address] [place] [address], from Last 3 Months or Most Recently Relevant to Health Maintenance Insurance Mery [facility] [place] [address] [facility] Advance Directives * CPR (Attempt to Resuscitate) (Latest Code Status on File) Date Activated Date Inactivated Comments 10/05/2021 3:40 AM 10/06/2021 1:56 PM Question Answer Comments Code Status (Patient has no pulse and is not breathing): CPR (Attempt to Resuscitate) Medical Interventions (Patie nt has pulse or is breathing): Full * CPR (Attempt to Resuscitate) Date Activated Date Inactivated Comments 10/03/2021 9:12 PM 10/05/2021 3:40 AM Question Answer Comments Code Status (Patient has no pulse and is not breathing): CPR (Attempt to Resuscitate) Medical Interventions (Patie nt has pulse or is breathing): Full Support Level Of Support Discussed With: Patient Care Teams Geothermal Hvac Technician Relationship Specialty Start Date End Date [place], [place] [address] PCP - General 02/12/21
--- OUTSIDE RECORDS SUMMARY | 2025-01-02 13:41 | XMS_ITS | Patient Health Record ---
Author Organization [facility] Address [address] [facility] [address] [place] [address] Care Team Providers Care Embedded Hardware Engineer Name Role Phone Haydee Vidal Unavailable [phone] Allergies No Known Allergies Reason For Referral No Information Medications Medication SIG (Take, Route, Fr equency, Duration) Notes Start Date End Date Status Vitamins Un known Keflex 500 MG ONE TABLET ORALLY 4 times a day; Duration: 7 days 11/04/2021 Active Problems Problem Type SNOMED Code ICD Code Onset Dates Problem Status W/U Status Risk Notes Problem Primigravida (528174169) Encounter for care in first trimester of first (Z34.01) Active confirmed Encounter for supervision of normal first , first trimester Problem Cholelithiasis without obstruction (82974887) Calculus of gallbladder without cholecystitis without obstruction (K80.20) Active confirmed Problem Gestation period, 12 weeks (30597947) 12 weeks gestation of (Z3A.12) 021 Active confirmed 12 weeks gestation of Problem Third trimester (63480252) Encounter for supervision of other normal in third trimester (Z34.83) Active confirmed Problem Amenorrhea (03763551) Absence of menses due to use of contraceptive (N91.2) 021 Active confirmed Missed period Plan Of Treatment No Information Insurance Providers Payer Name Payer Address Payer Phone Subscriber Number Group Number Insured Name Patient Relationship to Insured Coverage Start Date Coverage End Date UMR [address] [address] [place], [place] [id number] Gregory Cordova Self - patient is the insured [facility] [address] [place] [address] [id number] Gregory Cordova Self - patient is the insured 2 Medical (General) History Medical History History ICD Code UTIs Gallbladder issues Surgical History Surgery Date(Month/Year) None noted
== END 2025-01-01 23:59 | disposition home or self-care (01) ==
LOC: LAB.DROPOF 01-02 13:39
PROVIDERS: PCP Nurse Practitioner; Visit Provider Nurse Practitioner
DX: N39.0 Urinary tract infection, site not specified (principal)
CPT/HCPCS: 87086

== ENCOUNTER 2025-01-17 17:48 | Outpatient (CLI) | payer OTHER, SELFPAY ==
[2025-01-17 20:30] LABS: Coronavirus 19, PCR Not Detected (NotDetected); Influenza A, PCR Not Detected (NotDetected); Influenza B, PCR Not Detected (NotDetected)
--- OUTSIDE RECORDS SUMMARY | 2025-01-19 01:33 | XMS_ITS | Clinical Summary ---
Author Organization Healthcare Address [address] [place] [address] Care Team Providers Care Art Handler Name Role Phone Unavailable Primary Care Provider [...] Health Maintenance Due Date Last Done Comments [facility]-Infant/Child/Adol SDOH Screenings 1999 [facility]-Hepatitis B Vaccines (2 of 3 - 3-dose series) 1999 1999 [facility]-IPV Vaccines (2 of 3 - 4-dose series) 1999 1999 [facility]-Varicella Vaccines (1 of 2 - 13+ 2-dose series) 2012 HPV Vaccines (1 - 3-dose series) 2014 [facility]- SDOH Screenings 2017 [facility]-Adult SDOH Screenings 2017 [facility]-DTaP,Tdap,and Td Vaccines (2 - Tdap) 2018 1999 [facility]-Depression Screening 08/08/2024 08/09/2023 [id number] Vaccine (2 - season) 2024 03/31/2021 [facility]-Influenza [...] Reactive Non Reactive 07/12/2023 1:53 PM EDT [facility] Comment:Screening for HIV 1 & 2 antibodies, and P24 antigen is NONREACTIVE. No confirmatory testing is required. Blood Venous blood specimen / Unknown Venipuncture / Unknown 07/12/2023 10:02 AM EDT 07/12/2023 12:40 PM EDT us Venkat Nuno MD LAB BLOOD ORDERABLES Final Resu lt [facility] [address] [place] [address] * Hepatitis C Antibody - ED W/Reflex to HCV Quant PCR (07/12/2023 10:02 AM EDT) Hepatitis C Antibody Negative Negative 07/13/2023 5:06 AM EDT [facility] Blood Venous blood specimen / Unknown Venipuncture / Unknown 07/12/2023 10:02 AM EDT 07/12/2023 12:40 PM EDT Venkat Nuno MD LAB BLOOD ORDERABLES Final Resu lt [facility] [address] [place] [id number] * Pap Test (03/12/2023 1:49 PM EST) Case Report Cytology Case: [id number] Authorizing Provider: Venkat Nuno MD Collected: 03/12/2023 1349 Ordering Location: Obstetrics & Gynecology Received: 03/15/2023 1042 First Screen: Nedra Neal Pathologist: Kimberly Wilcox MD Specimen: ThinPrep Pap Test, Liquid-Based Cervical/Vaginal 03/25/2023 10:49 AM EST [facility] Interpretation NEGATIVE FOR INTRAEPITHELIAL LESION OR MALIGNANCY 03/25/2023 10:49 AM EST [facility] at 1049 EST Other Findings Inflammatory change. Fungal organisms consistent with Yamile species. 03/25/2023 10:49 AM EST [facility] Specimen Adequacy Satisfactory for evaluation; endocervical/bell sformation zone component present. Slide imaged by the ThinPrep Imaging system and selected 22 mckeon reviewed then full manual screening. 03/25/2023 10:49 AM EST [facility] Cervical cytology is a screening [...] results is suggested (please call Microbiology at [phone] for results). 03/25/2023 10:49 AM EST [facility] Menstrual Status Cyclic 03/25/20 10:49 AM EST [facility] History of Hysterectomy Not Applicable 03/25/2023 10:49 AM EST [facility] Contraceptive History Not Applicable 03/25/2023 10:49 AM EST [facility] Screening Type Routine Screen 2022 10:49 AM EST [facility] High Risk? No 03/25/2023 10:49 AM EST [facility] HPV Testing Requested? Request HPV Testing if ASCUS (Women 25 Years or Older) 03/25/2023 10:49 AM EST [facility] Previous Cancer History No 03/25/2023 10:49 AM EST [facility] Clinical Information Z01.419 - Encounter for annual routine gynecological examination [ICD-10-CM] 03/25/2023 10:49 AM EST [facility] Last Menstrual Period 03/11/2023 03/25/2023 10:49 AM EST [facility] Swab Vaginal and cervical cytologic material / Unknown Non-blood Collection / Unknown 03/12/2023 1:49 PM EST 03/15/2023 10:42 AM EST Venkat Nuno MD LAB CYTOLOGY ORDERABLES Final R esult Performing Organization Address City/State/[facility] Co ct Phone Number [facility] [address] [place] [address] from Last 3 Months or Most Recently Relevant to Health Maintenance Insurance [facility] MEDICAID [facility]
--- OUTSIDE RECORDS SUMMARY | 2025-01-19 01:33 | XMS_ITS | Clinical Summary ---
Author Organization [facility] Address [address] [place] [address] Care Team Providers Care Hotel Reservationist Name Role Phone Provider, No Known Primary [...] of Binge Drinking Not on file 09/11 [place] Depression Scale Answer Date Recorded Retired [place] Depression Score 2 10/05/2021 Retired EPD Scale: [...] ve Non-Reacti ve 03/29/2021 12:40 AM EST [facility] Blood Venipuncture / Unknown 03/28/2021 4:59 PM EST 03/28/2021 5:09 PM EST Narrative [facility] - 03/29/2021 12:40 AM EST Results may be falsely decreased if patient taking Biotin. us Haydee Vidal [facility] BLOOD ORDERABLES Brigette pleitez Result [facility]
[address] [place] [address], from Last 3 Months or Most Recently Relevant to Health Maintenance Insurance Mery [facility] [id number] UMR [facility] Advance Directives * CPR (Attempt to [...] Of Support Discussed With: Patient Care Teams Hotel Reservationist Relationship Specialty Start Date End Date Provider, [place] [address] PCP - General 02/12/21
== END 2025-01-17 23:59 ==
LOC: LAB.DROPOF 01-19 01:31
PROVIDERS: PCP Student in an Organized Health Care Education/Training Program; Visit Provider Student in an Organized Health Care Education/Training Program
DX: J06.9 Acute upper respiratory infection, unspecified (principal)
CPT/HCPCS: 87631

== ENCOUNTER 2025-02-21 10:20 | Outpatient (CLI) | payer OTHER, SELFPAY ==
--- OUTSIDE RECORDS SUMMARY | 2024-04-10 11:00 | XMS_ITS ---
Author Organization [facility] Address [address] [facility] [address] [place] [id number] Care Team Providers Care Assembler [employer] Name Role Phone Keyon Ocampo Primary Care Provider [phone] Allergies No Known Allergies Results Component Value Reference Range Notes P-Vitamin B12 Reviewed date:04/13/2024 09:16:22 AM Interpretation:380 Performing Lab: Notes/Report: Test performed by [facility] [address] [place] [address] , [address], [place] [address] Raymundo Solano MD, Hog Cooler CLIA: [id number] Vitamin B12 642 960-0439 pg/mL P-CBC With Platelet No Diffe rential Reviewed date:04/13/2024 09:16:22 AM Interpretation: Normal Performing Lab: Notes/Report: Test performed by [facility] [address] [place] [address] , [address], [place] [address] Raymundo Solano MD, Hog Cooler CLIA: [id number] WBC 4.7 3.8-11.5 K/uL Red Blood Cell Count (RBC) 4.51 3.60-5.30 M/mm 3 Hemoglobin (Hgb) 12.6 11.5-15.5 gm/dL Hematocrit (HCT) 39.4 35.2-46.4 % MCV 87.4 79.0-99.0 fL MCH 27.9 26.9-35.0 pg MCHC 32.0 30.4-34.8 g/dL RDW 47.0 38.6-53.8 fL Platelet Count 285 137-397 K/cumm P-Comprehensive Metabolic Pa nikki (CMP) Reviewed date:04/13/2024 09:16:22 AM Interpretation:bun 21 Performing Lab: Notes/Report: Test performed by [facility], [address] , [address], [place] [address] Raymundo Solano MD, Hog Cooler CLIA: [id number] Sodium 141 135-145 mmol/L Potassium 5.1 3.5-5.3 mmol/L Chloride 108 97-108 mmol/L CO2 23 22-32 mmol/L Glucose 85 65-99 mg/dL BUN 21 6-20 mg/dL Creatinine 0.65 0.50-1.00 mg/dL Calcium 9.2 8.6-10.4 mg/dL eGFR by Creatinine 125 >59 mL/min/1.73m2 Protein 7.0 6.0-8.3 g/dL Albumin 4.0 3.5-5.3 g/dL Alkaline Phosphatase 109 35-121 IU/L ALT (SGPT) 17 <5-47 IU/L AST (SGOT) 10 <5-40 IU/L Bilirubin, Total <0.2 <0.2-1.2 mg/dL A/G Ratio 1.3 1.1-2.5 P-Magnesium Reviewed date:04/13/2024 09:16:22 AM Interpretation: Normal Performing Lab: Notes/Report: Test performed by [facility] [address] , [place] [address] Raymundo Solano MD, Hog Cooler CLIA: [id number] Magnesium 2.1 1.6-2.4 mg/dL P-Phosphorus Reviewed date:04/13/2024 09:16:22 AM Interpretation: Normal Performing Lab: Notes/Report: Test performed by [facility] [address] , [address], [place] [address] Raymundo Solano MD, Hog Cooler CLIA: [id number] Phosphorus 3.6 2.5-4.5 mg/dL P-TSH reflex to FT4 Reviewed date:04/13/2024 09:16:22 AM Interpretation: Normal Performing Lab: Notes/Report: Test performed by [facility] [address] , [place] [address] Raymundo Solano MD, Hog Cooler CLIA: [id number] TSH reflex to FT4 0.88 0.43-5.25 mU/L P-Vitamin D 25-Hydroxy Reviewed date:04/13/2024 09:16:22 AM Interpretation:17.1 Performing Lab: Notes/Report: Test performed by [facility] [address] [place] [address] , [address], [place] [address] Raymundo Solano MD, Hog Cooler CLIA: [id number] Vitamin D 25-Hydroxy 17.1 30.0-100.0 ng/mL Interpretation of Vitamin D 25 OH: < 20 ng/mL - Deficiency 20 - 29 ng/mL - Insufficiency 30 - 100 ng/mL - Sufficiency > 100 ng/mL - Super-therapeutic- toxicity may occur above this level. Clinical correlation required. REASON FOR VISIT weight loss Problems Problem Type SNOMED Code ICD Code Onset Dates Problem Status W/U Status Risk Notes Problem Morbid obesity (454592115) Morbid obesity (E66.01) Active confirmed Vital Signs Blood pressure systolic 114 mm Hg 04/10/20 24 Blood pressure diastolic 70 mm Hg 024 Heart Rate 90 /min 04/10/2024 Height 62.25 in 04/10/2024 Weight 226.4 lbs 04/10/2024 BMI 41.07 kg/m2 04/10/2024 Encounters Encounter Location Date Provider Diagnosis [facility] [address] [place] [id number] 04/10/2024 Keyno Ocampo Morbid obesity E66.0 1 and Fatigue, unspecified type R53.83 Assessments Encounter Date Diagnosis (ICD Code) Assessment Notes Treatment Notes Treatment Clinical Notes Section Notes 04/10/2024 Morbid obesity (ICD-10 - E66.01) 04/10/2024 Fatigue, unspecified type (ICD-10 - R53.83) Plan Of Treatment Next Appt Details Follow Up: via phone to repo rt test results, Reason: Progress Notes * RAY MARTINEZB:2000 (24 yo F)Acc No.[id number]:04/10/2024 Progress Notes Patient: DEMETRIA SAINI Provider: Bruna Ocampo M.D. :2000 A ge:23 Y S ex:Female Date:04/10/2024 Address:[address] [place] [address], [place], [id number] Subjective: * Chief Complaints: * 1 . Weight loss. * HPI: H PI: 23 year old female presents with c/o Patient is here today for? Pt here to discuss options for weight loss. Pt states she has tried to diet but has not had any weight loss. Pt states she has PCOS and is having a hard time with weight gain. * ROS: D ERMATOLOGY: no R kristi. n o H landry. G ASTROENTEROLOGY: no N ausea. n o V omiting. U ROLOGY: no D ifficulty urinating. n o B lood in urine. * Medical History: 0 1999 Cystogram showed left VUR and evidence of cystitis. Renal US was WNL, Polycystic ovarian syndrome. * Surgical History: D enies Past Surgical History. * Hospitalization/Major Diagno stic Procedure: D enies Past Hospitalization. * Family History: F ather: alive 28 [...] Does not smoke. Sexually active: no. * Medications: D iscontinued Bactrim DS 800-160 MG Tablet 1 tab(s) orally every 12 hours , Discontinued Contrave 8-90 MG Tablet Extended Release 12 Hour 1 tab daily x 1 week, the 1 tab twice a day x 1 week, the 2 tab in the am and 1 tab at night x 1 week, then 2 tab twice a day orally 2 times a day , Medication List reviewed and reconciled with the patient * Allergies: N .K.D.A. Objective: * Vitals: W t:226.4, Temp:98.1, BP:114/70, HR:90, Nurse:joan, Ht: 62.25, BMI:41.07. * Examination: E ndocrinology: General Appearance: N AD. H EENT: u nremarkable.?Thyroid exam: n o enlargement. H eart: R SR. L ungs: c lear to auscultation.?Extremities: n o leg edema. Assessment: * Assessment: 1. M orbid obesity - E66.01 (Primary) 2 . F atigue, unspecified type - R53.83 Plan: * Treatment: Value Reference Range H ematocrit (HCT) 39.4 35.2-46.4 - % * H emoglobin (Hgb) 12.6 11.5-15.5 - gm/dL * M CH 27.9 26.9-35.0 - pg * M CHC 32.0 30.4-34.8 - g/dL * M CV 87.4 79.0-99.0 - fL * P latelet Count 285 137-397 - K/cumm * R ed Blood Cell Count (RBC) 4.51 3.60-5.30 - M/ mm3 * R DW 47.0 38.6-53.8 - fL * W BC 4.7 3.8-11.5 - K/uL * Thais Zavala 04/13/2024 9:16:1 9 AM >See phone encounter 2.?Fatigue, unspecified type?LAB: P-Vitamin B12 (Collection Date & Time - 04/10/2024 03:08 PM)?380* Value Reference Range V itamin B12 628 921-6715 - pg/mL * Thais Zavala 04/13/2024 9:16:1 9 AM >See phone encounter ?LAB: P-CBC With Platelet No Differential (Collection Date & Time - 04/10/2024 03:08 PM)?Normal* Value Reference Range H ematocrit (HCT) 39.4 35.2-46.4 - % * H emoglobin (Hgb) 12.6 11.5-15.5 - gm/dL * M CH 27.9 26.9-35.0 - pg * M CHC 32.0 30.4-34.8 - g/dL * M CV 87.4 79.0-99.0 - fL * P latelet Count 285 137-397 - K/cumm * R ed Blood Cell Count (RBC) 4.51 3.60-5.30 - M/ mm3 * R DW 47.0 38.6-53.8 - fL * W BC 4.7 3.8-11.5 - K/uL * Thais Zavala 04/13/2024 9:16:1 9 AM >See phone encounter ?LAB: P-Comprehensive Metabolic Panel (CMP) (Collection Date & Time - 04/10/2024 03:08 PM)?bun 21* Value Reference Range A /G Ratio 1.3 1.1-2.5 - * A lbumin 4.0 3.5-5.3 - g/dL * A lkaline Phosphatase 109 35-121 - IU/L * A LT (SGPT) 17 <5-47 - IU/L * A ST (SGOT) 10 <5-40 - IU/L * B ilirubin, Total <0.2 <0.2-1.2 - mg/dL * B UN 21 H 6-20 - mg/dL * C alcium 9.2 8.6-10.4 - mg/dL * C hloride 108 97-108 - mmol/L * C O2 23 22-32 - mmol/L * C reatinine 0.65 0.50-1.00 - mg/dL * G lucose 85 65-99 - mg/dL * P otassium 5.1 3.5-5.3 - mmol/L * S odium 141 135-145 - mmol/L * P rotein 7.0 6.0-8.3 - g/dL * e GFR by Creatinine 125 >59 - mL/min/1.73m2 * Thais Zavala 04/13/2024 9:16:1 9 AM >See phone encounter ?LAB: P-Magnesium (Collection Date & Time - 04/10/2024 03:08 PM)?Normal* Value Reference Range M agnesium 2.1 1.6-2.4 - mg/dL * Thais Zavala 04/13/2024 9:16:1 9 AM >See phone encounter ?LAB: P-Phosphorus (Collection Date & Time - 04/10/2024 03:08 PM)?Normal* Value Reference Range P hosphorus 3.6 2.5-4.5 - mg/dL * Thais Zavala 04/13/2024 9:16:1 9 AM >See phone encounter ?LAB: P-TSH reflex to FT4 (Collection Date & Time - 04/10/2024 03:08 PM)? Normal* Value Reference Range T SH reflex to FT4 0.88 0.43-5.25 - mU/L * Thais Zavala 04/13/2024 9:16:1 9 AM >See phone encounter ?LAB: P-Vitamin D 25-Hydroxy (Collection Date & Time - 04/10/2024 03:08 PM)? 17.1* Value Reference Range V itamin D 25-Hydroxy 17.1 L 30.0-100.0 - ng/mL * Thais Zavala 04/13/2024 9:16:1 9 AM >See phone encounter * Follow Up: v ia phone to report test results * Images: Billing Information: * Visit Code: 08335 Office Visit, Est Pt., Level 4. * Procedure Codes: * Electronic signature of Joselin Ocampo MD on 02/21/2025 at 10:24 AM EST Sign off status: Pending * Provider: Bruna Ocampo M.D. Date: Generated for Angela mohan/Jessica/Biaitting on: 04/23/2024 10:24 AM EST History and Physical Notes * HPI (History of Present Illness) Category Sub-Category Detail Notes Category Not es HPI Patient is here today for Pt her e to discuss options for weight loss. Pt states she has tried to diet but has not had any weight loss. Pt states she has PCOS and is having a hard time with weight gain Examination Category Sub-Category Detail Notes Category Not es Endocrinology HEENT: unremarkable Heart: RSR Lungs: clear to auscultatio n Extremities: no leg edema General Appearance: NAD Thyroid exam: no enlargement
--- OUTSIDE RECORDS SUMMARY | 2024-09-07 06:15 | XMS_ITS ---
Author Organization [facility] Address [address] [facility] [address] [place] [phone] Care Team Providers Care Shaker Tender Name Role Phone Keyon Ocampo Primary Care Provider Allergies No Known Allergies REASON FOR VISIT discuss weight loss Medications Medication SIG (Take, Route, Frequency, Duration) Notes Start Date End Date Status Wegovy 0.5 MG/0.5ML 0.5 mL Subcutaneous once weekly 09/07/2024 Active Vitamin D3 1.25 MG (70855 UT) 1 capsule Orally Once weekly 04/17/2024 Active Vital Signs Blood pressure systolic 120 mm Hg 09/08/19 25 Blood pressure diastolic 70 mm Hg 025 Heart Rate 92 /min 09/07/2024 Height 62.25 in 09/07/2024 Weight 229.4 lbs 09/07/2024 BMI 41.62 kg/m2 09/07/2024 Encounters Encounter Location Date Provider Diagnosis [facility] [address] [place] [id number] 09/07/2024 Keyon Ocampo Morbid obesity E66.0 1 and Encounter for weight management Z76.89 Assessments Encounter Date Diagnosis (ICD Code) Assessment Notes Treatment Notes Treatment Clinical Notes Section Notes 09/07/2024 Morbid obesity (ICD-10 - E66.01) 09/07/2024 Encounter for weight management (ICD-10 - Z76.89) Plan Of Treatment Medication Medication Name Sig Start Date Stop Date Notes Wegovy 0.5 MG/0.5ML 0.5 mL Subcutaneous once weekly 2024 Next Appt Details Follow Up: 2 Months, Reason: Progress Notes * VERNA MARTINEZ:2000 (24 yo F)Acc No.[id number]:09/07/2024 Progress Notes Patient: T INCHER, DEMETRIA Provider: Bruna Ocampo M.D. :2000 A ge:24 Y S ex:Female Date:09/07/2024 Address:[place], [id number] Subjective: * Chief Complaints: * 1 . Discuss weight loss. * HPI: H PI: Patient is here today for P t would like to discuss weight loss options. Pt states she took Semaglutide that she ordered online i n the past and it caused issues with her blood sugar so she stopped using it. * ROS: D ERMATOLOGY: no R kristi. [...] not smoke. Sexually active: no. * Medications: T aking Vitamin D3 1.25 MG (05720 UT) Capsule 1 capsule Orally Once weekly , Medication List reviewed and reconciled with the patient * Allergies: N .K.D.A. Objective: * Vitals: W t: 229.4, Temp: 97.8, BP: 120/70, HR: 92, Nurse: joan, Ht: 62.25, BMI:41.62. * Examination: G eneral Examination: General Appearance: N AD. Assessment: * Assessment: 1. E ncounter for weight management - Z76.89 (Primary) 2 . M orbid obesity - E66.01 Plan: * Treatment: * Procedure Codes: G 8950 PREHTN/HTN BP DOC INDCD F/U DOC, G8752 MOST RECENT SYSTOLIC BP < 140MM HG, G8754 MOST RECENT DIASTOLIC BP < 90MM HG, 1036F TOBACCO NON-USER * Follow Up: 2 Months * Images: Billing Information: * Visit Code: 64344 Office Visit, Est Pt., Level 3. * Procedure Codes: G8950 PREHTN/HTN BP DOC INDCD F/U DOC. G8752 MOST RECENT SYSTOLIC BP < 140MM HG. G8754 MOST RECENT DIASTOLIC BP < 90MM HG. 1036F TOBACCO NON-USER. * Electronic signature of Joselin Ocampo MD on 02/21/2025 at 10:24 AM EST Sign off status: Pending * Provider: Bruna Ocampo M.D. Date: 0 09/07/2024 Generated for Angela mohan/Jessica/Dwightsmitting on: 1 04/23/2024 10:24 AM EST History and Physical Notes * HPI (History of Present Illness) Category Sub-Category Detail Notes Category Not es HPI Patient is here today for Pt wou ld like to discuss weight loss options. Pt states she took Semaglutide that she ordered online in the past and it caused issues with her blood sugar so she stopped using it Examination Category Sub-Category Detail Notes Category Not es General Examination General Appearance: NAD
--- OUTSIDE RECORDS SUMMARY | 2024-11-17 06:30 | XMS_ITS ---
Author Organization [facility] Address [address] [facility] [address] [place] [phone] Care Team Providers Care Route Sales Specialist Name Role Phone Keyon Ocampo Primary Care Provider Allergies No Known Allergies REASON FOR VISIT 2 months Medications Medication SIG (Take, Route, Fr equency, Duration) Notes Start Date End Date Status Wegovy 1.7 MG/0.75ML 0.75 mL Subcutaneous weekly 0 11/17/2024 Active Problems Problem Type SNOMED Code ICD Code Onset Dates Problem Status W/U Status Risk Notes Problem Obesity (744174814) Non morbid obesity (E66.9) Active confirmed Vital Signs Blood pressure systolic 116 mm Hg 11/18/19 25 Blood pressure diastolic 70 mm Hg 025 Heart Rate 90 /min 11/17/2024 Height 62.25 in 11/17/2024 Weight 220.2 lbs 11/17/2024 BMI 39.95 kg/m2 11/17/2024 Encounters Encounter Location Date Provider Diagnosis [facility] [address] [facility] [address] [place] [phone] 11/17/2024 Keyon Ocampo Non morbid obesity E66.9 and Encounter for weight management Z76.89 Assessments Encounter Date Diagnosis (ICD Code) Assessment Notes Treatment Notes Treatment Clinical Notes Section Notes 11/17/2024 Non morbid obesity (ICD-10 - E66.9) 11/17/2024 Encounter for weight management (ICD-10 - Z76.89) Plan Of Treatment Medication Medication Name Sig Start Date Stop Date Notes Wegovy 1.7 MG/0.75ML 0.75 mL Subcutaneous weekly 5 Wegovy 1 MG/0.5ML 0.5 mL Subcutaneous once a week 10/28/19 25 Next Appt Details Follow Up: 5 or 6 Months, Re ason: Progress Notes * VIRIDIANA MARTINEZIDOB:2000 (24 yo F)Acc No.[id number]:11/17/2024 Progress Notes Patient: DEMETRIA SAINI Provider: Bruna Ocampo M.D. :2000 A ge:24 Y S ex:Female Date:11/17/2024 Address:[address] [place] [address], [facility], [id number] Subjective: * Chief Complaints: * 1 . 2 months. * HPI: H PI: 24 year old female presents with c/o Here for follow up on:?weight loss. Pt was started on Wegovy 09/07. Pt states she is doing well and has already has successful weight loss. * ROS: D ERMATOLOGY: no R kristi. [...] . * Social History: C URRENT TOBACCO USE: No S moking Status: Patient does NOT smoke. C affeine: yes, frequency:some. Home smoke detector use: yes. Past smoking status: no, Smoking status: Does not smoke. Sexually active: no. * Medications: T aking Wegovy 1 MG/0.5ML Solution Auto-injector 0.5 mL Subcutaneous once a week , Discontinued Vitamin D3 1.25 MG (32722 UT) Capsule 1 capsule Orally Once weekly * Allergies: N .K.D.A. Objective: * Vitals: W t: 220.2, Temp: 98.1, BP: 116/70, HR: 90, Nurse: kk, Ht: 62.25, BMI:39.95. * Examination: G eneral Examination: General Appearance: N AD. Assessment: * Assessment: 1. E ncounter for weight management - Z76.89 (Primary) 2 . N on morbid obesity - E66.9 Plan: * Treatment: * Procedure Codes: 1 036F TOBACCO NON-USER, 3074F SYST BP LT 130 MM HG, 3078F DIAST BP < 80 MM HG * Follow Up: 5 or 6 Months * Images: Billing Information: * Visit Code: 07053 Office Visit, Est Pt., Level 3. * Procedure Codes: 1036F TOBACCO NON-USER. 3074F SYST BP LT 130 MM HG. 3078F DIAST BP < 80 MM HG. * Electronic signature of Joselin Ocampo MD on 02/21/2025 at 10:24 AM EST Sign off status: Pending * Provider: Bruna Ocampo M.D. Date: 0 11/17/2024 Generated for Angela mohan/Jessica/Dwightsmitting on: 04/23/2024 10:24 AM EST History and Physical Notes * HPI (History of Present Illness) Category Sub-Category Detail Notes Category Not es HPI Here for follow up on: weight lo ss. Pt was started on Wegovy 09/07. Pt states she is doing well and has already has successful weight loss Examination Category Sub-Category Detail Notes Category Not es General Examination General Appearance: NAD
--- OUTSIDE RECORDS SUMMARY | 2025-02-21 10:25 | XMS_ITS | Clinical Summary ---
[facility] Address [address] [place] [address] Care Team Providers Care Java Web Architect Name Role Phone Provider, No Known Primary [...] of Binge Drinking Not on file 09/11 [place] Depression Scale Answer Date Recorded [place] Depression Scale Total 2 10/05/2021 The thought of harming myself has occurred to me . Unrecognized value 10/05/2021 Abuse Screen Answer Date Recorded [...] ve Non-Reacti ve 03/29/2021 12:40 AM EST [facility] Blood Venipuncture / Unknown 03/28/2021 4:59 PM EST 03/28/2021 5:09 PM EST Narrative [facility] - 03/29/2021 12:40 AM EST Results may be falsely decreased if patient taking Biotin. us Haydee Vidal [facility] BLOOD ORDERABLES Brigette pleitez Result [facility]
[address] [place] [address], from Last 3 Months or Most Recently Relevant to Health Maintenance Insurance [facility] MAGGIE MERCADO [place] [id number] UMR [facility] Advance Directives * CPR (Attempt to [...] Of Support Discussed With: Patient Care Teams Java Web Architect Relationship Specialty Start Date End Date Provider, No Known [facility] [place] [address] PCP - General 02/12/21
--- OUTSIDE RECORDS SUMMARY | 2025-02-21 10:25 | XMS_ITS | Patient Health Record ---
[facility] Organization [facility] Address [address] [facility] [address] [place] [id number] Care Team Providers Care Convenience Store Manager Name Role Phone Keyon Ocampo Primary Care Provider Allergies No Known Allergies Results Component Value Reference Range Notes P-Vitamin B12 Reviewed date:04/13/2024 09:16:22 AM Interpretation:380 Performing Lab: Notes/Report: Test performed by [facility] [address] [place] [address] , [address], [place] [address] Raymundo Solano MD, [facility] CLIA: [id number] Vitamin B12 894 255-4400 pg/mL P-CBC With Platelet No Diffe rential Reviewed date:04/13/2024 09:16:22 AM Interpretation: Normal Performing Lab: Notes/Report: Test performed by [facility] [address] [place] [address] , [address], [place] [address] Raymundo Solano MD, [facility] [employer] CLIA: [id number] WBC 4.7 3.8-11.5 K/uL Red Blood Cell Count (RBC) 4.51 3.60-5.30 M/mm 3 Hemoglobin (Hgb) 12.6 11.5-15.5 gm/dL Hematocrit (HCT) 39.4 35.2-46.4 % MCV 87.4 79.0-99.0 fL MCH 27.9 26.9-35.0 pg MCHC 32.0 30.4-34.8 g/dL RDW 47.0 38.6-53.8 fL Platelet Count 285 137-397 K/cumm P-Comprehensive Metabolic Pa nikki (CMP) Reviewed date:04/13/2024 09:16:22 AM Interpretation:bun 21 Performing Lab: Notes/Report: Test performed by [facility] [address] [place] [address] , [address], [place] [address] Raymundo Solano MD, [employer] CLIA: [id number] Sodium 141 135-145 mmol/L Potassium 5.1 3.5-5.3 [...] Normal Performing Lab: Notes/Report: Test performed by [facility] [address] , [address], [place] [address] Raymundo Solano MD, [employer] CLIA: [id number] Magnesium 2.1 1.6-2.4 mg/dL P-Phosphorus Reviewed date:04/13/2024 09:16:22 AM Interpretation: Normal Performing Lab: Notes/Report: Test performed by [facility] [address] [place] [address] , [address], [place] [id number] Raymundo Solano MD, [facility] [employer] CLIA: [id number] Phosphorus 3.6 2.5-4.5 mg/dL P-TSH reflex to FT4 Reviewed date:04/13/2024 09:16:22 AM Interpretation: Normal Performing Lab: Notes/Report: Test performed by [facility] [address] , [address], [place] [address] Raymundo Solano MD, [employer] CLIA: [id number] TSH reflex to FT4 0.88 0.43-5.25 mU/L P-Vitamin D 25-Hydroxy Reviewed date:04/13/2024 09:16:22 AM Interpretation:17.1 Performing Lab: Notes/Report: Test performed by [facility] [employer] [address] [place] [address] , [address], [place] [address] Raymundo Solano MD, [employer] CLIA: [id number] Vitamin D 25-Hydroxy 17.1 30.0-100.0 ng/mL Interpretation [...] W/U Status Risk Notes Problem Morbid obesity (134416536) Morbid obesity (E66.01) Active confirmed Problem Amenorrhea (05971654) Amenorrhea (N91.2) Active confirmed Problem Constipation (77353824) Constipation, unspecified constipation type (K59.00) Active confirmed Problem Body mass index 40+ - severely obese (929667246) Body mass index (BMI) of 40.1 to 44.9 in adult (Z68.41) Active confirmed Problem Obesity (718454974) Non morbid obesity (E66.9) Active confirmed Vital Signs Heart Rate 90 /min 11/17/2024 Blood pressure diastolic 70 mm Hg 11/17/2024 Height 62.25 in 11/17/2024 Blood pressure systolic 116 mm Hg 11/17/2024 Weight 220.2 lbs 11/17/2024 BMI 39.95 kg/m2 11/17/2024 Encounters Encounter Location Date Provider Diagnosis [facility] [address] [place], [place] [id number] 04/13/2024 [place] [facility] [address] [place], [place] [id number] 04/26/2024 [place] [facility] [address] [place] [id number] 09/07/2024 [place] [facility] [address] [place] [id number] 09/29/2024 [place] [facility] [address] [place] [id number] 09/29/2024 [place] [facility] [address] [place] [id number] 10/05/2024 [place] [facility] [address] [place] [id number] 10/27/2024 [place] Morbid obesity E66.0 1 [facility] [address] [place] [id number] 11/17/2024 [place] [facility] [address] [place] [id number] 12/13/2024 [place] [facility] [address] [place], [place] [id number] 04/10/2024 [place] Morbid obesity E66.0 1 and Fatigue, unspecified type R53.83 [facility] [address] [place], [place] [id number] 09/07/2024 [place] Morbid obesity E66.0 1 and Encounter for weight management Z76.89 [facility] [address] [place], [place] [id number] 11/17/2024 [place] Non morbid obesity E66.9 and Encounter for [...] Insured Coverage Start Date Coverage End Date [facility] [address] [address] [place] [address] [phone] [id number] DEMETRIA MARTINEZ Self - patient is the insured [facility] [address] [place], [place] [id number] DEMETRIA MARTINEZ Self - patient is the insured Medical (General) History Medical History History ICD Code 1999 Cystogram showed left VUR and evidence of cystitis. Renal US was WNL Polycystic ovarian syndrome Surgical History Surgery Date(Month/Year)
--- OUTSIDE RECORDS SUMMARY | 2025-02-21 10:25 | XMS_ITS | Patient Health Record ---
Author Organization [facility] Address [address] [facility] [address] [place] [address] Care Team Providers Care Personal Injury Litigation Paralegal Name Role Phone Haydee Vidal Unavailable [phone] Allergies No Known Allergies Reason For Referral No Information Medications Medication SIG (Take, Route, Fr equency, Duration) Notes Start Date End Date Status Vitamins Un known Keflex 500 MG ONE TABLET ORALLY 4 times a day; Duration: 7 days 11/04/2021 Active Problems Problem Type SNOMED Code ICD Code Onset Dates Problem Status W/U Status Risk Notes Problem Primigravida (298556967) Encounter for care in first trimester of first (Z34.01) Active confirmed Encounter for supervision of normal first , first trimester Problem Cholelithiasis without obstruction (28537355) Calculus of gallbladder without cholecystitis without obstruction (K80.20) Active confirmed Problem Gestation period, 12 weeks (60849795) 12 weeks gestation of (Z3A.12) 021 Active confirmed 12 weeks gestation of Problem Third trimester (79221986) Encounter for supervision of other normal in third trimester (Z34.83) Active confirmed Problem Amenorrhea (10311291) Absence of menses due to use of contraceptive (N91.2) 021 Active confirmed Missed period Plan Of Treatment No Information Insurance Providers Payer Name Payer Address Payer Phone Subscriber Number Group Number Insured Name Patient Relationship to Insured Coverage Start Date Coverage End Date [employer] [address] [address] [place], [place] [id number] Gregory Cordova Self - patient is the insured [facility] [address] [place] [phone] [id number] Gregory Cordova Self - patient is the insured 2 Medical (General) History Medical History History ICD Code UTIs Gallbladder issues Surgical History Surgery Date(Month/Year) None noted
--- OUTSIDE RECORDS SUMMARY | 2025-02-21 10:25 | XMS_ITS | Clinical Summary ---
Author Organization Healthcare Address [address] [place] [address] Care Team Providers Care Bench Loom Weaver Name Role Phone Unavailable Primary Care Provider [...] Tdap) 2018 1999 [facility]-Depression Screening 08/08/2024 08/09/2023 [id number] Vaccine (2 - season) 2024 03/31/2021 [facility]-Influenza [...] Reactive Non Reactive 07/12/2023 1:53 PM EDT [facility] Comment:Screening for HIV 1 & 2 antibodies, and P24 antigen is NONREACTIVE. No confirmatory testing is required. Blood Venous blood specimen / Unknown Venipuncture / Unknown 07/12/2023 10:02 AM EDT 07/12/2023 12:40 PM EDT us Venkat Nuno MD LAB BLOOD ORDERABLES Final Resu lt [facility] [address] [place] [address] * Hepatitis C Antibody - ED W/Reflex to HCV Quant PCR (07/12/2023 10:02 AM EDT) Hepatitis C Antibody Negative Negative 07/13/2023 5:06 AM EDT [facility] Blood Venous blood specimen / Unknown Venipuncture / Unknown 07/12/2023 10:02 AM EDT 07/12/2023 12:40 PM EDT Venkat Nuno MD LAB BLOOD ORDERABLES Final Resu lt [facility] [address] [place] [id number] * Pap Test (03/12/2023 1:49 PM EST) Case Report Cytology Case: [id number] Authorizing Provider: Venkat Nuno MD Collected: 03/12/2023 1349 Ordering Location: Obstetrics & Gynecology Received: 03/15/2023 1042 First Screen: Nedra Neal Pathologist: Kimberly Wilcox MD Specimen: ThinPrep Pap Test, Liquid-Based Cervical/Vaginal 03/25/2023 10:49 AM EST [facility] Interpretation NEGATIVE FOR INTRAEPITHELIAL LESION OR MALIGNANCY 03/25/2023 10:49 AM EST [facility] at 1049 EST Other Findings Inflammatory change. Fungal organisms consistent with Yamile species. 03/25/2023 10:49 AM EST [facility] Specimen Adequacy Satisfactory for evaluation; endocervical/bell sformation zone component present. Slide imaged by the ThinPrep Imaging system and selected 22 mckeon reviewed then full manual screening. 03/25/2023 10:49 AM EST [facility] Cervical cytology is a [...] results is suggested (please call Microbiology at [phone] for results). 03/25/2023 10:49 AM EST [facility] Menstrual Status Cyclic 03/25/20 10:49 AM EST [facility] History of Hysterectomy Not Applicable 03/25/2023 10:49 AM EST [facility] Contraceptive History Not Applicable 03/25/2023 10:49 AM EST [facility] Screening Type Routine Screen 2022 10:49 AM EST [facility] High Risk? No 03/25/2023 10:49 AM EST [facility] HPV Testing Requested? Request HPV Testing if ASCUS (Women 25 Years or Older) 03/25/2023 10:49 AM EST [facility] Previous Cancer History No 03/25/2023 10:49 AM EST [facility] Clinical Information Z01.419 - Encounter for annual routine gynecological examination [ICD-10-CM] 03/25/2023 10:49 AM EST [facility] Last Menstrual Period 03/11/2023 03/25/2023 10:49 AM EST [facility] Swab Vaginal and cervical cytologic material / Unknown Non-blood Collection / Unknown 03/12/2023 1:49 PM EST 03/15/2023 10:42 AM EST Venkat Nuno MD LAB CYTOLOGY ORDERABLES Final R esult Performing Organization Address City/State/[facility] Co ms Phone Number [facility] [address] [place] [address] from Last 3 Months or Most Recently Relevant to Health Maintenance Insurance [facility] MEDICAID [facility]
--- NOTE | 2025-02-21 10:30 | US_ITS ---
PROCEDURE: US TRANSVAGINAL CLINICAL INDICATION: pelvic pain/ovarian pain COMPARISON: CT CT ABDOMEN PELVIS W CON from 02/14/[address] ABDOMEN PELVIS W CON from 07/17/2024 US US TRANSVAGINAL from 10/23/2024 FINDINGS: Transvaginal sonographic images of the pelvis were obtained. UTERUS: 8.2cm x 6.0cmx 3.9 cm anteverted with a combined endometrial thickness of 4.4mm. There is an IUD within the uterine cavity in the correct position. There is a small amount of fluid in the cervical canal. LEFT OVARY: 2.0cmx2.4cmx2.8cm with a volume of 6.8ml. There is a dominant follicle measuring 2.2 cm in size. There are several smaller peripheral follicles. RIGHT OVARY: 3.8 cmx 2.1cmx1.7 cm with a volume of 6.9ml. There are multiple small follicles within the ovary giving the ovary a polycystic appearance. Both ovaries are seen and appear normal. Doppler flow to both ovaries are seen. There is no fluid in the cul-de-sac. IMPRESSION: 1. Anteverted uterus normal in shape and size. The endometrium is thin measuring 4.4 mm. 2. There is an IUD within the uterine cavity in the correct position. There is a small amount of fluid in the cervical canal. 3. Right ovary is seen and appears polycystic. The left ovary has a dominant follicle measuring 2.2 cm in size. 4. No fluid in the cul-de-sac. Dictated by: Prieto Castillo MD 02/21/2025 16:43 Prieto Castillo MD in OV 02/21/2025 16:43
== END 2025-02-21 23:59 | disposition home or self-care (01) ==
LOC: RAD 10:21
PROVIDERS: PCP Student in an Organized Health Care Education/Training Program; Visit Provider Nurse Practitioner Obstetrics & Gynecology
DX: E28.2 Polycystic ovarian syndrome (principal); N85.4 Malposition of uterus; R93.89 Abnormal findings on diagnostic imaging of other specified body structures; N83.02 Follicular cyst of left ovary; N94.89 Other specified conditions associated with female genital organs and menstrual cycle; R10.20 Pelvic and perineal pain unspecified side; Z97.5 Presence of (intrauterine) contraceptive device
CPT/HCPCS: 76830